=== PATIENT | male | born 1955 | race Caucasian/White ===

== ENCOUNTER 2019-04-03 15:31 | Inpatient (IN) | payer OTHER ==
[~2019-04-03] VITALS: Ht 175.3 cm; Wt 103.2 kg
[2019-04-03] MEDS ORDERED: VANCOMYCIN 1 GM (PMX) 250 ML IVPB STA (16:12)
[2019-04-03] MEDS ORDERED: PIPER-TAZO 3.375 GM IV (PMX) 100 ML IVPB STA (16:12)
[2019-04-03] MEDS ORDERED: morphine 4 MG/ML VIAL IV STA (16:12)
[2019-04-03] MEDS ORDERED: ERGO500013 PO (16:59)
[2019-04-03] MEDS ORDERED: TRAM50TA PO (16:59)
[2019-04-03] MEDS ORDERED: LYR75 PO (17:00)
[2019-04-03] MEDS ORDERED: ASPI-817 PO (17:00)
[2019-04-03] MEDS ORDERED: LEVO25TA6 PO (17:00)
[2019-04-03] MEDS ORDERED: GLIP5TAB13 PO (17:01)
[2019-04-03] MEDS ORDERED: PRAV20TA63 PO (17:01)
[2019-04-03] MEDS ORDERED: METF100010 PO (17:01)
[2019-04-03] MEDS ORDERED: MAGNESIUM HYDROXIDE 30ML CUP PO PRN (18:30)
[2019-04-03] MEDS ORDERED: NACL 0.9% 3 ML SYG IV SCH (18:30)
[2019-04-03] MEDS ORDERED: ALBUTEROL/IPRATROPIUM (NEB) 3 ML AMP HHN PRN (18:30)
[2019-04-03] MEDS ORDERED: hydrALAzine 20 MG INJ IV PRN (18:30)
[2019-04-03] MEDS ORDERED: ONDANSETRON 4 MG INJ IV PRN ×2 (18:30→19:00)
[2019-04-03] MEDS ORDERED: NITROGLYCERIN (SL) 0.4 MG TAB SL PRN (18:30)
[2019-04-03] MEDS ORDERED: HYDROCODONE/APAP (5/325) TAB PO PRN (18:30)
[2019-04-03] MEDS ORDERED: LORAZEPAM 2 MG INJ IV PRN (18:30)
[2019-04-03] MEDS ORDERED: ACETAMINOPHEN 325 MG TAB PO PRN ×2 (18:30→19:00)
[2019-04-03] MEDS ORDERED: VANCOMYCIN IV PER PHARMACY XX SCH (18:30)
[2019-04-03] MEDS ORDERED: DOCUSATE SODIUM 100 MG CAP PO PRN (18:30)
--- NOTE | 2019-04-03 18:47 | ERD ---
ER Documentation Chief Complaint Chief Complaint LEFT TOE PAIN, HX OF DM, SENT BY OSMANI HPI 63-year-old male sent by his bulldozer operator for left foot wound that is worsening. He is having worsening severe pain that he describes as throbbing, 9 out of 10, worse with ambulation. The pain is mostly in the lateral aspect of the left foot but radiates across the foot. No associated fevers or chills. No other associated symptoms. He has had wounds for quite a long time that has been cared for by his bulldozer operator, however now he is having some discoloration that is new. ROS All systems reviewed and are negative except as per history of present illness. Medications Home Meds Reported Medications Metformin Hcl* (Metformin Hcl*) 1,000 Mg Tablet, 1000 MG PO WITH BREAKFAST DINNE, #60 TAB 04/03/19 Glipizide* (Glipizide*) 5 Mg Tablet, 5 MG PO AC BREAKFAST DINNER, TAB 04/03/19 Pravastatin Sodium* (Pravastatin Sodium*) 20 Mg Tablet, 20 MG PO HS, TAB 04/03/19 Aspirin* (Aspirin* EC) 81 Mg Tablet.dr, 81 MG PO DAILY, TAB 04/03/19 Levothyroxine Sodium* (Levothyroxine Sodium*) 25 Mcg Tablet, 25 MCG PO BEFORE BREAKFAST, #30 TAB 04/03/19 Pregabalin* (Lyrica*) 75 Mg Capsule, 75 MG PO TID, CAP 04/03/19 Ergocalciferol (Vitamin D2) (VITAMIN D2) 50,000 Unit Capsule, 67220 UNIT PO Q MON, CAP 04/03/19 Tramadol Hcl* (Ultram*) 50 Mg Tablet, 50 MG PO BID PRN for PAIN, TAB 04/03/19 Allergies Allergies: Coded Allergies: No Known Allergy (Unverified , 04/03/19) PMhx/Soc History of Surgery: No Anesthesia Reaction: No Hx Neurological Disorder: No Hx Respiratory Disorders: No Hx Cardiac Disorders: No Hx Psychiatric Problems: No Hx Miscellaneous Medical Probl: Yes (Diabetes, chronic ulcers of the left foot) Hx Alcohol Use: No Hx Substance Use: No Hx Tobacco Use: No Smoking Status: Never smoker FmHx Family History: diabetes Physical Exam Vitals Vital Signs Date Temp Pulse Resp B/P (MAP) Pulse Ox O2 O2 Flow FiO2 Time Delivery Rate 04/03/19 75 18 156/84 99 Room Air 18:27 (108) 04/03/19 97.8 87 23 158/80 98 Room Air 16:11 (106) 04/03/19 97.5 82 18 160/73 98 15:48 (102) Physical Exam Const: No acute distress, nontoxic Head: Atraumatic Eyes: Normal Conjunctiva ENT: Normal External Ears, Nose and Mouth. Neck: Full range of motion. No meningismus. Resp: Clear to auscultation bilaterally Cardio: Regular rate and rhythm, no murmurs Abd: Soft, non tender, non distended. Normal bowel sounds Skin: No petechiae or rashes Back: No midline or flank tenderness Ext: Ulcer of the distal big left toe as well as lateral fifth toe. Around the latter wound, there is some darkening and surrounding erythema. Nails are intact. Difficult to palpate DP and PT pulses bilaterally. Neur: Awake and alert, normal range of motion of bilateral lower extremities at all joints. No joint swelling. Normal dorsi and plantar flexion. Psych: Normal Mood and Affect Result Diagram: 04/03/19 1641 04/03/19 1638 Results 24 hrs Laboratory Tests Test 04/03/19 16:38 04/03/19 16:41 Erythrocyte Sedimentation Rate 15 mm/Hr Prothrombin Time 11.6 Sec Prothrombin Time Ratio 0.9 INR International Normalized Ratio 0.84 Activated Partial Thromboplast Time 33.1 Sec Sodium Level 139 mmol/L Potassium Level 4.3 mmol/L Chloride Level 103 mmol/L Carbon Dioxide Level 26 mmol/L Anion Gap 10 Blood Urea Nitrogen 27 mg/dl Creatinine 0.92 mg/dl Est Glomerular Filtrat Rate mL/min > 60 mL/min Glucose Level 235 mg/dl Calcium Level 9.0 mg/dl Total Bilirubin 0.3 mg/dl Direct Bilirubin 0.00 mg/dl Indirect Bilirubin 0.3 mg/dl Aspartate Amino Transf (AST/SGOT) 22 IU/L Alanine Aminotransferase (ALT/SGPT) 25 IU/L Alkaline Phosphatase 71 IU/L C-Reactive Protein 1.1 mg/dl Total Protein 7.6 g/dl Albumin 4.2 g/dl Globulin 3.40 g/dl Albumin/Globulin Ratio 1.23 White Blood Count 7.6 10^3/ul Red Blood Count 4.83 10^6/ul Hemoglobin 14.0 g/dl Hematocrit 43.2 % Mean Corpuscular Volume 89.4 fl Mean Corpuscular Hemoglobin 29.0 pg Mean Corpuscular Hemoglobin Concent 32.4 g/dl Red Cell Distribution Width 12.6 % Platelet Count 259 10^3/UL Mean Platelet Volume 11.6 fl Immature Granulocytes % 0.300 % Neutrophils % 73.4 % Lymphocytes % 17.0 % Monocytes % 7.6 % Eosinophils % 1.2 % Basophils % 0.5 % Nucleated Red Blood Cells % 0.0 /100WBC Immature Granulocytes # 0.020 10^3/ul Neutrophils # 5.6 10^3/ul Lymphocytes # 1.3 10^3/ul Monocytes # 0.6 10^3/ul Eosinophils # 0.1 10^3/ul Basophils # 0.0 10^3/ul Nucleated Red Blood Cells # 0.0 10^3/ul Current Medications Medications Dose Sig/Latoya Start Time Status Last (Trade) Ordered Route PRN Stop Time Admin Dose Reason Admin Morphine 4 mg ONCE STAT 04/03/19 DC 04/03/19 Sulfate IV 16:12 16:41 (morphine) 04/03/19 16:15 Vancomycin 250 ml @ ONCE STAT 04/03/19 DC 04/03/19 HCl 125 mls/hr IVPB 16:12 17:08 04/03/19 18:11 Piperacillin 100 ml @ ONCE STAT 04/03/19 DC 04/03/19 Sod/ 200 mls/hr IVPB 16:12 16:41 Tazobactam 04/03/19 16:41 Sod IV Flush 3 ml PER 04/03/19 UNV (NS 3 ml) PROTOCOL IV 18:30 Ondansetron 4 mg Q6H PRN 04/03/19 UNV HCl (Zofran IV 18:30 Inj) NAUSEA/VOMITI NG 650 mg Q6H PRN 04/03/19 UNV Acetaminophen PO .PAIN 1-3 18:30 (Tylenol OR TEMP Tab) 1 tab Q6H PRN 04/03/19 UNV Acetaminophen PO .MOD PAIN 18:30 / 4-6 Hydrocodone Bitart ([place] (5/325)) Morphine 2 mg Q4H PRN 04/03/19 UNV Sulfate IV .SEVERE 18:30 (morphine) PAIN 7-10 Docusate 100 mg Q12H PRN 04/03/19 UNV Sodium PO 18:30 (Colace) .CONSTIPATION Magnesium 30 ml DAILY PRN 04/03/19 UNV Hydroxide PO 18:30 (Milk Of Mag) .CONSTIPATION 40 mg DAILY@06 04/04/19 UNV Pantoprazole PO 06:00 (Protonix Tab) Heparin 5,000 unit Q12 SC 04/03/19 UNV Sodium 21:00 (Porcine) (Heparin (5000 Units/1ml)) Sodium 1,000 ml @ [id number] IV 04/03/19 UNV Chloride 75 mls/hr 18:27 Lorazepam 0.5 mg Q6H PRN 04/03/19 UNV (Ativan) IV ANXIETY 18:30 Albuterol/ 3 ml Q4H RESP 04/03/19 UNV Ipratropium THERAPY PRN 18:30 (Duoneb) HHN SHORTNESS OF BREATH Piperacillin 100 ml @ Q6 IVPB 04/04/19 UNV Sod/ 200 mls/hr 00:00 Tazobactam Sod Vancomycin VANCOMYCIN NOTE XX 04/03/19 UNV HCl (Vanco PER PHARMACY 18:30 Iv Per Pharmacy) Hydralazine 10 mg Q6H PRN 04/03/19 UNV HCl IV ELEVATED 18:30 (Apresoline) BLOOD PRESSURE 1 tab Q5M PRN 04/03/19 UNV Nitroglycerin SL ANGINA 18:30 (Nitroglyceri n (Sl Tab) 0.4 Mg) Discontinue ONCE ONCE 04/03/19 UNV Miscellaneous current oral XX 18:30 sulfonylur... 04/03/19 18:31 Information (* Miscellaneous Pharmacy Order) Diagnostic 1 ea 02 XX 04/04/19 UNV Test (Pha) 02:00 (Accu-Chek) ONCE ONCE 04/03/19 UNV Miscellaneous HYPOGLYCEMIA XX 18:30 PROTOCOL 04/03/19 18:31 Information w... (* Miscellaneous Pharmacy Order) Insulin NOVOLOG Q4 SC 04/03/19 UNV Aspart *MILD* 21:00 (Novolog ALGORI... Insulin Pen) Discontinue ONCE ONCE 04/03/19 UNV Miscellaneous all previ... XX 18:30 04/03/19 18:31 Information (* Miscellaneous Pharmacy Order) 25 mcg BEFORE 04/04/19 UNV Levothyroxine BREAKFAST 07:00 Sodium PO (Synthroid) Pregabalin 75 mg TID PO 04/03/19 UNV (Lyrica) 21:00 20 mg HS PO 04/03/19 UNV Miscellaneous 21:00 Information Ondansetron 4 mg BRIDGE ORDER 04/03/19 HCl (Zofran PRN IV 19:00 Inj) NAUSEA/VOMITI 04/04/19 18:59 NG 650 mg ER BRIDGE 04/03/19 Acetaminophen PRN PO 19:00 (Tylenol .MILD PAIN 04/04/19 18:59 Tab) 1-3 OR TEMP Procedures/MDM EMERGENT LABS AND DIAGNOSTIC STUDIES: Lab Results above were reviewed and interpreted by me. CBC: no anemia or evidence of infection BMP: Hyperglycemic without evidence of acidosis. no e/o clinically significant electrolyte abnormality severe acidosis, alkalosis, renal failure, diabetic ketoacidosis Radiology Results as interpreted by Radiology below were reviewed by Armen Michael MD: X-ray left foot shows no acute abnormalities Arterial ultrasound left lower extremity shows disease in arteries Initial Nursing notes reviewed. Previous Medical Records requested via the Electronic Health Record. EMERGENCY DEPARTMENT COURSE / MEDICAL DECISION MAKING: Patient is presenting with worsening pain in the left foot associated with his ulcers. He has no signs or symptoms of sepsis. Labs are notable for hyperglycemia and poorly controlled diabetes. There is a concern of possible cellulitis and osteomyelitis. At this time, there is no evidence of ischemic limb. X-ray did not show any bony involvement. However the patient will likely need an MRI per his bulldozer operator. Patient has been started on IV antibiotics and will be admitted for further work-up for osteomyelitis. Accepting Care Team: Current data and ongoing care discussed. Time: Time of admission Primary Provider: Dr. Jimenez Consulting: Dr. OSMANI Noyola Outstanding Data: none Departure Diagnosis: Primary Impression: Infected ulcer of skin Non-pressure ulcer stage: limited to breakdown of skin Qualified Codes: L98.491 - Non-pressure chronic ulcer of skin of other sites limited to breakdown of skin; L08.9 - Local infection of the skin and subcutaneous tissue, unspecified Additional Impression: Foot pain, left Condition: Fair YAQUELIN MICHAEL MD April 03, 2019 18:47
--- NOTE | 2019-04-03 19:48 | HP ---
DATE OF ADMISSION: 04/03/2019 IDENTIFICATION: This is a 63-year-old male. CHIEF COMPLAINT: Left foot and toe pain, sent in by parks and recreation managerdesire. HISTORY OF PRESENT ILLNESS: A 63-year-old male with past medical history of prior right foot surgery and diabetes who has been complaining of left foot pain off and on for the last 3 months, getting sl ightly worse. He has also had radiculopathy in and around the left lower extremity. He has been not icing some drainage from the foot area and noticed ulcers on the 1st and 5th digits of the left foot that have not been healing over the last few weeks. No fevers or chills. No chest pain. No shortne ss of breath. No upper or lower GI bleeding. No diarrhea or constipation. No nausea or vomiting. Apparently his parks and recreation manager has been seeing him for quite some time caring for his wounds, but they hav e been getting worse, so he was told to come in to the ER today. When he arrived, he was found with normal white blood cell count and no fevers and an x-ray was performed that showed no radiographic ev idence of osteomyelitis, but MRI may be obtained if there is specific concern for osteomyelitis. The re are also degenerative changes as above and vascular calcifications. PAST MEDICAL HISTORY: As above. ALLERGIES: NO KNOWN DRUG ALLERGIES. HOME MEDICATIONS: 1. Pravastatin 20 mg at bedtime. 2. Aspirin 81 mg daily. 3. Lyrica 75 mg t.i.d. 4. Ultram 50 mg p.o. b.i.d. p.r.n. 5. Glipizide 5 mg b.i.d. 6. Levothyroxine 25 mcg every morning. 7. Metformin 1000 mg b.i.d. 8. Vitamin D2 50,000 units q. weekly. PAST SURGICAL HISTORY: He has had a right foot surgery in the past, some kind of stomach surgery in the past and a right arm surgery in the past. SOCIAL HISTORY: Negative for smoking or drinking, or IV drug abuse. FAMILY HISTORY: Positive for diabetes. PHYSICAL EXAMINATION: VITAL SIGNS: Today, T-max 97.8, pulse 75 to 87, respirations 18 to 23, blood pressure is 156 to 160 systolic over 84 to 73 diastolic, satting at 98% room air. GENERAL: The patient is lying in bed, family members at the bedside. No acute distress. HEENT: Pupils are equal, round, reactive to light. Extraocular muscles intact. NECK: Supple, no thyromegaly. LUNGS: Clear to auscultation bilaterally. CARDIOVASCULAR: S1, S2 heard. No rubs or gallops. ABDOMEN: Soft, nontender, nondistended. Normal bowel sounds. No rebound or guarding. MUSCULOSKELETAL: Left foot 1st digit, there is ulcer noted there as well as on the fifth digit. The re is some darkening and surrounding erythema around both ulcers. There is no significant discharge noted. No bleeding noted. There is some dorsalis pedis and posterior tibial pulses are slightly wea k. The rest of the musculoskeletal exam is normal. NEUROLOGIC: No focal deficits. LABORATORIES: CBC is completely normal. Basic metabolic panel is normal except the BUN is 27 and th e serum sugar is 235. Coags are normal. We mentioned the imaging studies. ASSESSMENT AND PLAN: A 63-year-old male coming in with worsening left foot pain and ulcers noted on the 1st and 5th digits of the left foot, sent in by parks and recreation manager. 1. Left foot diabetic ulcers. Again, we will admit the patient, put him on broad-spectrum antibioti cs. We will get an MRI of the foot to further evaluate and rule out any ulcer versus other potential lesions inside the foot as far as infections or other. We will consult podiatry team as well, Dr. Sai dwyer. Check TSH, A1c, lipid panel. Low dose IV fluids. Consider PT consult as well. 2. Diabetes. Follow up A1c. Put patient on sliding scale insulin. 3. Left foot pain, see above. Also, continue patient's Lyrica for what looks like possible diabetic radiculopathy and also be on Wayan and morphine p.r.n. 4. Gastrointestinal prophylaxis, PPI. 5. Deep venous thrombosis prophylaxis, heparin subcutaneously. Dictated By: RIP PORRAS Conf#: [id number] DID#: [id number]
[2019-04-03] MEDS ORDERED: GLUCAGON 1 MG INJ IM PRN (21:30)
[2019-04-03] MEDS ORDERED: GLUCOSE GEL 15 GRAM TUBE PO PRN ×2 (21:30)
[2019-04-03] MEDS ORDERED: GLUCOSE GEL 15 GRAM TUBE BUCCAL PRN (21:30)
[2019-04-03] MEDS ORDERED: DEXTROSE 50% 50 ML SYRINGE IV PRN ×2 (21:30)
[2019-04-03 22:53] VITALS: BP 175/89; PULSE 80; RESP 18
[2019-04-03 23:03] VITALS: Ht 175.3 cm; Wt 103.2 kg
[2019-04-04] MEDS: morphine 2 MG INJ IV PRN ×3 (00:45→20:51)
[2019-04-04] MEDS: PIPER-TAZO 3.375 GM IV (PMX) 100 ML IVPB SCH ×3 (00:48→13:22)
[2019-04-04] MEDS: PREGABALIN 75 MG CAP PO SCH ×4 (00:50→20:44)
[2019-04-04] MEDS: SOD CHLORIDE 0.45% 1,000 ML IV SCH ×3 (00:50→23:31)
[2019-04-04] MEDS: ATORVASTATIN 10 MG TAB PO SCH ×2 (00:50→20:44)
[2019-04-04] MEDS: HEPARIN 5,000 UNIT/1 ML VIAL SC SCH ×3 (00:50→20:46)
[2019-04-04] MEDS: INSULIN ASPART [NOVOLOG] 3 ML PEN SC SCH ×3 (01:00→08:44)
[2019-04-04] MEDS: ACCU-CHEK XX SCH (01:01)
[2019-04-04 01:30] VITALS: BP 139/78; PULSE 79; RESP 18
[2019-04-04] MEDS: VANCOMYCIN HCL 1.5 GM in SOD CHLORIDE 0.9% 250 ML IVPB SCH ×2 (01:58→15:50)
[2019-04-04] MEDS: LEVOTHYROXINE 25 MCG TAB PO SCH (06:28)
[2019-04-04] MEDS: PANTOPRAZOLE (EC) 40 MG TAB PO SCH (06:28)
[2019-04-04 07:42] VITALS: BP 149/82; PULSE 85; RESP 16
[2019-04-04] MEDS: COLLAGENASE 5 GM (UD JAR) TOP SCH (08:31)
--- NOTE | 2019-04-04 11:47 | PN ---
Date/Time of Note Date/Time of Note DATE: 04/04/19 TIME: 11:42 Assessment/Plan VTE Prophylaxis Risk score (from Ns)>0 risk: 3 SCD applied (from Ns): No SCD contraindicated: other Pharmacological prophylaxis: heparin Lines/Catheters IV C[facility]ter Type (from [facility] Peripheral IV Assessment/Plan Hospital Course S: O: VS- see below PE: GENERAL: lying in bed, no acute distress. HEENT: Pupils are equal, round, reactive to light. Extraocular muscles intact. NECK: Supple, no thyromegaly. LUNGS: Clear to auscultation bilaterally. CARDIOVASCULAR: S1, S2 heard. No rubs or gallops. ABDOMEN: Soft, nontender, nondistended. Normal bowel sounds. No rebound or guarding. MUSCULOSKELETAL: Left foot 1st digit, there is ulcer noted there as well as on the fifth digit. There is some darkening and surrounding erythema around both ulcers. There is no significant discharge noted. No bleeding noted. There is some dorsalis pedis and posterior tibial pulses are slightly weak. The rest of the musculoskeletal exam is normal. NEUROLOGIC: No focal deficits. MRI left foot: IMPRESSION: 1. Mild marrow edema and mild T1 marrow replacement of the first distal phalanx and fifth toe may be reactive or reflect early/mild osteomyelitis. Left lower extremity arterial Doppler study: IMPRESSION: Mildly elevated peak systolic velocities in the distal superficial femoral and popliteal arteries, suggestive of 25-50% stenoses. Monophasic waveforms in the posterior tibial and dorsalis pedis arteries, indicative of inflow disease due to upstream stenosis. ASSESSMENT AND PLAN: 63-year-old male coming in with worsening left foot pain and ulcers noted on the 1st and 5th digits of the left foot, sent in by dialysis chief equipment technician. 1. Left foot diabetic ulcers-MRI and arterial Doppler study results reviewed. -Continue broad-spectrum antibiotics -patient will likely need 6 to 8 weeks of IV antibiotics given MRI results -We will order for PICC placement and obtain ID consult -Follow further recommendations from consult podiatry team as well, Dr. Orozco. -Continue low dose IV fluids. Consider PT consult as well. 2. Diabetes. A1c-6.9. -Monitor, continue sliding scale insulin. 3. Left foot pain- see above. - continue patient's Lyrica for what looks like possible diabetic ra diculopathy and also [place] and morphine p.r.n. 4. Gastrointestinal prophylaxis, PPI. 5. Deep venous thrombosis prophylaxis, heparin subcutaneously. Result Diagram: 04/04/19 0459 04/04/19 0459 Results 24hrs Laboratory Tests Test 04/03/19 16:38 04/03/19 16:41 04/03/19 20:18 04/03/19 22:16 Erythrocyte 15 Sedimentation Rate Prothrombin Time 11.6 L 11.7 L Prothrombin Time 0.9 0.9 Ratio INR International 0.84 0.85 Normalized Ratio Activated 33.1 31.0 Partial Thromboplast Time Sodium Level 139 Potassium Level 4.3 Chloride Level 103 Carbon Dioxide Level 26 Anion Gap 10 Blood Urea Nitrogen 27 H Creatinine 0.92 Est Glomerular > 60 Filtrat Rate mL/min Glucose Level 235 H Calcium Level 9.0 Total Bilirubin 0.3 Direct Bilirubin 0.00 Indirect Bilirubin 0.3 Aspartate Amino 22 Transf (AST/SGOT) Alanine 25 Aminotransferase (AL T/SGPT) Alkaline Phosphatase 71 C-Reactive Protein 1.1 H Total Protein 7.6 Albumin 4.2 Globulin 3.40 H Albumin/Globulin 1.23 Ratio Free Thyroxine 1.16 White Blood Count 7.6 Red Blood Count 4.83 Hemoglobin 14.0 Hematocrit 43.2 Mean Corpuscular 89.4 Volume Mean Corpuscular 29.0 Hemoglobin Mean Corpuscular 32.4 Hemoglobin Concent Red Cell 12.6 Distribution Width Platelet Count 259 Mean Platelet Volume 11.6 H Immature 0.300 Granulocytes % Neutrophils % 73.4 Lymphocytes % 17.0 Monocytes % 7.6 Eosinophils % 1.2 Basophils % 0.5 Nucleated Red Blood 0.0 Cells % Immature 0.020 Granulocytes # Neutrophils # 5.6 Lymphocytes # 1.3 Monocytes # 0.6 Eosinophils # 0.1 Basophils # 0.0 Nucleated Red Blood 0.0 Cells # Bedside Glucose 190 Test 04/04/19 01:00 04/04/19 04:54 04/04/19 04:59 04/04/19 08:44 Bedside Glucose 102 77 90 White Blood Count 7.2 Red Blood Count 4.47 L Hemoglobin 13.1 L Hematocrit 39.6 L Mean Corpuscular 88.6 Volume Mean Corpuscular 29.3 Hemoglobin Mean Corpuscular 33.1 Hemoglobin Concent Red Cell 12.4 Distribution Width Platelet Count 253 Mean Platelet Volume 11.5 H Immature 0.300 Granulocytes % Neutrophils % 64.3 Lymphocytes % 23.2 Monocytes % 10.0 Eosinophils % 1.5 Basophils % 0.7 Nucleated Red Blood 0.0 Cells % Immature 0.020 Granulocytes # Neutrophils # 4.6 Lymphocytes # 1.7 Monocytes # 0.7 Eosinophils # 0.1 Basophils # 0.1 Nucleated Red Blood 0.0 Cells # Sodium Level 139 Potassium Level 3.9 Chloride Level 107 Carbon Dioxide Level 26 Anion Gap 6 Blood Urea Nitrogen 22 H Creatinine 0.81 Est Glomerular > 60 Filtrat Rate mL/min Glucose Level 83 # Hemoglobin A1c 6.9 H Calcium Level 9.1 Phosphorus Level 2.8 Magnesium Level 1.9 Triglycerides Level 53 Cholesterol Level 115 LDL Cholesterol, 63 Calculated HDL Cholesterol 41 Cholesterol/HDL 2.8 Ratio Thyroid Stimulating 4.290 Hormone (TSH) Exam/Review of Systems Exam Vitals Vital Signs Date Temp Pulse Resp B/P (MAP) Pulse Ox O2 O2 Flow FiO2 Time Delivery Rate 04/04/19 98.5 85 16 149/82 97 07:42 (104) 04/03/19 Room Air 21:05 Intake and Output 04/03/19 04/03/19 04/04/19 1515:00 23:00 07:00 IntakeIntake Total 550 ml BalanceBalance 550 ml Results Results 24hrs Laboratory Tests Test 04/03/19 16:38 04/03/19 16:41 04/03/19 20:18 04/03/19 22:16 Erythrocyte 15 Sedimentation Rate Prothrombin Time 11.6 L 11.7 L Prothrombin Time 0.9 0.9 Ratio INR International 0.84 0.85 Normalized Ratio Activated 33.1 31.0 Partial Thromboplast Time Sodium Level 139 Potassium Level 4.3 Chloride Level 103 Carbon Dioxide Level 26 Anion Gap 10 Blood Urea Nitrogen 27 H Creatinine 0.92 Est Glomerular > 60 Filtrat Rate mL/min Glucose Level 235 H Calcium Level 9.0 Total Bilirubin 0.3 Direct Bilirubin 0.00 Indirect Bilirubin 0.3 Aspartate Amino 22 Transf (AST/SGOT) Alanine 25 Aminotransferase (AL T/SGPT) Alkaline Phosphatase 71 C-Reactive Protein 1.1 H Total Protein 7.6 Albumin 4.2 Globulin 3.40 H Albumin/Globulin 1.23 Ratio Free Thyroxine 1.16 White Blood Count 7.6 Red Blood Count 4.83 Hemoglobin 14.0 Hematocrit 43.2 Mean Corpuscular 89.4 Volume Mean Corpuscular 29.0 Hemoglobin Mean Corpuscular 32.4 Hemoglobin Concent Red Cell 12.6 Distribution Width Platelet Count 259 Mean Platelet Volume 11.6 H Immature 0.300 Granulocytes % Neutrophils % 73.4 Lymphocytes % 17.0 Monocytes % 7.6 Eosinophils % 1.2 Basophils % 0.5 Nucleated Red Blood 0.0 Cells % Immature 0.020 Granulocytes # Neutrophils # 5.6 Lymphocytes # 1.3 Monocytes # 0.6 Eosinophils # 0.1 Basophils # 0.0 Nucleated Red Blood 0.0 Cells # Bedside Glucose 190 Test 04/04/19 01:00 04/04/19 04:54 04/04/19 04:59 04/04/19 08:44 Bedside Glucose 102 77 90 White Blood Count 7.2 Red Blood Count 4.47 L Hemoglobin 13.1 L Hematocrit 39.6 L Mean Corpuscular 88.6 Volume Mean Corpuscular 29.3 Hemoglobin Mean Corpuscular 33.1 Hemoglobin Concent Red Cell 12.4 Distribution Width Platelet Count 253 Mean Platelet Volume 11.5 H Immature 0.300 Granulocytes % Neutrophils % 64.3 Lymphocytes % 23.2 Monocytes % 10.0 Eosinophils % 1.5 Basophils % 0.7 Nucleated Red Blood 0.0 Cells % Immature 0.020 Granulocytes # Neutrophils # 4.6 Lymphocytes # 1.7 Monocytes # 0.7 Eosinophils # 0.1 Basophils # 0.1 Nucleated Red Blood 0.0 Cells # Sodium Level 139 Potassium Level 3.9 Chloride Level 107 Carbon Dioxide Level 26 Anion Gap 6 Blood Urea Nitrogen 22 H Creatinine 0.81 Est Glomerular > 60 Filtrat Rate mL/min Glucose Level 83 # Hemoglobin A1c 6.9 H Calcium Level 9.1 Phosphorus Level 2.8 Magnesium Level 1.9 Triglycerides Level 53 Cholesterol Level 115 LDL Cholesterol, 63 Calculated HDL Cholesterol 41 Cholesterol/HDL 2.8 Ratio Thyroid Stimulating 4.290 Hormone (TSH) Medications Medication Current Medications IV Flush (NS 3 ml) 3 ml PER PROTOCOL IV ; Start 04/03/19 at 18:30 Ondansetron HCl (Zofran Inj) 4 mg Q6H PRN IV NAUSEA/VOMITING; Start 04/03/19 at 18:30 Acetaminophen (Tylenol Tab) 650 mg Q6H PRN PO .PAIN 1-3 OR TEMP; Start 04/03/19 at 18:30 Acetaminophen/ Hydrocodone Bitart ([place] (5/325)) 1 tab Q6H PRN PO .MOD PAIN 4- 6; Start 04/03/19 at 18:30 Morphine Sulfate (morphine) 2 mg Q4H PRN IV .SEVERE PAIN 7-10 Last administered on 04/04/19at 08:39; Admin Dose 2 MG; Start 04/03/19 at 18:30 Docusate Sodium (Colace) 100 mg Q12H PRN PO .CONSTIPATION; Start 04/03/19 at 18:30 Magnesium Hydroxide (Milk Of Mag) 30 ml DAILY PRN PO .CONSTIPATION; Start 04/03/19 at 18:30 Pantoprazole (Protonix Tab) 40 mg DAILY@06 PO Last administered on 04/04/19at 06:28; Admin Dose 40 MG; Start 04/04/19 at 06:00 Heparin Sodium (Porcine) (Heparin (5000 Units/1ml)) 5,000 unit Q12 SC Last administered on 04/04/19at 08:32; Admin Dose 5,000 UNIT; Start 04/03/19 at 21:00 Sodium Chloride 1,000 ml @ 75 mls/hr [id number] IV Last administered on 04/04/19at 00:50; Admin Dose 75 MLS/HR; Start 04/03/19 at 23:00 Lorazepam (Ativan) 0.5 mg Q6H PRN IV ANXIETY; Start 04/03/19 at 18:30 Albuterol/ Ipratropium (Duoneb) 3 ml Q4H RESP THERAPY PRN HHN SHORTNESS OF BREATH; Start 04/03/19 at 18:30 Piperacillin Sod/ Tazobactam Sod 100 ml @ 200 mls/hr Q6 IVPB Last administered on 04/04/19at 06:29; Admin Dose 200 MLS/HR; Start 04/04/19 at 00:00 Vancomycin HCl (Vanco Iv Per Pharmacy) VANCOMYCIN PER PHARMACY NOTE XX ; Start 04/03/19 at 18:30 Hydralazine HCl (Apresoline) 10 mg Q6H PRN IV ELEVATED BLOOD PRESSURE; Start 04/03/19 at 18:30 Nitroglycerin (Nitroglycerin (Sl Tab) 0.4 Mg) 1 tab Q5M PRN SL ANGINA; Start 04/03/19 at 18:30 Diagnostic Test (Pha) (Accu-Chek) 1 ea 02 XX ; Start 04/04/19 at 02:00 Insulin Aspart (Novolog Insulin Pen) NOVOLOG *MILD* ALGORI... Q4 SC ; Start 04/04/19 at 01:00 Levothyroxine Sodium (Synthroid) 25 mcg BEFORE BREAKFAST PO Last administered on 04/04/19at 06:28; Admin Dose 25 MCG; Start 04/04/19 at 07:00 Pregabalin (Lyrica) 75 mg TID PO Last administered on 04/04/19at 08:31; Admin Dose 75 MG; Start 04/03/19 at 21:00 Atorvastatin Calcium (Lipitor) 10 mg DAILY@21 PO ; Start 04/03/19 at 23:00 Miscellaneous Information 1 ea NOTE XX ; Start 04/03/19 at 21:30 Glucose (Glutose) 15 gm Q15M PRN PO DECREASED GLUCOSE; Start 04/03/19 at 21:30 Glucose (Glutose) 22.5 gm Q15M PRN PO DECREASED GLUCOSE; Start 04/03/19 at 21:30 Dextrose (D50w Syringe) 25 ml Q15M PRN IV DECREASED GLUCOSE; Start 04/03/19 at 21:30 Dextrose (D50w Syringe) 50 ml Q15M PRN IV DECREASED GLUCOSE; Start 04/03/19 at 21:30 Glucagon (Glucagen) 1 mg Q15M PRN IM DECREASED GLUCOSE; Start 04/03/19 at 21:30 Glucose (Glutose) 15 gm Q15M PRN BUCCAL DECREASED GLUCOSE; Start 04/03/19 at 21:30 Vancomycin HCl 1.5 gm/Sodium Chloride 250 ml @ 83.333 mls/ hr Q12H IVPB Last administered on 04/04/19at 01:58; Admin Dose 83.333 MLS/HR; Start 04/04/19 at 01:00 Collagenase (Santyl) 1 applic DAILY TOP Last administered on 04/04/19at 08:31; Admin Dose 1 APPLIC; Start 04/04/19 at 09:00 RIP ISRAEL April 04, 2019 11:47
[2019-04-04] MEDS ORDERED: LIDOCAINE 1% (MPF) 5 ML VIAL SC ONE (12:00)
[2019-04-04] MEDS ORDERED: INSULIN ASPART [NOVOLOG] 3 ML PEN SC SCH ×2 (13:00)
[2019-04-04] MEDS: Insulin NOVOLOG SS MILD Algorithm (SS with meals and bedtime) SC SCH ×3 (13:00→20:46)
[2019-04-04 13:50] VITALS: BP 161/84; PULSE 80; RESP 16
[2019-04-04] MEDS: CEFTRIAXONE 1 GM/50 ML (PMX) 50 ML IVPB SCH (16:22)
--- NOTE | 2019-04-04 19:45 | CONS ---
DATE OF ADMISSION: 04/04/2019 DATE OF CONSULTATION: 04/04/2019 REQUESTING PHYSICIAN: Dr. Rip Israel HISTORY OF PRESENT ILLNESS: This is a well-nourished, well-developed, elderly man with a history of diabetes, who was admitted with ongoing left foot pain for the last 3 months with a concern for osteomyelitis. The patient came with a temperature of 97.5, pulse 82, respirations 18, blood pressure 160/73, saturation 98% on room air; WBC 7.6, platelets 259, no shift, no bands; BUN 27, creatinine 0.92, glucose 235; C-reactive protein was 1.1, hemoglobin A1c 6.9. MRI of the foot revealed mild marrow edema and mild T1 marrow replacement over the 1st distal phalanx and 5th toe, maybe reactive or reflect only slight mild osteomyelitis. Extremity arterial study revealed 25% to 50% stenosis. Please see full report in the chart. THE PATIENT HAS NO ALLERGIES. He was started on vancomycin and Zosyn. PAST MEDICAL HISTORY: Significant for diabetes, hypothyroidism. SOCIAL HISTORY: The patient denies smoking, alcohol or illicits. REVIEW OF SYSTEMS: As per History of Present Illness. No fevers, chills, nausea, vomiting or diarrhea at home. PHYSICAL EXAMINATION: GENERAL: This is a well-nourished, well-developed, elderly man who is awake, in no distress. HEENT: Head atraumatic, normocephalic. Sclerae anicteric. NECK: Supple. CHEST: Rise symmetrical. Breath sounds clear. HEART: S1, S2. ABDOMEN: Soft. Bowel sounds present. EXTREMITIES: Left foot has dry wounds on the sole. No drainage and no erythema. DIAGNOSTIC IMPRESSION: A 63-year-old man with a history of diabetes, admitted with ongoing left foot pain with concern for early osteomyelitis. PLAN: The patient is being seen by Podiatry and we will await for his review of actual film of MRI. Meanwhile, we will keep him on vancomycin, change Zosyn to Rocephin. If patient does have a osteomyelitis, he will need to complete 4 to 6 weeks of IV antibiotics, depends on the extent of osteomyelitis and podiatry recommendations. Discussed with Dr. Valencia who is covering Dr. Merlos. Dictated By: OUMAR YATES [employer]ARN[employer]/NTS Conf#: [id number] DID#: [id number] CC: RIP ISRAEL;*FranCC* MTDD
[2019-04-04 19:54] VITALS: BP 151/79; PULSE 71; RESP 18
[2019-04-05] MEDS: SOD CHLORIDE 0.45% 1,000 ML IV SCH ×2 (01:08→15:00)
[2019-04-05] MEDS: VANCOMYCIN HCL 1.5 GM in SOD CHLORIDE 0.9% 250 ML IVPB SCH ×2 (01:20→13:49)
[2019-04-05] MEDS: ACCU-CHEK XX SCH (01:20)
[2019-04-05 02:00] VITALS: BP 141/67; PULSE 76; RESP 17
[2019-04-05] MEDS: LEVOTHYROXINE 25 MCG TAB PO SCH (06:13)
[2019-04-05] MEDS: PANTOPRAZOLE (EC) 40 MG TAB PO SCH (06:13)
[2019-04-05] MEDS ORDERED: COLLAGENASE 5 GM (UD JAR) TOP ONE (07:00)
[2019-04-05] MEDS: PREGABALIN 75 MG CAP PO SCH ×2 (08:00→13:49)
[2019-04-05] MEDS: HEPARIN 5,000 UNIT/1 ML VIAL SC SCH (08:05)
[2019-04-05] MEDS: Insulin NOVOLOG SS MILD Algorithm (SS with meals and bedtime) SC SCH ×3 (08:05→17:28)
[2019-04-05] MEDS: COLLAGENASE 5 GM (UD JAR) TOP SCH (08:06)
[2019-04-05 08:07] VITALS: BP 144/76; PULSE 69; RESP 18
--- NOTE | 2019-04-05 12:05 | PDOCDIS ---
Discharge Instructions CONDITION [id number] Patient Condition: [id number] Stable HOME CARE INSTRUCTIONS: [id number] Diet Instructions: [id number] Low Fat /Cholesterol ACTIVITY: [id number] Activity Restrictions: [id number] Slowly Increase Activity Rest between Activity Avoid heavy lifting FOLLOW UP/APPOINTMENTS Follow-up Plan Please take your medications as prescribed, see your doctor in the clinic in the next 1 to 2 weeks. RIP ISRAEL April 05, 2019 12:05
--- NOTE | 2019-04-05 12:12 | DS ---
Date/Time of Note Date/Time of Note DATE: 04/05/19 TIME: 12:07 Discharge Summary Admission/Discharge Info Admit Date/Time April 04, 2019 at 01:22 Discharge Date/Time Discharge Diagnosis 1. Left foot diabetic ulcers-MRI and arterial Doppler study results reviewed-on broad-spectrum antibiotics for 6 weeks now per podiatry recommendations 2. Diabetes. A1c-6.9. 3. Left foot pain- see above. Patient Condition: Stable Procedures MRI left foot: IMPRESSION: 1. Mild marrow edema and mild T1 marrow replacement of the first distal phalanx and fifth toe may be reactive or reflect early/mild osteomyelitis. Left lower extremity arterial Doppler study: IMPRESSION: Mildly elevated peak systolic velocities in the distal superficial femoral and popliteal arteries, suggestive of 25-50% stenoses. Monophasic waveforms in the posterior tibial and dorsalis pedis arteries, indicative of inflow disease due to upstream stenosis. Hx of Present Illness 63-year-old male with past medical history of prior right foot surgery and diabetes who has been complaining of left foot pain off and on for the last 3 months, getting slightly worse. He has also had radiculopathy in and around the left lower extremity. He has been noticing some drainage from the foot area and noticed ulcers on the 1st and 5th digits of the left foot that have not been healing over the last few weeks. No fevers or chills. No chest pain. No shortness of breath. No upper or lower GI bleeding. No diarrhea or constipation. No nausea or vomiting. 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 When he arrived, he was found with normal white blood cell count and no fevers and an x-ray was performed that showed no radiographic evidence of osteomyelitis, but MRI may be obtained if there is specific concern for osteomyelitis. There are also degenerative changes as above and vascular calcifications. Hospital Course Patient was admitted and had the imaging studies performed on the foot mentioned above, MRI and arterial Doppler study. Patient was placed on broad-spectrum antibiotics. Wound culture results were taken as well and those results are still pending. Patient's labs remained stable. He will get P ICC placement today and given the findings of early osteomyelitis, per recognitions from podiatry team patient will need 6 weeks of IV antibiotics. Once we set this up for home use along with home health nursing, after clearance is given by the beauty consultant teams patient will be discharged home today with those appropriate antibiotics and home nursing needs in improved condition. See below for full list of discharge medications. This will include Rocephin antibiotic and vancomycin antibiotic IV for 6 weeks both ending on May 16, 2019. Home Meds Reported Medications Metformin Hcl* (Metformin Hcl*) 1,000 Mg Tablet, 1000 MG PO WITH BREAKFAST DINNE, #60 TAB 04/03/19 Glipizide* (Glipizide*) 5 Mg Tablet, 5 MG PO AC BREAKFAST DINNER, TAB 04/03/19 Pravastatin Sodium* (Pravastatin Sodium*) 20 Mg Tablet, 20 MG PO HS, TAB 04/03/19 Aspirin* (Aspirin* EC) 81 Mg Tablet.dr, 81 MG PO DAILY, TAB 04/03/19 Levothyroxine Sodium* (Levothyroxine Sodium*) 25 Mcg Tablet, 25 MCG PO BEFORE BREAKFAST, #30 TAB 04/03/19 Pregabalin* (Lyrica*) 75 Mg Capsule, 75 MG PO TID, CAP 04/03/19 Ergocalciferol (Vitamin D2) (VITAMIN D2) 50,000 Unit Capsule, 84641 UNIT PO Q MON, CAP 04/03/19 Tramadol Hcl* (Ultram*) 50 Mg Tablet, 50 MG PO BID PRN for PAIN, TAB 04/03/19 Follow-up Plan Please take your medications as prescribed, see your doctor in the clinic in the next 1 to 2 weeks. Primary Care Provider Not On Staff Doctor Time spent on discharge: > 30 minutes Pending Labs Laboratory Tests Test 04/04/19 12:42 04/04/19 17:52 04/04/19 20:43 04/05/19 01:19 Bedside 129 187 200 136 Glucose mg/dL (70-220) mg/dL (70-220) mg/dL (70-220) mg/dL (70-220) Test 04/05/19 04:34 04/05/19 07:59 White Blood 6.6 Count 10^3/ul (4.8-10 .8) Red Blood 4.36 Count 10^6/ul (4.70-6 .10) Hemoglobin 12.9 g/dl (14.0-18.0 ) Hematocrit 38.8 % (42.0-52.0) Mean 89.0 Corpuscular fl (82.0-101.0) Volume Mean 29.6 Corpuscular pg (29.0-33.0) Hemoglobin Mean 33.2 Corpuscular g/dl (32.0-37.0 Hemoglobin Conc ) ent Red Cell 12.7 Distribution % (11.5-14.5) Width Platelet Count 253 10^3/UL (140-41 5) Mean Platelet 11.5 Volume fl (7.4-10.4) Immature 0.300 Granulocytes % % (0.001-0.429) Neutrophils % 61.3 % (39.0-77.0) Lymphocytes % 25.9 % (15.0-51.0) Monocytes % 9.3 % (0.0-11.0) Eosinophils % 2.3 % (0.0-7.0) Basophils % 0.9 % (0.0-2.0) Nucleated Red 0.0 Blood Cells % /100WBC (0.0-0. 0) Immature 0.020 Granulocytes # 10^3/ul (0.0-0. 031) Neutrophils # 4.0 10^3/ul (1.6-7. 5) Lymphocytes # 1.7 10^3/ul (0.8-2. 9) Monocytes # 0.6 10^3/ul (0.3-0. 9) Eosinophils # 0.2 10^3/ul (0.0-0. 5) Basophils # 0.1 10^3/ul (0.0-0. 1) Nucleated Red 0.0 Blood Cells # 10^3/ul (0.0-0. 0) Erythrocyte 20 mm/Hr (0-20) Sedimentation Rate Sodium Level 139 mmol/L (135-144 ) Potassium 4.0 Level mmol/L (3.5-5.1 ) Chloride Level 107 mmol/L (97-110) Carbon Dioxide 26 Level mmol/L (21-31) Anion Gap 6 (5-13) Blood Urea 16 mg/dl (7-20) Nitrogen Creatinine 0.73 mg/dl (0.61-1.2 4) Est Glomerular > 60 Filtrat mL/min (>60) Rate mL/min Glucose Level 192 mg/dl (70-220) Calcium Level 8.7 mg/dl (8.4-10.2 ) Bedside 156 Glucose mg/dL (70-220) Microbiology Date/Time Source Procedure Growth Status 04/04/19 18:45 Nares MRSA Screen - Preliminary Screening in process Resulted RIP ISRAEL April 05, 2019 12:12
--- NOTE | 2019-04-05 14:53 | CONS ---
Assessment/Plan Assessment/Plan Hospital Course (Demo Recall) No acute events overnight no fevers patient is sleeping looks comfortable WBC 6.6 no shift no bands ESR 20 BUN 16 creatinine 0.73 Antimicrobials vancomycin Rocephin PHYSICAL EXAMINATION: GENERAL: This is a well-nourished, well-developed, elderly man who is in no distress. HEENT: Head atraumatic, normocephalic. Sclerae anicteric. NECK: Supple. CHEST: Rise symmetrical. Breath sounds clear. HEART: S1, S2. ABDOMEN: Soft. Bowel sounds present. EXTREMITIES: Left foot has dry wounds on the sole. No drainage and no erythema. Assessment: 1. Left foot pain, early osteomyelitis 2. Diabetes with diabetic neuropathy Plan: Patient remains stable anticipate discharge on IV antibiotics for 4 to 6 weeks, patient to follow with podiatry as an outpatient for further recommendations Consultation Date/Type/Reason Admit Date/Time April 04, 2019 at 01:22 Initial Consult Date Type of Consult id Date/Time of Note DATE: 04/05/19 TIME: 14:52 Exam/Review of Systems Exam Vitals Vital Signs Date Temp Pulse Resp B/P (MAP) Pulse Ox O2 O2 Flow FiO2 Time Delivery Rate 04/05/19 97.8 69 18 144/76 95 Room Air 08:07 (98) Intake and Output 04/04/19 04/04/19 04/05/19 1515:00 23:00 07:00 IntakeIntake Total 580 ml 900 ml 1550 ml BalanceBalance 580 ml 900 ml 1550 ml Results Result Diagram: 04/05/19 0434 04/05/19 0434 Results 24hrs Laboratory Tests Test 04/04/19 17:52 04/04/19 20:43 04/05/19 01:19 04/05/19 04:34 Bedside Glucose 187 200 136 White Blood Count 6.6 Red Blood Count 4.36 L Hemoglobin 12.9 L Hematocrit 38.8 L Mean Corpuscular 89.0 Volume Mean Corpuscular 29.6 Hemoglobin Mean Corpuscular 33.2 Hemoglobin Concent Red Cell 12.7 Distribution Width Platelet Count 253 Mean Platelet Volume 11.5 H Immature 0.300 Granulocytes % Neutrophils % 61.3 Lymphocytes % 25.9 Monocytes % 9.3 Eosinophils % 2.3 Basophils % 0.9 Nucleated Red Blood 0.0 Cells % Immature 0.020 Granulocytes # Neutrophils # 4.0 Lymphocytes # 1.7 Monocytes # 0.6 Eosinophils # 0.2 Basophils # 0.1 Nucleated Red Blood 0.0 Cells # Erythrocyte 20 Sedimentation Rate Sodium Level 139 Potassium Level 4.0 Chloride Level 107 Carbon Dioxide Level 26 Anion Gap 6 Blood Urea Nitrogen 16 Creatinine 0.73 Est Glomerular > 60 Filtrat Rate mL/min Glucose Level 192 # Calcium Level 8.7 Test 04/05/19 07:59 04/05/19 12:23 04/05/19 12:39 Bedside Glucose 156 228 H Vancomycin Level 13.3 Trough Medications Medication Current Medications IV Flush (NS 3 ml) 3 ml PER PROTOCOL IV ; Start 04/03/19 at 18:30 Ondansetron HCl (Zofran Inj) 4 mg Q6H PRN IV NAUSEA/VOMITING; Start 04/03/19 at 18:30 Acetaminophen (Tylenol Tab) 650 mg Q6H PRN PO .PAIN 1-3 OR TEMP; Start 04/03/19 at 18:30 Acetaminophen/ Hydrocodone Bitart ([place] (5/325)) 1 tab Q6H PRN PO .MOD PAIN 4- 6 Last administered on 04/05/19at 00:43; Admin Dose 1 TAB; Start 04/03/19 at 18:30 Morphine Sulfate (morphine) 2 mg Q4H PRN IV .SEVERE PAIN 7-10 Last administered on 04/04/19at 20:51; Admin Dose 2 MG; Start 04/03/19 at 18:30 Docusate Sodium (Colace) 100 mg Q12H PRN PO .CONSTIPATION; Start 04/03/19 at 18:30 Magnesium Hydroxide (Milk Of Mag) 30 ml DAILY PRN PO .CONSTIPATION; Start 04/03/19 at 18:30 Pantoprazole (Protonix Tab) 40 mg DAILY@06 PO Last administered on 04/05/19at 06:13; Admin Dose 40 MG; Start 04/04/19 at 06:00 Heparin Sodium (Porcine) (Heparin (5000 Units/1ml)) 5,000 unit Q12 SC Last administered on 04/05/19at 08:05; Admin Dose 5,000 UNIT; Start 04/03/19 at 21:00 Sodium Chloride 1,000 ml @ 75 mls/hr [id number] IV Last administered on 04/04/19at 23:31; Admin Dose 75 MLS/HR; Start 04/03/19 at 23:00 Lorazepam (Ativan) 0.5 mg Q6H PRN IV ANXIETY; Start 04/03/19 at 18:30 Albuterol/ Ipratropium (Duoneb) 3 ml Q4H RESP THERAPY PRN HHN SHORTNESS OF BREATH; Start 04/03/19 at 18:30 Vancomycin HCl (Vanco Iv Per Pharmacy) VANCOMYCIN PER PHARMACY NOTE XX ; Start 04/03/19 at 18:30 Hydralazine HCl (Apresoline) 10 mg Q6H PRN IV ELEVATED BLOOD PRESSURE; Start 04/03/19 at 18:30 Nitroglycerin (Nitroglycerin (Sl Tab) 0.4 Mg) 1 tab Q5M PRN SL ANGINA; Start 04/03/19 at 18:30 Diagnostic Test (Pha) (Accu-Chek) 1 ea 02 XX ; Start 04/04/19 at 02:00 Levothyroxine Sodium (Synthroid) 25 mcg BEFORE BREAKFAST PO Last administered on 04/05/19at 06:13; Admin Dose 25 MCG; Start 04/04/19 at 07:00 Pregabalin (Lyrica) 75 mg TID PO Last administered on 04/05/19at 13:49; Admin Dose 75 MG; Start 04/03/19 at 21:00 Atorvastatin Calcium (Lipitor) 10 mg DAILY@21 PO Last administered on 04/04/19at 20:44; Admin Dose 10 MG; Start 04/03/19 at 23:00 Miscellaneous Information 1 ea NOTE XX ; Start 04/03/19 at 21:30 Glucose (Glutose) 15 gm Q15M PRN PO DECREASED GLUCOSE; Start 04/03/19 at 21:30 Glucose (Glutose) 22.5 gm Q15M PRN PO DECREASED GLUCOSE; Start 04/03/19 at 21:30 Dextrose (D50w Syringe) 25 ml Q15M PRN IV DECREASED GLUCOSE; Start 04/03/19 at 21:30 Dextrose (D50w Syringe) 50 ml Q15M PRN IV DECREASED GLUCOSE; Start 04/03/19 at 21:30 Glucagon (Glucagen) 1 mg Q15M PRN IM DECREASED GLUCOSE; Start 04/03/19 at 21:30 Glucose (Glutose) 15 gm Q15M PRN BUCCAL DECREASED GLUCOSE; Start 04/03/19 at 21:30 Vancomycin HCl 1.5 gm/Sodium Chloride 250 ml @ 83.333 mls/ hr Q12H IVPB Last administered on 04/05/19at 13:49; Admin Dose 83.333 MLS/HR; Start 04/04/19 at 01:00 Collagenase (Santyl) 1 applic DAILY TOP Last administered on 04/04/19 08:31; Admin Dose 1 APPLIC; Start 04/04/19 at 09:00 Insulin Aspart (Novolog Insulin Pen) (Adult SC Insulin - Mild Algorithm)... AC MEALS AND BEDTIME SC Last administered on 04/05/19at 12:50; Admin Dose 3 UNIT; Start 04/04/19 at 13:00 Ceftriaxone Sodium 50 ml @ 100 mls/hr Q24H IVPB Last administered on 04/04/19at 16:22; Admin Dose 100 MLS/HR; Start 04/04/19 at 16:00 IV Flush (NS 10 ml) 10 ml PRN PRN IV IV PROTOCOL; Start 04/05/19 at 12:30 OUMAR YATES NP April 05, 2019 14:53
[2019-04-05 15:01] VITALS: BP 159/79; PULSE 75; RESP 18
[2019-04-05] MEDS: CEFTRIAXONE 1 GM/50 ML (PMX) 50 ML IVPB SCH (17:15)
== END 2019-04-05 18:30 | disposition home health service (06) | DRG 638 ==
LOC: E/R 15:31 → 2NE 22:40 → OBSVTOIN 04-04 01:22
PROVIDERS: ADMIT Hospitalist; ATTEND Hospitalist
DX: E11.621 Type 2 diabetes mellitus with foot ulcer (principal); M86.8X6 Other osteomyelitis, lower leg; R60.9 Edema, unspecified; Z79.82 Long term (current) use of aspirin; E03.9 Hypothyroidism, unspecified; E11.40 Type 2 diabetes mellitus with diabetic neuropathy, unspecified
CPT/HCPCS: 36415; 36569; 71045; 73620; 73718; 76937; 80048; 80053; 80061; 80202; 82962; 83036; 83735; 84100; 84439; 84443; 85025; 85610; 85651; 85730; 86140; 87070; 87081; 93926; 96365; 96366; 96375; 97162; G0378; J0696; J1644; J1815; J2270; J2543; J3370; J7050

== ENCOUNTER 2019-06-13 08:33 | Inpatient (IN) | payer OTHER ==
[~2019-06-13] VITALS: Ht 180.3 cm; Wt 100.0 kg
[~2019-06-13 08:33] MED LIST: ASPI-817 PO; ATOR40TA68 PO; ERGO500013 PO; GLIP5TAB13 PO; LEVO25TA6 PO; LOSA50TA2 PO; LYR75 PO; METF100010 PO; PRAV20TA63 PO; TRAM50TA PO
[2019-06-13] MEDS ORDERED: morphine 4 MG/ML VIAL IV STA (10:41)
[2019-06-13] MEDS ORDERED: SOD CHLORIDE 0.9% 1,000 ML IV STA (10:41)
[2019-06-13] MEDS ORDERED: ONDANSETRON 4 MG INJ IV STA (10:41)
[2019-06-13] MEDS ORDERED: CEFTRIAXONE 1 GM/50 ML (PMX) 50 ML IVPB ONE (11:00)
--- NOTE | 2019-06-13 11:16 | ERD ---
ER Documentation Chief Complaint Chief Complaint diabetic foot ( right foot) HPI 63-year-old diabetic with osteomyelitis of his left fifth digit foot. Presenting with worsening pain since there is pus draining from it. Was recently admitted for IV antibiotics but finished antibiotics 2 weeks ago. States that the pain is getting worse and now the pus draining is worse than prior. No fevers no chills. No systemic symptoms. Compliant with all his other medications. ROS All systems reviewed and are negative except as per history of present illness. Medications Home Meds Reported Medications Metformin Hcl* (Metformin Hcl*) 1,000 Mg Tablet, 1000 MG PO WITH BREAKFAST DIN NE, #60 TAB 04/03/19 Glipizide* (Glipizide*) 5 Mg Tablet, 5 MG PO AC BREAKFAST DINNER, TAB 04/03/19 Pravastatin Sodium* (Pravastatin Sodium*) 20 Mg Tablet, 20 MG PO HS, TAB 04/03/19 Aspirin* (Aspirin* EC) 81 Mg Tablet.dr, 81 MG PO DAILY, TAB 04/03/19 Levothyroxine Sodium* (Levothyroxine Sodium*) 25 Mcg Tablet, 25 MCG PO BEFORE BREAKFAST, #30 TAB 04/03/19 Pregabalin* (Lyrica*) 75 Mg Capsule, 75 MG PO TID, CAP 04/03/19 Ergocalciferol (Vitamin D2) (VITAMIN D2) 50,000 Unit Capsule, 77933 UNIT PO Q MON, CAP 04/03/19 Tramadol Hcl* (Ultram*) 50 Mg Tablet, 50 MG PO BID PRN for PAIN, TAB 04/03/19 Allergies Allergies: Coded Allergies: No Known Allergy (Unverified , 04/03/19) PMhx/Soc History of Surgery: Yes (RIGHT LEG SX AND HAND SX) Anesthesia Reaction: No Hx Neurological Disorder: No Hx Respiratory Disorders: No Hx Cardiac Disorders: No Hx Psychiatric Problems: No Hx Miscellaneous Medical Probl: Yes (DM, chronic ulcers L foot) Hx Alcohol Use: No Hx Substance Use: No Hx Tobacco Use: No Physical Exam Vitals Vital Signs Date Temp Pulse Resp B/P (MAP) Pulse Ox O2 O2 Flow FiO2 Time Delivery Rate 06/13/19 99.8 99 22 178/88 98 08:35 (118) Physical Exam Const: No acute distress Head: Atraumatic Eyes: Normal Conjunctiva ENT: Normal External Ears, Nose and Mouth. Neck: Full range of motion. No meningismus. Resp: Clear to auscultation bilaterally Cardio: Regular rate and rhythm, no murmurs Abd: Soft, non tender, non distended. Normal bowel sounds Skin: No petechiae or rashes Back: No midline or flank tenderness Ext: No cyanosis, or edema left lower extremity fifth digit erythematous with ulcer on plantar surface no active drainage at this time. Neur: Awake and alert Psych: Normal Mood and Affect Result Diagram: 06/13/19 1105 06/13/19 1105 Results 24 hrs Laboratory Tests Test 06/13/19 11:05 White Blood Count 9.1 10^3/ul Red Blood Count 4.68 10^6/ul Hemoglobin 13.5 g/dl Hematocrit 41.2 % Mean Corpuscular Volume 88.0 fl Mean Corpuscular Hemoglobin 28.8 pg Mean Corpuscular Hemoglobin Concent 32.8 g/dl Red Cell Distribution Width 12.7 % Platelet Count 226 10^3/UL Mean Platelet Volume 10.9 fl Immature Granulocytes % 0.200 % Neutrophils % 79.2 % Lymphocytes % 11.9 % Monocytes % 7.5 % Eosinophils % 0.9 % Basophils % 0.3 % Nucleated Red Blood Cells % 0.0 /100WBC Immature Granulocytes # 0.020 10^3/ul Neutrophils # 7.2 10^3/ul Lymphocytes # 1.1 10^3/ul Monocytes # 0.7 10^3/ul Eosinophils # 0.1 10^3/ul Basophils # 0.0 10^3/ul Nucleated Red Blood Cells # 0.0 10^3/ul Erythrocyte Sedimentation Rate 33 mm/Hr Sodium Level 139 mmol/L Potassium Level 4.7 mmol/L Chloride Level 100 mmol/L Carbon Dioxide Level 29 mmol/L Anion Gap 10 Blood Urea Nitrogen 23 mg/dl Creatinine 1.08 mg/dl Est Glomerular Filtrat Rate mL/min > 60 mL/min Glucose Level 109 mg/dl Calcium Level 9.8 mg/dl Total Bilirubin 0.4 mg/dl Direct Bilirubin 0.00 mg/dl Indirect Bilirubin 0.4 mg/dl Aspartate Amino Transf (AST/SGOT) 19 IU/L Alanine Aminotransferase (ALT/SGPT) 21 IU/L Alkaline Phosphatase 66 IU/L C-Reactive Protein 2.6 mg/dl Total Protein 7.6 g/dl Albumin 4.6 g/dl Globulin 3.00 g/dl Albumin/Globulin Ratio 1.53 Current Medications Medications Dose Sig/Latoya Start Time Status Last (Trade) Ordered Route PRN Stop Time Admin Dose Reason Admin Sodium 1,000 ml @ Q1H STAT 06/13/19 DC 06/13/19 Chloride 1,000 mls/hr IV 10:41 11:19 06/13/19 11:40 Morphine 4 mg ONCE STAT 06/13/19 DC 06/13/19 Sulfate IV 10:41 11:19 (morphine) 06/13/19 10:46 Ondansetron 4 mg ONCE STAT 06/13/19 DC 06/13/19 HCl (Zofran IV 10:41 11:19 Inj) 06/13/19 10:46 Ceftriaxone 50 ml @ ONCE ONCE 06/13/19 DC 06/13/19 Sodium 100 mls/hr IVPB 11:00 11:19 06/13/19 11:29 Procedures/MDM Patient presenting with worsening infection of the fifth digit of his left foot concerning for possible progression to osteo-. Patient's ESR and CRP are elevated the wound has enlarged per patient and drainage is increasing. Patient's vitals are stable. X-ray does not show any large bony involvement. Will admit patient for further IV antibiotics. Departure Condition: Stable AARON BILLY MD Jun 13, 2019 11:16
[2019-06-13] MEDS ORDERED: DOCUSATE SODIUM 100 MG CAP PO PRN (13:30)
[2019-06-13] MEDS ORDERED: NACL 0.9% 3 ML SYG IV SCH (13:30)
[2019-06-13] MEDS: AMLODIPINE 5 MG TAB PO SCH (13:30)
[2019-06-13] MEDS ORDERED: ONDANSETRON 4 MG INJ IV PRN ×2 (13:30)
[2019-06-13] MEDS ORDERED: ACETAMINOPHEN 325 MG TAB PO PRN (13:30)
--- NOTE | 2019-06-13 13:45 | HP ---
Date/Time of Note Date/Time of Note DATE: 06/13/19 TIME: 13:39 Assessment/Plan VTE Prophylaxis Pharmacological prophylaxis: heparin Assessment/Plan Hospital Course Assessment and plan # Left foot diabetic foot ulcer. Will place on antibiotics We will get ID consult to follow We will get podiatry consultation Follow-up on MRI of the left foot #Diabetes Follow-up on A1c Placed on insulin #History of neuropathy Continue Lyrica #Hypertension Start antihypertensives. Will adjust as needed. Discussed POC with Dr. Jimenez Result Diagram: 06/13/19 1105 06/13/19 1105 Results 24hrs Laboratory Tests Test 06/13/19 11:05 White Blood Count 9.1 # Red Blood Count 4.68 L Hemoglobin 13.5 L Hematocrit 41.2 L Mean Corpuscular Volume 88.0 Mean Corpuscular Hemoglobin 28.8 L Mean Corpuscular Hemoglobin Concent 32.8 Red Cell Distribution Width 12.7 Platelet Count 226 Mean Platelet Volume 10.9 H Immature Granulocytes % 0.200 Neutrophils % 79.2 H Lymphocytes % 11.9 L Monocytes % 7.5 Eosinophils % 0.9 Basophils % 0.3 Nucleated Red Blood Cells % 0.0 Immature Granulocytes # 0.020 Neutrophils # 7.2 Lymphocytes # 1.1 Monocytes # 0.7 Eosinophils # 0.1 Basophils # 0.0 Nucleated Red Blood Cells # 0.0 Erythrocyte Sedimentation Rate 33 H Sodium Level 139 Potassium Level 4.7 Chloride Level 100 Carbon Dioxide Level 29 Anion Gap 10 Blood Urea Nitrogen 23 H Creatinine 1.08 Est Glomerular Filtrat Rate mL/min > 60 Glucose Level 109 Calcium Level 9.8 Total Bilirubin 0.4 Direct Bilirubin 0.00 Indirect Bilirubin 0.4 Aspartate Amino Transf (AST/SGOT) 19 Alanine Aminotransferase (ALT/SGPT) 21 Alkaline Phosphatase 66 C-Reactive Protein 2.6 H Total Protein 7.6 Albumin 4.6 Globulin 3.00 Albumin/Globulin Ratio 1.53 HPI/ROS Admit Date/Time Admit Date/Time Hx of Present Illness This is a 63-year-old male with history of diabetes, previous right foot surgery from diabetes who came into the hospital again for left foot diabetic ulcer. Patient was recently admitted to [facility] in March 2019 and discharged with left foot diabetic ulcer and placed on 6 weeks of antibiotics reportedly finished his course of antibiotics. He also says that he followed up with his senior it specialist Dr. Nichols and had an MRI of his left foot and was told he had no more bone infection on the left toe fifth digit. He said that 2 weeks prior to this admission he started to have increased swelling and redness on the left foot fifth toe. Yesterday he stated that he started to get a lot of pus and drainage out of the left foot fifth toe. He denies any fevers at home. Due to worsening pain and swelling and drainage from his left foot fifth toe he came to the hospital for further evaluation. Initial left foot x-ray showed increased osteopenia within the fifth distal and middle phalanges. No definite osteomyelitis seen. No leukocytosis noted. Denies any other associated symptoms. Denies any chest pain or shortness of breath or dysuria. Only reports having left foot pain and chronic neuropathy on bilateral lower extremity's. We will evaluate him for the aformentiond issues. ROS 12 point review of systems obtained entirely negative except that mentioned in the history of present illness PMH/Family/Social Past Medical History Medical/surgical history 1.Diabetes 2. Reported right foot surgery from diabetes 3. Diabetic foot ulcers 4. Neuropathy 5. Hypothyroidism 6. Suspect hypertension Medications Current Medications Ondansetron HCl (Zofran Inj) 4 mg BRIDGE ORDER PRN IV NAUSEA/VOMITING; Start 06/13/19 at 13:30; Stop 06/14/19 at 13:29 Acetaminophen (Tylenol Tab) 650 mg ER BRIDGE PRN PO .MILD PAIN 1-3 OR TEMP; Start 06/13/19 at 13:30; Stop 06/14/19 at 13:29 Aspirin (Halfprin) 81 mg DAILY PO ; Start 06/14/19 at 09:00; Status UNV Levothyroxine Sodium (Synthroid) 25 mcg BEFORE BREAKFAST PO ; Start 06/14/19 at 07:00; Status UNV Pregabalin (Lyrica) 75 mg TID PO ; Start 06/13/19 at 21:00; Status UNV Miscellaneous Information 20 mg HS PO ; Start 06/13/19 at 21:00; Status UNV Miscellaneous Information (* Miscellaneous Pharmacy Order) Discontinue current oral sulfonylur... ONCE ONCE XX ; Start 06/13/19 at 13:30; Stop 06/13/19 at 13:31; Status UNV Diagnostic Test (Pha) (Accu-Chek) 1 XX ; Start 06/14/19 at 02:00; Status UNV Insulin Glargine (Lantus) 15 units DAILY@2000 SC ; Start 06/13/19 at 20:00; Status UNV Insulin Aspart (Novolog Insulin Pen) 5 unit WITH MEALS SC ; Start 06/13/19 at 18:00; Status UNV Miscellaneous Information (* Miscellaneous Pharmacy Order) HYPOGLYCEMIA PROTOCOL w... ONCE ONCE XX ; Start 06/13/19 at 13:30; Stop 06/13/19 at 13:31; Status UNV Insulin Aspart (Novolog Insulin Pen) NOVOLOG *MILD* ALGORITHM WITH MEALS BEDTIME SC ; Start 06/13/19 at 18:00; Status UNV Miscellaneous Information (* Miscellaneous Pharmacy Order) Discontinue all previ... ONCE ONCE XX ; Start 06/13/19 at 13:30; Stop 06/13/19 at 13:31; Status UNV IV Flush (NS 3 ml) 3 ml PER PROTOCOL IV ; Start 06/13/19 at 13:30; Status UNV Ondansetron HCl (Zofran Inj) 4 mg Q6H PRN IV NAUSEA/VOMITING; Start 06/13/19 at 13:30; Status UNV Acetaminophen (Tylenol Tab) 650 mg Q6H PRN PO .PAIN 1-3 OR TEMP; Start 06/13/19 at 13:30; Status UNV Acetaminophen/ Hydrocodone Bitart ([place] (5/325)) 1 tab Q6H PRN PO .MOD PAIN 4- 6; Start 06/13/19 at 13:30; Status UNV Morphine Sulfate (morphine) 2 mg Q4H PRN IV .SEVERE PAIN 7-10; Start 06/13/19 at 13:30; Status UNV Docusate Sodium (Colace) 100 mg Q12H PRN PO .CONSTIPATION; Start 06/13/19 at 13:30; Status UNV Famotidine (Pepcid Iv) 20 mg Q12 IV ; Start 06/13/19 at 21:00; Status UNV Heparin Sodium (Porcine) (Heparin (5000 Units/1ml)) 5,000 unit Q12 SC ; Start 06/13/19 at 21:00; Status UNV Coded Allergies: No Known Allergy (Unverified , 06/13/19) Social History Smoking Status: Never smoker Exam/Review of Systems Vital Signs Vitals Vital Signs Date Temp Pulse Resp B/P (MAP) Pulse Ox O2 O2 Flow FiO2 Time Delivery Rate 06/13/19 99.8 99 22 178/88 98 08:35 (118) Exam Constitutional: alert, oriented Psych: nl mood/affect Head: normocephalic Respiratory: clear to auscultation Cardiovascular: regular rate and rhythm Gastrointestinal: soft, non-tender Musculoskeletal: other (left foot fifth digit ulcer with erythema/swelling ) Neurological: [employer] II-XII intact, nl mental status, nl speech REGIDORBRENDA NP Jun 13, 2019 13:45
--- NOTE | 2019-06-13 14:23 | CONS ---
Assessment/Plan Assessment/Plan Assessment/Plan (Daily) L foot diabetic ulcer L foot cellulitis L foot osteomyelitis DM2 with peripheral neuropathy Plan Patient seen and evaluated, discussed findings with patient. Reviewed MRI CD provided by patient and correlated to the X-ray there is concern for possible osteomyelitis to the digit. Discussed with patient we will attempt to salvage the digit but there is possibility of an amputation. Patient and family member voiced their understanding. Recommend ID consult and awaiting MRI studies. Wound cultures to be obtained and vascular studies ordered. Will coordinate with OR to plan for surgical debridement. Consultation Date/Type/Reason Admit Date/Time Date/Time of Note DATE: 06/13/19 TIME: 14:05 Hx of Present Illness 63 y/o diabetic M patient presents to the ER with left 5th digit ulceration with cellulitis. Patient was being followed by an outside provider and reported that he had completed a course of 6 weeks IV antibiotics. Patient had an MRI done back in 05/22/19. Patient states the wound began several days ago and then noticed the increased redness, and drainage. Patient reports pain to the area and is worsened with direct pressure. Patient states he does not diabetic shoes and mainly worse open toe sandals. Patient denies f/c/n/v no chest pain or shortness of breath. ROS negative except for HPI Past Medical History Diabetes type II non-insulin dependent, Diabetic foot ulcers, peripheral Neuropathy, Hypothyroidism, Suspect hypertension Home Meds Reported Medications Metformin Hcl* (Metformin Hcl*) 1,000 Mg Tablet, 1000 MG PO WITH BREAKFAST DINNE, #60 TAB 04/03/19 Glipizide* (Glipizide*) 5 Mg Tablet, 5 MG PO AC BREAKFAST DINNER, TAB 04/03/19 Pravastatin Sodium* (Pravastatin Sodium*) 20 Mg Tablet, 20 MG PO HS, TAB 04/03/19 Aspirin* (Aspirin* EC) 81 Mg Tablet.dr, 81 MG PO DAILY, TAB 04/03/19 Levothyroxine Sodium* (Levothyroxine Sodium*) 25 Mcg Tablet, 25 MCG PO BEFORE BREAKFAST, #30 TAB 04/03/19 Pregabalin* (Lyrica*) 75 Mg Capsule, 75 MG PO TID, CAP 04/03/19 Discontinued Reported Medications Ergocalciferol (Vitamin D2) (VITAMIN D2) 50,000 Unit Capsule, 14927 UNIT PO Q MON, CAP 04/03/19 Tramadol Hcl* (Ultram*) 50 Mg Tablet, 50 MG PO BID PRN for PAIN, TAB 04/03/19 Medications Current Medications Ondansetron HCl (Zofran Inj) 4 mg BRIDGE ORDER PRN IV NAUSEA/VOMITING; Start 06/13/19 at 13:30; Stop 06/14/19 at 13:29 Acetaminophen (Tylenol Tab) 650 mg ER BRIDGE PRN PO .MILD PAIN 1-3 OR TEMP; Sta rt 06/13/19 at 13:30; Stop 06/14/19 at 13:29 Aspirin (Halfprin) 81 mg DAILY PO ; Start 06/14/19 at 09:00; Status UNV Levothyroxine Sodium (Synthroid) 25 mcg BEFORE BREAKFAST PO ; Start 06/14/19 at 07:00; Status UNV Pregabalin (Lyrica) 75 mg TID PO ; Start 06/13/19 at 21:00; Status UNV Miscellaneous Information 20 mg HS PO ; Start 06/13/19 at 21:00; Status UNV Miscellaneous Information (* Miscellaneous Pharmacy Order) Discontinue current oral sulfonylur... ONCE ONCE XX ; Start 06/13/19 at 13:30; Stop 06/13/19 at 13:31; Status UNV Diagnostic Test (Pha) (Accu-Chek) 1 XX ; Start 06/14/19 at 02:00; Status UNV Insulin Glargine (Lantus) 15 units DAILY@2000 SC ; Start 06/13/19 at 20:00; St atus UNV Insulin Aspart (Novolog Insulin Pen) 5 unit WITH MEALS SC ; Start 06/13/19 at 18:00; Status UNV Miscellaneous Information (* Miscellaneous Pharmacy Order) HYPOGLYCEMIA PROTOCOL w... ONCE ONCE XX ; Start 06/13/19 at 13:30; Stop 06/13/19 at 13:31; Status UNV Insulin Aspart (Novolog Insulin Pen) NOVOLOG *MILD* ALGORITHM WITH MEALS BEDTIME SC ; Start 06/13/19 at 18:00; Status UNV Miscellaneous Information (* Miscellaneous Pharmacy Order) Discontinue all previ... ONCE ONCE XX ; Start 06/13/19 at 13:30; Stop 06/13/19 at 13:31; Status UNV IV Flush (NS 3 ml) 3 ml PER PROTOCOL IV ; Start 06/13/19 at 13:30; Status UNV Ondansetron HCl (Zofran Inj) 4 mg Q6H PRN IV NAUSEA/VOMITING; Start 06/13/19 at 13:30; Status UNV Acetaminophen (Tylenol Tab) 650 mg Q6H PRN PO .PAIN 1-3 OR TEMP; Start 06/13/19 at 13:30; Status UNV Acetaminophen/ Hydrocodone Bitart ([place] (5/325)) 1 tab Q6H PRN PO .MOD PAIN 4- 6; Start 06/13/19 at 13:30; Status UNV Morphine Sulfate (morphine) 2 mg Q4H PRN IV .SEVERE PAIN 7-10; Start 06/13/19 at 13:30; Status UNV Docusate Sodium (Colace) 100 mg Q12H PRN PO .CONSTIPATION; Start 06/13/19 at 13:30; Status UNV Famotidine (Pepcid Iv) 20 mg Q12 IV ; Start 06/13/19 at 21:00; Status UNV Heparin Sodium (Porcine) (Heparin (5000 Units/1ml)) 5,000 unit Q12 SC ; Start 06/13/19 at 21:00; Status UNV Amlodipine Besylate (Norvasc) 5 mg DAILY PO ; Start 06/13/19 at 13:30; Status UNV Allergies: Coded Allergies: No Known Allergy (Unverified , 06/13/19) Past Surgical History right ankle tendon repair, left forearm tendon repair Family History Significant Family History: diabetes Social History Smoking Status: Never smoker Exam/Review of Systems Exam Vitals Vital Signs Date Temp Pulse Resp B/P (MAP) Pulse Ox O2 O2 Flow FiO2 Time Delivery Rate 06/13/19 99.8 99 22 178/88 98 08:35 (118) Exam DP/PT pulses weakly palpable Popliteal pulses weakly palpable pedal hairs present CFT less than 3 seconds to the digits Skin temperature gradient warm to cool from proximal leg to distal feet Left 5th digit ulcer 0.6 x 0.5 x 0.3cm in depth there is surrounding erythema, serosanguinous drainage noted, probe to bone. Pain on palpation Left hallux tip dry fibrogranular ulcer with sanguinous crust formation 0.4 x 0.4 x 0.2cm, unable to probe to bone Left proximal knee abrasion with eschar formation Absent protective sensations Muscle strength 5/5 in all compartments of the foot. Foot X-ray IMPRESSION: Mild increased osteopenia within the fifth distal and middle phalanges. Mild relative osteopenia in the fifth metatarsal head . Slight increased osteopenia along the lateral aspect of the first distal phalanx. These changes are subtle and difficult to distinguish from other regions of relative osteopenia. No definite evidence of osseous destruction or erosive changes at this time. Repeat follow-up MRI may be warranted as clinically indicated. Results Result Diagram: 06/13/19 1105 06/13/19 1105 Results 24hrs Laboratory Tests Test 06/13/19 11:05 White Blood Count 9.1 # Red Blood Count 4.68 L Hemoglobin 13.5 L Hematocrit 41.2 L Mean Corpuscular Volume 88.0 Mean Corpuscular Hemoglobin 28.8 L Mean Corpuscular Hemoglobin Concent 32.8 Red Cell Distribution Width 12.7 Platelet Count 226 Mean Platelet Volume 10.9 H Immature Granulocytes % 0.200 Neutrophils % 79.2 H Lymphocytes % 11.9 L Monocytes % 7.5 Eosinophils % 0.9 Basophils % 0.3 Nucleated Red Blood Cells % 0.0 Immature Granulocytes # 0.020 Neutrophils # 7.2 Lymphocytes # 1.1 Monocytes # 0.7 Eosinophils # 0.1 Basophils # 0.0 Nucleated Red Blood Cells # 0.0 Erythrocyte Sedimentation Rate 33 H Sodium Level 139 Potassium Level 4.7 Chloride Level 100 Carbon Dioxide Level 29 Anion Gap 10 Blood Urea Nitrogen 23 H Creatinine 1.08 Est Glomerular Filtrat Rate mL/min > 60 Glucose Level 109 Calcium Level 9.8 Total Bilirubin 0.4 Direct Bilirubin 0.00 Indirect Bilirubin 0.4 Aspartate Amino Transf (AST/SGOT) 19 Alanine Aminotransferase (ALT/SGPT) 21 Alkaline Phosphatase 66 C-Reactive Protein 2.6 H Total Protein 7.6 Albumin 4.6 Globulin 3.00 Albumin/Globulin Ratio 1.53 Medications Medication Current Medications Ondansetron HCl (Zofran Inj) 4 mg BRIDGE ORDER PRN IV NAUSEA/VOMITING; Start 06/13/19 at 13:30; Stop 06/14/19 at 13:29 Acetaminophen (Tylenol Tab) 650 mg ER BRIDGE PRN PO .MILD PAIN 1-3 OR TEMP; Start 06/13/19 at 13:30; Stop 06/14/19 at 13:29 Aspirin (Halfprin) 81 mg DAILY PO ; Start 06/14/19 at 09:00; Status UNV Levothyroxine Sodium (Synthroid) 25 mcg BEFORE BREAKFAST PO ; Start 06/14/19 at 07:00; Status UNV Pregabalin (Lyrica) 75 mg TID PO ; Start 06/13/19 at 21:00; Status UNV Miscellaneous Information 20 mg HS PO ; Start 06/13/19 at 21:00; Status UNV Miscellaneous Information (* Miscellaneous Pharmacy Order) Discontinue current oral sulfonylur... ONCE ONCE XX ; Start 06/13/19 at 13:30; Stop 06/13/19 at 13:31; Status UNV Diagnostic Test (Pha) (Accu-Chek) 1 XX ; Start 06/14/19 at 02:00; Status UNV Insulin Glargine (Lantus) 15 units DAILY@2000 SC ; Start 06/13/19 at 20:00; Status UNV Insulin Aspart (Novolog Insulin Pen) 5 unit WITH MEALS SC ; Start 06/13/19 at 18:00; Status UNV Miscellaneous Information (* Miscellaneous Pharmacy Order) HYPOGLYCEMIA PROTOCOL w... ONCE ONCE XX ; Start 06/13/19 at 13:30; Stop 06/13/19 at 13:31; Status UNV Insulin Aspart (Novolog Insulin Pen) NOVOLOG *MILD* ALGORITHM WITH MEALS BEDTIM E SC ; Start 06/13/19 at 18:00; Status UNV Miscellaneous Information (* Miscellaneous Pharmacy Order) Discontinue all previ... ONCE ONCE XX ; Start 06/13/19 at 13:30; Stop 06/13/19 at 13:31; Status UNV IV Flush (NS 3 ml) 3 ml PER PROTOCOL IV ; Start 06/13/19 at 13:30; Status UNV Ondansetron HCl (Zofran Inj) 4 mg Q6H PRN IV NAUSEA/VOMITING; Start 06/13/19 at 13:30; Status UNV Acetaminophen (Tylenol Tab) 650 mg Q6H PRN PO .PAIN 1-3 OR TEMP; Start 06/13/19 at 13:30; Status UNV Acetaminophen/ Hydrocodone Bitart ([place] (5/325)) 1 tab Q6H PRN PO .MOD PAIN 4- 6; Start 06/13/19 at 13:30; Status UNV Morphine Sulfate (morphine) 2 mg Q4H PRN IV .SEVERE PAIN 7-10; Start 06/13/19 at 13:30; Status UNV Docusate Sodium (Colace) 100 mg Q12H PRN PO .CONSTIPATION; Start 06/13/19 at 13:30; Status UNV Famotidine (Pepcid Iv) 20 mg Q12 IV ; Start 06/13/19 at 21:00; Status UNV Heparin Sodium (Porcine) (Heparin (5000 Units/1ml)) 5,000 unit Q12 SC ; Start 06/13/19 at 21:00; Status UNV Amlodipine Besylate (Norvasc) 5 mg DAILY PO ; Start 06/13/19 at 13:30; Status UNV FORD BLUM DPM Jun 13, 2019 14:15
[2019-06-13] MEDS ORDERED: DEXTROSE 50% 50 ML SYRINGE IV PRN ×2 (14:30)
[2019-06-13] MEDS ORDERED: GLUCAGON 1 MG INJ IM PRN (14:30)
[2019-06-13] MEDS ORDERED: GLUCOSE GEL 15 GRAM TUBE PO PRN ×2 (14:30)
[2019-06-13] MEDS ORDERED: GLUCOSE GEL 15 GRAM TUBE BUCCAL PRN (14:30)
[2019-06-13] MEDS ORDERED: VANCOMYCIN IV PER PHARMACY XX SCH (15:30)
[2019-06-13] MEDS ORDERED: VANCOMYCIN HCL 2 GM in SOD CHLORIDE 0.9% 500 ML IVPB ONE (16:30)
[2019-06-13] MEDS: HYDROCODONE/APAP (5/325) TAB PO PRN (17:22)
[2019-06-13] MEDS: INSULIN ASPART [NOVOLOG] 3 ML PEN SC SCH ×3 (18:00→22:33)
[2019-06-13 19:56] VITALS: BP 176/93; PULSE 83; RESP 19
[2019-06-13 20:38] VITALS: Ht 180.3 cm; Wt 100.0 kg
[2019-06-13] MEDS ORDERED: NON-FORMULARY/PATIENT OWN MED (Pravastatin Sodium* 20 MG) PO SCH (21:00)
[2019-06-13] MEDS: ATORVASTATIN 10 MG TAB PO SCH (22:32)
[2019-06-13] MEDS: PREGABALIN 75 MG CAP PO SCH (22:32)
[2019-06-13] MEDS: FAMOTIDINE 20 MG INJ IV SCH (22:33)
[2019-06-13] MEDS: HEPARIN 5,000 UNIT/1 ML VIAL SC SCH (22:48)
[2019-06-13] MEDS: INSULIN GLARGINE [LANTus] (100 UNITS/ML) SYG SC SCH (22:49)
[2019-06-13 23:33] VITALS: BP 179/87
[2019-06-14] VITALS (13 sets, daily range): BP systolic 107–138; BP diastolic 52–78; PULSE 76–93; RESP 12–19
--- NOTE | 2019-06-14 00:54 | CONS ---
DATE OF ADMISSION: 06/13/2019 DATE OF CONSULTATION: 06/13/2019 TYPE OF CONSULTATION: Infectious disease REASON FOR CONSULTATION: Antibiotic management. HISTORY OF PRESENT ILLNESS: Tomas Martinez is a 63-year-old male, admitted today through the emergency room with diabetic foot. The patient has diabetic foot with osteomyelitis of the left 5th digit. He presents with worsening pain and there is pus draining from it. He was recently admitted for IV antibiotics, but finished antibiotics 2 weeks ago. He states the pain is getting worse, now t he pus is draining more frequently. There is no fever or chills. No systemic symptoms. The patient is on metformin and glipizide for his diabetes. He had a history of right leg surgery and hand surg carolyn in the past. He is diabetic, has chronic ulcers of the left foot. PAST MEDICAL HISTORY: Otherwise is noncontributory. FAMILY HISTORY: Noncontributory. SOCIAL HISTORY: He does not smoke, drink or abuse drugs. ALLERGIES: NONE TO PENICILLIN, SULFA OR FOODS. MEDICATIONS: Per chart. REVIEW OF SYSTEMS: As per HPI. PHYSICAL EXAMINATION: GENERAL: The patient is a well-developed, well-nourished male in no acute distress. VITAL SIGNS: Stable. He is afebrile. SKIN: Without generalized rash. HEENT: Within normal limits. NECK: Supple. LYMPH NODES: None palpable. CHEST: Decreased breath sounds at the bases. HEART: Without murmur or gallop. ABDOMEN: Soft, nontender, without organosplenomegaly or masses. EXTREMITIES: No cyanosis, clubbing, or edema. Left lower extremity 5th digit is erythematous with u lcer on the plantar surface without active drainage at this time. RECTAL AND GENITAL: Deferred. NEUROLOGIC: No focal neurological abnormality. The patient has decreased sensation in distal extrem ities. LABORATORY DATA: White count of 9.1 with 79% neutrophils, H and H of 13.5 and 41.2, platelet count 2 26,000. BUN and creatinine 23/1.08. Random glucose 109. The patient was placed on ceftriaxone. As noted, he has normal renal function, possibility of osteomyelitis was raised as sed rate and CRP are elevated. His sed rate is 33, which is slightly elevated. CRP is 2.6, normal, up to 0.9. the x-ra y of the foot: Mild increased osteopenia within the fifth distal and middle phalanges, mild relative osteopenia the fifth metatarsal head on the left, slight increased osteopenia along the lateral aspe ct of the first distal phalanx; these changes are subtle, difficult to distinguish from the other are as of relative osteopenia, with no definite evidence of osseous destruction or erosive changes at thi s time; an MRI may be warranted if clinically indicated. The patient was seen by Dr. Mayorga, who noted left foot diabetic ulcer, left foot cellulitis, left foot osteomyelitis. There is concern for possible osteomyelitis of the digit. We will attempt to s alvage the digit, though there is a possibility for amputation. Wound cultures to be obtained, vascu lar studies ordered. From what I can see, the patient is receiving vancomycin per pharmacy, which is appropriate, and received 1 dose of ceftriaxone. We will await the culture reports. Bilateral arianna rial study was ordered by Dr. Mayorga, glycohemoglobin ordered. I will dictate my findings to the hospitalist and to Dr. Mayorga. Dictated By: SABRINA FAUSTIN MD, JD/LUPILLO Conf#: [id number] DID#: [id number] CC: RIP [place];*EndCC*
[2019-06-14] MEDS: morphine 2 MG INJ IV PRN ×3 (01:19→11:58)
[2019-06-14] MEDS: ACCU-CHEK XX SCH (02:00)
[2019-06-14] MEDS: VANCOMYCIN 1.25 GM/NS 250 ML 250 ML IVPB SCH ×2 (05:28→17:00)
[2019-06-14] MEDS: LEVOTHYROXINE 25 MCG TAB PO SCH (06:57)
[2019-06-14] MEDS: INSULIN ASPART [NOVOLOG] 3 ML PEN SC SCH ×7 (08:00→21:00)
[2019-06-14] MEDS: AMLODIPINE 5 MG TAB PO SCH (08:29)
[2019-06-14] MEDS: ASPIRIN (EC) 81 MG TAB PO SCH (08:29)
[2019-06-14] MEDS: PREGABALIN 75 MG CAP PO SCH ×3 (08:29→21:24)
[2019-06-14] MEDS: FAMOTIDINE 20 MG INJ IV SCH ×2 (08:34→21:24)
[2019-06-14] MEDS: HEPARIN 5,000 UNIT/1 ML VIAL SC SCH ×2 (08:36→21:33)
--- NOTE | 2019-06-14 12:28 | PN ---
Date/Time of Note Date/Time of Note DATE: 06/14/19 TIME: 12:25 Assessment/Plan VTE Prophylaxis Risk score (from Ns)>0 risk: 4 SCD applied (from Ns): Yes Pharmacological prophylaxis: heparin Lines/Catheters IV Catheter Type (from [facility]): Peripheral IV Assessment/Plan Hospital Course Assessment and plan # Left foot diabetic foot ulcer. continue on antibiotics ID consult following MRI of the left foot did show findings suggestive of osteomyelitis of the fifth toe with adjacent soft tissue swelling and wound/ulcer Podiatry following #Diabetes Continue insulin #History of neuropathy Continue Lyrica #Hypertension Start antihypertensives. Will adjust as needed. Disposition and plan. Continue with antibiotics. Follow-up with podiatry. Further recommendations pending clinical course. Follow-up a.m. labs. Discussed POC with Dr. Jimenez Result Diagram: 06/14/1951706/14/1918 Results 24hrs Laboratory Tests Test 06/13/19 19:07 06/13/19 22:29 06/14/19 05:18 06/14/19 08:28 Bedside Glucose 162 98 119 White Blood Count 6.4 # Red Blood Count 4.12 L Hemoglobin 12.1 L Hematocrit 36.3 L Mean Corpuscular 88.1 Volume Mean Corpuscular 29.4 Hemoglobin Mean Corpuscular 33.3 Hemoglobin Concent Red Cell Distribution 12.7 Width Platelet Count 197 Mean Platelet Volume 11.1 H Immature Granulocytes 0.200 % Neutrophils % 70.5 Lymphocytes % 14.1 L Monocytes % 12.4 H Eosinophils % 1.9 Basophils % 0.9 Nucleated Red Blood 0.0 Cells % Immature Granulocytes 0.010 # Neutrophils # 4.5 Lymphocytes # 0.9 Monocytes # 0.8 Eosinophils # 0.1 Basophils # 0.1 Nucleated Red Blood 0.0 Cells # Prothrombin Time 12.8 Prothrombin Time Ratio 1.0 INR International 0.95 Normalized Ratio Activated 31.9 Partial Thromboplast Time Sodium Level 141 Potassium Level 4.4 Chloride Level 103 Carbon Dioxide Level 29 Anion Gap 9 Blood Urea Nitrogen 22 H Creatinine 1.00 Est Glomerular Filtrat > 60 Rate mL/min Glucose Level 126 Hemoglobin A1c 6.6 H Calcium Level 9.0 Phosphorus Level 3.8 Magnesium Level 1.7 Total Bilirubin 0.6 Direct Bilirubin 0.00 Indirect Bilirubin 0.6 Aspartate Amino 15 Transf (AST/SGOT) Alanine 26 Aminotransferase (ALT/ SGPT) Alkaline Phosphatase 58 Total Protein 6.3 # Albumin 3.7 Globulin 2.60 Albumin/Globulin Ratio 1.42 Triglycerides Level 68 Cholesterol Level 118 LDL Cholesterol, 68 Calculated HDL Cholesterol 36 Cholesterol/HDL Ratio 3.2 Thyroid Stimulating 3.800 Hormone (TSH) Free Thyroxine Index 2.40 Thyroxine (T4) 6.8 Triiodothyronine (T3) 35.3 Uptake Subjective 24 Hr Interval Summary Free Text/Dictation states he still feels throbbing on LLE Exam/Review of Systems Exam Vitals Vital Signs Date Temp Pulse Resp B/P (MAP) Pulse Ox O2 O2 Flow FiO2 Time Delivery Rate 06/14/19 97.8 93 18 131/78 97 08:00 (95) 06/13/19 Room Air 19:30 Intake and Output 06/13/19 06/13/19 06/14/19 1515:00 23:00 07:00 IntakeIntake Total 740 ml 480 ml OutputOutput Total 1200 ml BalanceBalance 740 ml -720 ml Exam Constitutional: alert, oriented Psych: nl mood/affect Head: normocephalic Respiratory: clear to auscultation Cardiovascular: regular rate and rhythm Gastrointestinal: soft, non-tender Musculoskeletal: other (left foot fifth digit ulcer with erythema/swelling ) Neurological: DRAFTING CLERK II-XII intact, nl mental status, nl speech Results Results 24hrs Laboratory Tests Test 06/13/19 19:07 06/13/19 22:29 06/14/19 05:18 06/14/19 08:28 Bedside Glucose 162 98 119 White Blood Count 6.4 # Red Blood Count 4.12 L Hemoglobin 12.1 L Hematocrit 36.3 L Mean Corpuscular 88.1 Volume Mean Corpuscular 29.4 Hemoglobin Mean Corpuscular 33.3 Hemoglobin Concent Red Cell Distribution 12.7 Width Platelet Count 197 Mean Platelet Volume 11.1 H Immature Granulocytes 0.200 % Neutrophils % 70.5 Lymphocytes % 14.1 L Monocytes % 12.4 H Eosinophils % 1.9 Basophils % 0.9 Nucleated Red Blood 0.0 Cells % Immature Granulocytes 0.010 # Neutrophils # 4.5 Lymphocytes # 0.9 Monocytes # 0.8 Eosinophils # 0.1 Basophils # 0.1 Nucleated Red Blood 0.0 Cells # Prothrombin Time 12.8 Prothrombin Time Ratio 1.0 INR International 0.95 Normalized Ratio Activated 31.9 Partial Thromboplast Time Sodium Level 141 Potassium Level 4.4 Chloride Level 103 Carbon Dioxide Level 29 Anion Gap 9 Blood Urea Nitrogen 22 H Creatinine 1.00 Est Glomerular Filtrat > 60 Rate mL/min Glucose Level 126 Hemoglobin A1c 6.6 H Calcium Level 9.0 Phosphorus Level 3.8 Magnesium Level 1.7 Total Bilirubin 0.6 Direct Bilirubin 0.00 Indirect Bilirubin 0.6 Aspartate Amino 15 Transf (AST/SGOT) Alanine 26 Aminotransferase (ALT/ SGPT) Alkaline Phosphatase 58 Total Protein 6.3 # Albumin 3.7 Globulin 2.60 Albumin/Globulin Ratio 1.42 Triglycerides Level 68 Cholesterol Level 118 LDL Cholesterol, 68 Calculated HDL Cholesterol 36 Cholesterol/HDL Ratio 3.2 Thyroid Stimulating 3.800 Hormone (TSH) Free Thyroxine Index 2.40 Thyroxine (T4) 6.8 Triiodothyronine (T3) 35.3 Uptake Medications Medication Current Medications Aspirin (Halfprin) 81 mg DAILY PO ; Start 06/14/19 at 09:00 Levothyroxine Sodium (Synthroid) 25 mcg BEFORE BREAKFAST PO ; Start 06/14/19 at 07:00 Pregabalin (Lyrica) 75 mg TID PO Last administered on 06/13/19at 22:32; Admin Dose 75 MG; Start 06/13/19 at 21:00 Diagnostic Test (Pha) (Accu-Chek) 1 ea 02 XX ; Start 06/14/19 at 02:00 Insulin Glargine (Lantus) 15 units DAILY@2000 SC Last administered on 06/13/19at 22:49; Admin Dose 15 UNITS; Start 06/13/19 at 20:00 Insulin Aspart (Novolog Insulin Pen) 5 unit WITH MEALS SC Last administered on 06/13/19at 19:11; Admin Dose 5 UNIT; Start 06/13/19 at 18:00 Insulin Aspart (Novolog Insulin Pen) NOVOLOG *MILD* ALGORITHM WITH MEALS BEDTIM E SC ; Start 06/13/19 at 18:00 IV Flush (NS 3 ml) 3 ml PER PROTOCOL IV ; Start 06/13/19 at 13:30 Ondansetron HCl (Zofran Inj) 4 mg Q6H PRN IV NAUSEA/VOMITING; Start 06/13/19 at 13:30 Acetaminophen (Tylenol Tab) 650 mg Q6H PRN PO .PAIN 1-3 OR TEMP; Start 06/13/19 at 13:30 Acetaminophen/ Hydrocodone Bitart ([place] (5/325)) 1 tab Q6H PRN PO .MOD PAIN 4- 6 Last administered on 06/13/19at 17:22; Admin Dose 1 TAB; Start 06/13/19 at 13:30 Morphine Sulfate (morphine) 2 mg Q4H PRN IV .SEVERE PAIN 7-10 Last administered on 06/14/19at 11:58; Admin Dose 2 MG; Start 06/13/19 at 13:30 Docusate Sodium (Colace) 100 mg Q12H PRN PO .CONSTIPATION; Start 06/13/19 at 13:30 Famotidine (Pepcid Iv) 20 mg Q12 IV Last administered on 06/14/19at 08:34; Admin Dose 20 MG; Start 06/13/19 at 21:00 Heparin Sodium (Porcine) (Heparin (5000 Units/1ml)) 5,000 unit Q12 SC Last administered on 06/13/19at 22:48; Admin Dose 5,000 UNIT; Start 06/13/19 at 21:00 Amlodipine Besylate (Norvasc) 5 mg DAILY PO ; Start 06/13/19 at 13:30 Atorvastatin Calcium (Lipitor) 10 mg DAILY@21 PO Last administered on 06/13/19at 22:32; Admin Dose 10 MG; Start 06/13/19 at 21:00 Miscellaneous Information 1 ea NOTE XX ; Start 06/13/19 at 14:30 Glucose (Glutose) 15 gm Q15M PRN PO DECREASED GLUCOSE; Start 06/13/19 at 14:30 Glucose (Glutose) 22.5 gm Q15M PRN PO DECREASED GLUCOSE; Start 06/13/19 at 14:30 Dextrose (D50w Syringe) 25 ml Q15M PRN IV DECREASED GLUCOSE; Start 06/13/19 at 14:30 Dextrose (D50w Syringe) 50 ml Q15M PRN IV DECREASED GLUCOSE; Start 06/13/19 at 14:30 Glucagon (Glucagen) 1 mg Q15M PRN IM DECREASED GLUCOSE; Start 06/13/19 at 14:30 Glucose (Glutose) 15 gm Q15M PRN BUCCAL DECREASED GLUCOSE; Start 06/13/19 at 14:30 Vancomycin HCl (Vanco Iv Per Pharmacy) VANCOMYCIN PER PHARMACY PER PROTOCOL XX ; Start 06/13/19 at 15:30 Vancomycin/Sodium Chloride 250 ml @ 83.333 mls/ hr Q12H IVPB Last administered on 06/14/19at 05:28; Admin Dose 83.333 MLS/HR; Start 06/14/19 at 05:00 Miscellaneous Information (*Rx Drug Level Order Reminder*) VANCO TR LEVEL ON @ 400 ONCE ONCE XX ; Start 06/15/19 at 04:00; Stop 06/15/19 at 04:01 BRENDA BEACH NP Jun 14, 2019 12:27
--- NOTE | 2019-06-14 14:50 | CONS ---
Assessment/Plan Assessment/Plan Hospital Course (Demo Recall) No events, looks comfortable, no fevers ALLERGIES: NONE Avbx: Vanco PHYSICAL EXAMINATION: GENERAL: The patient is a well-developed, well-nourished male in no acute distress. SKIN: Without generalized rash. HEENT: Within normal limits. NECK: Supple. LYMPH NODES: None palpable. CHEST: Decreased breath sounds at the bases. HEART: Without murmur or gallop. ABDOMEN: Soft, nontender EXTREMITIES: No cyanosis, clubbing, or edema. Left lower extremity 5th digit is erythematous with ulcer on the plantar surface NEUROLOGIC: No focal neurological abnormality. Assessment: 1. Left foot cellulitis with osteomyelitis of the toe 2. Diabetic neuropathy 3. Diabetes Plan: Continue vancomycin, add Rocephin, follow podiatry recommendations, plan for surgical debridement Consultation Date/Type/Reason Admit Date/Time Jun 13, 2019 at 13:15 Initial Consult Date Type of Consult id Date/Time of Note DATE: 06/14/19 TIME: 14:47 Exam/Review of Systems Exam Vitals Vital Signs Date Temp Pulse Resp B/P (MAP) Pulse Ox O2 O2 Flow FiO2 Time Delivery Rate 06/14/19 98.1 78 18 113/60 93 14:28 (77) 06/13/19 Room Air 19:30 Intake and Output 06/13/19 06/13/19 06/14/19 1515:00 23:00 07:00 IntakeIntake Total 740 ml 480 ml OutputOutput Total 1200 ml BalanceBalance 740 ml -720 ml Results Result Diagram: 06/14/19 0518 06/14/19 0518 Results 24hrs Laboratory Tests Test 06/13/19 19:07 06/13/19 22:29 06/14/19 05:18 06/14/19 08:28 Bedside Glucose 162 98 119 White Blood Count 6.4 # Red Blood Count 4.12 L Hemoglobin 12.1 L Hematocrit 36.3 L Mean Corpuscular 88.1 Volume Mean Corpuscular 29.4 Hemoglobin Mean Corpuscular 33.3 Hemoglobin Concent Red Cell Distribution 12.7 Width Platelet Count 197 Mean Platelet Volume 11.1 H Immature Granulocytes 0.200 % Neutrophils % 70.5 Lymphocytes % 14.1 L Monocytes % 12.4 H Eosinophils % 1.9 Basophils % 0.9 Nucleated Red Blood 0.0 Cells % Immature Granulocytes 0.010 # Neutrophils # 4.5 Lymphocytes # 0.9 Monocytes # 0.8 Eosinophils # 0.1 Basophils # 0.1 Nucleated Red Blood 0.0 Cells # Prothrombin Time 12.8 Prothrombin Time Ratio 1.0 INR International 0.95 Normalized Ratio Activated 31.9 Partial Thromboplast Time Sodium Level 141 Potassium Level 4.4 Chloride Level 103 Carbon Dioxide Level 29 Anion Gap 9 Blood Urea Nitrogen 22 H Creatinine 1.00 Est Glomerular Filtrat > 60 Rate mL/min Glucose Level 126 Hemoglobin A1c 6.6 H Calcium Level 9.0 Phosphorus Level 3.8 Magnesium Level 1.7 Total Bilirubin 0.6 Direct Bilirubin 0.00 Indirect Bilirubin 0.6 Aspartate Amino 15 Transf (AST/SGOT) Alanine 26 Aminotransferase (ALT/ SGPT) Alkaline Phosphatase 58 Total Protein 6.3 # Albumin 3.7 Globulin 2.60 Albumin/Globulin Ratio 1.42 Triglycerides Level 68 Cholesterol Level 118 LDL Cholesterol, 68 Calculated HDL Cholesterol 36 Cholesterol/HDL Ratio 3.2 Thyroid Stimulating 3.800 Hormone (TSH) Free Thyroxine Index 2.40 Thyroxine (T4) 6.8 Triiodothyronine (T3) 35.3 Uptake Test 06/14/19 12:46 Bedside Glucose 99 Medications Medication Current Medications Aspirin (Halfprin) 81 mg DAILY PO ; Start 06/14/19 at 09:00 Levothyroxine Sodium (Synthroid) 25 mcg BEFORE BREAKFAST PO ; Start 06/14/19 at 07:00 Pregabalin (Lyrica) 75 mg TID PO Last administered on 06/13/19at 22:32; Admin Dose 75 MG; Start 06/13/19 at 21:00 Diagnostic Test (Pha) (Accu-Chek) 1 ea 02 XX ; Start 06/14/19 at 02:00 Insulin Glargine (Lantus) 15 units DAILY@2000 SC Last administered on 06/13/19at 22:49; Admin Dose 15 UNITS; Start 06/13/19 at 20:00 Insulin Aspart (Novolog Insulin Pen) 5 unit WITH MEALS SC Last administered on 06/13/19at 19:11; Admin Dose 5 UNIT; Start 06/13/19 at 18:00 Insulin Aspart (Novolog Insulin Pen) NOVOLOG *MILD* ALGORITHM WITH MEALS BEDTIME SC ; Start 06/13/19 at 18:00 IV Flush (NS 3 ml) 3 ml PER PROTOCOL IV ; Start 06/13/19 at 13:30 Ondansetron HCl (Zofran Inj) 4 mg Q6H PRN IV NAUSEA/VOMITING; Start 06/13/19 at 13:30 Acetaminophen (Tylenol Tab) 650 mg Q6H PRN PO .PAIN 1-3 OR TEMP; Start 06/13/19 at 13:30 Acetaminophen/ Hydrocodone Bitart ([place] (5/325)) 1 tab Q6H PRN PO .MOD PAIN 4- 6 Last administered on 06/13/19at 17:22; Admin Dose 1 TAB; Start 06/13/19 at 13:30 Morphine Sulfate (morphine) 2 mg Q4H PRN IV .SEVERE PAIN 7-10 Last administered on 06/14/19at 11:58; Admin Dose 2 MG; Start 06/13/19 at 13:30 Docusate Sodium (Colace) 100 mg Q12H PRN PO .CONSTIPATION; Start 06/13/19 at 13:30 Famotidine (Pepcid Iv) 20 mg Q12 IV Last administered on 06/14/19at 08:34; Admin Dose 20 MG; Start 06/13/19 at 21:00 Heparin Sodium (Porcine) (Heparin (5000 Units/1ml)) 5,000 unit Q12 SC Last administered on 06/13/19at 22:48; Admin Dose 5,000 UNIT; Start 06/13/19 at 21:00 Amlodipine Besylate (Norvasc) 5 mg DAILY PO ; Start 06/13/19 at 13:30 Atorvastatin Calcium (Lipitor) 10 mg DAILY@21 PO Last administered on 06/13/19at 22:32; Admin Dose 10 MG; Start 06/13/19 at 21:00 Miscellaneous Information 1 ea NOTE XX ; Start 06/13/19 at 14:30 Glucose (Glutose) 15 gm Q15M PRN PO DECREASED GLUCOSE; Start 06/13/19 at 14:30 Glucose (Glutose) 22.5 gm Q15M PRN PO DECREASED GLUCOSE; Start 06/13/19 at 14:30 Dextrose (D50w Syringe) 25 ml Q15M PRN IV DECREASED GLUCOSE; Start 06/13/19 at 14:30 Dextrose (D50w Syringe) 50 ml Q15M PRN IV DECREASED GLUCOSE; Start 06/13/19 at 14:30 Glucagon (Glucagen) 1 mg Q15M PRN IM DECREASED GLUCOSE; Start 06/13/19 at 14:30 Glucose (Glutose) 15 gm Q15M PRN BUCCAL DECREASED GLUCOSE; Start 06/13/19 at 14:30 Vancomycin HCl (Vanco Iv Per Pharmacy) VANCOMYCIN PER PHARMACY PER PROTOCOL XX ; Start 06/13/19 at 15:30 Vancomycin/Sodium Chloride 250 ml @ 83.333 mls/ hr Q12H IVPB Last administered on 06/14/19at 05:28; Admin Dose 83.333 MLS/HR; Start 06/14/19 at 05:00 Miscellaneous Information (*Rx Drug Level Order Reminder*) VANCO TR LEVEL ON @ 400 ONCE ONCE XX ; Start 06/15/19 at 04:00; Stop 06/15/19 at 04:01 OUMAR YATES NP Jun 14, 2019 14:49
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
[2019-06-14] MEDS: CEFTRIAXONE 1 GM/50 ML (PMX) 50 ML IVPB SCH (16:25)
--- NOTE | 2019-06-14 17:55 | HPN ---
Date/Time of Note Date/Time of Note DATE: 06/14/19 TIME: 17:54 Interval H&P Admission Note Pt. seen H&P reviewed: No system changes FORD BLUM DPM Jun 14, 2019 17:55
--- NOTE | 2019-06-14 18:10 | PREAC ---
Date/Time of Note Date/Time of Note DATE: 06/14/19 TIME: 18:05 Anesthesia Eval and Record Evaluation Time Pre-Procedure Interview DATE: 06/14/19 TIME: 18:05 Age 63 Sex male NPO: 8 hrs Preoperative diagnosis osteomyelitis of his left fifth digit foot Planned procedure left foot excisional debridement possible allograft possible wound closure Past Medical History Past Medical History: Includes Cardio: HTN Endo: Diabetes Surgery & Anesthesia Issues No known issue Meds Anticoagulation: No Beta Marcello within 24 hr: No Reason Beta Marcello not given: Pt. not on B-Marcello Reported Medications Metformin Hcl* (Metformin Hcl*) 1,000 Mg Tablet, 1000 MG PO WITH BREAKFAST DINNE, #60 TAB 04/03/19 Glipizide* (Glipizide*) 5 Mg Tablet, 5 MG PO AC BREAKFAST DINNER, TAB 04/03/19 Pravastatin Sodium* (Pravastatin Sodium*) 20 Mg Tablet, 20 MG PO HS, TAB 04/03/19 Aspirin* (Aspirin* EC) 81 Mg Tablet.dr, 81 MG PO DAILY, TAB 04/03/19 Levothyroxine Sodium* (Levothyroxine Sodium*) 25 Mcg Tablet, 25 MCG PO BEFORE BREAKFAST, #30 TAB 04/03/19 Pregabalin* (Lyrica*) 75 Mg Capsule, 75 MG PO TID, CAP 04/03/19 Discontinued Reported Medications Ergocalciferol (Vitamin D2) (VITAMIN D2) 50,000 Unit Capsule, 65650 UNIT PO Q MON, CAP 04/03/19 Tramadol Hcl* (Ultram*) 50 Mg Tablet, 50 MG PO BID PRN for PAIN, TAB 04/03/19 Current Medications Aspirin (Halfprin) 81 mg DAILY PO ; Start 06/14/19 at 09:00 Levothyroxine Sodium (Synthroid) 25 mcg BEFORE BREAKFAST PO ; Start 06/14/19 at 07:00 Pregabalin (Lyrica) 75 mg TID PO Last administered on 06/13/19at 22:32; Admin Do se 75 MG; Start 06/13/19 at 21:00 Diagnostic Test (Pha) (Accu-Chek) 1 ea 02 XX ; Start 06/14/19 at 02:00 Insulin Glargine (Lantus) 15 units DAILY@2000 SC Last administered on 06/13/19at 22:49; Admin Dose 15 UNITS; Start 06/13/19 at 20:00 Insulin Aspart (Novolog Insulin Pen) 5 unit WITH MEALS SC Last administered on 06/13/19at 19:11; Admin Dose 5 UNIT; Start 06/13/19 at 18:00 Insulin Aspart (Novolog Insulin Pen) NOVOLOG *MILD* ALGORITHM WITH MEALS BEDTIME SC ; Start 06/13/19 at 18:00 IV Flush (NS 3 ml) 3 ml PER PROTOCOL IV ; Start 06/13/19 at 13:30 Ondansetron HCl (Zofran Inj) 4 mg Q6H PRN IV NAUSEA/VOMITING; Start 06/13/19 at 13:30 Acetaminophen (Tylenol Tab) 650 mg Q6H PRN PO .PAIN 1-3 OR TEMP; Start 06/13/19 at 13:30 Acetaminophen/ Hydrocodone Bitart ([place] (5/325)) 1 tab Q6H PRN PO .MOD PAIN 4- 6 Last administered on 06/13/19at 17:22; Admin Dose 1 TAB; Start 06/13/19 at 13:30 Morphine Sulfate (morphine) 2 mg Q4H PRN IV .SEVERE PAIN 7-10 Last administered on 06/14/19at 11:58; Admin Dose 2 MG; Start 06/13/19 at 13:30 Docusate Sodium (Colace) 100 mg Q12H PRN PO .CONSTIPATION; Start 06/13/19 at 13:30 Famotidine (Pepcid Iv) 20 mg Q12 IV Last administered on 06/14/19at 08:34; Admin Dose 20 MG; Start 06/13/19 at 21:00 Heparin Sodium (Porcine) (Heparin (5000 Units/1ml)) 5,000 unit Q12 SC Last administered on 06/13/19at 22:48; Admin Dose 5,000 UNIT; Start 06/13/19 at 21:00 Amlodipine Besylate (Norvasc) 5 mg DAILY PO ; Start 06/13/19 at 13:30 Atorvastatin Calcium (Lipitor) 10 mg DAILY@21 PO Last administered on 06/13/19at 22:32; Admin Dose 10 MG; Start 06/13/19 at 21:00 Miscellaneous Information 1 ea NOTE XX ; Start 06/13/19 at 14:30 Glucose (Glutose) 15 gm Q15M PRN PO DECREASED GLUCOSE; Start 06/13/19 at 14:30 Glucose (Glutose) 22.5 gm Q15M PRN PO DECREASED GLUCOSE; Start 06/13/19 at 14:30 Dextrose (D50w Syringe) 25 ml Q15M PRN IV DECREASED GLUCOSE; Start 06/13/19 at 14:30 Dextrose (D50w Syringe) 50 ml Q15M PRN IV DECREASED GLUCOSE; Start 06/13/19 at 14:30 Glucagon (Glucagen) 1 mg Q15M PRN IM DECREASED GLUCOSE; Start 06/13/19 at 14:30 Glucose (Glutose) 15 gm Q15M PRN BUCCAL DECREASED GLUCOSE; Start 06/13/19 at 14:30 Vancomycin HCl (Vanco Iv Per Pharmacy) VANCOMYCIN PER PHARMACY PER PROTOCOL XX ; Start 06/13/19 at 15:30 Vancomycin/Sodium Chloride 250 ml @ 83.333 mls/ hr Q12H IVPB Last administered on 06/14/19at 05:28; Admin Dose 83.333 MLS/HR; Start 06/14/19 at 05:00 Miscellaneous Information (*Rx Drug Level Order Reminder*) VANCO TR LEVEL ON @ 400 ONCE ONCE XX ; Start 06/15/19 at 04:00; Stop 06/15/19 at 04:01 Ceftriaxone Sodium 50 ml @ 100 mls/hr Q24H IVPB Last administered on 06/14/19at 16:25; Admin Dose 100 MLS/HR; Start 06/14/19 at 15:00 Meds reviewed: Yes Allergies Coded Allergies: No Known Allergy (Unverified , 06/13/19) Allergies Reviewed: Yes Labs/Studies Labs Reviewed: Reviewed by anesthesiologist Result Diagram: 06/14/1918 06/14/1918 Laboratory Tests 06/14/19 05:18 test: N/A Studies: CXR Pre-procedure Exam Last vitals Vital Signs Date Temp Pulse Resp B/P (MAP) Pulse Ox O2 O2 Flow FiO2 Time Delivery Rate 06/14/19 98.1 78 18 113/60 93 14:28 (77) 06/13/19 Room Air 19:30 Airway: Adequate mouth opening Mallampati: Mallampati II Teeth: Normal Lung: Normal Heart: Normal ASA Physical Status ASA physical status: 2 Emergency: None Planned Anesthetic General/MAC: MAC Pre-operative Attestations Prior to commencing anesthesia and surgery, the patient was re-evaluated, there was verification of: *The patient's identity *The results of appropriate recent lab work and preoperative vital signs *The above evaluation not changing prior to induction *Anesthetic plan, risk benefits, alternative and complications discussed with patient/family; questions answered; patient/family understands, accepts and wishes to proceed. LARY HUDSON Jun 14, 2019 18:09
[2019-06-14] MEDS ORDERED: POLYMYXIN/BACITRACIN 1L IRRIG IRR ONE ×2 (18:11→18:48)
[2019-06-14] MEDS ORDERED: VANCOMYCIN 1 GM INJ ONE (18:17)
[2019-06-14] MEDS ORDERED: BUPIVACAINE 0.5% (SDV) 30 ML INJ ONE (18:19)
[2019-06-14] MEDS ORDERED: FENTAnyl 50 MCG/ML VIAL ONE (18:30)
[2019-06-14] MEDS ORDERED: MIDAZOLAM 1 MG/ML 2 ML INJ ONE (18:30)
[2019-06-14] MEDS ORDERED: PROPOFOL 20 ML ONE (18:43)
[2019-06-14] MEDS ORDERED: ONDANSETRON 4 MG INJ ONE (18:55)
[2019-06-14] MEDS ORDERED: METOCLOPRAMIDE 10 MG INJ ONE (18:55)
--- NOTE | 2019-06-14 19:25 | SIPON ---
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
--- NOTE | 2019-06-14 19:25 | PAC ---
Date/Time of Note Date/Time of Note DATE: 06/14/19 TIME: 19:25 Post-Anesthesia Notes Post-Anesthesia Note Last documented vital signs Vital Signs Date Temp Pulse Resp B/P (MAP) Pulse Ox O2 O2 Flow FiO2 Time Delivery Rate 06/14/19 98.1 78 18 113/60 93 14:28 (77) 06/13/19 98.0 Room Air 19:30 Activity: WNL Respiratory function: WNL Cardiovascular function: WNL Mental status: Baseline Pain reasonably controlled: Yes Hydration appropriate: Yes Nausea/Vomiting absent: Yes NETO ZUNIGA MD Jun 14, 2019 19:25
[2019-06-14] MEDS ORDERED: LABETALOL HCL 20MG INJ IV PRN (19:30)
[2019-06-14] MEDS ORDERED: OXYCODONE/ACETAMINOPHEN (5/325) TAB PO PRN (19:30)
[2019-06-14] MEDS ORDERED: FENTAnyl 50 MCG/ML VIAL IV PRN ×2 (19:30)
[2019-06-14] MEDS ORDERED: ONDANSETRON 4 MG INJ IV PRN (19:30)
[2019-06-14] MEDS ORDERED: EPHEDrine 25 MG/5 ML SYG IV PRN (19:30)
[2019-06-14] MEDS ORDERED: HYDROmorphONE 1 MG/5 ML IV SYRINGE IV PRN ×2 (19:30)
--- NOTE | 2019-06-14 19:40 | OPR ---
Date/Time of Note Date/Time of Note DATE: 06/14/19 TIME: 19:39 Operative Report Preoperative Diagnosis L foot diabetic ulcer L foot cellulitis L foot osteomyelitis DM2 with peripheral neuropathy L foot 5th digit hammertoe Postoperative Diagnosis L foot diabetic ulcer L foot cellulitis L foot osteomyelitis DM2 with peripheral neuropathy L foot 5th digit hammertoe Operation/Procedure Performed Left 5th digit derotational arthroplasty Left foot excisional debridement Application of allograft Surgeon see signature line Systems Checkout Mechanic none Anesthesia Type: MAC Estimated Blood Loss: 0 - 10 ml's Transfusion none Specimen Left foot wound culture Left foot bone pathology Grafts/Implants integra bilayer Complications none Indications 63 y/o diabetic M patient with a left foot diabetic ulceration and osteomyelitis. He was treated with 6 weeks IV abx and had improvement to his wound site. Unfortunately the wound reoccurred and with infection to the left 5th digit. There is concern for osteomyelitis to the left 5th digit. Patient also has a left hallux tip diabetic ulceration which is stable without acute signs of infection. Patient wanted to purse salvage of the toe and is amenable to surgical intervention. Addressed all of the patient's questions and concerns. No promises or guarantees were given. Procedure Description Patient was brought into the OR and placed in the supine position. The left lower extremity was scrubbed, prepped, and draped in the usual aseptic manner. A formal time out was conducted. Local anesthesia was administered to the surgical site. Attention was directed to the left 5th digit with simulated weight bearing had an adductovarus contracture deformity. There was an ulceration to the dorsal lateral aspect measuring 0.7 x 0.6 x 0.4cm which probed to bone and wound base was fibro granular with some necrotic tissue. There was surrounding erythema, but no proximal streaking. Scant purulence was appreciated. An oblique ellipitical incision was made overlying the ulceration site and the ulcer was excised. Excisional debridement of skin/subQ/tendon/fascia was performed of the left 5th digit ulceration site with curette and pickup/scissors. There was necrotic and fibrotic tissue removed. An area of 0.42cm2 was debrided. Next, using a sagittal the base of the middle phalanx and head of the proximal phalanx of the 5th digit was resected out to perform the arthroplasty to correct the deformity and remove osteomyelitic bone. Copious antibiotic infused saline was used for irrigation to the surgical site. Wound cultures were obtained and bone was sent for pathology studies. Vancomycin powder was applied to the surgical site. No further purulence or infectious bone was appreciated at this time. Using 4-0 prolene the oblique elliptical incision skin edges were reapproximated which assisted with the derotation of the adductovarus contracture deformity of the 5th digit. The 5th digit appeared more rectus. CFT was less than 3 seconds to digit. Subsequently, attention was directed to the left hallux distal tip where there was a fibrogranular ulceration measuring 0.7 x 0.6 x 0.2cm which did no probe to bone, no erythema, and no purulence was appreciated. Excisional debridement was performed of skin/subQ using a curette of the left hallux. Fibrotic and biofilm tissue was removed from the ulceration site. Copious antibiotic infused saline irrigation was used. An integra bilayer allograft was secured with 4-0 prolene and applied to the hallux ulceration site. Xeroform and dry sterile dressings were applied to the left foot. Patient was transferred to the PACU with vital signs stable and neurovascular status intact. FORD BLUM DPM Jun 14, 2019 19:39
--- NOTE | 2019-06-14 20:55 | RADRPT ---
Vent Rate: 83 bpm RR Interval: 720 msec NE Interval: 188 msec QRS Duration: 77 msec QT Interval: 353 msec QTC Interval: 416 msec P-R-T [place]: 50 - 60 - 58 degrees Sinus rhythm...normal P axis, V-rate 50- 99 Electronically Signed By: Luis Staley
[2019-06-14] MEDS: ATORVASTATIN 10 MG TAB PO SCH (21:24)
[2019-06-14] MEDS: INSULIN GLARGINE [LANTus] (100 UNITS/ML) SYG SC SCH (21:33)
[2019-06-15] MEDS: ACCU-CHEK XX SCH (02:00)
[2019-06-15 03:04] VITALS: BP 130/69; PULSE 88; RESP 18
[2019-06-15] MEDS: VANCOMYCIN 1.25 GM/NS 250 ML 250 ML IVPB SCH ×3 (05:37→20:22)
[2019-06-15] MEDS: LEVOTHYROXINE 25 MCG TAB PO SCH (06:01)
[2019-06-15] MEDS: INSULIN ASPART [NOVOLOG] 3 ML PEN SC SCH ×8 (08:00→20:28)
[2019-06-15] MEDS: PREGABALIN 75 MG CAP PO SCH ×3 (08:24→20:23)
[2019-06-15] MEDS: ASPIRIN (EC) 81 MG TAB PO SCH (08:24)
[2019-06-15] MEDS: AMLODIPINE 5 MG TAB PO SCH (08:24)
[2019-06-15] MEDS: FAMOTIDINE 20 MG INJ IV SCH ×2 (08:24→20:23)
[2019-06-15] MEDS: HEPARIN 5,000 UNIT/1 ML VIAL SC SCH ×2 (08:28→20:28)
[2019-06-15 08:29] VITALS: BP 134/70; PULSE 78; RESP 20
[2019-06-15] MEDS: HYDROCODONE/APAP (5/325) TAB PO PRN ×2 (08:33→18:15)
--- NOTE | 2019-06-15 13:03 | PN ---
Date/Time of Note Date/Time of Note DATE: 06/15/19 TIME: 13:01 Assessment/Plan VTE Prophylaxis Risk score (from Nsg)>0 risk: 5 SCD applied (from Nsg): Yes Pharmacological prophylaxis: heparin Lines/Catheters IV Catheter Type (from Nrsg): Peripheral IV Assessment/Plan Hospital Course Assessment and plan # Left foot diabetic foot ulcer. continue on antibiotics ID consult following MRI of the left foot did show findings suggestive of osteomyelitis of the fifth toe with adjacent soft tissue swelling and wound/ulcer Podiatry following Patient s/p: Left 5th digit derotational arthroplasty/Left foot excisional debridement/Application of allograft 06.14.19 #Diabetes Continue insulin #History of neuropathy Continue Lyrica #Hypertension Start antihypertensives. Will adjust as needed. Disposition and plan. Continue with antibiotics. continue wound care. f/u consult recommendations. f/u cultures. Discussed POC with Dr. Jimenez Result Diagram: 06/14/1951706/14/1918 Results 24hrs Laboratory Tests Test 06/14/19 17:44 06/14/19 19:27 06/14/19 21:16 06/15/19 03:51 Bedside Glucose 102 100 101 Vancomycin Level Trough 6.4 L Test 06/15/19 08:23 06/15/19 12:43 Bedside Glucose 104 120 Subjective 24 Hr Interval Summary Free Text/Dictation patient reports good pain control at present. Exam/Review of Systems Exam Vitals Vital Signs Date Temp Pulse Resp B/P (MAP) Pulse Ox O2 O2 Flow FiO2 Time Delivery Rate 06/15/19 99.0 78 20 134/70 93 08:29 (91) 06/14/19 Room Air 20:06 Intake and Output 06/14/19 06/14/19 06/15/19 1515:00 23:00 07:00 IntakeIntake Total 250 ml 350 ml BalanceBalance 250 ml 350 ml Exam Constitutional: alert, oriented Psych: nl mood/affect Head: normocephalic Respiratory: clear to auscultation Cardiovascular: regular rate and rhythm Gastrointestinal: soft, non-tender Musculoskeletal: other (left foot fifth digit ulcer with dressing Neurological: WOODWORKING MACHINE SETTER II-XII intact, nl mental status, nl speech Results Results 24hrs Laboratory Tests Test 06/14/19 17:44 06/14/19 19:27 06/14/19 21:16 06/15/19 03:51 Bedside Glucose 102 100 101 Vancomycin Level Trough 6.4 L Test 06/15/19 08:23 06/15/19 12:43 Bedside Glucose 104 120 Medications Medication Current Medications Aspirin (Halfprin) 81 mg DAILY PO Last administered on 06/15/19 08:24; Admin Dose 81 MG; Start 06/14/19 at 09:00 Levothyroxine Sodium (Synthroid) 25 mcg BEFORE BREAKFAST PO Last administered on 06/15/19 06:01; Admin Dose 25 MCG; Start 06/14/19 at 07:00 Pregabalin (Lyrica) 75 mg TID PO Last administered on 06/15/19 08:24; Admin Dose 75 MG; Start 06/13/19 at 21:00 Diagnostic Test (Pha) (Accu-Chek) 1 ea 02 XX ; Start 06/14/19 at 02:00 Insulin Glargine (Lantus) 15 units DAILY@2000 SC Last administered on 06/14/19 21:33; Admin Dose 15 UNITS; Start 06/13/19 at 20:00 Insulin Aspart (Novolog Insulin Pen) 5 unit WITH MEALS SC Last administered on 06/15/19 08:47; Admin Dose 5 UNIT; Start 06/13/19 at 18:00 Insulin Aspart (Novolog Insulin Pen) NOVOLOG *MILD* ALGORITHM WITH MEALS BEDTIME SC ; Start 06/13/19 at 18:00 IV Flush (NS 3 ml) 3 ml PER PROTOCOL IV ; Start 06/13/19 at 13:30 Ondansetron HCl (Zofran Inj) 4 mg Q6H PRN IV NAUSEA/VOMITING; Start 06/13/19 at 13:30 Acetaminophen (Tylenol Tab) 650 mg Q6H PRN PO .PAIN 1-3 OR TEMP; Start 06/13/19 at 13:30 Acetaminophen/ Hydrocodone Bitart ([place] (5/325)) 1 tab Q6H PRN PO .MOD PAIN 4- 6 Last administered on 06/15/19 08:33; Admin Dose 1 TAB; Start 06/13/19 at 13:30 Morphine Sulfate (morphine) 2 mg Q4H PRN IV .SEVERE PAIN 7-10 Last administered on 06/14/19at 11:58; Admin Dose 2 MG; Start 06/13/19 at 13:30 Docusate Sodium (Colace) 100 mg Q12H PRN PO .CONSTIPATION; Start 06/13/19 at 13:30 Famotidine (Pepcid Iv) 20 mg Q12 IV Last administered on 06/15/19at 08:24; Admin Dose 20 MG; Start 06/13/19 at 21:00 Heparin Sodium (Porcine) (Heparin (5000 Units/1ml)) 5,000 unit Q12 SC Last administered on 06/15/19at 08:28; Admin Dose 5,000 UNIT; Start 06/13/19 at 21:00 Amlodipine Besylate (Norvasc) 5 mg DAILY PO Last administered on 06/15/19at 08:24; Admin Dose 5 MG; Start 06/13/19 at 13:30 Atorvastatin Calcium (Lipitor) 10 mg DAILY@21 PO Last administered on 06/14/19at 21:24; Admin Dose 10 MG; Start 06/13/19 at 21:00 Miscellaneous Information 1 ea NOTE XX ; Start 06/13/19 at 14:30 Glucose (Glutose) 15 gm Q15M PRN PO DECREASED GLUCOSE; Start 06/13/19 at 14:30 Glucose (Glutose) 22.5 gm Q15M PRN PO DECREASED GLUCOSE; Start 06/13/19 at 14:30 Dextrose (D50w Syringe) 25 ml Q15M PRN IV DECREASED GLUCOSE; Start 06/13/19 at 14:30 Dextrose (D50w Syringe) 50 ml Q15M PRN IV DECREASED GLUCOSE; Start 06/13/19 at 14:30 Glucagon (Glucagen) 1 mg Q15M PRN IM DECREASED GLUCOSE; Start 06/13/19 at 14:30 Glucose (Glutose) 15 gm Q15M PRN BUCCAL DECREASED GLUCOSE; Start 06/13/19 at 14:30 Vancomycin HCl (Vanco Iv Per Pharmacy) VANCOMYCIN PER PHARMACY PER PROTOCOL XX ; Start 06/13/19 at 15:30 Ceftriaxone Sodium 50 ml @ 100 mls/hr Q24H IVPB Last administered on 06/14/19at 16:25; Admin Dose 100 MLS/HR; Start 06/14/19 at 15:00 Vancomycin/Sodium Chloride 250 ml @ 83.33 mls/ hr Q8H IVPB Last administered on 06/15/19at 12:58; Admin Dose 83.33 MLS/HR; Start 06/15/19 at 13:00 Miscellaneous Information (*Rx Drug Level Order Reminder*) VANCOMYCIN TROUGH LEVEL 0400 ONCE XX ; Start 06/16/19 at 04:00; Stop 06/16/19 at 04:01 BRENDA BEACH NP Jun 15, 2019 13:03
[2019-06-15 14:21] VITALS: BP 129/69; PULSE 78; RESP 18
[2019-06-15] MEDS: CEFTRIAXONE 1 GM/50 ML (PMX) 50 ML IVPB SCH (15:34)
--- NOTE | 2019-06-15 15:36 | CONS ---
Assessment/Plan Assessment/Plan Hospital Course (Demo Recall) No events, looks comfortable, no fevers ALLERGIES: NONE Abx: Vanco Rocephin PHYSICAL EXAMINATION: GENERAL: The patient is a well-developed, well-nourished male in no acute distress. SKIN: Without generalized rash. HEENT: Within normal limits. NECK: Supple. LYMPH NODES: None palpable. CHEST: Decreased breath sounds at the bases. HEART: Without murmur or gallop. ABDOMEN: Soft, nontender EXTREMITIES: No cyanosis, clubbing, or edema. Left lower extremity dsg intact NEUROLOGIC: No focal neurological abnormality. Assessment: 1. Left foot cellulitis with osteomyelitis of the toe, s/p i/d==> cx + St aureus prelim 2. Diabetic neuropathy 3. Diabetes Plan: Stable, continue abx, f/u final cx, podiatry rec-s Consultation Date/Type/Reason Admit Date/Time Jun 13, 2019 at 13:15 Initial Consult Date Type of Consult id Date/Time of Note DATE: 06/15/19 TIME: 15:34 Exam/Review of Systems Exam Vitals Vital Signs Date Temp Pulse Resp B/P (MAP) Pulse Ox O2 O2 Flow FiO2 Time Delivery Rate 06/15/19 98.2 78 18 129/69 96 14:21 (89) 06/14/19 Room Air 20:06 Intake and Output 06/14/19 06/14/19 06/15/19 1515:00 23:00 07:00 IntakeIntake Total 250 ml 350 ml BalanceBalance 250 ml 350 ml Results Result Diagram: 06/14/19 0518 06/14/19 0518 Results 24hrs Laboratory Tests Test 06/14/19 17:44 06/14/19 19:27 06/14/19 21:16 06/15/19 03:51 Bedside Glucose 102 100 101 Vancomycin Level Trough 6.4 L Test 06/15/19 08:23 06/15/19 12:43 Bedside Glucose 104 120 Medications Medication Current Medications Aspirin (Halfprin) 81 mg DAILY PO Last administered on 06/15/19at 08:24; Admin Dose 81 MG; Start 06/14/19 at 09:00 Levothyroxine Sodium (Synthroid) 25 mcg BEFORE BREAKFAST PO Last administered on 06/15/19at 06:01; Admin Dose 25 MCG; Start 06/14/19 at 07:00 Pregabalin (Lyrica) 75 mg TID PO Last administered on 06/15/19 13:46; Admin Dose 75 MG; Start 06/13/19 at 21:00 Diagnostic Test (Pha) (Accu-Chek) 1 ea 02 XX ; Start 06/14/19 at 02:00 Insulin Glargine (Lantus) 15 units DAILY@2000 SC Last administered on 06/14/19 21:33; Admin Dose 15 UNITS; Start 06/13/19 at 20:00 Insulin Aspart (Novolog Insulin Pen) 5 unit WITH MEALS SC Last administered on 06/15/19 13:43; Admin Dose 5 UNIT; Start 06/13/19 at 18:00 Insulin Aspart (Novolog Insulin Pen) NOVOLOG *MILD* ALGORITHM WITH MEALS BEDTIME SC ; Start 06/13/19 at 18:00 IV Flush (NS 3 ml) 3 ml PER PROTOCOL IV ; Start 06/13/19 at 13:30 Ondansetron HCl (Zofran Inj) 4 mg Q6H PRN IV NAUSEA/VOMITING; Start 06/13/19 at 13:30 Acetaminophen (Tylenol Tab) 650 mg Q6H PRN PO .PAIN 1-3 OR TEMP; Start 06/13/19 at 13:30 Acetaminophen/ Hydrocodone Bitart ([place] (5/325)) 1 tab Q6H PRN PO .MOD PAIN 4- 6 Last administered on 06/15/19 08:33; Admin Dose 1 TAB; Start 06/13/19 at 13:30 Morphine Sulfate (morphine) 2 mg Q4H PRN IV .SEVERE PAIN 7-10 Last administered on 06/14/19 11:58; Admin Dose 2 MG; Start 06/13/19 at 13:30 Docusate Sodium (Colace) 100 mg Q12H PRN PO .CONSTIPATION; Start 06/13/19 at 13 :30 Famotidine (Pepcid Iv) 20 mg Q12 IV Last administered on 06/15/19 08:24; Admin Dose 20 MG; Start 06/13/19 at 21:00 Heparin Sodium (Porcine) (Heparin (5000 Units/1ml)) 5,000 unit Q12 SC Last adm inistered on 06/15/19 08:28; Admin Dose 5,000 UNIT; Start 06/13/19 at 21:00 Amlodipine Besylate (Norvasc) 5 mg DAILY PO Last administered on 06/15/19at 08:24; Admin Dose 5 MG; Start 06/13/19 at 13:30 Atorvastatin Calcium (Lipitor) 10 mg DAILY@21 PO Last administered on 06/14/19at 21:24; Admin Dose 10 MG; Start 06/13/19 at 21:00 Miscellaneous Information 1 ea NOTE XX ; Start 06/13/19 at 14:30 Glucose (Glutose) 15 gm Q15M PRN PO DECREASED GLUCOSE; Start 06/13/19 at 14:30 Glucose (Glutose) 22.5 gm Q15M PRN PO DECREASED GLUCOSE; Start 06/13/19 at 14:30 Dextrose (D50w Syringe) 25 ml Q15M PRN IV DECREASED GLUCOSE; Start 06/13/19 at 14:30 Dextrose (D50w Syringe) 50 ml Q15M PRN IV DECREASED GLUCOSE; Start 06/13/19 at 14:30 Glucagon (Glucagen) 1 mg Q15M PRN IM DECREASED GLUCOSE; Start 06/13/19 at 14:30 Glucose (Glutose) 15 gm Q15M PRN BUCCAL DECREASED GLUCOSE; Start 06/13/19 at 14:30 Vancomycin HCl (Vanco Iv Per Pharmacy) VANCOMYCIN PER PHARMACY PER PROTOCOL XX ; Start 06/13/19 at 15:30 Ceftriaxone Sodium 50 ml @ 100 mls/hr Q24H IVPB Last administered on 06/14/19at 16:25; Admin Dose 100 MLS/HR; Start 06/14/19 at 15:00 Vancomycin/Sodium Chloride 250 ml @ 83.33 mls/ hr Q8H IVPB Last administered on 06/15/19at 12:58; Admin Dose 83.33 MLS/HR; Start 06/15/19 at 13:00 Miscellaneous Information (*Rx Drug Level Order Reminder*) VANCOMYCIN TROUGH LEVEL 0400 ONCE XX ; Start 06/16/19 at 04:00; Stop 06/16/19 at 04:01 OUMAR EARL NP Jun 15, 2019 15:36
[2019-06-15] MEDS: ATORVASTATIN 10 MG TAB PO SCH (20:23)
[2019-06-15] MEDS: INSULIN GLARGINE [LANTus] (100 UNITS/ML) SYG SC SCH (20:26)
[2019-06-15 20:36] VITALS: BP 145/77; PULSE 80; RESP 18
[2019-06-16] MEDS: ACCU-CHEK XX SCH (01:46)
[2019-06-16 02:45] VITALS: BP 119/68; PULSE 76; RESP 16
[2019-06-16] MEDS: LEVOTHYROXINE 25 MCG TAB PO SCH (07:01)
[2019-06-16] MEDS: INSULIN ASPART [NOVOLOG] 3 ML PEN SC SCH ×6 (07:57→21:00)
[2019-06-16] MEDS: PREGABALIN 75 MG CAP PO SCH ×3 (08:01→20:56)
[2019-06-16] MEDS: ASPIRIN (EC) 81 MG TAB PO SCH (08:01)
[2019-06-16] MEDS: FAMOTIDINE 20 MG INJ IV SCH ×2 (08:01→20:56)
[2019-06-16 08:05] VITALS: BP 126/72; PULSE 77; RESP 20
[2019-06-16] MEDS: HEPARIN 5,000 UNIT/1 ML VIAL SC SCH ×2 (08:05→21:04)
[2019-06-16] MEDS: AMLODIPINE 5 MG TAB PO SCH (08:10)
[2019-06-16] MEDS: HYDROCODONE/APAP (5/325) TAB PO PRN (08:10)
[2019-06-16] MEDS: VANCOMYCIN 1.25 GM/NS 250 ML 250 ML IVPB SCH ×3 (08:11→20:58)
[2019-06-16] MEDS ORDERED: NITROGLYCERIN 0.4 MG/HR PATCH TRANSDERM SCH (09:00)
[2019-06-16] MEDS: NITROGLYCERIN 0.2 MG/HR PATCH TRANSDERM SCH (09:00)
--- NOTE | 2019-06-16 09:10 | PN ---
Date/Time of Note Date/Time of Note DATE: 06/16/19 TIME: 09:07 Assessment/Plan VTE Prophylaxis Risk score (from Nsg)>0 risk: 5 SCD applied (from Nsg): Yes Pharmacological prophylaxis: heparin Lines/Catheters IV Catheter Type (from Nrsg): Peripheral IV Urinary Cath still in place: No Assessment/Plan Hospital Course Assessment and plan # Left foot diabetic foot ulcer. continue on antibiotics ID consult following MRI of the left foot did show findings suggestive of osteomyelitis of the fifth toe with adjacent soft tissue swelling and wound/ulcer Podiatry following Patient s/p: Left 5th digit derotational arthroplasty/Left foot excisional debridement/Application of allograft 06.14.19 #Diabetes Continue insulin #History of neuropathy Continue Lyrica #Hypertension Start antihypertensives. Will adjust as needed. Disposition and plan. Continue with antibiotics. continue wound care. final culture showing staph. f/u ID for abx regimen for transition to outpatient. d/c planning Discussed POC with Dr. Jimenez Result Diagram: 06/16/19 0424 06/16/19 0424 Results 24hrs Laboratory Tests Test 06/15/19 12:43 06/15/19 17:32 06/15/19 20:21 06/16/19 04:24 Bedside Glucose 120 94 154 White Blood Count 6.2 Red Blood Count 4.19 L Hemoglobin 11.8 L Hematocrit 36.7 L Mean Corpuscular Volume 87.6 Mean Corpuscular 28.2 L Hemoglobin Mean Corpuscular 32.2 Hemoglobin Concent Red Cell Distribution 12.6 Width Platelet Count 218 Mean Platelet Volume 11.1 H Immature Granulocytes % 0.300 Neutrophils % 62.4 Lymphocytes % 17.4 Monocytes % 15.7 H Eosinophils % 3.4 Basophils % 0.8 Nucleated Red Blood 0.0 Cells % Immature Granulocytes # 0.020 Neutrophils # 3.8 Lymphocytes # 1.1 Monocytes # 1.0 H Eosinophils # 0.2 Basophils # 0.1 Nucleated Red Blood 0.0 Cells # Sodium Level 138 Potassium Level 3.9 Chloride Level 103 Carbon Dioxide Level 27 Anion Gap 8 Blood Urea Nitrogen 18 Creatinine 1.00 Est Glomerular Filtrat > 60 Rate mL/min Glucose Level 131 Calcium Level 8.8 Vancomycin Level Trough 16.7 Test 06/16/19 07:57 Bedside Glucose 123 Subjective 24 Hr Interval Summary Free Text/Dictation Patient resting at this time. Denies any pain. Comfortable present. Exam/Review of Systems Exam Vitals Vital Signs Date Temp Pulse Resp B/P (MAP) Pulse Ox O2 O2 Flow FiO2 Time Delivery Rate 06/16/19 98.4 77 20 126/72 98 08:05 (90) 06/14/19 Room Air 20:06 Intake and Output 06/15/19 06/15/19 06/16/19 1515:00 23:00 07:00 IntakeIntake Total 1020 ml 800 ml 490 ml OutputOutput Total 1700 ml 2075 ml 1400 ml BalanceBalance -680 ml -1275 ml -910 ml Exam Constitutional: alert, oriented Psych: nl mood/affect Head: normocephalic Respiratory: clear to auscultation Cardiovascular: regular rate and rhythm Gastrointestinal: soft, non-tender Musculoskeletal: other (left foot dressing in place Neurological: FINGERNAIL SCULPTOR II-XII intact, nl mental status, nl speech Results Results 24hrs Laboratory Tests Test 06/15/19 12:43 06/15/19 17:32 06/15/19 20:21 06/16/19 04:24 Bedside Glucose 120 94 154 White Blood Count 6.2 Red Blood Count 4.19 L Hemoglobin 11.8 L Hematocrit 36.7 L Mean Corpuscular Volume 87.6 Mean Corpuscular 28.2 L Hemoglobin Mean Corpuscular 32.2 Hemoglobin Concent Red Cell Distribution 12.6 Width Platelet Count 218 Mean Platelet Volume 11.1 H Immature Granulocytes % 0.300 Neutrophils % 62.4 Lymphocytes % 17.4 Monocytes % 15.7 H Eosinophils % 3.4 Basophils % 0.8 Nucleated Red Blood 0.0 Cells % Immature Granulocytes # 0.020 Neutrophils # 3.8 Lymphocytes # 1.1 Monocytes # 1.0 H Eosinophils # 0.2 Basophils # 0.1 Nucleated Red Blood 0.0 Cells # Sodium Level 138 Potassium Level 3.9 Chloride Level 103 Carbon Dioxide Level 27 Anion Gap 8 Blood Urea Nitrogen 18 Creatinine 1.00 Est Glomerular Filtrat > 60 Rate mL/min Glucose Level 131 Calcium Level 8.8 Vancomycin Level Trough 16.7 Test 06/16/19 07:57 Bedside Glucose 123 Medications Medication Current Medications Aspirin (Halfprin) 81 mg DAILY PO Last administered on 06/16/19at 08:01; Admin Dose 81 MG; Start 06/14/19 at 09:00 Levothyroxine Sodium (Synthroid) 25 mcg BEFORE BREAKFAST PO Last administered on 06/16/19 07:01; Admin Dose 25 MCG; Start 06/14/19 at 07:00 Pregabalin (Lyrica) 75 mg TID PO Last administered on 06/16/19 08:01; Admin Dose 75 MG; Start 06/13/19 at 21:00 Diagnostic Test (Pha) (Accu-Chek) 1 ea 02 XX ; Start 06/14/19 at 02:00 Insulin Glargine (Lantus) 15 units DAILY@2000 SC Last administered on 06/15/19 20:26; Admin Dose 15 UNITS; Start 06/13/19 at 20:00 Insulin Aspart (Novolog Insulin Pen) 5 unit WITH MEALS SC Last administered on 06/15/19 17:48; Admin Dose 5 UNIT; Start 06/13/19 at 18:00 Insulin Aspart (Novolog Insulin Pen) NOVOLOG *MILD* ALGORITHM WITH MEALS BEDTIME SC ; Start 06/13/19 at 18:00 IV Flush (NS 3 ml) 3 ml PER PROTOCOL IV ; Start 06/13/19 at 13:30 Ondansetron HCl (Zofran Inj) 4 mg Q6H PRN IV NAUSEA/VOMITING; Start 06/13/19 at 13:30 Acetaminophen (Tylenol Tab) 650 mg Q6H PRN PO .PAIN 1-3 OR TEMP; Start 06/13/19 at 13:30 Acetaminophen/ Hydrocodone Bitart ([place] (5/325)) 1 tab Q6H PRN PO .MOD PAIN 4- 6 Last administered on 06/16/19 08:10; Admin Dose 1 TAB; Start 06/13/19 at 13:30 Morphine Sulfate (morphine) 2 mg Q4H PRN IV .SEVERE PAIN 7-10 Last administered on 06/14/19 11:58; Admin Dose 2 MG; Start 06/13/19 at 13:30 Docusate Sodium (Colace) 100 mg Q12H PRN PO .CONSTIPATION; Start 06/13/19 at 13:30 Famotidine (Pepcid Iv) 20 mg Q12 IV Last administered on 06/16/19 08:01; Admin Dose 20 MG; Start 06/13/19 at 21:00 Heparin Sodium (Porcine) (Heparin (5000 Units/1ml)) 5,000 unit Q12 SC Last administered on 06/16/19at 08:05; Admin Dose 5,000 UNIT; Start 06/13/19 at 21:00 Amlodipine Besylate (Norvasc) 5 mg DAILY PO Last administered on 06/16/19at 08: 10; Admin Dose 5 MG; Start 06/13/19 at 13:30 Atorvastatin Calcium (Lipitor) 10 mg DAILY@21 PO Last administered on 06/15/19at 20:23; Admin Dose 10 MG; Start 06/13/19 at 21:00 Miscellaneous Information 1 ea NOTE XX ; Start 06/13/19 at 14:30 Glucose (Glutose) 15 gm Q15M PRN PO DECREASED GLUCOSE; Start 06/13/19 at 14:30 Glucose (Glutose) 22.5 gm Q15M PRN PO DECREASED GLUCOSE; Start 06/13/19 at 14:30 Dextrose (D50w Syringe) 25 ml Q15M PRN IV DECREASED GLUCOSE; Start 06/13/19 at 14:30 Dextrose (D50w Syringe) 50 ml Q15M PRN IV DECREASED GLUCOSE; Start 06/13/19 at 14:30 Glucagon (Glucagen) 1 mg Q15M PRN IM DECREASED GLUCOSE; Start 06/13/19 at 14:30 Glucose (Glutose) 15 gm Q15M PRN BUCCAL DECREASED GLUCOSE; Start 06/13/19 at 14:30 Vancomycin HCl (Vanco Iv Per Pharmacy) VANCOMYCIN PER PHARMACY PER PROTOCOL XX ; Start 06/13/19 at 15:30 Ceftriaxone Sodium 50 ml @ 100 mls/hr Q24H IVPB Last administered on 06/15/19at 15:34; Admin Dose 100 MLS/HR; Start 06/14/19 at 15:00 Vancomycin/Sodium Chloride 250 ml @ 83.33 mls/ hr Q8H IVPB Last administered on 06/16/19at 08:11; Admin Dose 83.33 MLS/HR; Start 06/15/19 at 13:00 Miscellaneous Information (*Rx Drug Level Order Reminder*) VANCO TR 1200 XX ; Start 06/17/19 at 12:00 Nitroglycerin (Nitroglycerin 0.2 Mg/Hr) 2 patch DAILY TRANSDERM ; Start 06/16/19 at 09:00 BRENDA BEACH NP Jun 16, 2019 09:10
--- NOTE | 2019-06-16 11:14 | CONS ---
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 Patient planned for angio with Dr. Gonzalez. Applied nitropatch to proximal to the left 5th digit area to improve perfusion. Dressings were changed. Offload heels with pillows. Intra-op cultures showing staph aureus. Appreciate ID recommendations. Consultation Date/Type/Reason Admit Date/Time Jun 13, 2019 at 13:15 Initial Consult Date Date/Time of Note DATE: 06/16/19 TIME: 11:09 24 HR Interval Summary Free Text/Dictation No acute events overnight. Exam/Review of Systems Exam Vitals Vital Signs Date Temp Pulse Resp B/P (MAP) Pulse Ox O2 O2 Flow FiO2 Time Delivery Rate 06/16/19 98.4 77 20 126/72 98 08:05 (90) 06/14/19 Room Air 20:06 Intake and Output 06/15/19 06/15/19 06/16/19 1515:00 23:00 07:00 IntakeIntake Total 1020 ml 800 ml 490 ml OutputOutput Total 1700 ml 2075 ml 1400 ml BalanceBalance -680 ml -1275 ml -910 ml Exam Left hallux with allograft placement secured with skin keith Left 5th digit with CFT less than 3 seconds There is eschar formation to the left 5th digit incision site with some epidermalysis to the medial aspect of the digit and ecchymosis appreciated. Absent protective sensations Results Result Diagram: 06/16/19 0424 06/16/19 0424 Results 24hrs Laboratory Tests Test 06/15/19 12:43 06/15/19 17:32 06/15/19 20:21 06/16/19 04:24 Bedside Glucose 120 94 154 White Blood Count 6.2 Red Blood Count 4.19 L Hemoglobin 11.8 L Hematocrit 36.7 L Mean Corpuscular Volume 87.6 Mean Corpuscular 28.2 L Hemoglobin Mean Corpuscular 32.2 Hemoglobin Concent Red Cell Distribution 12.6 Width Platelet Count 218 Mean Platelet Volume 11.1 H Immature Granulocytes % 0.300 Neutrophils % 62.4 Lymphocytes % 17.4 Monocytes % 15.7 H Eosinophils % 3.4 Basophils % 0.8 Nucleated Red Blood 0.0 Cells % Immature Granulocytes # 0.020 Neutrophils # 3.8 Lymphocytes # 1.1 Monocytes # 1.0 H Eosinophils # 0.2 Basophils # 0.1 Nucleated Red Blood 0.0 Cells # Sodium Level 138 Potassium Level 3.9 Chloride Level 103 Carbon Dioxide Level 27 Anion Gap 8 Blood Urea Nitrogen 18 Creatinine 1.00 Est Glomerular Filtrat > 60 Rate mL/min Glucose Level 131 Calcium Level 8.8 Vancomycin Level Trough 16.7 Test 06/16/19 07:57 Bedside Glucose 123 Medications Medication Current Medications Aspirin (Halfprin) 81 mg DAILY PO Last administered on 06/16/19 08:01; Admin Dose 81 MG; Start 06/14/19 at 09:00 Levothyroxine Sodium (Synthroid) 25 mcg BEFORE BREAKFAST PO Last administered on 06/16/19 07:01; Admin Dose 25 MCG; Start 06/14/19 at 07:00 Pregabalin (Lyrica) 75 mg TID PO Last administered on 06/16/19 08:01; Admin Dose 75 MG; Start 06/13/19 at 21:00 Diagnostic Test (Pha) (Accu-Chek) 1 ea 02 XX ; Start 06/14/19 at 02:00 Insulin Glargine (Lantus) 15 units DAILY@2000 SC Last administered on 06/15/19 20:26; Admin Dose 15 UNITS; Start 06/13/19 at 20:00 Insulin Aspart (Novolog Insulin Pen) 5 unit WITH MEALS SC Last administered on 06/15/19 17:48; Admin Dose 5 UNIT; Start 06/13/19 at 18:00 Insulin Aspart (Novolog Insulin Pen) NOVOLOG *MILD* ALGORITHM WITH MEALS BEDTIME SC ; Start 06/13/19 at 18:00 IV Flush (NS 3 ml) 3 ml PER PROTOCOL IV ; Start 06/13/19 at 13:30 Ondansetron HCl (Zofran Inj) 4 mg Q6H PRN IV NAUSEA/VOMITING; Start 06/13/19 at 13:30 Acetaminophen (Tylenol Tab) 650 mg Q6H PRN PO .PAIN 1-3 OR TEMP; Start 06/13/19 at 13:30 Acetaminophen/ Hydrocodone Bitart ([place] (5/325)) 1 tab Q6H PRN PO .MOD PAIN 4- 6 Last administered on 8/3/19at 08:10; Admin Dose 1 TAB; Start 06/13/19 at 13:30 Morphine Sulfate (morphine) 2 mg Q4H PRN IV .SEVERE PAIN 7-10 Last administered on 06/14/19at 11:58; Admin Dose 2 MG; Start 06/13/19 at 13:30 Docusate Sodium (Colace) 100 mg Q12H PRN PO .CONSTIPATION; Start 06/13/19 at 13:30 Famotidine (Pepcid Iv) 20 mg Q12 IV Last administered on 06/16/19at 08:01; Admin Dose 20 MG; Start 06/13/19 at 21:00 Heparin Sodium (Porcine) (Heparin (5000 Units/1ml)) 5,000 unit Q12 SC Last administered on 06/16/19at 08:05; Admin Dose 5,000 UNIT; Start 06/13/19 at 21:00 Amlodipine Besylate (Norvasc) 5 mg DAILY PO Last administered on 06/16/19at 08:10; Admin Dose 5 MG; Start 06/13/19 at 13:30 Atorvastatin Calcium (Lipitor) 10 mg DAILY@21 PO Last administered on 06/15/19at 20:23; Admin Dose 10 MG; Start 06/13/19 at 21:00 Miscellaneous Information 1 ea NOTE XX ; Start 06/13/19 at 14:30 Glucose (Glutose) 15 gm Q15M PRN PO DECREASED GLUCOSE; Start 06/13/19 at 14:30 Glucose (Glutose) 22.5 gm Q15M PRN PO DECREASED GLUCOSE; Start 06/13/19 at 14:30 Dextrose (D50w Syringe) 25 ml Q15M PRN IV DECREASED GLUCOSE; Start 06/13/19 at 14:30 Dextrose (D50w Syringe) 50 ml Q15M PRN IV DECREASED GLUCOSE; Start 06/13/19 at 14:30 Glucagon (Glucagen) 1 mg Q15M PRN IM DECREASED GLUCOSE; Start 06/13/19 at 14:30 Glucose (Glutose) 15 gm Q15M PRN BUCCAL DECREASED GLUCOSE; Start 06/13/19 at 14:30 Vancomycin HCl (Vanco Iv Per Pharmacy) VANCOMYCIN PER PHARMACY PER PROTOCOL XX ; Start 06/13/19 at 15:30 Ceftriaxone Sodium 50 ml @ 100 mls/hr Q24H IVPB Last administered on 06/15/19at 15:34; Admin Dose 100 MLS/HR; Start 06/14/19 at 15:00 Vancomycin/Sodium Chloride 250 ml @ 83.33 mls/ hr Q8H IVPB Last administered o n 06/16/19at 08:11; Admin Dose 83.33 MLS/HR; Start 06/15/19 at 13:00 Miscellaneous Information (*Rx Drug Level Order Reminder*) ROSALINDA TR 1200 XX ; Start 06/17/19 at 12:00 Nitroglycerin (Nitroglycerin 0.2 Mg/Hr) 2 patch DAILY TRANSDERM Last administered on 06/16/19at 09:00; Admin Dose 2 PATCH; Start 06/16/19 at 09:00 FORD BLUM DPM Jun 16, 2019 11:14
[2019-06-16 14:01] VITALS: BP 136/68; PULSE 105; RESP 20
[2019-06-16] MEDS: ACETAMINOPHEN 325 MG TAB PO PRN (14:29)
[2019-06-16] MEDS: CEFTRIAXONE 1 GM/50 ML (PMX) 50 ML IVPB SCH (16:00)
--- NOTE | 2019-06-16 19:08 | CONS ---
Assessment/Plan Assessment/Plan Hospital Course (Demo Recall) ID PROGRESS NOTE CURRENT ABX: DAY # => Vanco IV + Ceftriaxone 06/16/194 06/16/19 0424 24H INTERVAL SUMMARY * Patient is resting, VSS, NAD, no complaints DIAGNOSTIC IMAGING * 06/13/19 LEFT FOOT MRI: Findings suggesting osteomyelitis of the fifth toe with adjacent soft tissue swelling and wound/ulcer, as above. Findings are similar compared to prior exam and may represent [id number] osteomyelitis. MICRO * 06/14/19 LEFT FOOT CX: WOUND CULTURE Final Organism 1 STAPHYLOCOCCUS AUREUS QUANTITY SCANT GROWTH S AUREUS M.I.C. RX --------- --- CEFAZOLIN S CIPROFLOXACIN <=0.5 S CLINDAMYCIN <=0.25 S DOXYCYCLINE S ERYTHROMYCIN <=0.25 S LEVOFLOXACIN 0.25 S OXACILLIN <=0.25 S PENICILLIN-G 0.06 R RIFAMPIN <=0.5 S VANCOMYCIN 1 S TRIMETHOPRIM/SULFAMETHOXAZOLE <=10 S * 06/13/19 BCX (-) PHYSICAL EXAMINATION: GENERAL: VSS, NAD HEENT: AT, NC, NECK: Supple, CHEST: Rise symmetrical HEART: Pulse RRR ABDOMEN: Soft EXTREMITIES: Warm, dry - Left lower extremity dsg intact SKIN: No rash, no diaphoresis ID ASSESSMENT 63 yo M admit with: SIRS w/ESR 33; CRP 2.6 due to complex left diabetic foot infection L foot diabetic ulcer L foot cellulitis L foot osteomyelitis 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 ) MRSA Nares ABX ALLERGIES: None to ABX INVASIVES: CURRENT ABX: DAY # => Vanco IV + Ceftriaxone ID RECOMMENDATIONS/PLAN: 1. Appreciate Podiatry plan per notes: " Expressed concern to patient regarding the perfusion to his left 5th digit. Patient planned for angio with Dr. Gonzalez." 2. Continue current ABX - ID team will follow. . . Consultation Date/Type/Reason Admit Date/Time Jun 13, 2019 at 13:15 Initial Consult Date Date/Time of Note DATE: 06/16/19 TIME: 19:07 Exam/Review of Systems Exam Vitals Vital Signs Date Temp Pulse Resp B/P (MAP) Pulse Ox O2 O2 Flow FiO2 Time Delivery Rate 06/16/19 98.3 105 20 136/68 95 14:01 (90) 06/14/19 Room Air 20:06 Intake and Output 06/15/19 06/15/19 06/16/19 1515:00 23:00 07:00 IntakeIntake Total 1020 ml 800 ml 490 ml OutputOutput Total 1700 ml 2075 ml 1400 ml BalanceBalance -680 ml -1275 ml -910 ml Results Result Diagram: 06/16/19 0424 06/16/19 0424 Results 24hrs Laboratory Tests Test 06/15/19 20:21 06/16/19 04:24 06/16/19 07:57 06/16/19 12:43 Bedside Glucose 154 123 157 White Blood Count 6.2 Red Blood Count 4.19 L Hemoglobin 11.8 L Hematocrit 36.7 L Mean Corpuscular Volume 87.6 Mean Corpuscular 28.2 L Hemoglobin Mean Corpuscular 32.2 Hemoglobin Concent Red Cell Distribution 12.6 Width Platelet Count 218 Mean Platelet Volume 11.1 H Immature Granulocytes % 0.300 Neutrophils % 62.4 Lymphocytes % 17.4 Monocytes % 15.7 H Eosinophils % 3.4 Basophils % 0.8 Nucleated Red Blood 0.0 Cells % Immature Granulocytes # 0.020 Neutrophils # 3.8 Lymphocytes # 1.1 Monocytes # 1.0 H Eosinophils # 0.2 Basophils # 0.1 Nucleated Red Blood 0.0 Cells # Sodium Level 138 Potassium Level 3.9 Chloride Level 103 Carbon Dioxide Level 27 Anion Gap 8 Blood Urea Nitrogen 18 Creatinine 1.00 Est Glomerular Filtrat > 60 Rate mL/min Glucose Level 131 Calcium Level 8.8 Vancomycin Level Trough 16.7 Test 06/16/19 17:35 Bedside Glucose 171 Medications Medication Current Medications Aspirin (Halfprin) 81 mg DAILY PO Last administered on 06/16/19at 08:01; Admin Dose 81 MG; Start 06/14/19 at 09:00 Levothyroxine Sodium (Synthroid) 25 mcg BEFORE BREAKFAST PO Last administered on 06/16/19at 07:01; Admin Dose 25 MCG; Start 06/14/19 at 07:00 Pregabalin (Lyrica) 75 mg TID PO Last administered on 06/16/19at 12:44; Admin Dose 75 MG; Start 06/13/19 at 21:00 Diagnostic Test (Pha) (Accu-Chek) 1 ea 02 XX ; Start 06/14/19 at 02:00 Insulin Glargine (Lantus) 15 units DAILY@2000 SC Last administered on 06/15/19 20:26; Admin Dose 15 UNITS; Start 06/13/19 at 20:00 Insulin Aspart (Novolog Insulin Pen) 5 unit WITH MEALS SC Last administered on 06/16/19 17:37; Admin Dose 5 UNIT; Start 06/13/19 at 18:00 Insulin Aspart (Novolog Insulin Pen) NOVOLOG *MILD* ALGORITHM WITH MEALS BEDTIME SC Last administered on 06/16/19 17:38; Admin Dose 1 UNIT; Start 06/13/19 at 18:00 IV Flush (NS 3 ml) 3 ml PER PROTOCOL IV ; Start 06/13/19 at 13:30 Ondansetron HCl (Zofran Inj) 4 mg Q6H PRN IV NAUSEA/VOMITING; Start 06/13/19 at 13:30 Acetaminophen (Tylenol Tab) 650 mg Q6H PRN PO .PAIN 1-3 OR TEMP Last administered on 06/16/19 14:29; Admin Dose 650 MG; Start 06/13/19 at 13:30 Acetaminophen/ Hydrocodone Bitart ([place] (5/325)) 1 tab Q6H PRN PO .MOD PAIN 4- 6 Last administered on 06/16/19 08:10; Admin Dose 1 TAB; Start 06/13/19 at 13:30 Morphine Sulfate (morphine) 2 mg Q4H PRN IV .SEVERE PAIN 7-10 Last administered on 06/14/19 11:58; Admin Dose 2 MG; Start 06/13/19 at 13:30 Docusate Sodium (Colace) 100 mg Q12H PRN PO .CONSTIPATION; Start 06/13/19 at 13:30 Famotidine (Pepcid Iv) 20 mg Q12 IV Last administered on 06/16/19 08:01; Admin Dose 20 MG; Start 06/13/19 at 21:00 Heparin Sodium (Porcine) (Heparin (5000 Units/1ml)) 5,000 unit Q12 SC Last administered on 06/16/19 08:05; Admin Dose 5,000 UNIT; Start 06/13/19 at 21:00 Amlodipine Besylate (Norvasc) 5 mg DAILY PO Last administered on 8/3/19at 08:10; Admin Dose 5 MG; Start 06/13/19 at 13:30 Atorvastatin Calcium (Lipitor) 10 mg DAILY@21 PO Last administered on 06/15/19at 20:23; Admin Dose 10 MG; Start 06/13/19 at 21:00 Miscellaneous Information 1 ea NOTE XX ; Start 06/13/19 at 14:30 Glucose (Glutose) 15 gm Q15M PRN PO DECREASED GLUCOSE; Start 06/13/19 at 14:30 Glucose (Glutose) 22.5 gm Q15M PRN PO DECREASED GLUCOSE; Start 06/13/19 at 14:30 Dextrose (D50w Syringe) 25 ml Q15M PRN IV DECREASED GLUCOSE; Start 06/13/19 at 14:30 Dextrose (D50w Syringe) 50 ml Q15M PRN IV DECREASED GLUCOSE; Start 06/13/19 at 14:30 Glucagon (Glucagen) 1 mg Q15M PRN IM DECREASED GLUCOSE; Start 06/13/19 at 14:30 Glucose (Glutose) 15 gm Q15M PRN BUCCAL DECREASED GLUCOSE; Start 06/13/19 at 14:30 Vancomycin HCl (Vanco Iv Per Pharmacy) VANCOMYCIN PER PHARMACY PER PROTOCOL XX ; Start 06/13/19 at 15:30 Ceftriaxone Sodium 50 ml @ 100 mls/hr Q24H IVPB Last administered on 06/16/19at 16:00; Admin Dose 100 MLS/HR; Start 06/14/19 at 15:00 Vancomycin/Sodium Chloride 250 ml @ 83.33 mls/ hr Q8H IVPB Last administered on 06/16/19at 12:44; Admin Dose 83.33 MLS/HR; Start 06/15/19 at 13:00 Miscellaneous Information (*Rx Drug Level Order Reminder*) VANCO TR 1200 XX ; Start 06/17/19 at 12:00 Nitroglycerin (Nitroglycerin 0.2 Mg/Hr) 2 patch DAILY TRANSDERM Last administered on 06/16/19at 09:00; Admin Dose 2 PATCH; Start 06/16/19 at 09:00 ALEXANDR LINCOLN NP Jun 16, 2019 19:07
[2019-06-16 20:12] VITALS: BP 102/59; PULSE 83; RESP 18
[2019-06-16] MEDS: ATORVASTATIN 10 MG TAB PO SCH (20:56)
[2019-06-16] MEDS: INSULIN GLARGINE [LANTus] (100 UNITS/ML) SYG SC SCH (22:28)
[2019-06-17 01:40] VITALS: BP 87/55; PULSE 95; RESP 17
[2019-06-17] MEDS: ACCU-CHEK XX SCH (02:00)
[2019-06-17] MEDS: VANCOMYCIN 1.25 GM/NS 250 ML 250 ML IVPB SCH ×2 (05:20→13:44)
[2019-06-17] MEDS: LEVOTHYROXINE 25 MCG TAB PO SCH (06:39)
[2019-06-17 07:53] VITALS: BP 108/65; PULSE 95; RESP 20
[2019-06-17] MEDS: PREGABALIN 75 MG CAP PO SCH ×3 (08:18→20:20)
[2019-06-17] MEDS: ASPIRIN (EC) 81 MG TAB PO SCH (08:18)
[2019-06-17] MEDS: AMLODIPINE 5 MG TAB PO SCH (08:18)
[2019-06-17] MEDS: FAMOTIDINE 20 MG INJ IV SCH ×2 (08:18→20:20)
[2019-06-17] MEDS: INSULIN ASPART [NOVOLOG] 3 ML PEN SC SCH ×7 (08:22→20:56)
[2019-06-17] MEDS: HEPARIN 5,000 UNIT/1 ML VIAL SC SCH ×2 (08:23→20:58)
--- NOTE | 2019-06-17 08:52 | PN ---
Date/Time of Note Date/Time of Note DATE: 06/17/19 TIME: 08:46 Assessment/Plan VTE Prophylaxis Risk score (from Nsg)>0 risk: 4 SCD applied (from Nsg): Yes Pharmacological prophylaxis: heparin Lines/Catheters IV Catheter Type (from Nrsg): Peripheral IV Urinary Cath still in place: No Assessment/Plan Hospital Course Assessment and plan # Left foot diabetic foot ulcer. continue on antibiotics ID consult following MRI of the left foot did show findings suggestive of osteomyelitis of the fifth toe with adjacent soft tissue swelling and wound/ulcer Podiatry following Patient s/p: Left 5th digit derotational arthroplasty/Left foot excisional debridement/Application of allograft 06.14.19 Tentative plan for angios for evaluation of LLE #Diabetes Continue insulin #History of neuropathy Continue Lyrica #Hypertension Start antihypertensives. Will adjust as needed. Disposition and plan. Continue with antibiotics. continue wound care. Tentative plan for angiogram for evaluation of LLE. Follow podiatry/vascular/ID recommendations Discussed POC with Dr. Jimenez Result Diagram: 06/17/19 0520 06/17/19 0520 Results 24hrs Laboratory Tests Test 06/16/19 12:43 06/16/19 17:35 06/16/19 21:44 06/16/19 22:26 Bedside Glucose 157 171 156 148 Test 06/17/19 05:20 06/17/19 08:17 White Blood Count 6.8 Red Blood Count 4.46 L Hemoglobin 12.9 L Hematocrit 39.6 L Mean Corpuscular Volume 88.8 Mean Corpuscular 28.9 L Hemoglobin Mean Corpuscular 32.6 Hemoglobin Concent Red Cell Distribution 12.5 Width Platelet Count 260 Mean Platelet Volume 11.1 H Immature Granulocytes % 0.100 Neutrophils % 66.9 Lymphocytes % 17.4 Monocytes % 12.5 H Eosinophils % 2.4 Basophils % 0.7 Nucleated Red Blood 0.0 Cells % Immature Granulocytes # 0.010 Neutrophils # 4.5 Lymphocytes # 1.2 Monocytes # 0.9 Eosinophils # 0.2 Basophils # 0.1 Nucleated Red Blood 0.0 Cells # Sodium Level 138 Potassium Level 4.0 Chloride Level 101 Carbon Dioxide Level 26 Anion Gap 11 Blood Urea Nitrogen 18 Creatinine 1.12 Est Glomerular Filtrat > 60 Rate mL/min Glucose Level 191 Calcium Level 9.0 Bedside Glucose 177 Subjective 24 Hr Interval Summary Free Text/Dictation good pain control at this time. comfortable at present Exam/Review of Systems Exam Vitals Vital Signs Date Temp Pulse Resp B/P (MAP) Pulse Ox O2 O2 Flow FiO2 Time Delivery Rate 06/17/19 98.6 95 20 108/65 97 07:53 (79) 06/14/19 Room Air 20:06 Intake and Output 06/16/19 06/16/19 06/17/19 1515:00 23:00 07:00 IntakeIntake Total 1730 ml 1010 ml 250 ml OutputOutput Total 1900 ml 600 ml BalanceBalance -170 ml 410 ml 250 ml Exam Constitutional: alert, oriented Psych: nl mood/affect Head: normocephalic Respiratory: clear to auscultation Cardiovascular: regular rate and rhythm Gastrointestinal: soft, non-tender Musculoskeletal: other (left foot dressing in place Neurological: HALAL BUTCHER II-XII intact, nl mental status, nl speech Results Results 24hrs Laboratory Tests Test 06/16/19 12:43 06/16/19 17:35 06/16/19 21:44 06/16/19 22:26 Bedside Glucose 157 171 156 148 Test 06/17/19 05:20 06/17/19 08:17 White Blood Count 6.8 Red Blood Count 4.46 L Hemoglobin 12.9 L Hematocrit 39.6 L Mean Corpuscular Volume 88.8 Mean Corpuscular 28.9 L Hemoglobin Mean Corpuscular 32.6 Hemoglobin Concent Red Cell Distribution 12.5 Width Platelet Count 260 Mean Platelet Volume 11.1 H Immature Granulocytes % 0.100 Neutrophils % 66.9 Lymphocytes % 17.4 Monocytes % 12.5 H Eosinophils % 2.4 Basophils % 0.7 Nucleated Red Blood 0.0 Cells % Immature Granulocytes # 0.010 Neutrophils # 4.5 Lymphocytes # 1.2 Monocytes # 0.9 Eosinophils # 0.2 Basophils # 0.1 Nucleated Red Blood 0.0 Cells # Sodium Level 138 Potassium Level 4.0 Chloride Level 101 Carbon Dioxide Level 26 Anion Gap 11 Blood Urea Nitrogen 18 Creatinine 1.12 Est Glomerular Filtrat > 60 Rate mL/min Glucose Level 191 Calcium Level 9.0 Bedside Glucose 177 Medications Medication Current Medications Aspirin (Halfprin) 81 mg DAILY PO Last administered on 06/17/19at 08:18; Admin Dose 81 MG; Start 06/14/19 at 09:00 Levothyroxine Sodium (Synthroid) 25 mcg BEFORE BREAKFAST PO Last administered on 06/17/19 06:39; Admin Dose 25 MCG; Start 06/14/19 at 07:00 Pregabalin (Lyrica) 75 mg TID PO Last administered on 06/17/19 08:18; Admin Dose 75 MG; Start 06/13/19 at 21:00 Diagnostic Test (Pha) (Accu-Chek) 1 ea 02 XX ; Start 06/14/19 at 02:00 Insulin Glargine (Lantus) 15 units DAILY@2000 SC Last administered on 06/16/19 22:28; Admin Dose 15 UNITS; Start 06/13/19 at 20:00 Insulin Aspart (Novolog Insulin Pen) 5 unit WITH MEALS SC Last administered on 06/17/19 08:23; Admin Dose 5 UNIT; Start 06/13/19 at 18:00 Insulin Aspart (Novolog Insulin Pen) NOVOLOG *MILD* ALGORITHM WITH MEALS BEDTIME SC Last administered on 06/17/19 08:22; Admin Dose 1 UNIT; Start 06/13/19 at 18:00 IV Flush (NS 3 ml) 3 ml PER PROTOCOL IV ; Start 06/13/19 at 13:30 Ondansetron HCl (Zofran Inj) 4 mg Q6H PRN IV NAUSEA/VOMITING; Start 06/13/19 at 13:30 Acetaminophen (Tylenol Tab) 650 mg Q6H PRN PO .PAIN 1-3 OR TEMP Last administered on 06/16/19 14:29; Admin Dose 650 MG; Start 06/13/19 at 13:30 Acetaminophen/ Hydrocodone Bitart ([place] (5/325)) 1 tab Q6H PRN PO .MOD PAIN 4- 6 Last administered on 06/16/19 08:10; Admin Dose 1 TAB; Start 06/13/19 at 13:30 Morphine Sulfate (morphine) 2 mg Q4H PRN IV .SEVERE PAIN 7-10 Last administered on 06/14/19 11:58; Admin Dose 2 MG; Start 06/13/19 at 13:30 Docusate Sodium (Colace) 100 mg Q12H PRN PO .CONSTIPATION; Start 06/13/19 at 13:30 Famotidine (Pepcid Iv) 20 mg Q12 IV Last administered on 8/4/19at 08:18; Admin Dose 20 MG; Start 06/13/19 at 21:00 Heparin Sodium (Porcine) (Heparin (5000 Units/1ml)) 5,000 unit Q12 SC Last administered on 06/17/19at 08:23; Admin Dose 5,000 UNIT; Start 06/13/19 at 21:00 Amlodipine Besylate (Norvasc) 5 mg DAILY PO Last administered on 06/17/19at 08:18; Admin Dose 5 MG; Start 06/13/19 at 13:30 Atorvastatin Calcium (Lipitor) 10 mg DAILY@21 PO Last administered on 06/16/19at 20:56; Admin Dose 10 MG; Start 06/13/19 at 21:00 Miscellaneous Information 1 ea NOTE XX ; Start 06/13/19 at 14:30 Glucose (Glutose) 15 gm Q15M PRN PO DECREASED GLUCOSE; Start 06/13/19 at 14:30 Glucose (Glutose) 22.5 gm Q15M PRN PO DECREASED GLUCOSE; Start 06/13/19 at 14:30 Dextrose (D50w Syringe) 25 ml Q15M PRN IV DECREASED GLUCOSE; Start 06/13/19 at 14:30 Dextrose (D50w Syringe) 50 ml Q15M PRN IV DECREASED GLUCOSE; Start 06/13/19 at 14:30 Glucagon (Glucagen) 1 mg Q15M PRN IM DECREASED GLUCOSE; Start 06/13/19 at 14:30 Glucose (Glutose) 15 gm Q15M PRN BUCCAL DECREASED GLUCOSE; Start 06/13/19 at 14:30 Vancomycin HCl (Vanco Iv Per Pharmacy) VANCOMYCIN PER PHARMACY PER PROTOCOL XX ; Start 06/13/19 at 15:30 Ceftriaxone Sodium 50 ml @ 100 mls/hr Q24H IVPB Last administered on 06/16/19at 16:00; Admin Dose 100 MLS/HR; Start 06/14/19 at 15:00 Vancomycin/Sodium Chloride 250 ml @ 83.33 mls/ hr Q8H IVPB Last administered on 06/17/19at 05:20; Admin Dose 83.33 MLS/HR; Start 06/15/19 at 13:00 Miscellaneous Information (*Rx Drug Level Order Reminder*) VANCO TR 1200 XX ; Start 06/17/19 at 12:00 Nitroglycerin (Nitroglycerin 0.2 Mg/Hr) 2 patch DAILY TRANSDERM Last administered on 06/16/19at 09:00; Admin Dose 2 PATCH; Start 06/16/19 at 09:00 BRENDA BEACH NP Jun 17, 2019 08:52
[2019-06-17] MEDS: NITROGLYCERIN 0.2 MG/HR PATCH TRANSDERM SCH (10:26)
--- NOTE | 2019-06-17 13:21 | CONS ---
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 Nitropatch removed and will reapply at a later date. Expressed concern to patient regarding the perfusion to his left 5th digit. Patient planned for angio with Dr. Gonzalez. Dressings were changed. Offload heels with pillows. Intra-op cultures showing staph aureus. Appreciate ID recommendations. Patient will need staged procedures in order to salvage the digit. Consultation Date/Type/Reason Admit Date/Time Jun 13, 2019 at 13:15 Initial Consult Date Date/Time of Note DATE: 06/17/19 TIME: 13:20 24 HR Interval Summary Free Text/Dictation No acute events overnight. Exam/Review of Systems Exam Vitals Vital Signs Date Temp Pulse Resp B/P (MAP) Pulse Ox O2 O2 Flow FiO2 Time Delivery Rate 06/17/19 98.6 95 20 108/65 97 07:53 (79) 06/14/19 Room Air 20:06 Intake and Output 06/16/19 06/16/19 06/17/19 1515:00 23:00 07:00 IntakeIntake Total 1730 ml 1010 ml 250 ml OutputOutput Total 1900 ml 600 ml BalanceBalance -170 ml 410 ml 250 ml Exam Left hallux with allograft placement secured with skin keith Left 5th digit with CFT less than 3 seconds There is eschar formation to the left 5th digit incision site with some epidermalysis to the medial aspect of the digit and ecchymosis appreciated. Upon removal of sutures there was residual purulent drainage. Wound probes to bone. Ulcer dimensions 1.2 x 0.4 x 0.8cm Absent protective sensations Results Result Diagram: 06/17/19 0520 06/17/19 1159 Results 24hrs Laboratory Tests Test 06/16/19 17:35 06/16/19 21:44 06/16/19 22:26 06/17/19 05:20 Bedside Glucose 171 156 148 White Blood Count 6.8 Red Blood Count 4.46 L Hemoglobin 12.9 L Hematocrit 39.6 L Mean Corpuscular Volume 88.8 Mean Corpuscular 28.9 L Hemoglobin Mean Corpuscular 32.6 Hemoglobin Concent Red Cell Distribution 12.5 Width Platelet Count 260 Mean Platelet Volume 11.1 H Immature Granulocytes % 0.100 Neutrophils % 66.9 Lymphocytes % 17.4 Monocytes % 12.5 H Eosinophils % 2.4 Basophils % 0.7 Nucleated Red Blood 0.0 Cells % Immature Granulocytes # 0.010 Neutrophils # 4.5 Lymphocytes # 1.2 Monocytes # 0.9 Eosinophils # 0.2 Basophils # 0.1 Nucleated Red Blood 0.0 Cells # Sodium Level 138 Potassium Level 4.0 Chloride Level 101 Carbon Dioxide Level 26 Anion Gap 11 Blood Urea Nitrogen 18 Creatinine 1.12 Est Glomerular Filtrat > 60 Rate mL/min Glucose Level 191 Calcium Level 9.0 Test 06/17/19 08:17 06/17/19 11:59 06/17/19 12:26 Bedside Glucose 177 209 Blood Urea Nitrogen 16 Creatinine 1.01 Vancomycin Level Trough 17.3 Medications Medication Current Medications Aspirin (Halfprin) 81 mg DAILY PO Last administered on 06/17/19 08:18; Admin Dose 81 MG; Start 06/14/19 at 09:00 Levothyroxine Sodium (Synthroid) 25 mcg BEFORE BREAKFAST PO Last administered on 06/17/19 06:39; Admin Dose 25 MCG; Start 06/14/19 at 07:00 Pregabalin (Lyrica) 75 mg TID PO Last administered on 06/17/19 12:28; Admin Dose 75 MG; Start 06/13/19 at 21:00 Diagnostic Test (Pha) (Accu-Chek) 1 ea 02 XX ; Start 06/14/19 at 02:00 Insulin Glargine (Lantus) 15 units DAILY@2000 SC Last administered on 06/16/19 22:28; Admin Dose 15 UNITS; Start 06/13/19 at 20:00 Insulin Aspart (Novolog Insulin Pen) 5 unit WITH MEALS SC Last administered on 06/17/19 12:33; Admin Dose 5 UNIT; Start 06/13/19 at 18:00 Insulin Aspart (Novolog Insulin Pen) NOVOLOG *MILD* ALGORITHM WITH MEALS BEDTIME SC Last administered on 06/17/19 12:32; Admin Dose 2 UNIT; Start 06/13/19 at 18:00 IV Flush (NS 3 ml) 3 ml PER PROTOCOL IV ; Start 06/13/19 at 13:30 Ondansetron HCl (Zofran Inj) 4 mg Q6H PRN IV NAUSEA/VOMITING; Start 06/13/19 at 13:30 Acetaminophen (Tylenol Tab) 650 mg Q6H PRN PO .PAIN 1-3 OR TEMP Last administered on 06/16/19 14:29; Admin Dose 650 MG; Start 06/13/19 at 13:30 Acetaminophen/ Hydrocodone Bitart ([place] (5/325)) 1 tab Q6H PRN PO .MOD PAIN 4- 6 Last administered on 06/16/19 08:10; Admin Dose 1 TAB; Start 06/13/19 at 13:30 Morphine Sulfate (morphine) 2 mg Q4H PRN IV .SEVERE PAIN 7-10 Last administered on 06/14/19 11:58; Admin Dose 2 MG; Start 06/13/19 at 13:30 Docusate Sodium (Colace) 100 mg Q12H PRN PO .CONSTIPATION; Start 06/13/19 at 13:30 Famotidine (Pepcid Iv) 20 mg Q12 IV Last administered on 06/17/19 08:18; Admin Dose 20 MG; Start 06/13/19 at 21:00 Heparin Sodium (Porcine) (Heparin (5000 Units/1ml)) 5,000 unit Q12 SC Last administered on 06/17/19 08:23; Admin Dose 5,000 UNIT; Start 06/13/19 at 21:00 Amlodipine Besylate (Norvasc) 5 mg DAILY PO Last administered on 06/17/19 08:18; Admin Dose 5 MG; Start 06/13/19 at 13:30 Atorvastatin Calcium (Lipitor) 10 mg DAILY@21 PO Last administered on 06/16/19 20:56; Admin Dose 10 MG; Start 06/13/19 at 21:00 Miscellaneous Information 1 ea NOTE XX ; Start 06/13/19 at 14:30 Glucose (Glutose) 15 gm Q15M PRN PO DECREASED GLUCOSE; Start 06/13/19 at 14:30 Glucose (Glutose) 22.5 gm Q15M PRN PO DECREASED GLUCOSE; Start 06/13/19 at 14:30 Dextrose (D50w Syringe) 25 ml Q15M PRN IV DECREASED GLUCOSE; Start 06/13/19 at 14:30 Dextrose (D50w Syringe) 50 ml Q15M PRN IV DECREASED GLUCOSE; Start 06/13/19 at 14:30 Glucagon (Glucagen) 1 mg Q15M PRN IM DECREASED GLUCOSE; Start 06/13/19 at 14:30 Glucose (Glutose) 15 gm Q15M PRN BUCCAL DECREASED GLUCOSE; Start 06/13/19 at 14:30 Vancomycin HCl (Vanco Iv Per Pharmacy) VANCOMYCIN PER PHARMACY PER PROTOCOL XX ; Start 06/13/19 at 15:30 Ceftriaxone Sodium 50 ml @ 100 mls/hr Q24H IVPB Last administered on 06/16/19at 16:00; Admin Dose 100 MLS/HR; Start 06/14/19 at 15:00 Vancomycin/Sodium Chloride 250 ml @ 83.33 mls/ hr Q8H IVPB Last administered on 06/17/19at 05:20; Admin Dose 83.33 MLS/HR; Start 06/15/19 at 13:00 Miscellaneous Information (*Rx Drug Level Order Reminder*) VANCO TR 1200 XX ; Start 06/17/19 at 12:00 Nitroglycerin (Nitroglycerin 0.2 Mg/Hr) 2 patch DAILY TRANSDERM Last administered on 06/17/19at 10:26; Admin Dose 2 PATCH; Start 06/16/19 at 09:00 FORD BLUM DPM Jun 17, 2019 13:21
[2019-06-17 13:48] VITALS: BP 119/68; PULSE 99; RESP 20
--- NOTE | 2019-06-17 16:20 | CONS ---
Assessment/Plan Assessment/Plan Hospital Course (Demo Recall) ID PROGRESS NOTE CURRENT ABX: DAY # => Vanco IV + Ceftriaxone 24H INTERVAL SUMMARY * CLINICALLY STATUS QUO == Patient is resting, VSS, NAD, no complaints * APPRECIATE DPM NOTES quoting today: "Sutures were removed, 1-2mL of purulent drainage was expressed, irrigated left 5th digit with betadine. " == NEEDS STAGED PROCEDURE DIAGNOSTIC IMAGING * 06/13/19 LEFT FOOT MRI: Findings suggesting osteomyelitis of the fifth toe with adjacent soft tissue swelling and wound/ulcer, as above. Findings are similar compared to prior exam and may represent [id number] osteomyelitis. MICRO * 06/14/19 LEFT FOOT CX: WOUND CULTURE Final Organism 1 STAPHYLOCOCCUS AUREUS QUANTITY SCANT GROWTH S AUREUS M.I.C. RX --------- --- CEFAZOLIN S CIPROFLOXACIN <=0.5 S CLINDAMYCIN <=0.25 S DOXYCYCLINE S ERYTHROMYCIN <=0.25 S LEVOFLOXACIN 0.25 S OXACILLIN <=0.25 S PENICILLIN-G 0.06 R RIFAMPIN <=0.5 S VANCOMYCIN 1 S TRIMETHOPRIM/SULFAMETHOXAZOLE <=10 S * 06/13/19 BCX (-) PHYSICAL EXAMINATION: GENERAL: VSS, NAD HEENT: AT, NC, NECK: Supple, CHEST: Rise symmetrical HEART: Pulse RRR ABDOMEN: Soft EXTREMITIES: Warm, dry - Left lower extremity dsg intact SKIN: No rash, no diaphoresis ID ASSESSMENT 63 yo M admit with: SIRS w/ESR 33; CRP 2.6 due to complex left diabetic foot infection L foot diabetic ulcer L foot cellulitis L foot osteomyelitis 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 ) MRSA Nares ABX ALLERGIES: None to ABX INVASIVES: CURRENT ABX: DAY # => Vanco IV + Ceftriaxone ID RECOMMENDATIONS/PLAN: 1. Appreciate Podiatry plan per notes: " Expressed concern to patient regarding the perfusion to his left 5th digit. Patient planned for angio with Dr. Gonzalez." * == NEEDS STAGED PROCEDURE 2. NARROW ABX SPECTRUM TO ANCEF == ABX of choice . . Consultation Date/Type/Reason Admit Date/Time Jun 13, 2019 at 13:15 Initial Consult Date Date/Time of Note DATE: 06/17/19 TIME: 16:11 Exam/Review of Systems Exam Vitals Vital Signs Date Temp Pulse Resp B/P (MAP) Pulse Ox O2 O2 Flow FiO2 Time Delivery Rate 06/17/19 98.9 99 20 119/68 97 13:48 (85) 06/14/19 Room Air 20:06 Intake and Output 06/16/19 06/16/19 06/17/19 1515:00 23:00 07:00 IntakeIntake Total 1730 ml 1010 ml 250 ml OutputOutput Total 1900 ml 600 ml BalanceBalance -170 ml 410 ml 250 ml Results Result Diagram: 06/17/19 0520 06/17/19 1159 Results 24hrs Laboratory Tests Test 06/16/19 17:35 06/16/19 21:44 06/16/19 22:26 06/17/19 05:20 Bedside Glucose 171 156 148 White Blood Count 6.8 Red Blood Count 4.46 L Hemoglobin 12.9 L Hematocrit 39.6 L Mean Corpuscular Volume 88.8 Mean Corpuscular 28.9 L Hemoglobin Mean Corpuscular 32.6 Hemoglobin Concent Red Cell Distribution 12.5 Width Platelet Count 260 Mean Platelet Volume 11.1 H Immature Granulocytes % 0.100 Neutrophils % 66.9 Lymphocytes % 17.4 Monocytes % 12.5 H Eosinophils % 2.4 Basophils % 0.7 Nucleated Red Blood 0.0 Cells % Immature Granulocytes # 0.010 Neutrophils # 4.5 Lymphocytes # 1.2 Monocytes # 0.9 Eosinophils # 0.2 Basophils # 0.1 Nucleated Red Blood 0.0 Cells # Sodium Level 138 Potassium Level 4.0 Chloride Level 101 Carbon Dioxide Level 26 Anion Gap 11 Blood Urea Nitrogen 18 Creatinine 1.12 Est Glomerular Filtrat > 60 Rate mL/min Glucose Level 191 Calcium Level 9.0 Test 06/17/19 08:17 06/17/19 11:59 06/17/19 12:26 Bedside Glucose 177 209 Blood Urea Nitrogen 16 Creatinine 1.01 Vancomycin Level Trough 17.3 Medications Medication Current Medications Aspirin (Halfprin) 81 mg DAILY PO Last administered on 06/17/19at 08:18; Admin Dose 81 MG; Start 06/14/19 at 09:00 Levothyroxine Sodium (Synthroid) 25 mcg BEFORE BREAKFAST PO Last administered on 06/17/19at 06:39; Admin Dose 25 MCG; Start 06/14/19 at 07:00 Pregabalin (Lyrica) 75 mg TID PO Last administered on 06/17/19 12:28; Admin Dose 75 MG; Start 06/13/19 at 21:00 Diagnostic Test (Pha) (Accu-Chek) 1 ea 02 XX ; Start 06/14/19 at 02:00 Insulin Glargine (Lantus) 15 units DAILY@2000 SC Last administered on 06/16/19 22:28; Admin Dose 15 UNITS; Start 06/13/19 at 20:00 Insulin Aspart (Novolog Insulin Pen) 5 unit WITH MEALS SC Last administered on 06/17/19 12:33; Admin Dose 5 UNIT; Start 06/13/19 at 18:00 Insulin Aspart (Novolog Insulin Pen) NOVOLOG *MILD* ALGORITHM WITH MEALS BEDTIM E SC Last administered on 06/17/19 12:32; Admin Dose 2 UNIT; Start 06/13/19 at 18:00 IV Flush (NS 3 ml) 3 ml PER PROTOCOL IV ; Start 06/13/19 at 13:30 Ondansetron HCl (Zofran Inj) 4 mg Q6H PRN IV NAUSEA/VOMITING; Start 06/13/19 at 13:30 Acetaminophen (Tylenol Tab) 650 mg Q6H PRN PO .PAIN 1-3 OR TEMP Last administered on 06/16/19 14:29; Admin Dose 650 MG; Start 06/13/19 at 13:30 Acetaminophen/ Hydrocodone Bitart ([place] (5/325)) 1 tab Q6H PRN PO .MOD PAIN 4- 6 Last administered on 06/16/19 08:10; Admin Dose 1 TAB; Start 06/13/19 at 13:30 Morphine Sulfate (morphine) 2 mg Q4H PRN IV .SEVERE PAIN 7-10 Last administered on 06/14/19 11:58; Admin Dose 2 MG; Start 06/13/19 at 13:30 Docusate Sodium (Colace) 100 mg Q12H PRN PO .CONSTIPATION; Start 06/13/19 at 13:30 Famotidine (Pepcid Iv) 20 mg Q12 IV Last administered on 06/17/19 08:18; Admin Dose 20 MG; Start 06/13/19 at 21:00 Heparin Sodium (Porcine) (Heparin (5000 Units/1ml)) 5,000 unit Q12 SC Last administered on 06/17/19at 08:23; Admin Dose 5,000 UNIT; Start 06/13/19 at 21:00 Amlodipine Besylate (Norvasc) 5 mg DAILY PO Last administered on 06/17/19at 08:18; Admin Dose 5 MG; Start 06/13/19 at 13:30 Atorvastatin Calcium (Lipitor) 10 mg DAILY@21 PO Last administered on 06/16/19at 20:56; Admin Dose 10 MG; Start 06/13/19 at 21:00 Miscellaneous Information 1 ea NOTE XX ; Start 06/13/19 at 14:30 Glucose (Glutose) 15 gm Q15M PRN PO DECREASED GLUCOSE; Start 06/13/19 at 14:30 Glucose (Glutose) 22.5 gm Q15M PRN PO DECREASED GLUCOSE; Start 06/13/19 at 14:30 Dextrose (D50w Syringe) 25 ml Q15M PRN IV DECREASED GLUCOSE; Start 06/13/19 at 14:30 Dextrose (D50w Syringe) 50 ml Q15M PRN IV DECREASED GLUCOSE; Start 06/13/19 at 14:30 Glucagon (Glucagen) 1 mg Q15M PRN IM DECREASED GLUCOSE; Start 06/13/19 at 14:30 Glucose (Glutose) 15 gm Q15M PRN BUCCAL DECREASED GLUCOSE; Start 06/13/19 at 14:30 Vancomycin HCl (Vanco Iv Per Pharmacy) VANCOMYCIN PER PHARMACY PER PROTOCOL XX ; Start 06/13/19 at 15:30 Ceftriaxone Sodium 50 ml @ 100 mls/hr Q24H IVPB Last administered on 06/16/19at 16:00; Admin Dose 100 MLS/HR; Start 06/14/19 at 15:00 Vancomycin/Sodium Chloride 250 ml @ 83.33 mls/ hr Q8H IVPB Last administered on 06/17/19at 13:44; Admin Dose 83.33 MLS/HR; Start 06/15/19 at 13:00 Miscellaneous Information (*Rx Drug Level Order Reminder*) VANCO TR 1200 XX ; Start 06/17/19 at 12:00 Nitroglycerin (Nitroglycerin 0.2 Mg/Hr) 2 patch DAILY TRANSDERM Last administered on 06/17/19at 10:26; Admin Dose 2 PATCH; Start 8/3/19 at 09:00 ALEXANDR LINCOLN NP Jun 17, 2019 16:19
[2019-06-17 19:32] VITALS: BP 122/75; PULSE 98; RESP 19
[2019-06-17] MEDS: ATORVASTATIN 10 MG TAB PO SCH (20:20)
[2019-06-17] MEDS: INSULIN GLARGINE [LANTus] (100 UNITS/ML) SYG SC SCH (20:22)
[2019-06-17] MEDS: CEFAZOLIN 2 GM/50 ML (PMX) 50 ML IVPB SCH (22:13)
[2019-06-18] VITALS (12 sets, daily range): BP systolic 115–148; BP diastolic 64–87; PULSE 82–104; RESP 10–20
[2019-06-18] MEDS: ACCU-CHEK XX SCH (01:25)
[2019-06-18] MEDS: LEVOTHYROXINE 25 MCG TAB PO SCH (06:03)
[2019-06-18] MEDS: CEFAZOLIN 2 GM/50 ML (PMX) 50 ML IVPB SCH ×3 (06:03→21:32)
[2019-06-18] MEDS: INSULIN ASPART [NOVOLOG] 3 ML PEN SC SCH ×7 (08:00→20:31)
[2019-06-18] MEDS: AMLODIPINE 5 MG TAB PO SCH (08:16)
[2019-06-18] MEDS: ASPIRIN (EC) 81 MG TAB PO SCH (08:16)
[2019-06-18] MEDS: PREGABALIN 75 MG CAP PO SCH ×3 (08:16→20:28)
[2019-06-18] MEDS: HEPARIN 5,000 UNIT/1 ML VIAL SC SCH ×2 (08:17→20:32)
[2019-06-18] MEDS: FAMOTIDINE 20 MG INJ IV SCH (08:23)
[2019-06-18] MEDS ORDERED: LIDOCAINE 1% (MDV) 20 ML INJ ONE (08:36)
[2019-06-18] MEDS ORDERED: HEPARIN 1000 UNITS/NS (A-LINE) 1,000 ML ONE (08:36)
[2019-06-18] MEDS ORDERED: MIDAZOLAM 1 MG/ML 2 ML INJ ONE (08:36)
[2019-06-18] MEDS ORDERED: FENTAnyl 50 MCG/ML VIAL ONE (08:36)
--- NOTE | 2019-06-18 09:38 | SIPON ---
Date/Time of Note Date/Time of Note DATE: 06/18/19 TIME: 09:37 Operative Report Preoperative Diagnosis L 5th toe gangrene Postoperative Diagnosis same Operation/Procedure Performed aortogram, LLE angiogram - moderate to severe pop stenosis, PT occlusion, peroneal patent, ROBERTA subtotal occlusion distally with patent DP Surgeon see signature line cardiovascular physician assistant none Anesthesia: moderate sedation Estimated blood loss: minimal Transfusion Required none Specimen none Grafts/Implants none Complications none NORA CRUZ MD Jun 18, 2019 09:38
[2019-06-18] MEDS ORDERED: IODIXANOL LOCM 100 ML BTL ONE (09:41)
[2019-06-18] MEDS ORDERED: SOD CHLORIDE 0.9% 500 ML ONE (09:41)
--- NOTE | 2019-06-18 10:00 | OPR ---
DATE OF OPERATION: 06/18/2019 PREOPERATIVE DIAGNOSIS: Left foot gangrene. POSTOPERATIVE DIAGNOSIS: Left foot gangrene. PROCEDURE PERFORMED: Aortogram with left lower extremity runoff. SURGEON: Nora Gonzalez MD ANESTHESIA: Local with sedation. ESTIMATED BLOOD LOSS: Minimal. COMPLICATIONS: No intraprocedural complications. INDICATIONS: This is a 63-year-old diabetic hypertensive gentleman who was admitted with some osteom yelitis in the left fifth toe. On my note, I think I dictated right, but it actually is the left fif th toe. It was debrided and he has some gangrene of the left fifth toe. He had a preop arterial dup evita that showed popliteal stenosis and tibial disease, brought him in today for angiogram and possibl e intervention. DESCRIPTION OF PROCEDURE: The patient was brought to the sleep lab technician, placed on the table in the supine position. The groins were prepped and draped in the usual sterile fashion. Using ultrasound to adia ntify the right common femoral artery, infiltrated over the artery using about 10 mL of 1% Xylocaine. I used a micropuncture needle to enter the artery under ultrasound guidance. An 0.018 wire was ins erted through the needle into the artery and the micropuncture sheath was advanced over the wire into the artery. I then advanced an 0.035 Bentson wire up into the abdominal aorta, exchanged the microp uncture sheath for a 5-[place]izen [place] sheath over the wire and then advanced a rim catheter into the infraren al aorta. I did an aortogram. I used the rim catheter and a 0.035 Advantage wire to advance the cat heter up and over the bifurcation and into the left SFA. FINDINGS OF ANGIOGRAPHY: The infrarenal aorta is widely patent. Both common external and internal i liac arteries are widely patent. Both common femoral arteries are patent. The left profunda and sup erficial femoral artery is widely patent. The left popliteal is patent above and below the knee, and right at the knee, there is a significant stenosis. It is probably in the 60 to 70% range, and belo w knee the TP trunk is patent. The posterior tibial was completely occluded. Peroneal was patent do wn to the ankle. There really does not collateralize much into the foot. Anterior tibial was patent proximally and then has a severe stenosis distally. There is probably a subtotal occlusion a few ce ntimeters above the ankle and then there is a good dorsalis pedis in the foot. I looked at the foot. There is fairly extensive necrosis in the fifth toe. He has an excellent target vessel and dorsali s pedis and would be better off to the bypass to the dorsalis pedis. if he has good veins. I did not proceed with any intervention. We removed all the catheter sheaths and wires. We held pressure on the right groin until there was good hemostasis. Sterile dressing was applied is going to be vein ma pped. He has a good vein, I will proceed with SFA to DP bypass. If he does not, then we will bring him back in and do a percutaneous intervention although it would be suboptimal. Dictated By: NORA SANTAMARIA/LUPILLO Conf#: [id number] DID#: [id number] CC: RIP ISRAEL; SABRINA FAUSTIN MD; BRENDA BEACH NP; FORD BLUM DPM;*EndCC*
[2019-06-18] MEDS ORDERED: SOD CHLORIDE 0.9% 1,000 ML IV SCH (10:30)
[2019-06-18] MEDS: NITROGLYCERIN 0.2 MG/HR PATCH TRANSDERM SCH (10:50)
--- NOTE | 2019-06-18 11:48 | CONS ---
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 No surgical plan at this time until vascular supply is optimized. Continue with irrigation of left 5th digit with dressing changes. Expressed concern to patient regarding the perfusion to his left 5th digit. As discussed before with patient that due to poor vascularity and infection he is at risk for amputation of the 5th digit. Patient and family want to purse salvage at this time. Offload heels with pillows. Intra-op cultures showing staph aureus. Intra op pathology pending. Appreciate ID recommendations. Patient will need staged procedures in order to salvage the digit. Consultation Date/Type/Reason Admit Date/Time Jun 13, 2019 at 13:15 Initial Consult Date Date/Time of Note DATE: 06/18/19 TIME: 11:48 24 HR Interval Summary Free Text/Dictation No acute events overnight Exam/Review of Systems Exam Vitals Vital Signs Date Temp Pulse Resp B/P (MAP) Pulse Ox O2 O2 Flow FiO2 Time Delivery Rate 06/18/19 98.6 85 20 133/83 95 Room Air 10:44 (100) Intake and Output 06/17/19 06/17/19 06/18/19 1515:00 23:00 07:00 IntakeIntake Total 1040 ml 820 ml 530 ml OutputOutput Total 1650 ml 2250 ml 700 ml BalanceBalance -610 ml -1430 ml -170 ml Exam Left hallux with allograft placement secured with skin keith Left 5th digit with CFT less than 3 seconds There is dry gangrene to the left 5th digit incision site. Wound probes to bone. Ulcer dimensions 1.2 x 0.4 x 0.8cm. No proximal streaking, no foul odor, no purulence noted at this time. Absent protective sensations DP pulse palpable Results Result Diagram: 06/18/19 0530 06/18/19 0530 Results 24hrs Laboratory Tests Test 06/17/19 11:59 06/17/19 12:26 06/17/19 17:25 06/17/19 20:19 Blood Urea Nitrogen 16 Creatinine 1.01 Vancomycin Level Trough 17.3 Bedside Glucose 209 209 117 Test 8/5/19 05:30 06/18/19 08:06 White Blood Count 7.1 Red Blood Count 4.46 L Hemoglobin 12.9 L Hematocrit 38.8 L Mean Corpuscular Volume 87.0 Mean Corpuscular 28.9 L Hemoglobin Mean Corpuscular 33.2 Hemoglobin Concent Red Cell Distribution 12.4 Width Platelet Count 263 Mean Platelet Volume 11.0 H Immature Granulocytes % 0.300 Neutrophils % 64.4 Lymphocytes % 18.6 Monocytes % 12.2 H Eosinophils % 3.5 Basophils % 1.0 Nucleated Red Blood 0.0 Cells % Immature Granulocytes # 0.020 Neutrophils # 4.6 Lymphocytes # 1.3 Monocytes # 0.9 Eosinophils # 0.3 Basophils # 0.1 Nucleated Red Blood 0.0 Cells # Sodium Level 140 Potassium Level 4.4 Chloride Level 105 Carbon Dioxide Level 28 Anion Gap 7 Blood Urea Nitrogen 20 Creatinine 1.06 Est Glomerular Filtrat > 60 Rate mL/min Glucose Level 163 Calcium Level 9.1 Bedside Glucose 132 Medications Medication Current Medications Aspirin (Halfprin) 81 mg DAILY PO Last administered on 06/17/19 08:18; Admin Dose 81 MG; Start 06/14/19 at 09:00 Levothyroxine Sodium (Synthroid) 25 mcg BEFORE BREAKFAST PO Last administered on 06/18/19 06:03; Admin Dose 25 MCG; Start 06/14/19 at 07:00 Pregabalin (Lyrica) 75 mg TID PO Last administered on 06/17/19 20:20; Admin Dose 75 MG; Start 06/13/19 at 21:00 Diagnostic Test (Pha) (Accu-Chek) 1 ea 02 XX ; Start 06/14/19 at 02:00 Insulin Glargine (Lantus) 15 units DAILY@2000 SC Last administered on 06/17/19 20:22; Admin Dose 15 UNITS; Start 06/13/19 at 20:00 Insulin Aspart (Novolog Insulin Pen) 5 unit WITH MEALS SC Last administered on 06/17/19 17:30; Admin Dose 5 UNIT; Start 06/13/19 at 18:00 Insulin Aspart (Novolog Insulin Pen) NOVOLOG *MILD* ALGORITHM WITH MEALS BEDTIME SC Last administered on 06/17/19 17:29; Admin Dose 2 UNIT; Start 06/13/19 at 18:00 IV Flush (NS 3 ml) 3 ml PER PROTOCOL IV ; Start 06/13/19 at 13:30 Ondansetron HCl (Zofran Inj) 4 mg Q6H PRN IV NAUSEA/VOMITING; Start 06/13/19 at 13:30 Acetaminophen (Tylenol Tab) 650 mg Q6H PRN PO .PAIN 1-3 OR TEMP Last administered on 06/16/19 14:29; Admin Dose 650 MG; Start 06/13/19 at 13:30 Acetaminophen/ Hydrocodone Bitart ([place] (5/325)) 1 tab Q6H PRN PO .MOD PAIN 4- 6 Last administered on 06/16/19 08:10; Admin Dose 1 TAB; Start 06/13/19 at 13:30 Morphine Sulfate (morphine) 2 mg Q4H PRN IV .SEVERE PAIN 7-10 Last administered on 06/14/19 11:58; Admin Dose 2 MG; Start 06/13/19 at 13:30 Docusate Sodium (Colace) 100 mg Q12H PRN PO .CONSTIPATION; Start 06/13/19 at 13:30 Famotidine (Pepcid Iv) 20 mg Q12 IV Last administered on 06/18/19 08:23; Admin Dose 20 MG; Start 06/13/19 at 21:00 Heparin Sodium (Porcine) (Heparin (5000 Units/1ml)) 5,000 unit Q12 SC Last administered on 06/17/19 08:23; Admin Dose 5,000 UNIT; Start 06/13/19 at 21:00 Amlodipine Besylate (Norvasc) 5 mg DAILY PO Last administered on 06/17/19 08:18; Admin Dose 5 MG; Start 06/13/19 at 13:30 Atorvastatin Calcium (Lipitor) 10 mg DAILY@21 PO Last administered on 06/17/19 20:20; Admin Dose 10 MG; Start 06/13/19 at 21:00 Miscellaneous Information 1 ea NOTE XX ; Start 06/13/19 at 14:30 Glucose (Glutose) 15 gm Q15M PRN PO DECREASED GLUCOSE; Start 06/13/19 at 14:30 Glucose (Glutose) 22.5 gm Q15M PRN PO DECREASED GLUCOSE; Start 06/13/19 at 14:30 Dextrose (D50w Syringe) 25 ml Q15M PRN IV DECREASED GLUCOSE; Start 06/13/19 at 14:30 Dextrose (D50w Syringe) 50 ml Q15M PRN IV DECREASED GLUCOSE; Start 06/13/19 at 14:30 Glucagon (Glucagen) 1 mg Q15M PRN IM DECREASED GLUCOSE; Start 06/13/19 at 14:30 Glucose (Glutose) 15 gm Q15M PRN BUCCAL DECREASED GLUCOSE; Start 06/13/19 at 14:30 Nitroglycerin (Nitroglycerin 0.2 Mg/Hr) 2 patch DAILY TRANSDERM Last administered on 06/17/19at 10:26; Admin Dose 2 PATCH; Start 06/16/19 at 09:00 Cefazolin Sodium/ Dextrose 50 ml @ 100 mls/hr Q8 IVPB Last administered on 06/18/19at 06:03; Admin Dose 100 MLS/HR; Start 06/17/19 at 22:00 Sodium Chloride 1,000 ml @ 125 mls/hr Q8H IV Last administered on 06/18/19at 10:22; Admin Dose 125 MLS/HR; Start 06/18/19 at 10:30 FORD BLUM DPM Jun 18, 2019 11:48
--- NOTE | 2019-06-18 15:09 | CONS ---
Assessment/Plan Assessment/Plan Hospital Course (Demo Recall) No events, looks comfortable, no fevers ALLERGIES: NONE Microbiology: Wound culture growing MSSA Antibiotics: Ancef PHYSICAL EXAMINATION: GENERAL: The patient is a well-developed, well-nourished male in no acute distress. SKIN: Without generalized rash. HEENT: Within normal limits. NECK: Supple. LYMPH NODES: None palpable. CHEST: Decreased breath sounds at the bases. HEART: Without murmur or gallop. ABDOMEN: Soft, nontender EXTREMITIES: No cyanosis, clubbing, or edema. Left lower extremity 5th digit is erythematous with ulcer on the plantar surface NEUROLOGIC: No focal neurological abnormality. Assessment: 1. Left foot cellulitis with osteomyelitis of the toe 2. Diabetic neuropathy 3. Diabetes Plan: Remains stable, vascular surgery recommendations noted, anticipate discharge on current antibiotics for 6 more weeks alternative treatment is IV Rocephin Consultation Date/Type/Reason Admit Date/Time Jun 13, 2019 at 13:15 Initial Consult Date Type of Consult id Date/Time of Note DATE: 06/18/19 TIME: 15:08 Exam/Review of Systems Exam Vitals Vital Signs Date Temp Pulse Resp B/P (MAP) Pulse Ox O2 O2 Flow FiO2 Time Delivery Rate 06/18/19 98.8 101 20 139/80 98 13:19 (99) 06/18/19 Room Air 10:44 Intake and Output 06/17/19 06/17/19 06/18/19 1515:00 23:00 07:00 IntakeIntake Total 1040 ml 820 ml 530 ml OutputOutput Total 1650 ml 2250 ml 700 ml BalanceBalance -610 ml -1430 ml -170 ml Results Result Diagram: 06/18/19 0530 06/18/19 0530 Results 24hrs Laboratory Tests Test 06/17/19 17:25 06/17/19 20:19 06/18/19 05:30 06/18/19 08:06 Bedside Glucose 209 117 132 White Blood Count 7.1 Red Blood Count 4.46 L Hemoglobin 12.9 L Hematocrit 38.8 L Mean Corpuscular Volume 87.0 Mean Corpuscular 28.9 L Hemoglobin Mean Corpuscular 33.2 Hemoglobin Concent Red Cell Distribution 12.4 Width Platelet Count 263 Mean Platelet Volume 11.0 H Immature Granulocytes % 0.300 Neutrophils % 64.4 Lymphocytes % 18.6 Monocytes % 12.2 H Eosinophils % 3.5 Basophils % 1.0 Nucleated Red Blood 0.0 Cells % Immature Granulocytes # 0.020 Neutrophils # 4.6 Lymphocytes # 1.3 Monocytes # 0.9 Eosinophils # 0.3 Basophils # 0.1 Nucleated Red Blood 0.0 Cells # Sodium Level 140 Potassium Level 4.4 Chloride Level 105 Carbon Dioxide Level 28 Anion Gap 7 Blood Urea Nitrogen 20 Creatinine 1.06 Est Glomerular Filtrat > 60 Rate mL/min Glucose Level 163 Calcium Level 9.1 Test 06/18/19 13:48 Bedside Glucose 176 Medications Medication Current Medications Aspirin (Halfprin) 81 mg DAILY PO Last administered on 06/17/19 08:18; Admin Dose 81 MG; Start 06/14/19 at 09:00 Levothyroxine Sodium (Synthroid) 25 mcg BEFORE BREAKFAST PO Last administered on 06/18/19 06:03; Admin Dose 25 MCG; Start 06/14/19 at 07:00 Pregabalin (Lyrica) 75 mg TID PO Last administered on 06/18/19 13:49; Admin Dose 75 MG; Start 06/13/19 at 21:00 Diagnostic Test (Pha) (Accu-Chek) 1 ea 02 XX ; Start 06/14/19 at 02:00 Insulin Glargine (Lantus) 15 units DAILY@2000 SC Last administered on 06/17/19 20:22; Admin Dose 15 UNITS; Start 06/13/19 at 20:00 Insulin Aspart (Novolog Insulin Pen) 5 unit WITH MEALS SC Last administered on 06/18/19 13:59; Admin Dose 5 UNIT; Start 06/13/19 at 18:00 Insulin Aspart (Novolog Insulin Pen) NOVOLOG *MILD* ALGORITHM WITH MEALS BEDTIME SC Last administered on 06/18/19 13:58; Admin Dose 1 UNIT; Start 06/13/19 at 18:00 IV Flush (NS 3 ml) 3 ml PER PROTOCOL IV ; Start 06/13/19 at 13:30 Ondansetron HCl (Zofran Inj) 4 mg Q6H PRN IV NAUSEA/VOMITING; Start 06/13/19 at 13:30 Acetaminophen (Tylenol Tab) 650 mg Q6H PRN PO .PAIN 1-3 OR TEMP Last administered on 06/16/19 14:29; Admin Dose 650 MG; Start 06/13/19 at 13:30 Acetaminophen/ Hydrocodone Bitart ([place] (5/325)) 1 tab Q6H PRN PO .MOD PAIN 4- 6 Last administered on 06/16/19 08:10; Admin Dose 1 TAB; Start 06/13/19 at 13:30 Morphine Sulfate (morphine) 2 mg Q4H PRN IV .SEVERE PAIN 7-10 Last administered on 06/14/19 11:58; Admin Dose 2 MG; Start 06/13/19 at 13:30 Docusate Sodium (Colace) 100 mg Q12H PRN PO .CONSTIPATION; Start 06/13/19 at 13:30 Famotidine (Pepcid Iv) 20 mg Q12 IV Last administered on 06/18/19 08:23; Admin Dose 20 MG; Start 06/13/19 at 21:00 Heparin Sodium (Porcine) (Heparin (5000 Units/1ml)) 5,000 unit Q12 SC Last administered on 06/17/19 08:23; Admin Dose 5,000 UNIT; Start 06/13/19 at 21:00 Amlodipine Besylate (Norvasc) 5 mg DAILY PO Last administered on 06/17/19 08:18; Admin Dose 5 MG; Start 06/13/19 at 13:30 Atorvastatin Calcium (Lipitor) 10 mg DAILY@21 PO Last administered on 06/17/19at 20:20; Admin Dose 10 MG; Start 06/13/19 at 21:00 Miscellaneous Information 1 ea NOTE XX ; Start 06/13/19 at 14:30 Glucose (Glutose) 15 gm Q15M PRN PO DECREASED GLUCOSE; Start 06/13/19 at 14:30 Glucose (Glutose) 22.5 gm Q15M PRN PO DECREASED GLUCOSE; Start 06/13/19 at 14:30 Dextrose (D50w Syringe) 25 ml Q15M PRN IV DECREASED GLUCOSE; Start 06/13/19 at 14:30 Dextrose (D50w Syringe) 50 ml Q15M PRN IV DECREASED GLUCOSE; Start 06/13/19 at 14:30 Glucagon (Glucagen) 1 mg Q15M PRN IM DECREASED GLUCOSE; Start 06/13/19 at 14:30 Glucose (Glutose) 15 gm Q15M PRN BUCCAL DECREASED GLUCOSE; Start 06/13/19 at 14:30 Nitroglycerin (Nitroglycerin 0.2 Mg/Hr) 2 patch DAILY TRANSDERM Last administered on 06/17/19at 10:26; Admin Dose 2 PATCH; Start 06/16/19 at 09:00 Cefazolin Sodium/ Dextrose 50 ml @ 100 mls/hr Q8 IVPB Last administered on 06/18/19at 13:59; Admin Dose 100 MLS/HR; Start 06/17/19 at 22:00 Sodium Chloride 1,000 ml @ 125 mls/hr Q8H IV Last administered on 06/18/19at 10:22; Admin Dose 125 MLS/HR; Start 06/18/19 at 10:30 OUMAR EARL NP Jun 18, 2019 15:09
--- NOTE | 2019-06-18 16:59 | PN ---
Date/Time of Note Date/Time of Note DATE: 06/18/19 TIME: 16:58 Assessment/Plan VTE Prophylaxis Risk score (from Nsg)>0 risk: 5 SCD applied (from Ns): No SCD contraindicated: other Pharmacological prophylaxis: heparin Lines/Catheters IV Catheter Type (from [facility]): Peripheral IV Urinary Cath still in place: No Assessment/Plan Hospital Course SUBJECTIVE: Denies any pain in the left lower extremity. OBJECTIVE: Physical Exam General: Adequately build 63 year-old male lying in bed in no apparent distress. HEENT: Normocephalic, atraumatic. Eyes: Anicteric sclerae, conjunctivae clear. ENT: Nasal septum midline, oral mucosa moist. Neck supple, no JVD noticed. Respiratory: Bilaterally clear breath sounds. No use of accessory muscles of respiration. No adventitious breath sounds. Cardiovascular: S1, S2 heard. Regular rate and rhythm. Abdomen: Soft, nontender, and nondistended. Bowel sounds positive in all 4 quadrants. Genitourinary: Deferred. Extremities: No cyanosis, no clubbing, no edema. Left foot dressing. Neurologic: Cranial nerves II through XII grossly intact. The patient is awake, alert, and oriented. Labs & Vitals per chart ASSESSMENT & PLAN 63-year-old male with comorbidities including diabetes mellitus, diabetic foot ulcers, hypothyroidism, and hypertension who presented to the emergency room com plaining of left foot fifth digit wound with pain, who was admitted to inpatient setting for further treatment and evaluation. 1. Left fifth toe osteomyelitis. Status post left fifth digit derotational arthroplasty, excisional debridement, and application of allograft on 06/14/2019. Culture positive for Staph aureus. Continue antimicrobials as per ID. 2. Peripheral vascular disease. Status post aortogram with left lower extremity runoff on 06/18/2019 showing significant stenosis of anterior tibial artery. Vascular surgery recommending SFA to DP bypass. Continue medical optimization. 3. Diabetes mellitus. Hemoglobin A1c 6.6. Continue sliding scale insulin along with basal insulin. 4. Hypothyroidism. Continue Synthroid. 5. Hypertension. Continue antihypertensives. 6. Dyslipidemia. Continue statins. 7. Normocytic anemia. Most probably anemia of chronic disease. Monitor H&H closely. 8. Fluids, electrolytes, and nutrition. Carbohydrate controlled diet. 9. DVT prophylaxis. Subcutaneous heparin. 10. Plan. Continue antimicrobials as per ID. Await vascular surgery intervention/recommendations. The patient was seen in collaboration with Dr. Morgan. Result Diagram: 06/18/19 0530 06/18/19 0530 Results 24hrs Laboratory Tests Test 06/17/19 17:25 06/17/19 20:19 06/18/19 05:30 06/18/19 08:06 Bedside Glucose 209 117 132 White Blood Count 7.1 Red Blood Count 4.46 L Hemoglobin 12.9 L Hematocrit 38.8 L Mean Corpuscular Volume 87.0 Mean Corpuscular 28.9 L Hemoglobin Mean Corpuscular 33.2 Hemoglobin Concent Red Cell Distribution 12.4 Width Platelet Count 263 Mean Platelet Volume 11.0 H Immature Granulocytes % 0.300 Neutrophils % 64.4 Lymphocytes % 18.6 Monocytes % 12.2 H Eosinophils % 3.5 Basophils % 1.0 Nucleated Red Blood 0.0 Cells % Immature Granulocytes # 0.020 Neutrophils # 4.6 Lymphocytes # 1.3 Monocytes # 0.9 Eosinophils # 0.3 Basophils # 0.1 Nucleated Red Blood 0.0 Cells # Sodium Level 140 Potassium Level 4.4 Chloride Level 105 Carbon Dioxide Level 28 Anion Gap 7 Blood Urea Nitrogen 20 Creatinine 1.06 Est Glomerular Filtrat > 60 Rate mL/min Glucose Level 163 Calcium Level 9.1 Test 06/18/19 13:48 Bedside Glucose 176 Exam/Review of Systems Exam Vitals Vital Signs Date Temp Pulse Resp B/P (MAP) Pulse Ox O2 O2 Flow FiO2 Time Delivery Rate 06/18/19 98.8 101 20 139/80 98 13:19 (99) 06/18/19 Room Air 10:44 Intake and Output 06/17/19 06/17/19 06/18/19 1515:00 23:00 07:00 IntakeIntake Total 1040 ml 820 ml 530 ml OutputOutput Total 1650 ml 2250 ml 700 ml BalanceBalance -610 ml -1430 ml -170 ml Results Results 24hrs Laboratory Tests Test 06/17/19 17:25 06/17/19 20:19 06/18/19 05:30 06/18/19 08:06 Bedside Glucose 209 117 132 White Blood Count 7.1 Red Blood Count 4.46 L Hemoglobin 12.9 L Hematocrit 38.8 L Mean Corpuscular Volume 87.0 Mean Corpuscular 28.9 L Hemoglobin Mean Corpuscular 33.2 Hemoglobin Concent Red Cell Distribution 12.4 Width Platelet Count 263 Mean Platelet Volume 11.0 H Immature Granulocytes % 0.300 Neutrophils % 64.4 Lymphocytes % 18.6 Monocytes % 12.2 H Eosinophils % 3.5 Basophils % 1.0 Nucleated Red Blood 0.0 Cells % Immature Granulocytes # 0.020 Neutrophils # 4.6 Lymphocytes # 1.3 Monocytes # 0.9 Eosinophils # 0.3 Basophils # 0.1 Nucleated Red Blood 0.0 Cells # Sodium Level 140 Potassium Level 4.4 Chloride Level 105 Carbon Dioxide Level 28 Anion Gap 7 Blood Urea Nitrogen 20 Creatinine 1.06 Est Glomerular Filtrat > 60 Rate mL/min Glucose Level 163 Calcium Level 9.1 Test 06/18/19 13:48 Bedside Glucose 176 Medications Medication Current Medications Aspirin (Halfprin) 81 mg DAILY PO Last administered on 06/17/19 08:18; Admin Dose 81 MG; Start 06/14/19 at 09:00 Levothyroxine Sodium (Synthroid) 25 mcg BEFORE BREAKFAST PO Last administered on 06/18/19 06:03; Admin Dose 25 MCG; Start 06/14/19 at 07:00 Pregabalin (Lyrica) 75 mg TID PO Last administered on 06/18/19 13:49; Admin Dose 75 MG; Start 06/13/19 at 21:00 Diagnostic Test (Pha) (Accu-Chek) 1 ea 02 XX ; Start 06/14/19 at 02:00 Insulin Glargine (Lantus) 15 units DAILY@2000 SC Last administered on 06/17/19 20:22; Admin Dose 15 UNITS; Start 06/13/19 at 20:00 Insulin Aspart (Novolog Insulin Pen) 5 unit WITH MEALS SC Last administered on 06/18/19 13:59; Admin Dose 5 UNIT; Start 06/13/19 at 18:00 Insulin Aspart (Novolog Insulin Pen) NOVOLOG *MILD* ALGORITHM WITH MEALS BEDTIME SC Last administered on 06/18/19 13:58; Admin Dose 1 UNIT; Start 06/13/19 at 18:00 IV Flush (NS 3 ml) 3 ml PER PROTOCOL IV ; Start 06/13/19 at 13:30 Ondansetron HCl (Zofran Inj) 4 mg Q6H PRN IV NAUSEA/VOMITING; Start 06/13/19 at 13:30 Acetaminophen (Tylenol Tab) 650 mg Q6H PRN PO .PAIN 1-3 OR TEMP Last administ ered on 06/16/19 14:29; Admin Dose 650 MG; Start 06/13/19 at 13:30 Acetaminophen/ Hydrocodone Bitart ([place] (5/325)) 1 tab Q6H PRN PO .MOD PAIN 4- 6 Last administered on 06/16/19 08:10; Admin Dose 1 TAB; Start 06/13/19 at 13:30 Morphine Sulfate (morphine) 2 mg Q4H PRN IV .SEVERE PAIN 7-10 Last administered on 06/14/19 11:58; Admin Dose 2 MG; Start 06/13/19 at 13:30 Docusate Sodium (Colace) 100 mg Q12H PRN PO .CONSTIPATION; Start 06/13/19 at 13:30 Famotidine (Pepcid Iv) 20 mg Q12 IV Last administered on 06/18/19 08:23; Admin Dose 20 MG; Start 06/13/19 at 21:00 Heparin Sodium (Porcine) (Heparin (5000 Units/1ml)) 5,000 unit Q12 SC Last administered on 06/17/19 08:23; Admin Dose 5,000 UNIT; Start 06/13/19 at 21:00 Amlodipine Besylate (Norvasc) 5 mg DAILY PO Last administered on 06/17/19 08:18; Admin Dose 5 MG; Start 06/13/19 at 13:30 Atorvastatin Calcium (Lipitor) 10 mg DAILY@21 PO Last administered on 06/17/19 20:20; Admin Dose 10 MG; Start 06/13/19 at 21:00 Miscellaneous Information 1 ea NOTE XX ; Start 06/13/19 at 14:30 Glucose (Glutose) 15 gm Q15M PRN PO DECREASED GLUCOSE; Start 06/13/19 at 14:30 Glucose (Glutose) 22.5 gm Q15M PRN PO DECREASED GLUCOSE; Start 06/13/19 at 14 :30 Dextrose (D50w Syringe) 25 ml Q15M PRN IV DECREASED GLUCOSE; Start 06/13/19 at 14:30 Dextrose (D50w Syringe) 50 ml Q15M PRN IV DECREASED GLUCOSE; Start 06/13/19 at 14:30 Glucagon (Glucagen) 1 mg Q15M PRN IM DECREASED GLUCOSE; Start 06/13/19 at 14:30 Glucose (Glutose) 15 gm Q15M PRN BUCCAL DECREASED GLUCOSE; Start 06/13/19 at 14:30 Nitroglycerin (Nitroglycerin 0.2 Mg/Hr) 2 patch DAILY TRANSDERM Last administered on 06/17/19at 10:26; Admin Dose 2 PATCH; Start 06/16/19 at 09:00 Cefazolin Sodium/ Dextrose 50 ml @ 100 mls/hr Q8 IVPB Last administered on 06/18/19at 13:59; Admin Dose 100 MLS/HR; Start 06/17/19 at 22:00 Sodium Chloride 1,000 ml @ 125 mls/hr Q8H IV Last administered on 06/18/19at 10:22; Admin Dose 125 MLS/HR; Start 06/18/19 at 10:30 QIAN MOTT NP Jun 18, 2019 16:59
[2019-06-18] MEDS: FAMOTIDINE 20 MG TAB PO SCH (20:28)
[2019-06-18] MEDS: ATORVASTATIN 10 MG TAB PO SCH (20:28)
[2019-06-18] MEDS: INSULIN GLARGINE [LANTus] (100 UNITS/ML) SYG SC SCH (20:32)
[2019-06-19] MEDS: ACETAMINOPHEN 325 MG TAB PO PRN (01:12)
[2019-06-19 01:30] VITALS: BP 129/73; PULSE 78; RESP 18
[2019-06-19] MEDS: ACCU-CHEK XX SCH (02:00)
[2019-06-19] MEDS: CEFAZOLIN 2 GM/50 ML (PMX) 50 ML IVPB SCH ×3 (06:07→22:19)
[2019-06-19] MEDS: LEVOTHYROXINE 25 MCG TAB PO SCH (06:07)
[2019-06-19] MEDS: INSULIN ASPART [NOVOLOG] 3 ML PEN SC SCH ×7 (08:00→21:00)
[2019-06-19 08:15] VITALS: BP 137/78; PULSE 74; RESP 20
[2019-06-19] MEDS: FAMOTIDINE 20 MG TAB PO SCH ×2 (08:31→20:20)
[2019-06-19] MEDS: PREGABALIN 75 MG CAP PO SCH ×3 (08:31→20:19)
[2019-06-19] MEDS: AMLODIPINE 5 MG TAB PO SCH (08:31)
[2019-06-19] MEDS: ASPIRIN (EC) 81 MG TAB PO SCH (08:31)
[2019-06-19] MEDS: HEPARIN 5,000 UNIT/1 ML VIAL SC SCH ×2 (08:37→20:22)
[2019-06-19] MEDS: NITROGLYCERIN 0.2 MG/HR PATCH TRANSDERM SCH (09:00)
[2019-06-19] MEDS: HYDROCODONE/APAP (5/325) TAB PO PRN (10:00)
--- NOTE | 2019-06-19 12:26 | CONS ---
Assessment/Plan Assessment/Plan Hospital Course (Demo Recall) No events, looks comfortable, no fevers ALLERGIES: NONE Microbiology: Wound culture growing MSSA Antibiotics: Ancef PHYSICAL EXAMINATION: GENERAL: The patient is a well-developed, well-nourished male in no acute distress. SKIN: Without generalized rash. HEENT: Within normal limits. NECK: Supple. LYMPH NODES: None palpable. CHEST: Decreased breath sounds at the bases. HEART: Without murmur or gallop. ABDOMEN: Soft, nontender EXTREMITIES: No cyanosis, clubbing, or edema. Left lower extremity 5th digit is erythematous with ulcer on the plantar surface NEUROLOGIC: No focal neurological abnormality. Assessment: 1. Left foot cellulitis with osteomyelitis of the toe===> cx + MSSA 2. Diabetic neuropathy 3. Diabetes Plan: Remains stable, continue IV abx for 6 weeks, podiatry rec-s noted, will need staged procedures in order to salvage the digit Consultation Date/Type/Reason Admit Date/Time Jun 13, 2019 at 13:15 Initial Consult Date Type of Consult id Date/Time of Note DATE: 06/19/19 TIME: 12:24 Exam/Review of Systems Exam Vitals Vital Signs Date Temp Pulse Resp B/P (MAP) Pulse Ox O2 O2 Flow FiO2 Time Delivery Rate 06/19/19 98.0 74 20 137/78 97 08:15 (97) 06/18/19 Room Air 10:44 Intake and Output 06/18/19 06/18/19 06/19/19 1515:00 23:00 07:00 IntakeIntake Total 530 ml 1230 ml 750 ml OutputOutput Total 1800 ml 700 ml 600 ml BalanceBalance -1270 ml 530 ml 150 ml Results Result Diagram: 06/19/19 0508 06/19/19 0508 Results 24hrs Laboratory Tests Test 06/18/19 13:48 06/18/19 17:30 06/18/19 20:27 06/19/19 01:19 Bedside Glucose 176 220 239 H 148 Test 06/19/19 05:08 06/19/19 08:27 White Blood Count 6.6 Red Blood Count 4.02 L Hemoglobin 11.7 L Hematocrit 35.3 L Mean Corpuscular Volume 87.8 Mean Corpuscular 29.1 Hemoglobin Mean Corpuscular 33.1 Hemoglobin Concent Red Cell Distribution 12.5 Width Platelet Count 247 Mean Platelet Volume 10.7 H Immature Granulocytes % 0.300 Neutrophils % 61.0 Lymphocytes % 22.7 Monocytes % 11.0 Eosinophils % 4.1 Basophils % 0.9 Nucleated Red Blood 0.0 Cells % Immature Granulocytes # 0.020 Neutrophils # 4.0 Lymphocytes # 1.5 Monocytes # 0.7 Eosinophils # 0.3 Basophils # 0.1 Nucleated Red Blood 0.0 Cells # Sodium Level 139 Potassium Level 3.9 Chloride Level 105 Carbon Dioxide Level 28 Anion Gap 6 Blood Urea Nitrogen 23 H Creatinine 1.10 Est Glomerular Filtrat > 60 Rate mL/min Glucose Level 151 Calcium Level 8.7 Phosphorus Level 4.1 Magnesium Level 1.9 Vitamin D 1,25-Dihydroxy 53.3 Bedside Glucose 134 Medications Medication Current Medications Aspirin (Halfprin) 81 mg DAILY PO Last administered on 06/19/19 08:31; Admin Dose 81 MG; Start 06/14/19 at 09:00 Levothyroxine Sodium (Synthroid) 25 mcg BEFORE BREAKFAST PO Last administered on 06/19/19 06:07; Admin Dose 25 MCG; Start 06/14/19 at 07:00 Pregabalin (Lyrica) 75 mg TID PO Last administered on 06/19/19 08:31; Admin Dose 75 MG; Start 06/13/19 at 21:00 Diagnostic Test (Pha) (Accu-Chek) 1 ea 02 XX ; Start 06/14/19 at 02:00 Insulin Glargine (Lantus) 15 units DAILY@2000 SC Last administered on 06/18/19 20:32; Admin Dose 15 UNITS; Start 06/13/19 at 20:00 Insulin Aspart (Novolog Insulin Pen) 5 unit WITH MEALS SC Last administered on 06/19/19 08:35; Admin Dose 5 UNIT; Start 06/13/19 at 18:00 Insulin Aspart (Novolog Insulin Pen) NOVOLOG *MILD* ALGORITHM WITH MEALS BEDTIME SC Last administered on 06/18/19 20:31; Admin Dose 2 UNIT; Start 06/13/19 at 18:00 IV Flush (NS 3 ml) 3 ml PER PROTOCOL IV ; Start 06/13/19 at 13:30 Ondansetron HCl (Zofran Inj) 4 mg Q6H PRN IV NAUSEA/VOMITING; Start 06/13/19 at 13:30 Acetaminophen (Tylenol Tab) 650 mg Q6H PRN PO .PAIN 1-3 OR TEMP Last administered on 06/19/19at 01:12; Admin Dose 650 MG; Start 06/13/19 at 13:30 Acetaminophen/ Hydrocodone Bitart ([place] (5/325)) 1 tab Q6H PRN PO .MOD PAIN 4- 6 Last administered on 06/19/19at 10:00; Admin Dose 1 TAB; Start 06/13/19 at 13:30 Morphine Sulfate (morphine) 2 mg Q4H PRN IV .SEVERE PAIN 7-10 Last administered on 06/14/19at 11:58; Admin Dose 2 MG; Start 06/13/19 at 13:30 Docusate Sodium (Colace) 100 mg Q12H PRN PO .CONSTIPATION; Start 06/13/19 at 13:30 Heparin Sodium (Porcine) (Heparin (5000 Units/1ml)) 5,000 unit Q12 SC Last administered on 06/19/19at 08:37; Admin Dose 5,000 UNIT; Start 06/13/19 at 21:00 Amlodipine Besylate (Norvasc) 5 mg DAILY PO Last administered on 06/19/19at 08:31; Admin Dose 5 MG; Start 06/13/19 at 13:30 Atorvastatin Calcium (Lipitor) 10 mg DAILY@21 PO Last administered on 06/18/19at 20:28; Admin Dose 10 MG; Start 06/13/19 at 21:00 Miscellaneous Information 1 ea NOTE XX ; Start 06/13/19 at 14:30 Glucose (Glutose) 15 gm Q15M PRN PO DECREASED GLUCOSE; Start 06/13/19 at 14:30 Glucose (Glutose) 22.5 gm Q15M PRN PO DECREASED GLUCOSE; Start 06/13/19 at 14:30 Dextrose (D50w Syringe) 25 ml Q15M PRN IV DECREASED GLUCOSE; Start 06/13/19 at 14:30 Dextrose (D50w Syringe) 50 ml Q15M PRN IV DECREASED GLUCOSE; Start 06/13/19 at 14:30 Glucagon (Glucagen) 1 mg Q15M PRN IM DECREASED GLUCOSE; Start 06/13/19 at 14:30 Glucose (Glutose) 15 gm Q15M PRN BUCCAL DECREASED GLUCOSE; Start 06/13/19 at 14:30 Cefazolin Sodium/ Dextrose 50 ml @ 100 mls/hr Q8 IVPB Last administered on 06/19/19at 06:07; Admin Dose 100 MLS/HR; Start 06/17/19 at 22:00 Famotidine (Pepcid) 20 mg Q12 PO Last administered on 06/19/19at 08:31; Admin Dose 20 MG; Start 06/18/19 at 21:00 OUMAR EARL NP Jun 19, 2019 12:26
--- NOTE | 2019-06-19 13:44 | PN ---
Date/Time of Note Date/Time of Note DATE: 06/19/19 TIME: 13:43 Assessment/Plan VTE Prophylaxis Risk score (from Nsg)>0 risk: 5 SCD applied (from Nsg): Yes Pharmacological prophylaxis: heparin Lines/Catheters IV Catheter Type (from Nrsg): Peripheral IV Urinary Cath still in place: No Assessment/Plan Hospital Course SUBJECTIVE: Denies any pain in the left lower extremity. OBJECTIVE: Physical Exam General: Adequately build 63 year-old male lying in bed in no apparent distress. HEENT: Normocephalic, atraumatic. Eyes: Anicteric sclerae, conjunctivae clear. ENT: Nasal septum midline, oral mucosa moist. Neck supple, no JVD noticed. Respiratory: Bilaterally clear breath sounds. No use of accessory muscles of respiration. No adventitious breath sounds. Cardiovascular: S1, S2 heard. Regular rate and rhythm. Abdomen: Soft, nontender, and nondistended. Bowel sounds positive in all 4 quadrants. Genitourinary: Deferred. Extremities: No cyanosis, no clubbing, no edema. Left foot dressing. Neurologic: Cranial nerves II through XII grossly intact. The patient is awake, alert, and oriented. Labs & Vitals per chart ASSESSMENT & PLAN 63-year-old male with comorbidities including diabetes mellitus, diabetic foot ulcers, hypothyroidism, and hypertension who presented to the emergency room complaining of left foot fifth digit wound with pain, who was admitted to inpatient setting for further treatment and evaluation. 1. Left fifth toe osteomyelitis. Status post left fifth digit derotational arthroplasty, excisional debridement, and application of allograft on 06/14/2019. Culture positive for Staph aureus. Continue antimicrobials as per ID. 2. Peripheral vascular disease. Status post aortogram with left lower extremity runoff on 06/18/2019 showing significant stenosis of anterior tibial artery. Vascular surgery recommending SFA to DP bypass. Continue medical optimization. 3. Diabetes mellitus. Hemoglobin A1c 6.6. Continue sliding scale insulin along with basal insulin. 4. Hypothyroidism. Continue Synthroid. 5. Hypertension. Continue antihypertensives. 6. Dyslipidemia. Continue statins. 7. Normocytic anemia. Most probably anemia of chronic disease. Monitor H&H closely. 8. Fluids, electrolytes, and nutrition. Carbohydrate controlled diet. 9. DVT prophylaxis. Subcutaneous heparin. 10. Plan. Continue antimicrobials as per ID. Await vascular surgery intervention/recommendations. The patient was seen in collaboration with Dr. Morgan. Result Diagram: 06/19/19 0508 06/19/19 0508 Results 24hrs Laboratory Tests Test 06/18/19 13:48 06/18/19 17:30 06/18/19 20:27 06/19/19 01:19 Bedside Glucose 176 220 239 H 148 Test 06/19/19 05:08 06/19/19 08:27 06/19/19 12:44 White Blood Count 6.6 Red Blood Count 4.02 L Hemoglobin 11.7 L Hematocrit 35.3 L Mean Corpuscular Volume 87.8 Mean Corpuscular 29.1 Hemoglobin Mean Corpuscular 33.1 Hemoglobin Concent Red Cell Distribution 12.5 Width Platelet Count 247 Mean Platelet Volume 10.7 H Immature Granulocytes % 0.300 Neutrophils % 61.0 Lymphocytes % 22.7 Monocytes % 11.0 Eosinophils % 4.1 Basophils % 0.9 Nucleated Red Blood 0.0 Cells % Immature Granulocytes # 0.020 Neutrophils # 4.0 Lymphocytes # 1.5 Monocytes # 0.7 Eosinophils # 0.3 Basophils # 0.1 Nucleated Red Blood 0.0 Cells # Sodium Level 139 Potassium Level 3.9 Chloride Level 105 Carbon Dioxide Level 28 Anion Gap 6 Blood Urea Nitrogen 23 H Creatinine 1.10 Est Glomerular Filtrat > 60 Rate mL/min Glucose Level 151 Calcium Level 8.7 Phosphorus Level 4.1 Magnesium Level 1.9 Vitamin D 1,25-Dihydroxy 53.3 Bedside Glucose 134 135 Exam/Review of Systems Exam Vitals Vital Signs Date Temp Pulse Resp B/P (MAP) Pulse Ox O2 O2 Flow FiO2 Time Delivery Rate 06/19/19 98.0 74 20 137/78 97 08:15 (97) 06/18/19 Room Air 10:44 Intake and Output 06/18/19 06/18/19 06/19/19 1515:00 23:00 07:00 IntakeIntake Total 530 ml 1230 ml 750 ml OutputOutput Total 1800 ml 700 ml 600 ml BalanceBalance -1270 ml 530 ml 150 ml Results Results 24hrs Laboratory Tests Test 06/18/19 13:48 06/18/19 17:30 06/18/19 20:27 06/19/19 01:19 Bedside Glucose 176 220 239 H 148 Test 06/19/19 05:08 06/19/19 08:27 06/19/19 12:44 White Blood Count 6.6 Red Blood Count 4.02 L Hemoglobin 11.7 L Hematocrit 35.3 L Mean Corpuscular Volume 87.8 Mean Corpuscular 29.1 Hemoglobin Mean Corpuscular 33.1 Hemoglobin Concent Red Cell Distribution 12.5 Width Platelet Count 247 Mean Platelet Volume 10.7 H Immature Granulocytes % 0.300 Neutrophils % 61.0 Lymphocytes % 22.7 Monocytes % 11.0 Eosinophils % 4.1 Basophils % 0.9 Nucleated Red Blood 0.0 Cells % Immature Granulocytes # 0.020 Neutrophils # 4.0 Lymphocytes # 1.5 Monocytes # 0.7 Eosinophils # 0.3 Basophils # 0.1 Nucleated Red Blood 0.0 Cells # Sodium Level 139 Potassium Level 3.9 Chloride Level 105 Carbon Dioxide Level 28 Anion Gap 6 Blood Urea Nitrogen 23 H Creatinine 1.10 Est Glomerular Filtrat > 60 Rate mL/min Glucose Level 151 Calcium Level 8.7 Phosphorus Level 4.1 Magnesium Level 1.9 Vitamin D 1,25-Dihydroxy 53.3 Bedside Glucose 134 135 Medications Medication Current Medications Aspirin (Halfprin) 81 mg DAILY PO Last administered on 06/19/19 08:31; Admin Dose 81 MG; Start 06/14/19 at 09:00 Levothyroxine Sodium (Synthroid) 25 mcg BEFORE BREAKFAST PO Last administered on 06/19/19 06:07; Admin Dose 25 MCG; Start 06/14/19 at 07:00 Pregabalin (Lyrica) 75 mg TID PO Last administered on 06/19/19 12:47; Admin Dose 75 MG; Start 06/13/19 at 21:00 Diagnostic Test (Pha) (Accu-Chek) 1 ea 02 XX ; Start 06/14/19 at 02:00 Insulin Glargine (Lantus) 15 units DAILY@2000 SC Last administered on 06/18/19 20:32; Admin Dose 15 UNITS; Start 06/13/19 at 20:00 Insulin Aspart (Novolog Insulin Pen) 5 unit WITH MEALS SC Last administered on 06/19/19 12:49; Admin Dose 5 UNIT; Start 06/13/19 at 18:00 Insulin Aspart (Novolog Insulin Pen) NOVOLOG *MILD* ALGORITHM WITH MEALS BEDTIME SC Last administered on 06/18/19 20:31; Admin Dose 2 UNIT; Start 06/13/19 at 18:00 IV Flush (NS 3 ml) 3 ml PER PROTOCOL IV ; Start 06/13/19 at 13:30 Ondansetron HCl (Zofran Inj) 4 mg Q6H PRN IV NAUSEA/VOMITING; Start 06/13/19 at 13:30 Acetaminophen (Tylenol Tab) 650 mg Q6H PRN PO .PAIN 1-3 OR TEMP Last administered on 06/19/19 01:12; Admin Dose 650 MG; Start 06/13/19 at 13:30 Acetaminophen/ Hydrocodone Bitart ([place] (5/325)) 1 tab Q6H PRN PO .MOD PAIN 4- 6 Last administered on 06/19/19at 10:00; Admin Dose 1 TAB; Start 06/13/19 at 13:30 Morphine Sulfate (morphine) 2 mg Q4H PRN IV .SEVERE PAIN 7-10 Last administered on 06/14/19at 11:58; Admin Dose 2 MG; Start 06/13/19 at 13:30 Docusate Sodium (Colace) 100 mg Q12H PRN PO .CONSTIPATION; Start 06/13/19 at 13:30 Heparin Sodium (Porcine) (Heparin (5000 Units/1ml)) 5,000 unit Q12 SC Last administered on 06/19/19 08:37; Admin Dose 5,000 UNIT; Start 06/13/19 at 21:00 Amlodipine Besylate (Norvasc) 5 mg DAILY PO Last administered on 06/19/19 08:31; Admin Dose 5 MG; Start 06/13/19 at 13:30 Atorvastatin Calcium (Lipitor) 10 mg DAILY@21 PO Last administered on 06/18/19at 20:28; Admin Dose 10 MG; Start 06/13/19 at 21:00 Miscellaneous Information 1 ea NOTE XX ; Start 06/13/19 at 14:30 Glucose (Glutose) 15 gm Q15M PRN PO DECREASED GLUCOSE; Start 06/13/19 at 14:30 Glucose (Glutose) 22.5 gm Q15M PRN PO DECREASED GLUCOSE; Start 06/13/19 at 14:30 Dextrose (D50w Syringe) 25 ml Q15M PRN IV DECREASED GLUCOSE; Start 06/13/19 at 14:30 Dextrose (D50w Syringe) 50 ml Q15M PRN IV DECREASED GLUCOSE; Start 06/13/19 at 14:30 Glucagon (Glucagen) 1 mg Q15M PRN IM DECREASED GLUCOSE; Start 06/13/19 at 14:30 Glucose (Glutose) 15 gm Q15M PRN BUCCAL DECREASED GLUCOSE; Start 06/13/19 at 14:30 Cefazolin Sodium/ Dextrose 50 ml @ 100 mls/hr Q8 IVPB Last administered on 06/19/19at 06:07; Admin Dose 100 MLS/HR; Start 06/17/19 at 22:00 Famotidine (Pepcid) 20 mg Q12 PO Last administered on 06/19/19at 08:31; Admin Dose 20 MG; Start 06/18/19 at 21:00 QIAN MOTT NP Jun 19, 2019 13:44
[2019-06-19 14:25] VITALS: BP 133/78; PULSE 78; RESP 20
--- NOTE | 2019-06-19 17:01 | CONS ---
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 Once patient is optimized from vascular stand point will plan for further OR procedure. Continue with irrigation of left 5th digit with dressing changes. Expressed concern to patient regarding the perfusion to his left 5th digit. As discussed before with patient that due to poor vascularity and infection he is at risk for amputation of the 5th digit. Patient and family want to purse salvage at this time. Offload heels with pillows. Intra-op cultures showing staph aureus. Intra op pathology showing acute osteomyelitis. Appreciate ID recommendations. Patient will need staged procedures in order to salvage the digit. Consultation Date/Type/Reason Admit Date/Time Jun 13, 2019 at 13:15 Initial Consult Date Date/Time of Note DATE: 06/19/19 TIME: 17:01 24 HR Interval Summary Free Text/Dictation No acute events overnight Exam/Review of Systems Exam Vitals Vital Signs Date Temp Pulse Resp B/P (MAP) Pulse Ox O2 O2 Flow FiO2 Time Delivery Rate 06/19/19 98.3 78 20 133/78 95 14:25 (96) 06/18/19 Room Air 10:44 Intake and Output 06/18/19 06/18/19 06/19/19 1515:00 23:00 07:00 IntakeIntake Total 530 ml 1230 ml 750 ml OutputOutput Total 1800 ml 700 ml 600 ml BalanceBalance -1270 ml 530 ml 150 ml Exam Left hallux with allograft placement secured with skin keith Left 5th digit with CFT less than 3 seconds There is dry gangrene to the left 5th digit incision site. Wound probes to bone. Ulcer dimensions 1.2 x 0.4 x 0.8cm. No proximal streaking, no foul odor, no purulence noted at this time. Absent protective sensations DP pulse palpable Results Result Diagram: 06/19/19 0508 06/19/19 0508 Results 24hrs Laboratory Tests Test 06/18/19 17:30 06/18/19 20:27 06/19/19 01:19 06/19/19 05:08 Bedside Glucose 220 239 H 148 White Blood Count 6.6 Red Blood Count 4.02 L Hemoglobin 11.7 L Hematocrit 35.3 L Mean Corpuscular Volume 87.8 Mean Corpuscular 29.1 Hemoglobin Mean Corpuscular 33.1 Hemoglobin Concent Red Cell Distribution 12.5 Width Platelet Count 247 Mean Platelet Volume 10.7 H Immature Granulocytes % 0.300 Neutrophils % 61.0 Lymphocytes % 22.7 Monocytes % 11.0 Eosinophils % 4.1 Basophils % 0.9 Nucleated Red Blood 0.0 Cells % Immature Granulocytes # 0.020 Neutrophils # 4.0 Lymphocytes # 1.5 Monocytes # 0.7 Eosinophils # 0.3 Basophils # 0.1 Nucleated Red Blood 0.0 Cells # Sodium Level 139 Potassium Level 3.9 Chloride Level 105 Carbon Dioxide Level 28 Anion Gap 6 Blood Urea Nitrogen 23 H Creatinine 1.10 Est Glomerular Filtrat > 60 Rate mL/min Glucose Level 151 Calcium Level 8.7 Phosphorus Level 4.1 Magnesium Level 1.9 Vitamin D 1,25-Dihydroxy 53.3 Test 06/19/19 08:27 06/19/19 12:44 Bedside Glucose 134 135 Medications Medication Current Medications Aspirin (Halfprin) 81 mg DAILY PO Last administered on 06/19/19 08:31; Admin Dose 81 MG; Start 06/14/19 at 09:00 Levothyroxine Sodium (Synthroid) 25 mcg BEFORE BREAKFAST PO Last administered on 06/19/19 06:07; Admin Dose 25 MCG; Start 06/14/19 at 07:00 Pregabalin (Lyrica) 75 mg TID PO Last administered on 06/19/19 12:47; Admin Dose 75 MG; Start 06/13/19 at 21:00 Diagnostic Test (Pha) (Accu-Chek) 1 ea 02 XX ; Start 06/14/19 at 02:00 Insulin Glargine (Lantus) 15 units DAILY@2000 SC Last administered on 06/18/19 20:32; Admin Dose 15 UNITS; Start 06/13/19 at 20:00 Insulin Aspart (Novolog Insulin Pen) 5 unit WITH MEALS SC Last administered on 06/19/19 12:49; Admin Dose 5 UNIT; Start 06/13/19 at 18:00 Insulin Aspart (Novolog Insulin Pen) NOVOLOG *MILD* ALGORITHM WITH MEALS BEDTIME SC Last administered on 06/18/19 20:31; Admin Dose 2 UNIT; Start 06/13/19 at 18:00 IV Flush (NS 3 ml) 3 ml PER PROTOCOL IV ; Start 06/13/19 at 13:30 Ondansetron HCl (Zofran Inj) 4 mg Q6H PRN IV NAUSEA/VOMITING; Start 06/13/19 at 13:30 Acetaminophen (Tylenol Tab) 650 mg Q6H PRN PO .PAIN 1-3 OR TEMP Last administered on 06/19/19 01:12; Admin Dose 650 MG; Start 06/13/19 at 13:30 Acetaminophen/ Hydrocodone Bitart ([place] (5/325)) 1 tab Q6H PRN PO .MOD PAIN 4- 6 Last administered on 06/19/19 10:00; Admin Dose 1 TAB; Start 06/13/19 at 13:30 Morphine Sulfate (morphine) 2 mg Q4H PRN IV .SEVERE PAIN 7-10 Last administered on 06/14/19 11:58; Admin Dose 2 MG; Start 06/13/19 at 13:30 Docusate Sodium (Colace) 100 mg Q12H PRN PO .CONSTIPATION; Start 06/13/19 at 13:30 Heparin Sodium (Porcine) (Heparin (5000 Units/1ml)) 5,000 unit Q12 SC Last administered on 06/19/19 08:37; Admin Dose 5,000 UNIT; Start 06/13/19 at 21:00 Amlodipine Besylate (Norvasc) 5 mg DAILY PO Last administered on 06/19/19 08:31; Admin Dose 5 MG; Start 06/13/19 at 13:30 Atorvastatin Calcium (Lipitor) 10 mg DAILY@21 PO Last administered on 06/18/19at 20:28; Admin Dose 10 MG; Start 06/13/19 at 21:00 Miscellaneous Information 1 ea NOTE XX ; Start 06/13/19 at 14:30 Glucose (Glutose) 15 gm Q15M PRN PO DECREASED GLUCOSE; Start 06/13/19 at 14:30 Glucose (Glutose) 22.5 gm Q15M PRN PO DECREASED GLUCOSE; Start 06/13/19 at 14:30 Dextrose (D50w Syringe) 25 ml Q15M PRN IV DECREASED GLUCOSE; Start 06/13/19 at 14:30 Dextrose (D50w Syringe) 50 ml Q15M PRN IV DECREASED GLUCOSE; Start 06/13/19 at 14:30 Glucagon (Glucagen) 1 mg Q15M PRN IM DECREASED GLUCOSE; Start 06/13/19 at 14:30 Glucose (Glutose) 15 gm Q15M PRN BUCCAL DECREASED GLUCOSE; Start 06/13/19 at 14:30 Cefazolin Sodium/ Dextrose 50 ml @ 100 mls/hr Q8 IVPB Last administered on 06/19/19at 15:51; Admin Dose 100 MLS/HR; Start 06/17/19 at 22:00 Famotidine (Pepcid) 20 mg Q12 PO Last administered on 06/19/19at 08:31; Admin Dose 20 MG; Start 06/18/19 at 21:00 FORD BLUM DPM Jun 19, 2019 17:01
[2019-06-19 20:04] VITALS: BP 124/71; PULSE 79; RESP 20
[2019-06-19] MEDS: ATORVASTATIN 10 MG TAB PO SCH (20:19)
[2019-06-19] MEDS: INSULIN GLARGINE [LANTus] (100 UNITS/ML) SYG SC SCH (20:22)
[2019-06-20] MEDS: ACCU-CHEK XX SCH (01:48)
[2019-06-20 01:59] VITALS: BP 125/75; PULSE 82; RESP 20
--- NOTE | 2019-06-20 05:49 | PN ---
Assessment/Plan VTE Prophylaxis Risk score (from Nsg)>0 risk: 5 Lines/Catheters Urinary Cath still in place: No Assessment/Plan Result Diagram: 06/19/19 0508 06/19/19 0508 Results 24hrs Laboratory Tests Test 06/19/19 08:27 06/19/19 12:44 06/19/19 17:40 06/19/19 20:16 Bedside Glucose 134 135 110 147 Exam/Review of Systems Exam Vitals Results Results 24hrs Medications Medication QIAN MOTT NP Jun 20, 2019 05:49
[2019-06-20] MEDS: CEFAZOLIN 2 GM/50 ML (PMX) 50 ML IVPB SCH ×3 (06:17→22:13)
[2019-06-20] MEDS: LEVOTHYROXINE 25 MCG TAB PO SCH (06:17)
[2019-06-20] MEDS: INSULIN ASPART [NOVOLOG] 3 ML PEN SC SCH ×7 (08:00→21:00)
[2019-06-20 08:41] VITALS: BP 156/77; PULSE 74; RESP 17
[2019-06-20] MEDS: ASPIRIN (EC) 81 MG TAB PO SCH (08:55)
[2019-06-20] MEDS: PREGABALIN 75 MG CAP PO SCH ×3 (08:55→21:31)
[2019-06-20] MEDS: FAMOTIDINE 20 MG TAB PO SCH ×2 (08:55→21:31)
[2019-06-20] MEDS: AMLODIPINE 5 MG TAB PO SCH (08:56)
[2019-06-20] MEDS: HEPARIN 5,000 UNIT/1 ML VIAL SC SCH ×2 (09:09→21:36)
--- NOTE | 2019-06-20 10:24 | CONS ---
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 Thao. All findings, assessment and plan discussed in detail amongst providers and patient. Intra-op cultures showing staph aureus. Intra op pathology showing acute osteomyelitis. Plan for 6 week course IV Ancef at this time per ID recommend ations. Patient being planned for further vascular surgical bypass. Once patient is optimized from vascular stand point will plan for further OR procedure. Continue with irrigation of left 5th digit with dressing changes. Again discussed with patient the perfusion risk to his left 5th digit. As discussed before with patient that due to poor vascularity and infection he is at risk for amputation of the 5th digit. Patient and family want to purse salvage at this time. Offload heels with pillows. All questions and concerns were addressed and answered patient satisfaction. Consultation Date/Type/Reason Admit Date/Time Jun 13, 2019 at 13:15 Initial Consult Date Date/Time of Note DATE: 06/20/19 TIME: 10:19 24 HR Interval Summary Free Text/Dictation 6 days s/p fifth digit derotational arthroplasty, I&D hallux with skin graft application. (Date of surgery 06/14/2019) Patient seen at bedside resting comfortably. Denies any pain to his left lower extremity. Is questioning if he is to be proceeding with vascular surgery today. No other pedal complaints at this time. Exam/Review of Systems Exam Vitals Vital Signs Date Temp Pulse Resp B/P (MAP) Pulse Ox O2 O2 Flow FiO2 Time Delivery Rate 06/20/19 98.0 74 17 156/77 95 Room Air 08:41 (103) Intake and Output 06/19/19 06/19/19 06/20/19 1515:00 23:00 07:00 IntakeIntake Total 50 ml 1000 ml 50 ml OutputOutput Total 800 ml BalanceBalance 50 ml 200 ml 50 ml Exam Left hallux with allograft placement secured with skin keith Left 5th digit with CFT less than 3 seconds There is dry gangrene to the left 5th digit incision site. Wound probes to bone. Ulcer dimensions 1.2 x 0.4 x 0.8cm. No proximal streaking, no foul odor, no purulence noted at this time. Absent protective sensations DP pulse palpable Results Result Diagram: 06/20/19 0640 06/20/19 0640 Results 24hrs Laboratory Tests Test 06/19/19 12:44 06/19/19 17:40 06/19/19 20:16 06/20/19 06:40 Bedside Glucose 135 110 147 White Blood Count 5.9 Red Blood Count 4.26 L Hemoglobin 12.3 L Hematocrit 37.7 L Mean Corpuscular Volume 88.5 Mean Corpuscular 28.9 L Hemoglobin Mean Corpuscular 32.6 Hemoglobin Concent Red Cell Distribution 12.7 Width Platelet Count 270 Mean Platelet Volume 10.8 H Immature Granulocytes % 0.200 Neutrophils % 63.8 Lymphocytes % 21.9 Monocytes % 8.5 Eosinophils % 4.6 Basophils % 1.0 Nucleated Red Blood 0.0 Cells % Immature Granulocytes # 0.010 Neutrophils # 3.8 Lymphocytes # 1.3 Monocytes # 0.5 Eosinophils # 0.3 Basophils # 0.1 Nucleated Red Blood 0.0 Cells # Sodium Level 139 Potassium Level 4.2 Chloride Level 104 Carbon Dioxide Level 30 Anion Gap 5 Blood Urea Nitrogen 22 H Creatinine 1.00 Est Glomerular Filtrat > 60 Rate mL/min Glucose Level 141 Calcium Level 9.2 Phosphorus Level 3.6 Magnesium Level 1.9 Test 06/20/19 08:50 Bedside Glucose 125 Medications Medication Current Medications Aspirin (Halfprin) 81 mg DAILY PO Last administered on 06/20/19at 08:55; Admin Dose 81 MG; Start 06/14/19 at 09:00 Levothyroxine Sodium (Synthroid) 25 mcg BEFORE BREAKFAST PO Last administered on 06/20/19at 06:17; Admin Dose 25 MCG; Start 06/14/19 at 07:00 Pregabalin (Lyrica) 75 mg TID PO Last administered on 06/20/19at 08:55; Admin Dose 75 MG; Start 06/13/19 at 21:00 Diagnostic Test (Pha) (Accu-Chek) 1 ea 02 XX ; Start 06/14/19 at 02:00 Insulin Glargine (Lantus) 15 units DAILY@2000 SC Last administered on 06/19/19 20:22; Admin Dose 15 UNITS; Start 06/13/19 at 20:00 Insulin Aspart (Novolog Insulin Pen) 5 unit WITH MEALS SC Last administered on 06/20/19 09:10; Admin Dose 5 UNIT; Start 06/13/19 at 18:00 Insulin Aspart (Novolog Insulin Pen) NOVOLOG *MILD* ALGORITHM WITH MEALS BEDTIME SC Last administered on 06/18/19 20:31; Admin Dose 2 UNIT; Start 06/13/19 at 18:00 IV Flush (NS 3 ml) 3 ml PER PROTOCOL IV Last administered on 06/19/19 17:39; Admin Dose 3 ML; Start 06/13/19 at 13:30 Ondansetron HCl (Zofran Inj) 4 mg Q6H PRN IV NAUSEA/VOMITING; Start 06/13/19 at 13:30 Acetaminophen (Tylenol Tab) 650 mg Q6H PRN PO .PAIN 1-3 OR TEMP Last administered on 06/19/19 01:12; Admin Dose 650 MG; Start 06/13/19 at 13:30 Acetaminophen/ Hydrocodone Bitart ([place] (5/325)) 1 tab Q6H PRN PO .MOD PAIN 4- 6 Last administered on 06/19/19 10:00; Admin Dose 1 TAB; Start 06/13/19 at 13:30 Morphine Sulfate (morphine) 2 mg Q4H PRN IV .SEVERE PAIN 7-10 Last administered on 06/14/19 11:58; Admin Dose 2 MG; Start 06/13/19 at 13:30 Docusate Sodium (Colace) 100 mg Q12H PRN PO .CONSTIPATION; Start 06/13/19 at 13:30 Heparin Sodium (Porcine) (Heparin (5000 Units/1ml)) 5,000 unit Q12 SC Last administered on 06/20/19 09:09; Admin Dose 5,000 UNIT; Start 06/13/19 at 21:00 Amlodipine Besylate (Norvasc) 5 mg DAILY PO Last administered on 06/20/19 08 :56; Admin Dose 5 MG; Start 06/13/19 at 13:30 Atorvastatin Calcium (Lipitor) 10 mg DAILY@21 PO Last administered on 06/19/19 20:19; Admin Dose 10 MG; Start 06/13/19 at 21:00 Miscellaneous Information 1 ea NOTE XX ; Start 06/13/19 at 14:30 Glucose (Glutose) 15 gm Q15M PRN PO DECREASED GLUCOSE; Start 06/13/19 at 14:30 Glucose (Glutose) 22.5 gm Q15M PRN PO DECREASED GLUCOSE; Start 06/13/19 at 14:3 0 Dextrose (D50w Syringe) 25 ml Q15M PRN IV DECREASED GLUCOSE; Start 06/13/19 at 14:30 Dextrose (D50w Syringe) 50 ml Q15M PRN IV DECREASED GLUCOSE; Start 06/13/19 at 14:30 Glucagon (Glucagen) 1 mg Q15M PRN IM DECREASED GLUCOSE; Start 06/13/19 at 14:30 Glucose (Glutose) 15 gm Q15M PRN BUCCAL DECREASED GLUCOSE; Start 06/13/19 at 14:30 Cefazolin Sodium/ Dextrose 50 ml @ 100 mls/hr Q8 IVPB Last administered on 06/20/19at 06:17; Admin Dose 100 MLS/HR; Start 06/17/19 at 22:00 Famotidine (Pepcid) 20 mg Q12 PO Last administered on 06/20/19at 08:55; Admin Dose 20 MG; Start 06/18/19 at 21:00 TERRI QUARLES DPM Jun 20, 2019 10:24
--- NOTE | 2019-06-20 11:45 | CONS ---
Assessment/Plan Assessment/Plan Hospital Course (Demo Recall) Acute osteo per patho ALLERGIES: NONE Microbiology: Wound culture growing MSSA Antibiotics: Ancef PHYSICAL EXAMINATION: GENERAL: The patient is a well-developed, well-nourished male in no acute distress. SKIN: Without generalized rash. HEENT: Within normal limits. NECK: Supple. LYMPH NODES: None palpable. CHEST: Decreased breath sounds at the bases. HEART: Without murmur or gallop. ABDOMEN: Soft, nontender EXTREMITIES: No cyanosis, clubbing, or edema. Left lower extremity 5th digit is erythematous with ulcer on the plantar surface NEUROLOGIC: No focal neurological abnormality. Assessment: 1. Left foot cellulitis with osteomyelitis of the toe===> cx + MSSA 2. Diabetic neuropathy 3. Diabetes Plan: Remains stable, continue IV abx for 6 weeks, per podiatry pt will require staged procedures in order to salvage the digit Consultation Date/Type/Reason Admit Date/Time Jun 13, 2019 at 13:15 Initial Consult Date Type of Consult id Date/Time of Note DATE: 06/20/19 TIME: 11:44 Exam/Review of Systems Exam Vitals Vital Signs Date Temp Pulse Resp B/P (MAP) Pulse Ox O2 O2 Flow FiO2 Time Delivery Rate 06/20/19 98.0 74 17 156/77 95 Room Air 08:41 (103) Intake and Output 06/19/19 06/19/19 06/20/19 1515:00 23:00 07:00 IntakeIntake Total 50 ml 1000 ml 50 ml OutputOutput Total 800 ml BalanceBalance 50 ml 200 ml 50 ml Results Result Diagram: 06/20/19 0640 06/20/19 0640 Results 24hrs Laboratory Tests Test 06/19/19 12:44 06/19/19 17:40 06/19/19 20:16 06/20/19 06:40 Bedside Glucose 135 110 147 White Blood Count 5.9 Red Blood Count 4.26 L Hemoglobin 12.3 L Hematocrit 37.7 L Mean Corpuscular Volume 88.5 Mean Corpuscular 28.9 L Hemoglobin Mean Corpuscular 32.6 Hemoglobin Concent Red Cell Distribution 12.7 Width Platelet Count 270 Mean Platelet Volume 10.8 H Immature Granulocytes % 0.200 Neutrophils % 63.8 Lymphocytes % 21.9 Monocytes % 8.5 Eosinophils % 4.6 Basophils % 1.0 Nucleated Red Blood 0.0 Cells % Immature Granulocytes # 0.010 Neutrophils # 3.8 Lymphocytes # 1.3 Monocytes # 0.5 Eosinophils # 0.3 Basophils # 0.1 Nucleated Red Blood 0.0 Cells # Sodium Level 139 Potassium Level 4.2 Chloride Level 104 Carbon Dioxide Level 30 Anion Gap 5 Blood Urea Nitrogen 22 H Creatinine 1.00 Est Glomerular Filtrat > 60 Rate mL/min Glucose Level 141 Calcium Level 9.2 Phosphorus Level 3.6 Magnesium Level 1.9 Test 06/20/19 08:50 Bedside Glucose 125 Medications Medication Current Medications Aspirin (Halfprin) 81 mg DAILY PO Last administered on 06/20/19 08:55; Admin Dose 81 MG; Start 06/14/19 at 09:00 Levothyroxine Sodium (Synthroid) 25 mcg BEFORE BREAKFAST PO Last administered on 06/20/19 06:17; Admin Dose 25 MCG; Start 06/14/19 at 07:00 Pregabalin (Lyrica) 75 mg TID PO Last administered on 06/20/19 08:55; Admin Dose 75 MG; Start 06/13/19 at 21:00 Diagnostic Test (Pha) (Accu-Chek) 1 ea 02 XX ; Start 06/14/19 at 02:00 Insulin Glargine (Lantus) 15 units DAILY@2000 SC Last administered on 06/19/19 20:22; Admin Dose 15 UNITS; Start 06/13/19 at 20:00 Insulin Aspart (Novolog Insulin Pen) 5 unit WITH MEALS SC Last administered on 06/20/19 09:10; Admin Dose 5 UNIT; Start 06/13/19 at 18:00 Insulin Aspart (Novolog Insulin Pen) NOVOLOG *MILD* ALGORITHM WITH MEALS BEDTIME SC Last administered on 06/18/19 20:31; Admin Dose 2 UNIT; Start 06/13/19 at 18:00 IV Flush (NS 3 ml) 3 ml PER PROTOCOL IV Last administered on 06/19/19 17:39; Admin Dose 3 ML; Start 06/13/19 at 13:30 Ondansetron HCl (Zofran Inj) 4 mg Q6H PRN IV NAUSEA/VOMITING; Start 06/13/19 at 13:30 Acetaminophen (Tylenol Tab) 650 mg Q6H PRN PO .PAIN 1-3 OR TEMP Last administered on 06/19/19 01:12; Admin Dose 650 MG; Start 06/13/19 at 13:30 Acetaminophen/ Hydrocodone Bitart ([place] (5/325)) 1 tab Q6H PRN PO .MOD PAIN 4- 6 Last administered on 06/19/19at 10:00; Admin Dose 1 TAB; Start 06/13/19 at 13:30 Morphine Sulfate (morphine) 2 mg Q4H PRN IV .SEVERE PAIN 7-10 Last administered on 06/14/19at 11:58; Admin Dose 2 MG; Start 06/13/19 at 13:30 Docusate Sodium (Colace) 100 mg Q12H PRN PO .CONSTIPATION; Start 06/13/19 at 13:30 Heparin Sodium (Porcine) (Heparin (5000 Units/1ml)) 5,000 unit Q12 SC Last administered on 06/20/19 09:09; Admin Dose 5,000 UNIT; Start 06/13/19 at 21:00 Amlodipine Besylate (Norvasc) 5 mg DAILY PO Last administered on 06/20/19at 08:56; Admin Dose 5 MG; Start 06/13/19 at 13:30 Atorvastatin Calcium (Lipitor) 10 mg DAILY@21 PO Last administered on 06/19/19at 20:19; Admin Dose 10 MG; Start 06/13/19 at 21:00 Miscellaneous Information 1 ea NOTE XX ; Start 06/13/19 at 14:30 Glucose (Glutose) 15 gm Q15M PRN PO DECREASED GLUCOSE; Start 06/13/19 at 14:30 Glucose (Glutose) 22.5 gm Q15M PRN PO DECREASED GLUCOSE; Start 06/13/19 at 14:30 Dextrose (D50w Syringe) 25 ml Q15M PRN IV DECREASED GLUCOSE; Start 06/13/19 at 14:30 Dextrose (D50w Syringe) 50 ml Q15M PRN IV DECREASED GLUCOSE; Start 06/13/19 at 14:30 Glucagon (Glucagen) 1 mg Q15M PRN IM DECREASED GLUCOSE; Start 06/13/19 at 14:30 Glucose (Glutose) 15 gm Q15M PRN BUCCAL DECREASED GLUCOSE; Start 06/13/19 at 14:30 Cefazolin Sodium/ Dextrose 50 ml @ 100 mls/hr Q8 IVPB Last administered on 8/7/19at 06:17; Admin Dose 100 MLS/HR; Start 06/17/19 at 22:00 Famotidine (Pepcid) 20 mg Q12 PO Last administered on 06/20/19at 08:55; Admin Dose 20 MG; Start 06/18/19 at 21:00 OUMAR EARL NP Jun 20, 2019 11:45
[2019-06-20 14:20] VITALS: BP 147/76; PULSE 74; RESP 16
[2019-06-20] MEDS: HYDROCODONE/APAP (5/325) TAB PO PRN (14:57)
--- NOTE | 2019-06-20 16:20 | CONS ---
Assessment/Plan Assessment/Plan Hospital Course (Demo Recall) Pre-operative evaluation: To have an intermediate-high risk procedure. He is functional at baseline and without symptoms. He has no known cardiac disease. Exam is benign. He is at intermediate risk. An echo will be checked but if it is normal, no further testing indicated. PAD: to have left SFA-DP bypass Left toe osteomyelitis DM HTN -echo -ASA -increase to lipitor 40mg -switch amlodipine to losartan 25mg Consultation Date/Type/Reason Admit Date/Time Jun 13, 2019 at 13:15 Date of Consultation: Jun 20, 2019 Type of Consult Cardiology Reason for Consultation Pre-op evaluation Requesting Provider: QIAN MOTT NP Date/Time of Note DATE: 06/20/19 TIME: 16:09 Hx of Present Illness 63 yo M with a h/o DM, HTN, HL, nonhealing left toe ulcer/osteomyelitis, PAD, who needs left SFA to DP bypass. Cardiology is asked to evaluate prior to surgery. Pt has been here for several days. He had wound debridement 06/14 and peripheral angio 06/18 showing occlusion of his left PT and AT with good DP target with plans for bypass. Pt denies prior cardiac history. He is able to walk 1 mile and is limited due to pain in his foot. No chest pain or dyspnea. No orthopnea, PND, edema. per hPI Past Medical History per hPI Home Meds Reported Medications Metformin Hcl* (Metformin Hcl*) 1,000 Mg Tablet, 1000 MG PO WITH BREAKFAST DINNE, #60 TAB 04/03/19 Glipizide* (Glipizide*) 5 Mg Tablet, 5 MG PO AC BREAKFAST DINNER, TAB 04/03/19 Pravastatin Sodium* (Pravastatin Sodium*) 20 Mg Tablet, 20 MG PO HS, TAB 04/03/19 Aspirin* (Aspirin* EC) 81 Mg Tablet.dr, 81 MG PO DAILY, TAB 04/03/19 Levothyroxine Sodium* (Levothyroxine Sodium*) 25 Mcg Tablet, 25 MCG PO BEFORE BREAKFAST, #30 TAB 04/03/19 Pregabalin* (Lyrica*) 75 Mg Capsule, 75 MG PO TID, CAP 04/03/19 Discontinued Reported Medications Ergocalciferol (Vitamin D2) (VITAMIN D2) 50,000 Unit Capsule, 93741 UNIT PO Q MON, CAP 04/03/19 Tramadol Hcl* (Ultram*) 50 Mg Tablet, 50 MG PO BID PRN for PAIN, TAB 04/03/19 Medications Current Medications Aspirin (Halfprin) 81 mg DAILY PO Last administered on 06/20/19 08:55; Admin Dose 81 MG; Start 06/14/19 at 09:00 Levothyroxine Sodium (Synthroid) 25 mcg BEFORE BREAKFAST PO Last administered on 06/20/19 06:17; Admin Dose 25 MCG; Start 06/14/19 at 07:00 Pregabalin (Lyrica) 75 mg TID PO Last administered on 06/20/19 14:57; Admin Dose 75 MG; Start 06/13/19 at 21:00 Diagnostic Test (Pha) (Accu-Chek) 1 ea 02 XX ; Start 06/14/19 at 02:00 Insulin Glargine (Lantus) 15 units DAILY@2000 SC Last administered on 06/19/19 20:22; Admin Dose 15 UNITS; Start 06/13/19 at 20:00 Insulin Aspart (Novolog Insulin Pen) 5 unit WITH MEALS SC Last administered on 06/20/19 12:35; Admin Dose 5 UNIT; Start 06/13/19 at 18:00 Insulin Aspart (Novolog Insulin Pen) NOVOLOG *MILD* ALGORITHM WITH MEALS BEDTIME SC Last administered on 06/20/19 12:36; Admin Dose 1 UNIT; Start 06/13/19 at 18:00 IV Flush (NS 3 ml) 3 ml PER PROTOCOL IV Last administered on 06/19/19 17:39; Admin Dose 3 ML; Start 06/13/19 at 13:30 Ondansetron HCl (Zofran Inj) 4 mg Q6H PRN IV NAUSEA/VOMITING; Start 06/13/19 at 13:30 Acetaminophen (Tylenol Tab) 650 mg Q6H PRN PO .PAIN 1-3 OR TEMP Last administered on 06/19/19 01:12; Admin Dose 650 MG; Start 06/13/19 at 13:30 Acetaminophen/ Hydrocodone Bitart ([place] (5/325)) 1 tab Q6H PRN PO .MOD PAIN 4- 6 Last administered on 06/20/19 14:57; Admin Dose 1 TAB; Start 06/13/19 at 13:30 Morphine Sulfate (morphine) 2 mg Q4H PRN IV .SEVERE PAIN 7-10 Last administered on 06/14/19at 11:58; Admin Dose 2 MG; Start 06/13/19 at 13:30 Docusate Sodium (Colace) 100 mg Q12H PRN PO .CONSTIPATION; Start 06/13/19 at 13:30 Heparin Sodium (Porcine) (Heparin (5000 Units/1ml)) 5,000 unit Q12 SC Last administered on 06/20/19at 09:09; Admin Dose 5,000 UNIT; Start 06/13/19 at 21:00 Amlodipine Besylate (Norvasc) 5 mg DAILY PO Last administered on 06/20/19at 08:56; Admin Dose 5 MG; Start 06/13/19 at 13:30 Atorvastatin Calcium (Lipitor) 10 mg DAILY@21 PO Last administered on 06/19/19at 20:19; Admin Dose 10 MG; Start 06/13/19 at 21:00 Miscellaneous Information 1 ea NOTE XX ; Start 06/13/19 at 14:30 Glucose (Glutose) 15 gm Q15M PRN PO DECREASED GLUCOSE; Start 06/13/19 at 14:30 Glucose (Glutose) 22.5 gm Q15M PRN PO DECREASED GLUCOSE; Start 06/13/19 at 14:30 Dextrose (D50w Syringe) 25 ml Q15M PRN IV DECREASED GLUCOSE; Start 06/13/19 at 14:30 Dextrose (D50w Syringe) 50 ml Q15M PRN IV DECREASED GLUCOSE; Start 06/13/19 at 14:30 Glucagon (Glucagen) 1 mg Q15M PRN IM DECREASED GLUCOSE; Start 06/13/19 at 14:30 Glucose (Glutose) 15 gm Q15M PRN BUCCAL DECREASED GLUCOSE; Start 06/13/19 at 14:30 Cefazolin Sodium/ Dextrose 50 ml @ 100 mls/hr Q8 IVPB Last administered on 06/20/19at 14:57; Admin Dose 100 MLS/HR; Start 06/17/19 at 22:00 Famotidine (Pepcid) 20 mg Q12 PO Last administered on 06/20/19at 08:55; Admin Dose 20 MG; Start 06/18/19 at 21:00 Allergies: Coded Allergies: No Known Allergy (Unverified , 06/13/19) Social History Smoking Status: Never smoker Exam/Review of Systems Vital Signs Vitals Vital Signs Date Temp Pulse Resp B/P (MAP) Pulse Ox O2 O2 Flow FiO2 Time Delivery Rate 06/20/19 98.1 74 16 147/76 95 Room Air 14:20 (99) Intake and Output 06/19/19 06/19/19 06/20/19 1515:00 23:00 07:00 IntakeIntake Total 50 ml 1000 ml 50 ml OutputOutput Total 800 ml BalanceBalance 50 ml 200 ml 50 ml Exam Constitutional: alert, oriented Psych: no complaints, nl mood/affect Head: normocephalic, atraumatic Neck: supple; No jvd Respiratory: clear to auscultation; No crackles/rales Cardiovascular: regular rate and rhythm; No edema, No systolic murmur Gastrointestinal: soft, non-tender; No distended Musculoskeletal: No nl extremities to inspection Neurological: nl mental status, nl speech Labs Result Diagram: 06/20/19 0640 06/20/19 0640 Results 24hrs Laboratory Tests Test 06/19/19 17:40 06/19/19 20:16 06/20/19 06:40 06/20/19 08:50 Bedside Glucose 110 147 125 White Blood Count 5.9 Red Blood Count 4.26 L Hemoglobin 12.3 L Hematocrit 37.7 L Mean Corpuscular Volume 88.5 Mean Corpuscular 28.9 L Hemoglobin Mean Corpuscular 32.6 Hemoglobin Concent Red Cell Distribution 12.7 Width Platelet Count 270 Mean Platelet Volume 10.8 H Immature Granulocytes % 0.200 Neutrophils % 63.8 Lymphocytes % 21.9 Monocytes % 8.5 Eosinophils % 4.6 Basophils % 1.0 Nucleated Red Blood 0.0 Cells % Immature Granulocytes # 0.010 Neutrophils # 3.8 Lymphocytes # 1.3 Monocytes # 0.5 Eosinophils # 0.3 Basophils # 0.1 Nucleated Red Blood 0.0 Cells # Sodium Level 139 Potassium Level 4.2 Chloride Level 104 Carbon Dioxide Level 30 Anion Gap 5 Blood Urea Nitrogen 22 H Creatinine 1.00 Est Glomerular Filtrat > 60 Rate mL/min Glucose Level 141 Calcium Level 9.2 Phosphorus Level 3.6 Magnesium Level 1.9 Test 06/20/19 12:19 Bedside Glucose 170 Medications Medications Current Medications Aspirin (Halfprin) 81 mg DAILY PO Last administered on 06/20/19at 08:55; Admin Dose 81 MG; Start 06/14/19 at 09:00 Levothyroxine Sodium (Synthroid) 25 mcg BEFORE BREAKFAST PO Last administered on 06/20/19 06:17; Admin Dose 25 MCG; Start 06/14/19 at 07:00 Pregabalin (Lyrica) 75 mg TID PO Last administered on 06/20/19 14:57; Admin Dose 75 MG; Start 06/13/19 at 21:00 Diagnostic Test (Pha) (Accu-Chek) 1 ea 02 XX ; Start 06/14/19 at 02:00 Insulin Glargine (Lantus) 15 units DAILY@2000 SC Last administered on 06/19/19 20:22; Admin Dose 15 UNITS; Start 06/13/19 at 20:00 Insulin Aspart (Novolog Insulin Pen) 5 unit WITH MEALS SC Last administered on 06/20/19 12:35; Admin Dose 5 UNIT; Start 06/13/19 at 18:00 Insulin Aspart (Novolog Insulin Pen) NOVOLOG *MILD* ALGORITHM WITH MEALS BEDTIME SC Last administered on 06/20/19 12:36; Admin Dose 1 UNIT; Start 05/16 12/02 at 18:00 IV Flush (NS 3 ml) 3 ml PER PROTOCOL IV Last administered on 06/19/19 17:39; Admin Dose 3 ML; Start 06/13/19 at 13:30 Ondansetron HCl (Zofran Inj) 4 mg Q6H PRN IV NAUSEA/VOMITING; Start 06/13/19 at 13:30 Acetaminophen (Tylenol Tab) 650 mg Q6H PRN PO .PAIN 1-3 OR TEMP Last administer ed on 06/19/19 01:12; Admin Dose 650 MG; Start 06/13/19 at 13:30 Acetaminophen/ Hydrocodone Bitart ([place] (5/325)) 1 tab Q6H PRN PO .MOD PAIN 4- 6 Last administered on 06/20/19 14:57; Admin Dose 1 TAB; Start 06/13/19 at 13:30 Morphine Sulfate (morphine) 2 mg Q4H PRN IV .SEVERE PAIN 7-10 Last administered on 06/14/19 11:58; Admin Dose 2 MG; Start 06/13/19 at 13:30 Docusate Sodium (Colace) 100 mg Q12H PRN PO .CONSTIPATION; Start 06/13/19 at 13:30 Heparin Sodium (Porcine) (Heparin (5000 Units/1ml)) 5,000 unit Q12 SC Last administered on 06/20/19at 09:09; Admin Dose 5,000 UNIT; Start 06/13/19 at 21:00 Amlodipine Besylate (Norvasc) 5 mg DAILY PO Last administered on 06/20/19at 08:56; Admin Dose 5 MG; Start 06/13/19 at 13:30 Atorvastatin Calcium (Lipitor) 10 mg DAILY@21 PO Last administered on 06/19/19at 20:19; Admin Dose 10 MG; Start 06/13/19 at 21:00 Miscellaneous Information 1 ea NOTE XX ; Start 06/13/19 at 14:30 Glucose (Glutose) 15 gm Q15M PRN PO DECREASED GLUCOSE; Start 06/13/19 at 14:30 Glucose (Glutose) 22.5 gm Q15M PRN PO DECREASED GLUCOSE; Start 06/13/19 at 14:30 Dextrose (D50w Syringe) 25 ml Q15M PRN IV DECREASED GLUCOSE; Start 06/13/19 at 14:30 Dextrose (D50w Syringe) 50 ml Q15M PRN IV DECREASED GLUCOSE; Start 06/13/19 at 14:30 Glucagon (Glucagen) 1 mg Q15M PRN IM DECREASED GLUCOSE; Start 06/13/19 at 14:30 Glucose (Glutose) 15 gm Q15M PRN BUCCAL DECREASED GLUCOSE; Start 06/13/19 at 14:30 Cefazolin Sodium/ Dextrose 50 ml @ 100 mls/hr Q8 IVPB Last administered on 06/20/19at 14:57; Admin Dose 100 MLS/HR; Start 06/17/19 at 22:00 Famotidine (Pepcid) 20 mg Q12 PO Last administered on 06/20/19at 08:55; Admin Dose 20 MG; Start 06/18/19 at 21:00 PEPITO YAÑEZ Jun 20, 2019 16:20
--- NOTE | 2019-06-20 16:25 | PN ---
Date/Time of Note Date/Time of Note DATE: 06/20/19 TIME: 16:11 Assessment/Plan VTE Prophylaxis Risk score (from Ns)>0 risk: 5 SCD applied (from Ns): Yes Pharmacological prophylaxis: heparin Lines/Catheters IV Catheter Type (from Nrs): [place] Lock Urinary Cath still in place: No Assessment/Plan Assessment/Plan 1. 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 Peripheral vascular disease, s/p aortogram with left lower extremity runoff on 06/18/2019 showing significant stenosis of anterior tibial artery, planning for SFA to DP bypass, getting cardiac clearance 3. Diabetes mellitus, hemoglobin A1c 6.6, Continue sliding scale insulin along with basal insulin. 4. Hypothyroidism, Continue Synthroid. 5. Hypertension, controlled 6. Dyslipidemia, on lipitor 7. Normocytic anemia, most probably anemia of chronic disease, follow up with H/H 8. DVT prophylaxis, Subcutaneous heparin. Result Diagram: 06/20/19 0640 06/20/19 0640 Results 24hrs Laboratory Tests Test 06/19/19 17:40 06/19/19 20:16 06/20/19 06:40 06/20/19 08:50 Bedside Glucose 110 147 125 White Blood Count 5.9 Red Blood Count 4.26 L Hemoglobin 12.3 L Hematocrit 37.7 L Mean Corpuscular Volume 88.5 Mean Corpuscular 28.9 L Hemoglobin Mean Corpuscular 32.6 Hemoglobin Concent Red Cell Distribution 12.7 Width Platelet Count 270 Mean Platelet Volume 10.8 H Immature Granulocytes % 0.200 Neutrophils % 63.8 Lymphocytes % 21.9 Monocytes % 8.5 Eosinophils % 4.6 Basophils % 1.0 Nucleated Red Blood 0.0 Cells % Immature Granulocytes # 0.010 Neutrophils # 3.8 Lymphocytes # 1.3 Monocytes # 0.5 Eosinophils # 0.3 Basophils # 0.1 Nucleated Red Blood 0.0 Cells # Sodium Level 139 Potassium Level 4.2 Chloride Level 104 Carbon Dioxide Level 30 Anion Gap 5 Blood Urea Nitrogen 22 H Creatinine 1.00 Est Glomerular Filtrat > 60 Rate mL/min Glucose Level 141 Calcium Level 9.2 Phosphorus Level 3.6 Magnesium Level 1.9 Test 06/20/19 12:19 Bedside Glucose 170 Subjective 24 Hr Interval Summary Free Text/Dictation minimal pain on left foot Exam/Review of Systems Exam Vitals Vital Signs Date Temp Pulse Resp B/P (MAP) Pulse Ox O2 O2 Flow FiO2 Time Delivery Rate 06/20/19 98.1 74 16 147/76 95 Room Air 14:20 (99) Intake and Output 06/19/19 06/19/19 06/20/19 1515:00 23:00 07:00 IntakeIntake Total 50 ml 1000 ml 50 ml OutputOutput Total 800 ml BalanceBalance 50 ml 200 ml 50 ml Constitutional: alert, oriented, well developed Psych: no complaints, nl mood/affect Head: normocephalic, atraumatic Eyes: nl conjunctiva, EOMI, nl lids, PERRL ENMT: nl external ears & nose, nl lips & teeth, nl nasal mucosa & septum Neck: supple, non-tender Respiratory: clear to auscultation, normal air movement; No congested cough, No crackles/rales, No diminished breath sounds, No intercostal retraction, No labored breathing, No respirations, No tactile fremitus, No wheezing, No other Cardiovascular: regular rate and rhythm, nl pulses; No bruits, No diastolic murmur, No edema, No gallop, No irregular rhythm, No jugular venous distention (JVD), No murmurs/extra sounds, No rub, No systolic murmur, No S3, No S4, No other Gastrointestinal: soft, nl liver, spleen, non-tender Extremities: other (left first toe lesion) Neurological: [employer] II-XII intact, nl mental status, nl speech, nl strength Results Results 24hrs Laboratory Tests Test 06/19/19 17:40 06/19/19 20:16 06/20/19 06:40 06/20/19 08:50 Bedside Glucose 110 147 125 White Blood Count 5.9 Red Blood Count 4.26 L Hemoglobin 12.3 L Hematocrit 37.7 L Mean Corpuscular Volume 88.5 Mean Corpuscular 28.9 L Hemoglobin Mean Corpuscular 32.6 Hemoglobin Concent Red Cell Distribution 12.7 Width Platelet Count 270 Mean Platelet Volume 10.8 H Immature Granulocytes % 0.200 Neutrophils % 63.8 Lymphocytes % 21.9 Monocytes % 8.5 Eosinophils % 4.6 Basophils % 1.0 Nucleated Red Blood 0.0 Cells % Immature Granulocytes # 0.010 Neutrophils # 3.8 Lymphocytes # 1.3 Monocytes # 0.5 Eosinophils # 0.3 Basophils # 0.1 Nucleated Red Blood 0.0 Cells # Sodium Level 139 Potassium Level 4.2 Chloride Level 104 Carbon Dioxide Level 30 Anion Gap 5 Blood Urea Nitrogen 22 H Creatinine 1.00 Est Glomerular Filtrat > 60 Rate mL/min Glucose Level 141 Calcium Level 9.2 Phosphorus Level 3.6 Magnesium Level 1.9 Test 06/20/19 12:19 Bedside Glucose 170 Medications Medication Current Medications Aspirin (Halfprin) 81 mg DAILY PO Last administered on 06/20/19 08:55; Admin Dose 81 MG; Start 06/14/19 at 09:00 Levothyroxine Sodium (Synthroid) 25 mcg BEFORE BREAKFAST PO Last administered on 06/20/19 06:17; Admin Dose 25 MCG; Start 06/14/19 at 07:00 Pregabalin (Lyrica) 75 mg TID PO Last administered on 06/20/19 14:57; Admin Dose 75 MG; Start 06/13/19 at 21:00 Diagnostic Test (Pha) (Accu-Chek) 1 ea 02 XX ; Start 06/14/19 at 02:00 Insulin Glargine (Lantus) 15 units DAILY@2000 SC Last administered on 06/19/19 20:22; Admin Dose 15 UNITS; Start 06/13/19 at 20:00 Insulin Aspart (Novolog Insulin Pen) 5 unit WITH MEALS SC Last administered on 06/20/19 12:35; Admin Dose 5 UNIT; Start 06/13/19 at 18:00 Insulin Aspart (Novolog Insulin Pen) NOVOLOG *MILD* ALGORITHM WITH MEALS BEDTIME SC Last administered on 06/20/19 12:36; Admin Dose 1 UNIT; Start 06/13/19 at 18:00 IV Flush (NS 3 ml) 3 ml PER PROTOCOL IV Last administered on 06/19/19 17:39; Admin Dose 3 ML; Start 06/13/19 at 13:30 Ondansetron HCl (Zofran Inj) 4 mg Q6H PRN IV NAUSEA/VOMITING; Start 06/13/19 at 13:30 Acetaminophen (Tylenol Tab) 650 mg Q6H PRN PO .PAIN 1-3 OR TEMP Last administered on 06/19/19 01:12; Admin Dose 650 MG; Start 06/13/19 at 13:30 Acetaminophen/ Hydrocodone Bitart ([place] (5/325)) 1 tab Q6H PRN PO .MOD PAIN 4-6 Last administered on 06/20/19at 14:57; Admin Dose 1 TAB; Start 06/13/19 at 13:30 Morphine Sulfate (morphine) 2 mg Q4H PRN IV .SEVERE PAIN 7-10 Last administered on 06/14/19at 11:58; Admin Dose 2 MG; Start 06/13/19 at 13:30 Docusate Sodium (Colace) 100 mg Q12H PRN PO .CONSTIPATION; Start 06/13/19 at 1 3:30 Heparin Sodium (Porcine) (Heparin (5000 Units/1ml)) 5,000 unit Q12 SC Last administered on 06/20/19at 09:09; Admin Dose 5,000 UNIT; Start 06/13/19 at 21:00 Miscellaneous Information 1 ea NOTE XX ; Start 06/13/19 at 14:30 Glucose (Glutose) 15 gm Q15M PRN PO DECREASED GLUCOSE; Start 06/13/19 at 14:30 Glucose (Glutose) 22.5 gm Q15M PRN PO DECREASED GLUCOSE; Start 06/13/19 at 14:30 Dextrose (D50w Syringe) 25 ml Q15M PRN IV DECREASED GLUCOSE; Start 06/13/19 at 14:30 Dextrose (D50w Syringe) 50 ml Q15M PRN IV DECREASED GLUCOSE; Start 06/13/19 at 14:30 Glucagon (Glucagen) 1 mg Q15M PRN IM DECREASED GLUCOSE; Start 06/13/19 at 14:30 Glucose (Glutose) 15 gm Q15M PRN BUCCAL DECREASED GLUCOSE; Start 06/13/19 at 14:30 Cefazolin Sodium/ Dextrose 50 ml @ 100 mls/hr Q8 IVPB Last administered on 06/20/19at 14:57; Admin Dose 100 MLS/HR; Start 06/17/19 at 22:00 Famotidine (Pepcid) 20 mg Q12 PO Last administered on 06/20/19at 08:55; Admin Dose 20 MG; Start 06/18/19 at 21:00 Atorvastatin Calcium (Lipitor) 40 mg DAILY@21 PO ; Start 06/20/19 at 21:00; Status UNV Losartan Potassium (Cozaar) 25 mg DAILY PO ; Start 06/21/19 at 09:00; Status UNV STEPHANIE ALFORD MD Jun 20, 2019 16:21
[2019-06-20] MEDS ORDERED: LOSARTAN 25 MG TAB PO SCH (17:00)
[2019-06-20] MEDS: LOSARTAN 50 MG TAB PO SCH (17:59)
[2019-06-20 20:09] VITALS: BP 139/69; PULSE 71; RESP 17
[2019-06-20] MEDS: ATORVASTATIN 40 MG TAB PO SCH (21:31)
[2019-06-20] MEDS: INSULIN GLARGINE [LANTus] (100 UNITS/ML) SYG SC SCH (21:36)
[2019-06-21 01:42] VITALS: BP 131/75; PULSE 72; RESP 18
[2019-06-21] MEDS: ACCU-CHEK XX SCH (01:57)
[2019-06-21] MEDS: LEVOTHYROXINE 25 MCG TAB PO SCH (06:16)
[2019-06-21] MEDS: CEFAZOLIN 2 GM/50 ML (PMX) 50 ML IVPB SCH ×3 (06:17→21:34)
[2019-06-21 07:18] VITALS: BP 125/71; PULSE 67; RESP 16
[2019-06-21] MEDS: INSULIN ASPART [NOVOLOG] 3 ML PEN SC SCH ×7 (08:00→20:41)
[2019-06-21] MEDS: LOSARTAN 50 MG TAB PO SCH (08:44)
[2019-06-21] MEDS: PREGABALIN 75 MG CAP PO SCH ×3 (08:44→20:38)
[2019-06-21] MEDS: FAMOTIDINE 20 MG TAB PO SCH ×2 (08:44→20:39)
[2019-06-21] MEDS: ASPIRIN (EC) 81 MG TAB PO SCH (08:44)
[2019-06-21] MEDS: HEPARIN 5,000 UNIT/1 ML VIAL SC SCH ×2 (08:46→20:42)
--- NOTE | 2019-06-21 08:48 | RADRPT ---
Echocardiogram Report Patient Name: Crystal SIERRA ID: [id number] : [id number] (63y 9m)Study Date: 06/21/2019 7:31:54 AM Gender: MAccession #: [id number] Tech: Byron Baires [facility] Location: [id number] Ref.Physician: PEPITO COBOS Height(Cm): BSA: Weight(Kg): Quality: AdequateOrder Physician: PEPITO COBOS Account #: Procedures: Echocardiographic Report: Transthoracic echocardiogram with complete 2D, M-Mode, and doppler examination. Indications: Pre-op. Measurements: 2D/M Mode Doppler Measurement Value Normal Range Measurement Value Normal Range LVIDd 2D 4.2 [ 4.2 - 5.8 ] cm AV Peak Ba 1.1 [ 100.0 - 170.0 ] cm/sec LVIDs 2D 2.5 [ 2.5 - 4.0 ] cm AV Peak PG 5.0 [ 2.0 - 9.0 ] mmHg IVSd 2D 1.2 [ 0.6 - 1.0 ] cm LVOT Peak Ba 0.8 [ 70.0 - 110.0 ] cm/sec IVS/LVPW 2D 1.0 ratio LVOT Peak PG 3.0 [ 2.0 - 6.0 ] mmHg AoR Diam 2D 3.2 [ 2.6 - 3.4 ] cm MV E Peak Ba 0.6 [ 60.0 - 130.0 ] cm/sec LA/Ao 2D 1 ratio MV A Peak Ba 0.7 [ 100.0 - 120.0 ] cm/sec LA Dimen 2D 3.3 [ 3.0 - 4.0 ] cm MV E/A 0.9 [ 0.8 - 1.5 ] ratio MV Decel Time 236 [ 104 - 258 ] msec MV E/A 0.9 [ 0.8 - 1.5 ] ratio Findings: Left Ventricle: Normal left ventricular systolic function. Normal left ventricular cavity size. Mild concentric left ventricular hypertrophy. Ejection fraction is visually estimated at 60 %. Tissue Doppler/Mitral Doppler indices are consistent with impaired relaxation (Stage I diastolic dysfunction). Right Ventricle: Normal right ventricular size. Normal right ventricular systolic function. Left Atrium: There is mild enlargement of left atrium. Right Atrium: The right atrium is normal in size. Mitral Valve: Normal appearance and function of the mitral valve with trace physiologic regurgitation. Aortic Valve: Normal appearance of the aortic valve. No significant aortic stenosis or insufficiency. Tricuspid Valve: Normal appearance and function of the tricuspid valve with trace physiologic regurgitation. Unable to obtain RVSP due to minimal presence of tricuspid regurgitation. Pulmonic Valve: Normal pulmonic valve appearance. Pericardium: Normal pericardium with no significant pericardial effusion. Aorta: Normal aortic root. IVC: Normal size and normal respiratory collapse consistent with normal right atrial pressure. Conclusions: Normal left ventricular systolic function. Normal left ventricular cavity size. Mild concentric left ventricular hypertrophy. Ejection fraction is visually estimated at 60 %. Tissue Doppler/Mitral Doppler indices are consistent with impaired relaxation (Stage I diastolic dysfunction). No significant valvular stenosis or regurgitation seen. Unable to obtain RVSP due to minimal presence of tricuspid regurgitation. Normal size and normal respiratory collapse consistent with normal right atrial pressure. Electronically Signed By: Pepito Cobos 2019-06-21 08:47:51 PDT
--- NOTE | 2019-06-21 13:17 | CONS ---
Assessment/Plan Assessment/Plan Hospital Course (Demo Recall) alert, feels good, no fevers ALLERGIES: NONE Microbiology: Wound culture growing MSSA Antibiotics: Ancef PHYSICAL EXAMINATION: GENERAL: The patient is a well-developed, well-nourished male in no acute distress. SKIN: Without generalized rash. HEENT: Within normal limits. NECK: Supple. LYMPH NODES: None palpable. CHEST: Decreased breath sounds at the bases. HEART: Without murmur or gallop. ABDOMEN: Soft, nontender EXTREMITIES: No cyanosis, clubbing, or edema. Left lower extremity 5th digit is erythematous with ulcer on the plantar surface NEUROLOGIC: No focal neurological abnormality. Assessment: 1. Left foot cellulitis with osteomyelitis of the toe===> cx + MSSA 2. Diabetic neuropathy 3. Diabetes Plan: Remains stable, continue IV abx for 6 weeks, per podiatry pt will require staged procedures in order to salvage the digit Consultation Date/Type/Reason Admit Date/Time Jun 13, 2019 at 13:15 Initial Consult Date Type of Consult id Requesting Provider: QIAN MOTT NP Date/Time of Note DATE: 06/21/19 TIME: 13:17 Exam/Review of Systems Exam Vitals Vital Signs Date Temp Pulse Resp B/P (MAP) Pulse Ox O2 O2 Flow FiO2 Time Delivery Rate 06/21/19 97.9 67 16 125/71 94 07:18 (89) 06/20/19 Room Air 14:20 Intake and Output 06/20/19 06/20/19 06/21/19 1515:00 23:00 07:00 IntakeIntake Total 360 ml 580 ml OutputOutput Total 1350 ml 1300 ml 400 ml BalanceBalance -990 ml -720 ml -400 ml Results Result Diagram: 06/21/19 0526 06/21/19 0526 Results 24hrs Laboratory Tests Test 06/20/19 18:01 06/20/19 21:33 06/21/19 05:26 06/21/19 08:35 Bedside Glucose 128 127 125 White Blood Count 5.7 Red Blood Count 4.07 L Hemoglobin 11.6 L Hematocrit 35.5 L Mean Corpuscular Volume 87.2 Mean Corpuscular 28.5 L Hemoglobin Mean Corpuscular 32.7 Hemoglobin Concent Red Cell Distribution 12.8 Width Platelet Count 276 Mean Platelet Volume 10.7 H Immature Granulocytes % 0.400 Neutrophils % 58.2 Lymphocytes % 25.6 Monocytes % 10.5 Eosinophils % 4.2 Basophils % 1.1 Nucleated Red Blood 0.0 Cells % Immature Granulocytes # 0.020 Neutrophils # 3.3 Lymphocytes # 1.5 Monocytes # 0.6 Eosinophils # 0.2 Basophils # 0.1 Nucleated Red Blood 0.0 Cells # Sodium Level 139 Potassium Level 4.2 Chloride Level 102 Carbon Dioxide Level 31 Anion Gap 6 Blood Urea Nitrogen 21 H Creatinine 0.99 Est Glomerular Filtrat > 60 Rate mL/min Glucose Level 135 Calcium Level 9.4 Phosphorus Level 4.1 Magnesium Level 1.9 Test 06/21/19 12:03 Bedside Glucose 167 Medications Medication Current Medications Aspirin (Halfprin) 81 mg DAILY PO Last administered on 06/21/19 08:44; Admin Dose 81 MG; Start 06/14/19 at 09:00 Levothyroxine Sodium (Synthroid) 25 mcg BEFORE BREAKFAST PO Last administered on 06/21/19 06:16; Admin Dose 25 MCG; Start 06/14/19 at 07:00 Pregabalin (Lyrica) 75 mg TID PO Last administered on 06/21/19 08:44; Admin Dose 75 MG; Start 06/13/19 at 21:00 Diagnostic Test (Pha) (Accu-Chek) 1 ea 02 XX ; Start 06/14/19 at 02:00 Insulin Glargine (Lantus) 15 units DAILY@2000 SC Last administered on 06/20/19 21:36; Admin Dose 15 UNITS; Start 06/13/19 at 20:00 Insulin Aspart (Novolog Insulin Pen) 5 unit WITH MEALS SC Last administered on 06/21/19 12:30; Admin Dose 5 UNIT; Start 06/13/19 at 18:00 Insulin Aspart (Novolog Insulin Pen) NOVOLOG *MILD* ALGORITHM WITH MEALS BEDTIME SC Last administered on 06/21/19 12:29; Admin Dose 1 UNIT; Start 06/13/19 at 18:00 IV Flush (NS 3 ml) 3 ml PER PROTOCOL IV Last administered on 06/19/19 17:39; Admin Dose 3 ML; Start 06/13/19 at 13:30 Ondansetron HCl (Zofran Inj) 4 mg Q6H PRN IV NAUSEA/VOMITING; Start 06/13/19 at 13:30 Acetaminophen (Tylenol Tab) 650 mg Q6H PRN PO .PAIN 1-3 OR TEMP Last administered on 06/19/19at 01:12; Admin Dose 650 MG; Start 06/13/19 at 13:30 Acetaminophen/ Hydrocodone Bitart ([place] (5/325)) 1 tab Q6H PRN PO .MOD PAIN 4- 6 Last administered on 06/20/19 14:57; Admin Dose 1 TAB; Start 06/13/19 at 13:30 Morphine Sulfate (morphine) 2 mg Q4H PRN IV .SEVERE PAIN 7-10 Last administered on 06/14/19 11:58; Admin Dose 2 MG; Start 06/13/19 at 13:30 Docusate Sodium (Colace) 100 mg Q12H PRN PO .CONSTIPATION; Start 06/13/19 at 13:30 Heparin Sodium (Porcine) (Heparin (5000 Units/1ml)) 5,000 unit Q12 SC Last ad ministered on 06/21/19at 08:46; Admin Dose 5,000 UNIT; Start 06/13/19 at 21:00 Miscellaneous Information 1 ea NOTE XX ; Start 06/13/19 at 14:30 Glucose (Glutose) 15 gm Q15M PRN PO DECREASED GLUCOSE; Start 06/13/19 at 14:30 Glucose (Glutose) 22.5 gm Q15M PRN PO DECREASED GLUCOSE; Start 06/13/19 at 14 :30 Dextrose (D50w Syringe) 25 ml Q15M PRN IV DECREASED GLUCOSE; Start 06/13/19 at 14:30 Dextrose (D50w Syringe) 50 ml Q15M PRN IV DECREASED GLUCOSE; Start 06/13/19 at 14:30 Glucagon (Glucagen) 1 mg Q15M PRN IM DECREASED GLUCOSE; Start 06/13/19 at 14:30 Glucose (Glutose) 15 gm Q15M PRN BUCCAL DECREASED GLUCOSE; Start 06/13/19 at 14:30 Cefazolin Sodium/ Dextrose 50 ml @ 100 mls/hr Q8 IVPB Last administered on 06/21/19at 06:17; Admin Dose 100 MLS/HR; Start 06/17/19 at 22:00 Famotidine (Pepcid) 20 mg Q12 PO Last administered on 06/21/19at 08:44; Admin Dose 20 MG; Start 06/18/19 at 21:00 Atorvastatin Calcium (Lipitor) 40 mg DAILY@21 PO Last administered on 06/20/19at 21:31; Admin Dose 40 MG; Start 06/20/19 at 21:00 Losartan Potassium (Cozaar) 50 mg DAILY PO Last administered on 06/21/19at 08:44; Admin Dose 50 MG; Start 06/20/19 at 17:00 OUMAR EARL NP Jun 21, 2019 13:17
--- NOTE | 2019-06-21 14:21 | PN ---
Date/Time of Note Date/Time of Note DATE: 06/21/19 TIME: 14:07 Assessment/Plan VTE Prophylaxis Risk score (from [facility])>0 risk: 2 SCD applied (from [facility]): Yes Pharmacological prophylaxis: other Pharm contraindication: other Lines/Catheters IV Catheter Type (from [facility]): [place] Urinary Cath still in place: No Assessment/Plan Assessment/Plan 1. 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 Peripheral vascular disease, s/p aortogram with left lower extremity runoff on 06/18/2019 showing significant stenosis of anterior tibial artery, planning for SFA to DP bypass, medically cleared for surgery 3. Diabetes mellitus, hemoglobin A1c 6.6, Continue sliding scale insulin along with basal insulin. 4. Hypothyroidism, Continue Synthroid. 5. Hypertension, controlled 6. Dyslipidemia, on lipitor 7. Normocytic anemia, most probably anemia of chronic disease, follow up with H/H 8. DVT prophylaxis, Subcutaneous heparin. Result Diagram: 06/21/1952506/21/19 0526 Results 24hrs Laboratory Tests Test 06/20/19 18:01 06/20/19 21:33 06/21/19 05:26 06/21/19 08:35 Bedside Glucose 128 127 125 White Blood Count 5.7 Red Blood Count 4.07 L Hemoglobin 11.6 L Hematocrit 35.5 L Mean Corpuscular Volume 87.2 Mean Corpuscular 28.5 L Hemoglobin Mean Corpuscular 32.7 Hemoglobin Concent Red Cell Distribution 12.8 Width Platelet Count 276 Mean Platelet Volume 10.7 H Immature Granulocytes % 0.400 Neutrophils % 58.2 Lymphocytes % 25.6 Monocytes % 10.5 Eosinophils % 4.2 Basophils % 1.1 Nucleated Red Blood 0.0 Cells % Immature Granulocytes # 0.020 Neutrophils # 3.3 Lymphocytes # 1.5 Monocytes # 0.6 Eosinophils # 0.2 Basophils # 0.1 Nucleated Red Blood 0.0 Cells # Sodium Level 139 Potassium Level 4.2 Chloride Level 102 Carbon Dioxide Level 31 Anion Gap 6 Blood Urea Nitrogen 21 H Creatinine 0.99 Est Glomerular Filtrat > 60 Rate mL/min Glucose Level 135 Calcium Level 9.4 Phosphorus Level 4.1 Magnesium Level 1.9 Test 06/21/19 12:03 Bedside Glucose 167 Subjective 24 Hr Interval Summary Free Text/Dictation pain is controlled, no fever Exam/Review of Systems Exam Vitals Vital Signs Date Temp Pulse Resp B/P (MAP) Pulse Ox O2 O2 Flow FiO2 Time Delivery Rate 06/21/19 97.9 67 16 125/71 94 07:18 (89) 06/20/19 Room Air 14:20 Intake and Output 06/20/19 06/20/19 06/21/19 1515:00 23:00 07:00 IntakeIntake Total 360 ml 580 ml OutputOutput Total 1350 ml 1300 ml 400 ml BalanceBalance -990 ml -720 ml -400 ml Constitutional: alert, oriented, well developed Psych: no complaints, nl mood/affect Head: normocephalic, atraumatic Eyes: nl conjunctiva, EOMI, nl lids, PERRL ENMT: nl external ears & nose, nl lips & teeth, nl nasal mucosa & septum Neck: supple, non-tender Respiratory: clear to auscultation, normal air movement; No congested cough, No crackles/rales, No diminished breath sounds, No intercostal retraction, No labored breathing, No respirations, No tactile fremitus, No wheezing, No other Cardiovascular: regular rate and rhythm, nl pulses; No bruits, No diastolic murmur, No edema, No gallop, No irregular rhythm, No jugular venous distention (JVD), No murmurs/extra sounds, No rub, No systolic murmur, No S3, No S4, No other Gastrointestinal: soft, nl liver, spleen, non-tender Extremities: other (left foot wound) Neurological: [employer] II-XII intact, nl mental status, nl speech, nl strength Results Results 24hrs Laboratory Tests Test 06/20/19 18:01 06/20/19 21:33 06/21/19 05:26 06/21/19 08:35 Bedside Glucose 128 127 125 White Blood Count 5.7 Red Blood Count 4.07 L Hemoglobin 11.6 L Hematocrit 35.5 L Mean Corpuscular Volume 87.2 Mean Corpuscular 28.5 L Hemoglobin Mean Corpuscular 32.7 Hemoglobin Concent Red Cell Distribution 12.8 Width Platelet Count 276 Mean Platelet Volume 10.7 H Immature Granulocytes % 0.400 Neutrophils % 58.2 Lymphocytes % 25.6 Monocytes % 10.5 Eosinophils % 4.2 Basophils % 1.1 Nucleated Red Blood 0.0 Cells % Immature Granulocytes # 0.020 Neutrophils # 3.3 Lymphocytes # 1.5 Monocytes # 0.6 Eosinophils # 0.2 Basophils # 0.1 Nucleated Red Blood 0.0 Cells # Sodium Level 139 Potassium Level 4.2 Chloride Level 102 Carbon Dioxide Level 31 Anion Gap 6 Blood Urea Nitrogen 21 H Creatinine 0.99 Est Glomerular Filtrat > 60 Rate mL/min Glucose Level 135 Calcium Level 9.4 Phosphorus Level 4.1 Magnesium Level 1.9 Test 06/21/19 12:03 Bedside Glucose 167 Medications Medication Current Medications Aspirin (Halfprin) 81 mg DAILY PO Last administered on 06/21/19 08:44; Admin Dose 81 MG; Start 06/14/19 at 09:00 Levothyroxine Sodium (Synthroid) 25 mcg BEFORE BREAKFAST PO Last administered on 06/21/19 06:16; Admin Dose 25 MCG; Start 06/14/19 at 07:00 Pregabalin (Lyrica) 75 mg TID PO Last administered on 06/21/19 13:20; Admin Dose 75 MG; Start 06/13/19 at 21:00 Diagnostic Test (Pha) (Accu-Chek) 1 ea 02 XX ; Start 06/14/19 at 02:00 Insulin Glargine (Lantus) 15 units DAILY@2000 SC Last administered on 06/20/19 21:36; Admin Dose 15 UNITS; Start 06/13/19 at 20:00 Insulin Aspart (Novolog Insulin Pen) 5 unit WITH MEALS SC Last administered on 06/21/19 12:30; Admin Dose 5 UNIT; Start 06/13/19 at 18:00 Insulin Aspart (Novolog Insulin Pen) NOVOLOG *MILD* ALGORITHM WITH MEALS BEDTIME SC Last administered on 06/21/19 12:29; Admin Dose 1 UNIT; Start 06/13/19 at 18:00 IV Flush (NS 3 ml) 3 ml PER PROTOCOL IV Last administered on 06/19/19 17:39; Admin Dose 3 ML; Start 06/13/19 at 13:30 Ondansetron HCl (Zofran Inj) 4 mg Q6H PRN IV NAUSEA/VOMITING; Start 06/13/19 at 13:30 Acetaminophen (Tylenol Tab) 650 mg Q6H PRN PO .PAIN 1-3 OR TEMP Last administered on 06/19/19 01:12; Admin Dose 650 MG; Start 06/13/19 at 13:30 Acetaminophen/ Hydrocodone Bitart ([place] (5/325)) 1 tab Q6H PRN PO .MOD PAIN 4- 6 Last administered on 06/20/19at 14:57; Admin Dose 1 TAB; Start 06/13/19 at 13:30 Morphine Sulfate (morphine) 2 mg Q4H PRN IV .SEVERE PAIN 7-10 Last administered on 06/14/19at 11:58; Admin Dose 2 MG; Start 06/13/19 at 13:30 Docusate Sodium (Colace) 100 mg Q12H PRN PO .CONSTIPATION; Start 06/13/19 at 13:30 Heparin Sodium (Porcine) (Heparin (5000 Units/1ml)) 5,000 unit Q12 SC Last administered on 06/21/19at 08:46; Admin Dose 5,000 UNIT; Start 06/13/19 at 21:00 Miscellaneous Information 1 ea NOTE XX ; Start 06/13/19 at 14:30 Glucose (Glutose) 15 gm Q15M PRN PO DECREASED GLUCOSE; Start 06/13/19 at 14:30 Glucose (Glutose) 22.5 gm Q15M PRN PO DECREASED GLUCOSE; Start 06/13/19 at 14:30 Dextrose (D50w Syringe) 25 ml Q15M PRN IV DECREASED GLUCOSE; Start 06/13/19 at 14:30 Dextrose (D50w Syringe) 50 ml Q15M PRN IV DECREASED GLUCOSE; Start 06/13/19 at 14:30 Glucagon (Glucagen) 1 mg Q15M PRN IM DECREASED GLUCOSE; Start 06/13/19 at 14:30 Glucose (Glutose) 15 gm Q15M PRN BUCCAL DECREASED GLUCOSE; Start 06/13/19 at 14:30 Cefazolin Sodium/ Dextrose 50 ml @ 100 mls/hr Q8 IVPB Last administered on 06/21/19at 06:17; Admin Dose 100 MLS/HR; Start 06/17/19 at 22:00 Famotidine (Pepcid) 20 mg Q12 PO Last administered on 06/21/19at 08:44; Admin Dose 20 MG; Start 06/18/19 at 21:00 Atorvastatin Calcium (Lipitor) 40 mg DAILY@21 PO Last administered on 06/20/19at 21:31; Admin Dose 40 MG; Start 06/20/19 at 21:00 Losartan Potassium (Cozaar) 50 mg DAILY PO Last administered on 06/21/19at 08:44; Admin Dose 50 MG; Start 06/20/19 at 17:00 STEPHANIE ALFORD MD Jun 21, 2019 14:17
[2019-06-21 19:31] VITALS: BP 135/76; PULSE 72; RESP 17
[2019-06-21] MEDS: ATORVASTATIN 40 MG TAB PO SCH (20:39)
[2019-06-21] MEDS: INSULIN GLARGINE [LANTus] (100 UNITS/ML) SYG SC SCH (20:42)
[2019-06-22] MEDS: ACCU-CHEK XX SCH (01:37)
[2019-06-22 01:45] VITALS: BP 106/59; PULSE 76; RESP 16
[2019-06-22] MEDS: morphine 2 MG INJ IV PRN (05:35)
[2019-06-22] MEDS: CEFAZOLIN 2 GM/50 ML (PMX) 50 ML IVPB SCH ×3 (05:35→21:14)
[2019-06-22] MEDS: LEVOTHYROXINE 25 MCG TAB PO SCH (06:10)
[2019-06-22 07:19] VITALS: BP 130/74; PULSE 69; RESP 18
[2019-06-22] MEDS: INSULIN ASPART [NOVOLOG] 3 ML PEN SC SCH ×7 (08:00→21:00)
[2019-06-22] MEDS: HEPARIN 5,000 UNIT/1 ML VIAL SC SCH ×2 (08:16→21:13)
[2019-06-22] MEDS: LOSARTAN 50 MG TAB PO SCH (08:16)
[2019-06-22] MEDS: PREGABALIN 75 MG CAP PO SCH ×3 (08:17→21:11)
[2019-06-22] MEDS: ASPIRIN (EC) 81 MG TAB PO SCH (08:17)
[2019-06-22] MEDS: FAMOTIDINE 20 MG TAB PO SCH ×2 (08:17→21:11)
--- NOTE | 2019-06-22 09:25 | CONS ---
Assessment/Plan Assessment/Plan Hospital Course (Demo Recall) Pre-operative evaluation: To have an intermediate-high risk surgery. He is functional at baseline and without symptoms. He has no known cardiac disease. Exam is benign. Echo is normal. He is at intermediate risk.. No further testing indicated. PAD: to have left SFA-DP bypass Left toe osteomyelitis DM HTN -ok to proceed with surgery as planned -ASA -lipitor 40mg -losartan 25mg Consultation Date/Type/Reason Admit Date/Time Jun 13, 2019 at 13:15 Initial Consult Date 06/20/19 Type of Consult Cardiology Requesting Provider: QIAN MOTT NP Date/Time of Note DATE: 06/22/19 TIME: 09:23 24 HR Interval Summary Free Text/Dictation No events. No complaints. No definitive date for surgery Exam/Review of Systems Vital Signs Vitals Vital Signs Date Temp Pulse Resp B/P (MAP) Pulse Ox O2 O2 Flow FiO2 Time Delivery Rate 06/22/19 97.9 69 18 130/74 96 Room Air 07:19 (92) Intake and Output 06/21/19 06/21/19 06/22/19 1515:00 23:00 07:00 IntakeIntake Total 890 ml 660 ml 50 ml OutputOutput Total 1150 ml 700 ml 780 ml BalanceBalance -260 ml -40 ml -730 ml Exam Constitutional: alert, oriented Psych: no complaints, nl mood/affect Head: normocephalic, atraumatic Neck: No jvd Respiratory: clear to auscultation; No crackles/rales Cardiovascular: regular rate and rhythm; No edema Gastrointestinal: soft, non-tender; No distended Musculoskeletal: No nl extremities to inspection Neurological: nl mental status, nl speech Labs Result Diagram: 06/21/1952506/21/19525 Results 24hrs Laboratory Tests Test 06/21/19 12:03 06/21/19 17:31 06/21/19 20:38 06/22/19 01:15 Bedside Glucose 167 166 196 150 Test 06/22/19 08:11 Bedside Glucose 131 Medications Medications Current Medications Aspirin (Halfprin) 81 mg DAILY PO Last administered on 06/22/19at 08:17; Admin Dose 81 MG; Start 06/14/19 at 09:00 Levothyroxine Sodium (Synthroid) 25 mcg BEFORE BREAKFAST PO Last administered on 06/22/19 06:10; Admin Dose 25 MCG; Start 06/14/19 at 07:00 Pregabalin (Lyrica) 75 mg TID PO Last administered on 06/22/19 08:17; Admin Dose 75 MG; Start 06/13/19 at 21:00 Diagnostic Test (Pha) (Accu-Chek) 1 ea 02 XX ; Start 06/14/19 at 02:00 Insulin Glargine (Lantus) 15 units DAILY@2000 SC Last administered on 06/21/19 20:42; Admin Dose 15 UNITS; Start 06/13/19 at 20:00 Insulin Aspart (Novolog Insulin Pen) 5 unit WITH MEALS SC Last administered on 06/22/19 08:15; Admin Dose 5 UNIT; Start 06/13/19 at 18:00 Insulin Aspart (Novolog Insulin Pen) NOVOLOG *MILD* ALGORITHM WITH MEALS BEDTIME SC Last administered on 06/21/19 20:41; Admin Dose 1 UNIT; Start 06/13/19 at 18:00 IV Flush (NS 3 ml) 3 ml PER PROTOCOL IV Last administered on 06/19/19 17:39; Admin Dose 3 ML; Start 06/13/19 at 13:30 Ondansetron HCl (Zofran Inj) 4 mg Q6H PRN IV NAUSEA/VOMITING; Start 06/13/19 at 13:30 Acetaminophen (Tylenol Tab) 650 mg Q6H PRN PO .PAIN 1-3 OR TEMP Last administered on 06/19/19 01:12; Admin Dose 650 MG; Start 06/13/19 at 13:30 Acetaminophen/ Hydrocodone Bitart ([place] (5/325)) 1 tab Q6H PRN PO .MOD PAIN 4- 6 Last administered on 06/20/19 14:57; Admin Dose 1 TAB; Start 06/13/19 at 13:30 Morphine Sulfate (morphine) 2 mg Q4H PRN IV .SEVERE PAIN 7-10 Last administered on 06/22/19 05:35; Admin Dose 2 MG; Start 06/13/19 at 13:30 Docusate Sodium (Colace) 100 mg Q12H PRN PO .CONSTIPATION; Start 06/13/19 at 13:30 Heparin Sodium (Porcine) (Heparin (5000 Units/1ml)) 5,000 unit Q12 SC Last administered on 06/22/19 08:16; Admin Dose 5,000 UNIT; Start 06/13/19 at 21:00 Miscellaneous Information 1 ea NOTE XX ; Start 06/13/19 at 14:30 Glucose (Glutose) 15 gm Q15M PRN PO DECREASED GLUCOSE; Start 06/13/19 at 14:30 Glucose (Glutose) 22.5 gm Q15M PRN PO DECREASED GLUCOSE; Start 06/13/19 at 14:30 Dextrose (D50w Syringe) 25 ml Q15M PRN IV DECREASED GLUCOSE; Start 06/13/19 at 14:30 Dextrose (D50w Syringe) 50 ml Q15M PRN IV DECREASED GLUCOSE; Start 06/13/19 at 14:30 Glucagon (Glucagen) 1 mg Q15M PRN IM DECREASED GLUCOSE; Start 06/13/19 at 14:30 Glucose (Glutose) 15 gm Q15M PRN BUCCAL DECREASED GLUCOSE; Start 06/13/19 at 14:30 Cefazolin Sodium/ Dextrose 50 ml @ 100 mls/hr Q8 IVPB Last administered on 06/22/19at 05:35; Admin Dose 100 MLS/HR; Start 06/17/19 at 22:00 Famotidine (Pepcid) 20 mg Q12 PO Last administered on 06/22/19at 08:17; Admin Dose 20 MG; Start 06/18/19 at 21:00 Atorvastatin Calcium (Lipitor) 40 mg DAILY@21 PO Last administered on 06/21/19at 20:39; Admin Dose 40 MG; Start 06/20/19 at 21:00 Losartan Potassium (Cozaar) 50 mg DAILY PO Last administered on 06/22/19at 08:16; Admin Dose 50 MG; Start 06/20/19 at 17:00 PEPITO YAÑEZ Jun 22, 2019 09:25
--- NOTE | 2019-06-22 11:43 | PN ---
Date/Time of Note Date/Time of Note DATE: 06/22/19 TIME: 11:42 Assessment/Plan Lines/Catheters IV Catheter Type (from [facility]): Peripheral IV [place] in Place (from [facility]): No Assessment/Plan Assessment/Plan L foot osteo / gangrene, pop and ROBERTA severe stenosis, good GSV on vein mapping Scheduled for L fem-DP bypass next Subjective 24 Hr Interval Summary No new c/o. Exam/Review of Systems Vital Signs Vitals Vital Signs Date Temp Pulse Resp B/P (MAP) Pulse Ox O2 O2 Flow FiO2 Time Delivery Rate 06/22/19 97.9 69 18 130/74 96 Room Air 07:19 (92) Intake and Output 06/21/19 06/21/19 06/22/19 1515:00 23:00 07:00 IntakeIntake Total 890 ml 660 ml 50 ml OutputOutput Total 1150 ml 700 ml 780 ml BalanceBalance -260 ml -40 ml -730 ml Exam Free Text/Dictation L 1st and 5th toes with areas of dry gangrene / necrosis - dry, no sign of infection Results Result Diagram: 06/21/19 0526 06/21/19 0526 NORA CRUZ MD Jun 22, 2019 11:43
[2019-06-22 13:49] VITALS: BP 118/67; PULSE 73; RESP 18
--- NOTE | 2019-06-22 14:01 | CONS ---
Assessment/Plan Assessment/Plan Hospital Course (Demo Recall) alert, feels good ALLERGIES: NONE Microbiology: Wound culture growing MSSA Antibiotics: Ancef PHYSICAL EXAMINATION: GENERAL: The patient is a well-developed, well-nourished male in no acute distress. SKIN: Without generalized rash. HEENT: Within normal limits. NECK: Supple. LYMPH NODES: None palpable. CHEST: Decreased breath sounds at the bases. HEART: Without murmur or gallop. ABDOMEN: Soft, nontender EXTREMITIES: No cyanosis, clubbing, or edema. Left lower extremity 5th digit is erythematous with ulcer on the plantar surface NEUROLOGIC: No focal neurological abnormality. Assessment: 1. Left foot cellulitis with osteomyelitis of the toe===> cx + MSSA 2. Diabetic neuropathy 3. Diabetes Plan: Remains stable, scheduled for L fem-DP bypass next , continue abx to complete 6 weeks Consultation Date/Type/Reason Admit Date/Time Jun 13, 2019 at 13:15 Initial Consult Date Type of Consult id Requesting Provider: QIAN MOTT NP Date/Time of Note DATE: 06/22/19 TIME: 14:00 Exam/Review of Systems Exam Vitals Vital Signs Date Temp Pulse Resp B/P (MAP) Pulse Ox O2 O2 Flow FiO2 Time Delivery Rate 06/22/19 98.1 73 18 118/67 97 Room Air 13:49 (84) Intake and Output 06/21/19 06/21/19 06/22/19 1515:00 23:00 07:00 IntakeIntake Total 890 ml 660 ml 50 ml OutputOutput Total 1150 ml 700 ml 780 ml BalanceBalance -260 ml -40 ml -730 ml Results Result Diagram: 06/21/19 0526 06/21/19 0526 Results 24hrs Laboratory Tests Test 06/21/19 17:31 06/21/19 20:38 06/22/19 01:15 06/22/19 08:11 Bedside Glucose 166 196 150 131 Test 06/22/19 12:39 Bedside Glucose 170 Medications Medication Current Medications Aspirin (Halfprin) 81 mg DAILY PO Last administered on 06/22/19at 08:17; Admin Dose 81 MG; Start 06/14/19 at 09:00 Levothyroxine Sodium (Synthroid) 25 mcg BEFORE BREAKFAST PO Last administered on 06/22/19at 06:10; Admin Dose 25 MCG; Start 06/14/19 at 07:00 Pregabalin (Lyrica) 75 mg TID PO Last administered on 06/22/19 13:39; Admin Dose 75 MG; Start 06/13/19 at 21:00 Diagnostic Test (Pha) (Accu-Chek) 1 ea 02 XX ; Start 06/14/19 at 02:00 Insulin Glargine (Lantus) 15 units DAILY@2000 SC Last administered on 06/21/19 20:42; Admin Dose 15 UNITS; Start 06/13/19 at 20:00 Insulin Aspart (Novolog Insulin Pen) 5 unit WITH MEALS SC Last administered on 06/22/19 12:42; Admin Dose 5 UNIT; Start 06/13/19 at 18:00 Insulin Aspart (Novolog Insulin Pen) NOVOLOG *MILD* ALGORITHM WITH MEALS BEDTIME SC Last administered on 06/22/19 12:42; Admin Dose 1 UNIT; Start 06/13/19 at 18:00 IV Flush (NS 3 ml) 3 ml PER PROTOCOL IV Last administered on 06/19/19 17:39; Admin Dose 3 ML; Start 06/13/19 at 13:30 Ondansetron HCl (Zofran Inj) 4 mg Q6H PRN IV NAUSEA/VOMITING; Start 06/13/19 at 13:30 Acetaminophen (Tylenol Tab) 650 mg Q6H PRN PO .PAIN 1-3 OR TEMP Last administered on 06/19/19 01:12; Admin Dose 650 MG; Start 06/13/19 at 13:30 Acetaminophen/ Hydrocodone Bitart ([place] (5/325)) 1 tab Q6H PRN PO .MOD PAIN 4- 6 Last administered on 06/20/19 14:57; Admin Dose 1 TAB; Start 06/13/19 at 13:30 Morphine Sulfate (morphine) 2 mg Q4H PRN IV .SEVERE PAIN 7-10 Last administered on 06/22/19 05:35; Admin Dose 2 MG; Start 06/13/19 at 13:30 Docusate Sodium (Colace) 100 mg Q12H PRN PO .CONSTIPATION; Start 06/13/19 at 13:30 Heparin Sodium (Porcine) (Heparin (5000 Units/1ml)) 5,000 unit Q12 SC Last administered on 8/9/19at 08:16; Admin Dose 5,000 UNIT; Start 06/13/19 at 21:00 Miscellaneous Information 1 ea NOTE XX ; Start 06/13/19 at 14:30 Glucose (Glutose) 15 gm Q15M PRN PO DECREASED GLUCOSE; Start 06/13/19 at 14:30 Glucose (Glutose) 22.5 gm Q15M PRN PO DECREASED GLUCOSE; Start 06/13/19 at 14:30 Dextrose (D50w Syringe) 25 ml Q15M PRN IV DECREASED GLUCOSE; Start 06/13/19 at 14:30 Dextrose (D50w Syringe) 50 ml Q15M PRN IV DECREASED GLUCOSE; Start 06/13/19 at 14:30 Glucagon (Glucagen) 1 mg Q15M PRN IM DECREASED GLUCOSE; Start 06/13/19 at 14:30 Glucose (Glutose) 15 gm Q15M PRN BUCCAL DECREASED GLUCOSE; Start 06/13/19 at 14:30 Cefazolin Sodium/ Dextrose 50 ml @ 100 mls/hr Q8 IVPB Last administered on 06/22/19at 05:35; Admin Dose 100 MLS/HR; Start 06/17/19 at 22:00 Famotidine (Pepcid) 20 mg Q12 PO Last administered on 06/22/19at 08:17; Admin Dose 20 MG; Start 06/18/19 at 21:00 Atorvastatin Calcium (Lipitor) 40 mg DAILY@21 PO Last administered on 06/21/19at 20:39; Admin Dose 40 MG; Start 06/20/19 at 21:00 Losartan Potassium (Cozaar) 50 mg DAILY PO Last administered on 06/22/19at 08:16; Admin Dose 50 MG; Start 06/20/19 at 17:00 OUMAR EARL NP Jun 22, 2019 14:01
--- NOTE | 2019-06-22 15:08 | PN ---
Date/Time of Note Date/Time of Note DATE: 06/22/19 TIME: 15:06 Assessment/Plan VTE Prophylaxis Risk score (from Ns)>0 risk: 5 SCD applied (from Ns): Yes Pharmacological prophylaxis: heparin Lines/Catheters IV Catheter Type (from Nrs): Peripheral IV Urinary Cath still in place: No Assessment/Plan Assessment/Plan 1. 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 Peripheral vascular disease, s/p aortogram with left lower extremity runoff on 06/18/2019 showing significant stenosis of anterior tibial artery, planning for SFA to DP bypass next 3. Diabetes mellitus, hemoglobin A1c 6.6, Continue sliding scale insulin along with basal insulin. 4. Hypothyroidism, Continue Synthroid. 5. Hypertension, controlled 6. Dyslipidemia, on lipitor 7. Normocytic anemia, most probably anemia of chronic disease, follow up with H/H 8. DVT prophylaxis, Subcutaneous heparin. Result Diagram: 06/21/1952506/21/19525 Results 24hrs Laboratory Tests Test 06/21/19 17:31 06/21/19 20:38 06/22/19 01:15 06/22/19 08:11 Bedside Glucose 166 196 150 131 Test 06/22/19 12:39 Bedside Glucose 170 Subjective 24 Hr Interval Summary Free Text/Dictation afebrile, no event Exam/Review of Systems Exam Vitals Vital Signs Date Temp Pulse Resp B/P (MAP) Pulse Ox O2 O2 Flow FiO2 Time Delivery Rate 06/22/19 98.1 73 18 118/67 97 Room Air 13:49 (84) Intake and Output 06/21/19 06/21/19 06/22/19 1515:00 23:00 07:00 IntakeIntake Total 890 ml 660 ml 50 ml OutputOutput Total 1150 ml 700 ml 780 ml BalanceBalance -260 ml -40 ml -730 ml Constitutional: alert, oriented, well developed Psych: no complaints, nl mood/affect Head: normocephalic, atraumatic Eyes: nl conjunctiva, EOMI, nl lids ENMT: nl external ears & nose, nl lips & teeth, nl nasal mucosa & septum Neck: supple, non-tender, jvd Respiratory: clear to auscultation, normal air movement; No congested cough, No crackles/rales, No diminished breath sounds, No intercostal retraction, No labored breathing, No respirations, No tactile fremitus, No wheezing, No other Cardiovascular: regular rate and rhythm, nl pulses; No bruits, No diastolic murmur, No edema, No gallop, No irregular rhythm, No jugular venous distention (JVD), No murmurs/extra sounds, No rub, No systolic murmur, No S3, No S4, No other Gastrointestinal: soft, nl liver, spleen, non-tender Musculoskeletal: nl extremities to inspection Neurological: NUTRITION TECHNICIAN II-XII intact, nl mental status, nl speech, nl strength Results Results 24hrs Laboratory Tests Test 06/21/19 17:31 06/21/19 20:38 06/22/19 01:15 06/22/19 08:11 Bedside Glucose 166 196 150 131 Test 06/22/19 12:39 Bedside Glucose 170 Medications Medication Current Medications Aspirin (Halfprin) 81 mg DAILY PO Last administered on 06/22/19 08:17; Admin Dose 81 MG; Start 06/14/19 at 09:00 Levothyroxine Sodium (Synthroid) 25 mcg BEFORE BREAKFAST PO Last administered on 06/22/19 06:10; Admin Dose 25 MCG; Start 06/14/19 at 07:00 Pregabalin (Lyrica) 75 mg TID PO Last administered on 06/22/19 13:39; Admin Do se 75 MG; Start 06/13/19 at 21:00 Diagnostic Test (Pha) (Accu-Chek) 1 ea 02 XX ; Start 06/14/19 at 02:00 Insulin Glargine (Lantus) 15 units DAILY@2000 SC Last administered on 06/21/19 20:42; Admin Dose 15 UNITS; Start 06/13/19 at 20:00 Insulin Aspart (Novolog Insulin Pen) 5 unit WITH MEALS SC Last administered on 06/22/19 12:42; Admin Dose 5 UNIT; Start 06/13/19 at 18:00 Insulin Aspart (Novolog Insulin Pen) NOVOLOG *MILD* ALGORITHM WITH MEALS BEDTIME SC Last administered on 06/22/19 12:42; Admin Dose 1 UNIT; Start 06/13/19 at 18:00 IV Flush (NS 3 ml) 3 ml PER PROTOCOL IV Last administered on 06/19/19at 17:39; Admin Dose 3 ML; Start 06/13/19 at 13:30 Ondansetron HCl (Zofran Inj) 4 mg Q6H PRN IV NAUSEA/VOMITING; Start 06/13/19 at 13:30 Acetaminophen (Tylenol Tab) 650 mg Q6H PRN PO .PAIN 1-3 OR TEMP Last administered on 06/19/19at 01:12; Admin Dose 650 MG; Start 06/13/19 at 13:30 Acetaminophen/ Hydrocodone Bitart ([place] (5/325)) 1 tab Q6H PRN PO .MOD PAIN 4- 6 Last administered on 06/20/19at 14:57; Admin Dose 1 TAB; Start 06/13/19 at 13:30 Morphine Sulfate (morphine) 2 mg Q4H PRN IV .SEVERE PAIN 7-10 Last administered on 06/22/19at 05:35; Admin Dose 2 MG; Start 06/13/19 at 13:30 Docusate Sodium (Colace) 100 mg Q12H PRN PO .CONSTIPATION; Start 06/13/19 at 13:30 Heparin Sodium (Porcine) (Heparin (5000 Units/1ml)) 5,000 unit Q12 SC Last administered on 06/22/19at 08:16; Admin Dose 5,000 UNIT; Start 06/13/19 at 21:00 Miscellaneous Information 1 ea NOTE XX ; Start 06/13/19 at 14:30 Glucose (Glutose) 15 gm Q15M PRN PO DECREASED GLUCOSE; Start 06/13/19 at 14:30 Glucose (Glutose) 22.5 gm Q15M PRN PO DECREASED GLUCOSE; Start 06/13/19 at 14:30 Dextrose (D50w Syringe) 25 ml Q15M PRN IV DECREASED GLUCOSE; Start 06/13/19 at 14:30 Dextrose (D50w Syringe) 50 ml Q15M PRN IV DECREASED GLUCOSE; Start 06/13/19 at 14:30 Glucagon (Glucagen) 1 mg Q15M PRN IM DECREASED GLUCOSE; Start 06/13/19 at 14:30 Glucose (Glutose) 15 gm Q15M PRN BUCCAL DECREASED GLUCOSE; Start 06/13/19 at 14:30 Cefazolin Sodium/ Dextrose 50 ml @ 100 mls/hr Q8 IVPB Last administered on 06/22/19 14:52; Admin Dose 100 MLS/HR; Start 06/17/19 at 22:00 Famotidine (Pepcid) 20 mg Q12 PO Last administered on 06/22/19 08:17; Admin Dose 20 MG; Start 06/18/19 at 21:00 Atorvastatin Calcium (Lipitor) 40 mg DAILY@21 PO Last administered on 06/21/19 20:39; Admin Dose 40 MG; Start 06/20/19 at 21:00 Losartan Potassium (Cozaar) 50 mg DAILY PO Last administered on 06/22/19 08:16; Admin Dose 50 MG; Start 06/20/19 at 17:00 STEPHANIE ALFORD MD Jun 22, 2019 15:08
--- NOTE | 2019-06-22 16:52 | CONS ---
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 Once optimized from vascular standpoint will plan for further OR procedure of the left foot. Continue abx per recommendations. Daily dressing changes and offloading. Consultation Date/Type/Reason Admit Date/Time Jun 13, 2019 at 13:15 Initial Consult Date Requesting Provider: QIAN MOTT NP Date/Time of Note DATE: 06/22/19 TIME: 16:52 24 HR Interval Summary Free Text/Dictation No acute events overnight. Exam/Review of Systems Exam Vitals Vital Signs Date Temp Pulse Resp B/P (MAP) Pulse Ox O2 O2 Flow FiO2 Time Delivery Rate 06/22/19 98.1 73 18 118/67 97 Room Air 13:49 (84) Intake and Output 06/21/19 06/21/19 06/22/19 1515:00 23:00 07:00 IntakeIntake Total 890 ml 660 ml 50 ml OutputOutput Total 1150 ml 700 ml 780 ml BalanceBalance -260 ml -40 ml -730 ml Exam Left hallux with allograft placement secured with skin keith Left 5th digit with CFT less than 3 seconds There is dry gangrene to the left 5th digit incision site. Wound probes to bone. Ulcer dimensions 1.2 x 0.4 x 0.8cm. No proximal streaking, no foul odor, no purulence noted at this time. Absent protective sensations DP pulse palpable Results Result Diagram: 06/21/19 0526 06/21/19 0526 Results 24hrs Laboratory Tests Test 06/21/19 17:31 06/21/19 20:38 06/22/19 01:15 06/22/19 08:11 Bedside Glucose 166 196 150 131 Test 06/22/19 12:39 Bedside Glucose 170 Medications Medication Current Medications Aspirin (Halfprin) 81 mg DAILY PO Last administered on 06/22/19at 08:17; Admin Dose 81 MG; Start 06/14/19 at 09:00 Levothyroxine Sodium (Synthroid) 25 mcg BEFORE BREAKFAST PO Last administered on 06/22/19 06:10; Admin Dose 25 MCG; Start 06/14/19 at 07:00 Pregabalin (Lyrica) 75 mg TID PO Last administered on 06/22/19 13:39; Admin Dose 75 MG; Start 06/13/19 at 21:00 Diagnostic Test (Pha) (Accu-Chek) 1 ea 02 XX ; Start 06/14/19 at 02:00 Insulin Glargine (Lantus) 15 units DAILY@2000 SC Last administered on 06/21/19 20:42; Admin Dose 15 UNITS; Start 06/13/19 at 20:00 Insulin Aspart (Novolog Insulin Pen) 5 unit WITH MEALS SC Last administered on 06/22/19 12:42; Admin Dose 5 UNIT; Start 06/13/19 at 18:00 Insulin Aspart (Novolog Insulin Pen) NOVOLOG *MILD* ALGORITHM WITH MEALS BEDTIME SC Last administered on 06/22/19 12:42; Admin Dose 1 UNIT; Start 06/13/19 at 18:00 IV Flush (NS 3 ml) 3 ml PER PROTOCOL IV Last administered on 06/19/19 17:39; Admin Dose 3 ML; Start 06/13/19 at 13:30 Ondansetron HCl (Zofran Inj) 4 mg Q6H PRN IV NAUSEA/VOMITING; Start 06/13/19 at 13:30 Acetaminophen (Tylenol Tab) 650 mg Q6H PRN PO .PAIN 1-3 OR TEMP Last administered on 06/19/19 01:12; Admin Dose 650 MG; Start 06/13/19 at 13:30 Acetaminophen/ Hydrocodone Bitart ([place] (5/325)) 1 tab Q6H PRN PO .MOD PAIN 4- 6 Last administered on 06/20/19 14:57; Admin Dose 1 TAB; Start 06/13/19 at 13:30 Morphine Sulfate (morphine) 2 mg Q4H PRN IV .SEVERE PAIN 7-10 Last administered on 06/22/19 05:35; Admin Dose 2 MG; Start 06/13/19 at 13:30 Docusate Sodium (Colace) 100 mg Q12H PRN PO .CONSTIPATION; Start 06/13/19 at 13:30 Heparin Sodium (Porcine) (Heparin (5000 Units/1ml)) 5,000 unit Q12 SC Last administered on 06/22/19 08:16; Admin Dose 5,000 UNIT; Start 06/13/19 at 21:00 Miscellaneous Information 1 ea NOTE XX ; Start 06/13/19 at 14:30 Glucose (Glutose) 15 gm Q15M PRN PO DECREASED GLUCOSE; Start 06/13/19 at 14:30 Glucose (Glutose) 22.5 gm Q15M PRN PO DECREASED GLUCOSE; Start 06/13/19 at 14:30 Dextrose (D50w Syringe) 25 ml Q15M PRN IV DECREASED GLUCOSE; Start 06/13/19 at 14:30 Dextrose (D50w Syringe) 50 ml Q15M PRN IV DECREASED GLUCOSE; Start 06/13/19 at 14:30 Glucagon (Glucagen) 1 mg Q15M PRN IM DECREASED GLUCOSE; Start 06/13/19 at 14:30 Glucose (Glutose) 15 gm Q15M PRN BUCCAL DECREASED GLUCOSE; Start 06/13/19 at 14:30 Cefazolin Sodium/ Dextrose 50 ml @ 100 mls/hr Q8 IVPB Last administered on 06/22/19at 14:52; Admin Dose 100 MLS/HR; Start 06/17/19 at 22:00 Famotidine (Pepcid) 20 mg Q12 PO Last administered on 06/22/19at 08:17; Admin Dose 20 MG; Start 06/18/19 at 21:00 Atorvastatin Calcium (Lipitor) 40 mg DAILY@21 PO Last administered on 06/21/19at 20:39; Admin Dose 40 MG; Start 06/20/19 at 21:00 Losartan Potassium (Cozaar) 50 mg DAILY PO Last administered on 06/22/19at 08:16; Admin Dose 50 MG; Start 06/20/19 at 17:00 FORD BLUM DPM Jun 22, 2019 16:52
[2019-06-22 20:07] VITALS: BP 134/74; PULSE 73; RESP 18
[2019-06-22] MEDS: ATORVASTATIN 40 MG TAB PO SCH (21:11)
[2019-06-22] MEDS: INSULIN GLARGINE [LANTus] (100 UNITS/ML) SYG SC SCH (21:14)
[2019-06-23] MEDS: ACCU-CHEK XX SCH (01:06)
[2019-06-23 02:24] VITALS: BP 128/69; PULSE 81; RESP 20
[2019-06-23] MEDS: LEVOTHYROXINE 25 MCG TAB PO SCH (06:05)
[2019-06-23] MEDS: CEFAZOLIN 2 GM/50 ML (PMX) 50 ML IVPB SCH ×3 (06:05→22:19)
[2019-06-23 07:17] VITALS: BP 136/74; PULSE 89; RESP 18
[2019-06-23] MEDS: ASPIRIN (EC) 81 MG TAB PO SCH (08:10)
[2019-06-23] MEDS: FAMOTIDINE 20 MG TAB PO SCH ×2 (08:10→20:53)
[2019-06-23] MEDS: PREGABALIN 75 MG CAP PO SCH ×3 (08:10→20:53)
[2019-06-23] MEDS: LOSARTAN 50 MG TAB PO SCH (08:11)
[2019-06-23] MEDS: INSULIN ASPART [NOVOLOG] 3 ML PEN SC SCH ×7 (08:15→20:57)
[2019-06-23] MEDS: HEPARIN 5,000 UNIT/1 ML VIAL SC SCH ×2 (08:16→20:56)
--- NOTE | 2019-06-23 10:16 | CONS ---
Assessment/Plan Assessment/Plan Hospital Course (Demo Recall) All noted, no acute changes over night, looks comfortable ALLERGIES: NONE Microbiology: Wound culture growing MSSA Antibiotics: Ancef PHYSICAL EXAMINATION: GENERAL: The patient is a well-developed, well-nourished male in no acute distress. SKIN: Without generalized rash. HEENT: Within normal limits. NECK: Supple. LYMPH NODES: None palpable. CHEST: Decreased breath sounds at the bases. HEART: Without murmur or gallop. ABDOMEN: Soft, nontender EXTREMITIES: No cyanosis, clubbing, or edema. Left lower extremity 5th digit is erythematous with ulcer on the plantar surface NEUROLOGIC: No focal neurological abnormality. Assessment: 1. Left foot cellulitis with osteomyelitis of the toe===> cx + MSSA 2. Diabetic neuropathy 3. Diabetes 4. PAD Plan: Remains stable, plan for L fem-DP bypass next weeks, IV abx for 6 weeks, podiatry rec-s Consultation Date/Type/Reason Admit Date/Time Jun 13, 2019 at 13:15 Initial Consult Date Type of Consult id Requesting Provider: QIAN MOTT NP Date/Time of Note DATE: 06/23/19 TIME: 10:14 Exam/Review of Systems Exam Vitals Vital Signs Date Temp Pulse Resp B/P (MAP) Pulse Ox O2 O2 Flow FiO2 Time Delivery Rate 06/23/19 98.1 89 18 136/74 96 Room Air 07:17 (94) Intake and Output 06/22/19 06/22/19 06/23/19 1515:00 23:00 07:00 IntakeIntake Total 800 ml 690 ml 470 ml OutputOutput Total 700 ml 2000 ml 901 ml BalanceBalance 100 ml -1310 ml -431 ml Results Result Diagram: 06/21/19 0526 06/21/19525 Results 24hrs Laboratory Tests Test 06/22/19 12:39 06/22/19 17:31 06/22/19 21:10 06/23/19 08:10 Bedside Glucose 170 131 138 172 Medications Medication Current Medications Aspirin (Halfprin) 81 mg DAILY PO Last administered on 06/23/19at 08:10; Admin Dose 81 MG; Start 06/14/19 at 09:00 Levothyroxine Sodium (Synthroid) 25 mcg BEFORE BREAKFAST PO Last administered on 06/23/19at 06:05; Admin Dose 25 MCG; Start 06/14/19 at 07:00 Pregabalin (Lyrica) 75 mg TID PO Last administered on 06/23/19 08:10; Admin Dose 75 MG; Start 06/13/19 at 21:00 Diagnostic Test (Pha) (Accu-Chek) 1 ea 02 XX ; Start 06/14/19 at 02:00 Insulin Glargine (Lantus) 15 units DAILY@2000 SC Last administered on 06/22/19 21:14; Admin Dose 15 UNITS; Start 06/13/19 at 20:00 Insulin Aspart (Novolog Insulin Pen) 5 unit WITH MEALS SC Last administered on 06/23/19 08:15; Admin Dose 5 UNIT; Start 06/13/19 at 18:00 Insulin Aspart (Novolog Insulin Pen) NOVOLOG *MILD* ALGORITHM WITH MEALS BEDTIME SC Last administered on 06/23/19 08:16; Admin Dose 1 UNIT; Start 06/13/19 at 18:00 IV Flush (NS 3 ml) 3 ml PER PROTOCOL IV Last administered on 06/19/19 17:39; Admin Dose 3 ML; Start 06/13/19 at 13:30 Ondansetron HCl (Zofran Inj) 4 mg Q6H PRN IV NAUSEA/VOMITING; Start 06/13/19 at 13:30 Acetaminophen (Tylenol Tab) 650 mg Q6H PRN PO .PAIN 1-3 OR TEMP Last administered on 06/19/19 01:12; Admin Dose 650 MG; Start 06/13/19 at 13:30 Acetaminophen/ Hydrocodone Bitart ([place] (5/325)) 1 tab Q6H PRN PO .MOD PAIN 4- 6 Last administered on 06/20/19 14:57; Admin Dose 1 TAB; Start 06/13/19 at 13:30 Morphine Sulfate (morphine) 2 mg Q4H PRN IV .SEVERE PAIN 7-10 Last administered on 06/22/19 05:35; Admin Dose 2 MG; Start 06/13/19 at 13:30 Docusate Sodium (Colace) 100 mg Q12H PRN PO .CONSTIPATION; Start 06/13/19 at 13:30 Heparin Sodium (Porcine) (Heparin (5000 Units/1ml)) 5,000 unit Q12 SC Last administered on 8/10/19at 08:16; Admin Dose 5,000 UNIT; Start 06/13/19 at 21:00 Miscellaneous Information 1 ea NOTE XX ; Start 06/13/19 at 14:30 Glucose (Glutose) 15 gm Q15M PRN PO DECREASED GLUCOSE; Start 06/13/19 at 14:30 Glucose (Glutose) 22.5 gm Q15M PRN PO DECREASED GLUCOSE; Start 06/13/19 at 14:30 Dextrose (D50w Syringe) 25 ml Q15M PRN IV DECREASED GLUCOSE; Start 06/13/19 at 14:30 Dextrose (D50w Syringe) 50 ml Q15M PRN IV DECREASED GLUCOSE; Start 06/13/19 at 14:30 Glucagon (Glucagen) 1 mg Q15M PRN IM DECREASED GLUCOSE; Start 06/13/19 at 14:30 Glucose (Glutose) 15 gm Q15M PRN BUCCAL DECREASED GLUCOSE; Start 06/13/19 at 14:30 Cefazolin Sodium/ Dextrose 50 ml @ 100 mls/hr Q8 IVPB Last administered on 06/23/19at 06:05; Admin Dose 100 MLS/HR; Start 06/17/19 at 22:00 Famotidine (Pepcid) 20 mg Q12 PO Last administered on 06/23/19at 08:10; Admin Dose 20 MG; Start 06/18/19 at 21:00 Atorvastatin Calcium (Lipitor) 40 mg DAILY@21 PO Last administered on 06/22/19at 21:11; Admin Dose 40 MG; Start 06/20/19 at 21:00 Losartan Potassium (Cozaar) 50 mg DAILY PO Last administered on 06/23/19at 08:11; Admin Dose 50 MG; Start 06/20/19 at 17:00 OUMAR EARL NP Jun 23, 2019 10:16
--- NOTE | 2019-06-23 11:37 | PN ---
Date/Time of Note Date/Time of Note DATE: 06/23/19 TIME: 11:33 Assessment/Plan VTE Prophylaxis Risk score (from Ns)>0 risk: 6 SCD applied (from Ns): Yes Pharmacological prophylaxis: heparin Lines/Catheters IV Catheter Type (from Nrs): Saline Lock Urinary Cath still in place: No Assessment/Plan Problems: (1) Osteomyelitis of fifth toe of left foot Status: Acute Comment: Patient is pending revascularization procedure this coming . Unclear about whether he supposed to go home and come back or not. The patient's knowledge of the situation does not this really match the window caser notes. I will attempt to get this worked out so he can continue his on his IV antibiotic therapy. (2) Peripheral arterial occlusive disease Status: Chronic Comment: For revascularization as per Dr. Cruz (3) Diabetes mellitus type 2 in obese Status: Chronic Comment: Adequate glycemic control (4) Diabetic peripheral neuropathy associated with type 2 diabetes mellitus Status: Chronic Comment: Noted and stable. (5) Hypothyroid Status: Chronic Comment: Stable on treatment Qualifiers: Hypothyroidism type: acquired Qualified Codes: E03.9 - Hypothyroidism, unspecified (6) Hypertension Status: Chronic Comment: Adequate blood pressure control using angiotensin to receptor misty therapy Qualifiers: Hypertension type: essential hypertension Qualified Codes: I10 - Essential (primary) hypertension (7) Hyperlipidemia Status: Chronic Comment: Continue aggressive statin treatment of this patient already has complications Qualifiers: Hyperlipidemia type: pure hypercholesterolemia Qualified Codes: E78.00 - Pure hypercholesterolemia, unspecified (8) Anemia Status: Chronic Comment: Check iron levels (9) Grade I diastolic dysfunction Status: Chronic Comment: Control blood pressure and pulse Result Diagram: 06/21/1952506/21/19525 Results 24hrs Laboratory Tests Test 06/22/19 12:39 06/22/19 17:31 06/22/19 21:10 06/23/19 08:10 Bedside Glucose 170 131 138 172 CC: NORA CRUZ MD; FORD BLUM DPM; PEPITO YAÑEZ ; Subjective 24 Hr Interval Summary Free Text/Dictation He reports that he does not have anybody at home to help [place] has no idea how get his IV antibiotic therapy and. He otherwise is without complaints Constitutional: no complaints (No fevers chills or sweats) Respiratory: no complaints Cardiovascular: no complaints Gastrointestinal: no complaints Exam/Review of Systems Exam Vitals Vital Signs Date Temp Pulse Resp B/P (MAP) Pulse Ox O2 O2 Flow FiO2 Time Delivery Rate 06/23/19 98.1 89 18 136/74 96 Room Air 07:17 (94) Intake and Output 06/22/19 06/22/19 06/23/19 1515:00 23:00 07:00 IntakeIntake Total 800 ml 690 ml 470 ml OutputOutput Total 700 ml 2000 ml 901 ml BalanceBalance 100 ml -1310 ml -431 ml Constitutional: alert, oriented Respiratory: clear to auscultation, normal air movement Cardiovascular: regular rate and rhythm, nl pulses Gastrointestinal: soft, nl liver, spleen, non-tender Extremities: other (On the left side it is entirely bandaged) Results Results 24hrs Laboratory Tests Test 06/22/19 12:39 06/22/19 17:31 06/22/19 21:10 06/23/19 08:10 Bedside Glucose 170 131 138 172 Medications Medication Current Medications Aspirin (Halfprin) 81 mg DAILY PO Last administered on 06/23/19at 08:10; Admin Dose 81 MG; Start 06/14/19 at 09:00 Levothyroxine Sodium (Synthroid) 25 mcg BEFORE BREAKFAST PO Last administered on 06/23/19at 06:05; Admin Dose 25 MCG; Start 06/14/19 at 07:00 Pregabalin (Lyrica) 75 mg TID PO Last administered on 06/23/19at 08:10; Admin Dose 75 MG; Start 06/13/19 at 21:00 Diagnostic Test (Pha) (Accu-Chek) 1 ea 02 XX ; Start 06/14/19 at 02:00 Insulin Glargine (Lantus) 15 units DAILY@2000 SC Last administered on 06/22/19at 21:14; Admin Dose 15 UNITS; Start 06/13/19 at 20:00 Insulin Aspart (Novolog Insulin Pen) 5 unit WITH MEALS SC Last administered on 06/23/19at 08:15; Admin Dose 5 UNIT; Start 06/13/19 at 18:00 Insulin Aspart (Novolog Insulin Pen) NOVOLOG *MILD* ALGORITHM WITH MEALS BEDT DAVID SC Last administered on 06/23/19at 08:16; Admin Dose 1 UNIT; Start 06/13/19 at 18:00 IV Flush (NS 3 ml) 3 ml PER PROTOCOL IV Last administered on 06/19/19at 17:39; Admin Dose 3 ML; Start 06/13/19 at 13:30 Ondansetron HCl (Zofran Inj) 4 mg Q6H PRN IV NAUSEA/VOMITING; Start 06/13/19 at 13:30 Acetaminophen (Tylenol Tab) 650 mg Q6H PRN PO .PAIN 1-3 OR TEMP Last administered on 06/19/19at 01:12; Admin Dose 650 MG; Start 06/13/19 at 13:30 Acetaminophen/ Hydrocodone Bitart ([place] (5/325)) 1 tab Q6H PRN PO .MOD PAIN 4- 6 Last administered on 06/20/19at 14:57; Admin Dose 1 TAB; Start 06/13/19 at 13:30 Morphine Sulfate (morphine) 2 mg Q4H PRN IV .SEVERE PAIN 7-10 Last administered on 06/22/19at 05:35; Admin Dose 2 MG; Start 06/13/19 at 13:30 Docusate Sodium (Colace) 100 mg Q12H PRN PO .CONSTIPATION; Start 06/13/19 at 13:30 Heparin Sodium (Porcine) (Heparin (5000 Units/1ml)) 5,000 unit Q12 SC Last administered on 06/23/19at 08:16; Admin Dose 5,000 UNIT; Start 06/13/19 at 21:00 Miscellaneous Information 1 ea NOTE XX ; Start 06/13/19 at 14:30 Glucose (Glutose) 15 gm Q15M PRN PO DECREASED GLUCOSE; Start 06/13/19 at 14:30 Glucose (Glutose) 22.5 gm Q15M PRN PO DECREASED GLUCOSE; Start 06/13/19 at 14:30 Dextrose (D50w Syringe) 25 ml Q15M PRN IV DECREASED GLUCOSE; Start 06/13/19 at 14:30 Dextrose (D50w Syringe) 50 ml Q15M PRN IV DECREASED GLUCOSE; Start 06/13/19 at 14:30 Glucagon (Glucagen) 1 mg Q15M PRN IM DECREASED GLUCOSE; Start 06/13/19 at 14:30 Glucose (Glutose) 15 gm Q15M PRN BUCCAL DECREASED GLUCOSE; Start 06/13/19 at 14:30 Cefazolin Sodium/ Dextrose 50 ml @ 100 mls/hr Q8 IVPB Last administered on 06/23/19 06:05; Admin Dose 100 MLS/HR; Start 06/17/19 at 22:00 Famotidine (Pepcid) 20 mg Q12 PO Last administered on 06/23/19at 08:10; Admin Dose 20 MG; Start 06/18/19 at 21:00 Atorvastatin Calcium (Lipitor) 40 mg DAILY@21 PO Last administered on 06/22/19at 21:11; Admin Dose 40 MG; Start 06/20/19 at 21:00 Losartan Potassium (Cozaar) 50 mg DAILY PO Last administered on 06/23/19 08:11; Admin Dose 50 MG; Start 06/20/19 at 17:00 MILAN ZHONG MD Jun 23, 2019 11:37
[2019-06-23] MEDS ORDERED: LIDOCAINE 1% (MPF) 5 ML VIAL SC ONE (13:00)
[2019-06-23 14:28] VITALS: BP 140/73; PULSE 74; RESP 18
[2019-06-23 20:21] VITALS: BP 157/86; PULSE 80; RESP 16
[2019-06-23] MEDS: ATORVASTATIN 40 MG TAB PO SCH (20:53)
[2019-06-23] MEDS: INSULIN GLARGINE [LANTus] (100 UNITS/ML) SYG SC SCH (20:57)
[2019-06-24] MEDS: ACCU-CHEK XX SCH (02:00)
[2019-06-24 02:12] VITALS: BP 123/75; PULSE 72; RESP 18
[2019-06-24] MEDS: CEFAZOLIN 2 GM/50 ML (PMX) 50 ML IVPB SCH ×2 (06:08→14:38)
[2019-06-24] MEDS: LEVOTHYROXINE 25 MCG TAB PO SCH (06:08)
[2019-06-24] MEDS: INSULIN ASPART [NOVOLOG] 3 ML PEN SC SCH ×4 (08:00→13:33)
[2019-06-24] MEDS: PREGABALIN 75 MG CAP PO SCH ×2 (08:09→13:28)
[2019-06-24] MEDS: ASPIRIN (EC) 81 MG TAB PO SCH (08:09)
[2019-06-24] MEDS: FAMOTIDINE 20 MG TAB PO SCH (08:09)
[2019-06-24] MEDS: LOSARTAN 50 MG TAB PO SCH (08:10)
[2019-06-24] MEDS: HEPARIN 5,000 UNIT/1 ML VIAL SC SCH (08:16)
[2019-06-24 08:20] VITALS: BP 151/81; PULSE 68; RESP 17
--- NOTE | 2019-06-24 08:29 | DS ---
Date/Time of Note Date/Time of Note DATE: 06/24/19 TIME: 08:16 Discharge Summary Admission/Discharge Info Admit Date/Time Jun 13, 2019 at 13:15 Discharge Date/Time June 24, 2019 Discharge Diagnosis Osteomyelitis left fifth toe; peripheral vascular disease; diabetes mellitus type 2; diabetic peripheral neuropathy; hypertension; hyperlipidemia; hypothyroidism; anemia; grade 1 diastolic dysfunction Patient Condition: Fair Consults Vascular surgery-Dr. Cruz; podiatry-Dr. Blum; infectious disease-Dr. Faustin; cardiology-Dr. Yañez; Procedures PICC line placement Echocardiogram Conclusions: Normal left ventricular systolic function. Normal left ventricular cavity size. Mild concentric left ventricular hypertrophy. Ejection fraction is visually estimated at 60 %. Tissue Doppler/Mitral Doppler indices are consistent with impaired relaxation (Stage I diastolic dysfunction). No significant valvular stenosis or regurgitation seen. Unable to obtain RVSP due to minimal presence of tricuspid regurgitation. Normal size and normal respiratory collapse consistent with normal right atrial pressure. Abdominal aortography with runoff INDINGS OF ANGIOGRAPHY: The infrarenal aorta is widely patent. Both common external and internal iliac arteries are widely patent. Both common femoral a rteries are patent. The left profunda and superficial femoral artery is widely patent. The left popliteal is patent above and below the knee, and right at the knee, there is a significant stenosis. It is probably in the 60 to 70% range, and below knee the TP trunk is patent. The posterior tibial was completely occluded. Peroneal was patent down to the ankle. There really does not collateralize much into the foot. Anterior tibial was patent proximally and then has a severe stenosis distally. There is probably a subtotal occlusion a few centimeters above the ankle and then there is a good dorsalis pedis in the foot. I looked at the foot. There is fairly extensive necrosis in the fifth toe. He has an excellent target vessel and dorsalis pedis and would be better off to the bypass to the dorsalis pedis. if he has good veins. I did not proceed with any intervention. We removed all the catheter sheaths and wires. We held pressure on the right groin until there was good hemostasis. Sterile dressing was applied is going to be vein mapped. He has a good vein, I will proceed with SFA to DP bypass. If he does not, then we will bring him back in and do a percutaneous intervention although it would be suboptimal. Left foot surgery Operative Report Preoperative Diagnosis L foot diabetic ulcer L foot cellulitis L foot osteomyelitis DM2 with peripheral neuropathy L foot 5th digit hammertoe Postoperative Diagnosis L foot diabetic ulcer L foot cellulitis L foot osteomyelitis DM2 with peripheral neuropathy L foot 5th digit hammertoe Operation/Procedure Performed Left 5th digit derotational arthroplasty Left foot excisional debridement Application of allograft MRI of foot IMPRESSION: Findings suggesting osteomyelitis of the fifth toe with adjacent soft tissue swelling and wound/ulcer, as above. Findings are similar compared to prior exam and may represent [id number] osteomyelitis. Lower extremity arterial study IMPRESSION: Severe right popliteal artery stenosis. Monophasic wave form in the right posterior tibial artery consistent with a significant stenosis. Monophasic waveforms in the left posterior tibial and dorsalis pedis arteries consistent with a significant infrapopliteal stenosis. Severe stenosis in the left dorsalis pedis artery. US Lower extremity Venous. Hx of Present Illness Hx of Present Illness This is a 63-year-old male with history of diabetes, previous right foot surgery from diabetes who came into the hospital again for left foot diabetic ulcer. Patient was recently admitted to [facility] in March 2019 and discharged with left foot diabetic ulcer and placed on 6 weeks of antibiotics reportedly finished his course of antibiotics. He also says that he followed up with his engagement liaison Dr. Nichols and had an MRI of his left foot and was told he had no more bone infection on the left toe fifth digit. He said that 2 weeks prior to this admission he started to have increased swelling and redness on the left foot fifth toe. Yesterday he stated that he started to get a lot of pus and drainage out of the left foot fifth toe. He denies any fevers at home. Due to worsening pain and swelling and drainage from his left foot fifth toe he came to the hospital for further evaluation. Initial left foot x-ray showed increased osteopenia within the fifth distal and middle phalanges. No definite osteomyelitis seen. No leukocytosis noted. Denies any other associated symptoms. Denies any chest pain or shortness of breath or dysuria. Only reports having left foot pain and chronic neuropathy on bilateral lower extremity's. We will evaluate him for the aformentiond issues. HPI 63-year-old diabetic with osteomyelitis of his left fifth digit foot. Presenting with worsening pain since there is pus draining from it. Was recently admitted for IV antibiotics but finished antibiotics 2 weeks ago. States that the pain is getting worse and now the pus draining is worse than prior. No fevers no chills. No systemic symptoms. Compliant with all his other medications. HISTORY OF PRESENT ILLNESS: Tomas Martinez is a 63-year-old male, a dmitted today through the emergency room with diabetic foot. The patient has diabetic foot with osteomyelitis of the left 5th digit. He presents with worsening pain and there is pus draining from it. He was recently admitted for IV antibiotics, but finished antibiotics 2 weeks ago. He states the pain is getting worse, now the pus is draining more frequently. There is no fever or chills. No systemic symptoms. The patient is on metformin and glipizide for his diabetes. He had a history of right leg surgery and hand surgery in the past. He is diabetic, has chronic ulcers of the left foot. HISTORY OF PRESENT ILLNESS: This is a 63-year-old diabetic hypertensive gentleman with chronic osteomyelitis in the right foot. He has been on antibiotics as an outpatient for 6 weeks and it has not healed. He had an MRI done yesterday that shows osteomyelitis in the fifth toe underlying the ulcer. Dr. Blum asked me to consult to evaluate his circulation. He had an arterial duplex done yesterday that shows basically monophasic and biphasic waveforms in the right lower extremity below the knee. In the left, he has monophasic waveforms and a severe right popliteal stenosis that is greater than 75%. Hx of Present Illness 63 yo M with a h/o DM, HTN, HL, nonhealing left toe ulcer/osteomyelitis, PAD, who needs left SFA to DP bypass. Cardiology is asked to evaluate prior to surgery. Pt has been here for several days. He had wound debridement 06/14 and peripheral angio 06/18 showing occlusion of his left PT and AT with good DP target with plans for bypass. Pt denies prior cardiac history. He is able to walk 1 mile and is limited due to pain in his foot. No chest pain or dyspnea. No orthopnea, PND, edema. per hPI Hospital Course 63-year-old gentleman who had a prolonged history of issues with vascular insufficiency to his foot. He is now undergone careful evaluation and due to the osteomyelitis will need to be undergoing revascularization procedure. He decided that this procedure should be done on June 28, 2019. As such she will be discharged and brought back in electively for that. Please note that we have been slow down modestly by the patient not having been informed of the plans for discharge with readmission, the lack of set up for the outpatient therapy, and lack of ordering of a PICC line. This is now coming into being. Once everything is in place he will be discharged home have IV antibiotics be brought back in electively on morning 28 June for surgery. Home Meds Reported Medications Metformin Hcl* (Metformin Hcl*) 1,000 Mg Tablet, 1000 MG PO WITH BREAKFAST DINNE, #60 TAB 04/03/19 Glipizide* (Glipizide*) 5 Mg Tablet, 5 MG PO AC BREAKFAST DINNER, TAB 04/03/19 Pravastatin Sodium* (Pravastatin Sodium*) 20 Mg Tablet, 20 MG PO HS, TAB 04/03/19 Aspirin* (Aspirin* EC) 81 Mg Tablet.dr, 81 MG PO DAILY, TAB 04/03/19 Levothyroxine Sodium* (Levothyroxine Sodium*) 25 Mcg Tablet, 25 MCG PO BEFORE BREAKFAST, #30 TAB 04/03/19 Pregabalin* (Lyrica*) 75 Mg Capsule, 75 MG PO TID, CAP 04/03/19 Primary Care Provider Not On Staff Doctor Pending Labs Laboratory Tests Test 06/23/19 12:11 06/23/19 17:17 06/23/19 20:54 06/24/19 02:23 Bedside 150 132 182 162 Glucose mg/dL (70-220) mg/dL (70-220) mg/dL (70-220) mg/dL (70-220) Test 06/24/19 05:23 White Blood 6.0 Count 10^3/ul (4.8-10 .8) Red Blood 4.17 Count 10^6/ul (4.70-6 .10) Hemoglobin 12.2 g/dl (14.0-18.0 ) Hematocrit 37.3 % (42.0-52.0) Mean 89.4 Corpuscular fl (82.0-101.0) Volume Mean 29.3 Corpuscular pg (29.0-33.0) Hemoglobin Mean 32.7 Corpuscular g/dl (32.0-37.0 Hemoglobin Conc ) ent Red Cell 12.8 Distribution % (11.5-14.5) Width Platelet Count 297 10^3/UL (140-41 5) Mean Platelet 10.9 Volume fl (7.4-10.4) Immature 0.200 Granulocytes % % (0.001-0.429) Neutrophils % 56.8 % (39.0-77.0) Lymphocytes % 27.2 % (15.0-51.0) Monocytes % 11.1 % (0.0-11.0) Eosinophils % 3.7 % (0.0-7.0) Basophils % 1.0 % (0.0-2.0) Nucleated Red 0.0 Blood Cells % /100WBC (0.0-0. 0) Immature 0.010 Granulocytes # 10^3/ul (0.0-0. 031) Neutrophils # 3.4 10^3/ul (1.6-7. 5) Lymphocytes # 1.6 10^3/ul (0.8-2. 9) Monocytes # 0.7 10^3/ul (0.3-0. 9) Eosinophils # 0.2 10^3/ul (0.0-0. 5) Basophils # 0.1 10^3/ul (0.0-0. 1) Nucleated Red 0.0 Blood Cells # 10^3/ul (0.0-0. 0) Sodium Level 137 mmol/L (135-144 ) Potassium 4.5 Level mmol/L (3.5-5.1 ) Chloride Level 103 mmol/L (97-110) Carbon Dioxide 30 Level mmol/L (21-31) Anion Gap 4 (5-13) Blood Urea 26 mg/dl (7-20) Nitrogen Creatinine 0.98 mg/dl (0.61-1.2 4) Est Glomerular > 60 Filtrat mL/min (>60) Rate mL/min Glucose Level 154 mg/dl (70-220) Calcium Level 9.3 mg/dl (8.4-10.2 ) Magnesium 1.9 Level mg/dl (1.7-2.5) Iron Level 78 ug/dl (35-150) Total Iron 271 Binding ug/dl (241-421) Capacity Percent Iron 29 % Saturation SAT (22-52) Total 0.3 Bilirubin mg/dl (0.2-1.3) Direct 0.00 Bilirubin mg/dl (0.00-0.2 0) Indirect 0.3 Bilirubin mg/dl (0-1.1) Aspartate Amino 23 IU/L (15-46) Transf (AST/SGO T) Alanine 19 IU/L (13-69) Aminotransferas e (ALT/SGPT) Alkaline 56 Phosphatase IU/L (42-121) Total Protein 6.7 g/dl (6.1-8.1) Albumin 3.5 g/dl (3.3-4.9) Globulin 3.20 g/dl (1.3-3.2) Albumin/Globuli 1.09 n Ratio Hepatitis B NEGATIVE (NEGAT Surface BIRD) Antigen Hepatitis C NEGATIVE (NEGAT Antibody BIRD) Copies To: CC: NORA CRUZ MD; FORD BLUM DPM; SABRINA FAUSTIN MD; PEPITO YAÑEZ ; MILAN ZHONG MD Jun 24, 2019 08:26
--- NOTE | 2019-06-24 08:31 | PDOCDIS ---
Discharge Instructions DIAGNOSIS Discharge Diagnosis Osteomyelitis left fifth toe; peripheral vascular disease; diabetes mellitus type 2; diabetic peripheral neuropathy; hypertension; hyperlipidemia; hypothyroidism; anemia; grade 1 diastolic dysfunction CONDITION [id number] Patient Condition: [id number] Fair HOME CARE INSTRUCTIONS: [id number] Special Diet: [id number] Diabetic diet ACTIVITY: [id number] Activity Restrictions: [id number] Avoid heavy lifting Do not operate Machinery Do not operate Power Tool Weight Bearing FOLLOW UP/APPOINTMENTS Follow-up Plan Readmission early on June 28, 2019 for vascular bypass by Dr. Gonzalez; in the meantime hopeful IV antibiotic therapy SCHOOL/WORK RELEASE May return to School/Work with: With Restrictions MILAN ZHONG MD Jun 24, 2019 08:31
--- NOTE | 2019-06-24 10:59 | CONS ---
Assessment/Plan Assessment/Plan Hospital Course (Demo Recall) No acute changes over night ALLERGIES: NONE Microbiology: Wound culture growing MSSA Antibiotics: Ancef PHYSICAL EXAMINATION: GENERAL: The patient is a well-developed, well-nourished male in no acute distress. SKIN: Without generalized rash. HEENT: Within normal limits. NECK: Supple. LYMPH NODES: None palpable. CHEST: Decreased breath sounds at the bases. HEART: Without murmur or gallop. ABDOMEN: Soft, nontender EXTREMITIES: No cyanosis, clubbing, or edema. Left lower extremity 5th digit is erythematous with ulcer on the plantar surface NEUROLOGIC: No focal neurological abnormality. Assessment: 1. Left foot cellulitis with osteomyelitis of the toe===> cx + MSSA 2. Diabetic neuropathy 3. Diabetes 4. PAD Plan: Remains stable, plan for L fem-DP bypass next weeks, IV abx for 6 weeks Consultation Date/Type/Reason Admit Date/Time Jun 13, 2019 at 13:15 Initial Consult Date Type of Consult id Requesting Provider: QIAN MOTT NP Date/Time of Note DATE: 06/24/19 TIME: 10:58 Exam/Review of Systems Exam Vitals Vital Signs Date Temp Pulse Resp B/P (MAP) Pulse Ox O2 O2 Flow FiO2 Time Delivery Rate 06/24/19 98.3 68 17 151/81 96 Room Air 08:20 (104) Intake and Output 06/23/19 06/23/19 06/24/19 1515:00 23:00 07:00 IntakeIntake Total 360 ml 900 ml 350 ml OutputOutput Total 1500 ml 400 ml 800 ml BalanceBalance -1140 ml 500 ml -450 ml Results Result Diagram: 06/24/1952206/24/19 0523 Results 24hrs Laboratory Tests Test 06/23/19 12:11 06/23/19 17:17 06/23/19 20:54 06/24/19 02:23 Bedside Glucose 150 132 182 162 Test 06/24/19 05:23 06/24/19 08:08 White Blood Count 6.0 Red Blood Count 4.17 L Hemoglobin 12.2 L Hematocrit 37.3 L Mean Corpuscular 89.4 Volume Mean Corpuscular 29.3 Hemoglobin Mean Corpuscular 32.7 Hemoglobin Concent Red Cell 12.8 Distribution Width Platelet Count 297 Mean Platelet Volume 10.9 H Immature 0.200 Granulocytes % Neutrophils % 56.8 Lymphocytes % 27.2 Monocytes % 11.1 H Eosinophils % 3.7 Basophils % 1.0 Nucleated Red Blood 0.0 Cells % Immature 0.010 Granulocytes # Neutrophils # 3.4 Lymphocytes # 1.6 Monocytes # 0.7 Eosinophils # 0.2 Basophils # 0.1 Nucleated Red Blood 0.0 Cells # Erythrocyte 25 H Sedimentation Rate Sodium Level 137 Potassium Level 4.5 Chloride Level 103 Carbon Dioxide Level 30 Anion Gap 4 L Blood Urea Nitrogen 26 H Creatinine 0.98 Est Glomerular > 60 Filtrat Rate mL/min Glucose Level 154 Calcium Level 9.3 Magnesium Level 1.9 Iron Level 78 Total Iron Binding 271 Capacity Percent Iron 29 Saturation Total Bilirubin 0.3 Direct Bilirubin 0.00 Indirect Bilirubin 0.3 Aspartate Amino 23 Transf (AST/SGOT) Alanine 19 Aminotransferase (AL T/SGPT) Alkaline Phosphatase 56 Total Protein 6.7 Albumin 3.5 Globulin 3.20 Albumin/Globulin 1.09 Ratio Hepatitis B Surface NEGATIVE Antigen Hepatitis C Antibody NEGATIVE Bedside Glucose 135 Medications Medication Current Medications Aspirin (Halfprin) 81 mg DAILY PO Last administered on 06/24/19 08:09; Admin Dose 81 MG; Start 06/14/19 at 09:00 Levothyroxine Sodium (Synthroid) 25 mcg BEFORE BREAKFAST PO Last administered on 06/24/19 06:08; Admin Dose 25 MCG; Start 06/14/19 at 07:00 Pregabalin (Lyrica) 75 mg TID PO Last administered on 06/24/19 08:09; Admin Dose 75 MG; Start 06/13/19 at 21:00 Diagnostic Test (Pha) (Accu-Chek) 1 ea 02 XX ; Start 06/14/19 at 02:00 Insulin Glargine (Lantus) 15 units DAILY@2000 SC Last administered on 06/23/19 20:57; Admin Dose 15 UNITS; Start 06/13/19 at 20:00 Insulin Aspart (Novolog Insulin Pen) 5 unit WITH MEALS SC Last administered on 06/24/19 08:17; Admin Dose 5 UNIT; Start 06/13/19 at 18:00 Insulin Aspart (Novolog Insulin Pen) NOVOLOG *MILD* ALGORITHM WITH MEALS BEDTIME SC Last administered on 06/23/19at 20:57; Admin Dose 1 UNIT; Start 06/13/19 at 18:00 IV Flush (NS 3 ml) 3 ml PER PROTOCOL IV Last administered on 06/19/19at 17:39; Admin Dose 3 ML; Start 06/13/19 at 13:30 Ondansetron HCl (Zofran Inj) 4 mg Q6H PRN IV NAUSEA/VOMITING; Start 06/13/19 at 13:30 Acetaminophen (Tylenol Tab) 650 mg Q6H PRN PO .PAIN 1-3 OR TEMP Last administered on 06/19/19at 01:12; Admin Dose 650 MG; Start 06/13/19 at 13:30 Acetaminophen/ Hydrocodone Bitart ([place] (5/325)) 1 tab Q6H PRN PO .MOD PAIN 4- 6 Last administered on 06/20/19at 14:57; Admin Dose 1 TAB; Start 06/13/19 at 13:30 Morphine Sulfate (morphine) 2 mg Q4H PRN IV .SEVERE PAIN 7-10 Last administered on 06/22/19at 05:35; Admin Dose 2 MG; Start 06/13/19 at 13:30 Docusate Sodium (Colace) 100 mg Q12H PRN PO .CONSTIPATION; Start 06/13/19 at 13:30 Heparin Sodium (Porcine) (Heparin (5000 Units/1ml)) 5,000 unit Q12 SC Last administered on 06/24/19at 08:16; Admin Dose 5,000 UNIT; Start 06/13/19 at 21:00 Miscellaneous Information 1 ea NOTE XX ; Start 06/13/19 at 14:30 Glucose (Glutose) 15 gm Q15M PRN PO DECREASED GLUCOSE; Start 06/13/19 at 14:30 Glucose (Glutose) 22.5 gm Q15M PRN PO DECREASED GLUCOSE; Start 06/13/19 at 14:30 Dextrose (D50w Syringe) 25 ml Q15M PRN IV DECREASED GLUCOSE; Start 06/13/19 at 14:30 Dextrose (D50w Syringe) 50 ml Q15M PRN IV DECREASED GLUCOSE; Start 06/13/19 at 14:30 Glucagon (Glucagen) 1 mg Q15M PRN IM DECREASED GLUCOSE; Start 06/13/19 at 14:30 Glucose (Glutose) 15 gm Q15M PRN BUCCAL DECREASED GLUCOSE; Start 06/13/19 at 14:30 Cefazolin Sodium/ Dextrose 50 ml @ 100 mls/hr Q8 IVPB Last administered on 06/24/19at 06:08; Admin Dose 100 MLS/HR; Start 06/17/19 at 22:00 Famotidine (Pepcid) 20 mg Q12 PO Last administered on 06/24/19at 08:09; Admin Dose 20 MG; Start 06/18/19 at 21:00 Atorvastatin Calcium (Lipitor) 40 mg DAILY@21 PO Last administered on 06/23/19at 20:53; Admin Dose 40 MG; Start 06/20/19 at 21:00 Losartan Potassium (Cozaar) 50 mg DAILY PO Last administered on 06/24/19at 08:10; Admin Dose 50 MG; Start 06/20/19 at 17:00 OUMAR EARL NP Jun 24, 2019 10:59
[2019-06-24 14:53] VITALS: BP 147/71; PULSE 71; RESP 17
== END 2019-06-24 16:20 | disposition home health service (06) | DRG 623 ==
LOC: E/R 08:33 → 2NE 13:15
PROVIDERS: ADMIT Hospitalist; ATTEND Internal Medicine
PROC: 0HRNXK3 Replacement of Left Foot Skin with Nonautologous Tissue Substitute, Full Thickness, External Approach (ICD-10-PCS; 2019-06-14)
PROC: 0QBR0ZZ Excision of Left Toe Phalanx, Open Approach (ICD-10-PCS; 2019-06-14)
PROC: 0JBR0ZZ Excision of Left Foot Subcutaneous Tissue and Fascia, Open Approach (ICD-10-PCS; principal; 2019-06-14 18:00)
PROC: B40D1ZZ Plain Radiography of Aorta and Bilateral Lower Extremity Arteries using Low Osmolar Contrast (ICD-10-PCS; 2019-06-18)
PROC: 02HV33Z Insertion of Infusion Device into Superior Vena Cava, Percutaneous Approach (ICD-10-PCS; 2019-06-24)
DX: E11.69 Type 2 diabetes mellitus with other specified complication (principal); M86.9 Osteomyelitis, unspecified; L03.116 Cellulitis of left lower limb; M86.172 Other acute osteomyelitis, left ankle and foot; M86.672 Other chronic osteomyelitis, left ankle and foot; T81.31XA Disruption of external operation (surgical) wound, not elsewhere classified, initial encounter; I96 Gangrene, not elsewhere classified; E11.51 Type 2 diabetes mellitus with diabetic peripheral angiopathy without gangrene; E11.621 Type 2 diabetes mellitus with foot ulcer; L97.529 Non-pressure chronic ulcer of other part of left foot with unspecified severity; I10 Essential (primary) hypertension; I70.245 Atherosclerosis of native arteries of left leg with ulceration of other part of foot; M20.42 Other hammer toe(s) (acquired), left foot; E11.42 Type 2 diabetes mellitus with diabetic polyneuropathy; B95.61 Methicillin susceptible Staphylococcus aureus infection as the cause of diseases classified elsewhere; L08.9 Local infection of the skin and subcutaneous tissue, unspecified; D64.9 Anemia, unspecified
CPT/HCPCS: 36246; 36415; 36569; 71045; 73718; 75630; 76937; 80048; 80053; 80061; 80202; 82306; 82565; 82652; 82962; 83036; 83540; 83735; 84100; 84436; 84443; 84479; 84520; 85025; 85610; 85651; 85730; 86140; 86803; 87070; 87340; 88304; 88311; 93005; 93306; 93922; 93970; 96374; 96375; C1769; C1894; J0690; J0696; J1644; J1815; J2250; J2270; J2405; J2765; J3010; J3370; J7030; J7040; Q4104-JC; Q9967

== ENCOUNTER 2019-07-06 05:58 | Inpatient (IN) | payer OTHER ==
[~2019-07-06] VITALS: Ht 182.9 cm; Wt 97.3 kg
[2019-07-06] VITALS (31 sets, daily range): BP systolic 95–202; BP diastolic 50–157; PULSE 73–100; RESP 0–21
[~2019-07-06 05:58] MED LIST changes: +APIX5TAB PO; +CLOP75TA28 PO; -ERGO500013 PO; +GELATIN SIZE 100 SPONGE TOP ONE; +HEPARIN 1000 UNITS/ML 10 ML INJ IRR ONE; -PRAV20TA63 PO; +THROMBIN 5000 UNIT (RECOTHROM) VIAL TOP ONE; -TRAM50TA PO
[2019-07-06] MEDS ORDERED: SOD CHLORIDE 0.9% 1,000 ML IV SCH (07:00)
[2019-07-06] MEDS ORDERED: HEPARIN 1000 UNITS/ML 10 ML INJ ONE ×2 (07:23→11:06)
[2019-07-06] MEDS ORDERED: THROMBIN 5000 UNIT (RECOTHROM) VIAL ONE (07:23)
[2019-07-06] MEDS ORDERED: GELATIN SIZE 100 SPONGE ONE (07:23)
[2019-07-06] MEDS ORDERED: HEPARIN 1000 UNITS/ML 10 ML INJ IRR ONE (08:00)
[2019-07-06] MEDS ORDERED: MIDAZOLAM 1 MG/ML 2 ML INJ ONE (08:05)
[2019-07-06] MEDS ORDERED: morphine 10 MG INJ ONE (10:48)
[2019-07-06] MEDS ORDERED: SUCCINYLCHOLINE CHLORIDE 100 MG/5 ML SYG IV ONE (12:22)
[2019-07-06] MEDS ORDERED: CEFAZOLIN 1 GM INJ ONE (12:22)
[2019-07-06] MEDS ORDERED: LIDOCAINE 2% (SDV) 5 ML INJ ONE (12:22)
[2019-07-06] MEDS ORDERED: ROCURONIUM 50 MG INJ ONE (12:22)
[2019-07-06] MEDS ORDERED: ETOMIDATE 20 MG INJ ONE (12:22)
[2019-07-06] MEDS ORDERED: GLYCOPYRROLATE 0.4 MG INJ ONE (12:24)
[2019-07-06] MEDS ORDERED: NEOSTIGMINE 3 MG/3 ML SYRINGE ONE (12:24)
[2019-07-06] MEDS ORDERED: ONDANSETRON 4 MG INJ ONE (12:26)
[2019-07-06] MEDS: CLOPIDOGREL 75 MG TAB PO SCH (12:30)
[2019-07-06] MEDS ORDERED: niCARdipine 50 MG in SOD CHLORIDE 0.9% 480 ML IV SCH (12:30)
[2019-07-06] MEDS ORDERED: LABETALOL HCL 20MG INJ IV PRN (13:00)
[2019-07-06] MEDS ORDERED: MEPERIDINE 25 MG INJ IV PRN (13:00)
[2019-07-06] MEDS ORDERED: morphine 2 MG INJ IV PRN ×2 (13:00)
[2019-07-06] MEDS ORDERED: FENTAnyl 50 MCG/ML VIAL IV PRN (13:00)
[2019-07-06] MEDS ORDERED: DIPHENHYDRAMINE 50 MG INJ IV PRN (13:00)
[2019-07-06] MEDS ORDERED: ONDANSETRON 4 MG INJ IV PRN ×2 (13:00→19:00)
[2019-07-06] MEDS ORDERED: LORAZEPAM 2 MG INJ IV PRN (13:00)
[2019-07-06] MEDS ORDERED: hydrALAzine 20 MG INJ IV PRN (13:00)
[2019-07-06] MEDS ORDERED: METOCLOPRAMIDE 10 MG INJ IV PRN (13:00)
[2019-07-06] MEDS ORDERED: GLUCOSE GEL 15 GRAM TUBE BUCCAL PRN (14:30)
[2019-07-06] MEDS ORDERED: DEXTROSE 50% 50 ML SYRINGE IV PRN ×2 (14:30)
[2019-07-06] MEDS ORDERED: GLUCOSE GEL 15 GRAM TUBE PO PRN ×2 (14:30)
[2019-07-06] MEDS ORDERED: GLUCAGON 1 MG INJ IM PRN (14:30)
[2019-07-06] MEDS ORDERED: glipiZIDE 5 MG TAB PO SCH (17:30)
[2019-07-06] MEDS: PREGABALIN 75 MG CAP PO SCH ×2 (18:25→20:48)
[2019-07-06] MEDS: INSULIN ASPART [NOVOLOG] 3 ML PEN SC SCH ×2 (18:30→20:45)
[2019-07-06] MEDS: morphine 2 MG INJ IV PRN (18:40)
[2019-07-06] MEDS: metFORMIN 500 MG TAB PO SCH (20:41)
[2019-07-06] MEDS: ATORVASTATIN 40 MG TAB PO SCH (20:41)
[2019-07-07] VITALS (31 sets, daily range): BP systolic 111–169; BP diastolic 52–135; PULSE 88–107; RESP 13–24
[2019-07-07] MEDS: morphine 2 MG INJ IV PRN ×2 (00:15→20:31)
[2019-07-07] MEDS: ACCU-CHEK XX SCH (02:00)
[2019-07-07] MEDS: ZOLPIDEM 5 MG TAB PO PRN ×2 (03:12→23:24)
[2019-07-07] MEDS ORDERED: INSULIN ASPART [NOVOLOG] 3 ML PEN SC ONE ×2 (03:30→06:30)
[2019-07-07] MEDS ORDERED: ACCU-CHEK XX ONE ×3 (05:30→08:30)
[2019-07-07] MEDS: LEVOTHYROXINE 25 MCG TAB PO SCH (06:22)
[2019-07-07] MEDS ORDERED: MAGNESIUM SULFATE 3 GM in DEXTROSE 5% 100 ML IVPB ONE (06:30)
[2019-07-07] MEDS: INSULIN ASPART [NOVOLOG] 3 ML PEN SC SCH ×5 (08:38→20:42)
[2019-07-07] MEDS: CLOPIDOGREL 75 MG TAB PO SCH (09:29)
[2019-07-07] MEDS: ASPIRIN (EC) 81 MG TAB PO SCH (09:30)
[2019-07-07] MEDS: LOSARTAN 50 MG TAB PO SCH (09:30)
[2019-07-07] MEDS: PREGABALIN 75 MG CAP PO SCH ×3 (09:36→20:30)
[2019-07-07] MEDS: metFORMIN 500 MG TAB PO SCH ×3 (12:05→17:46)
[2019-07-07] MEDS: DAKINS 0.0125%(1/40) 473 ML SOLUTION TP SCH (12:05)
[2019-07-07] MEDS ORDERED: PENDING SANTYL ORDER FOR WOUND CARE XX PRN (18:30)
[2019-07-07] MEDS: ATORVASTATIN 40 MG TAB PO SCH (20:30)
[2019-07-07] MEDS ORDERED: DILTIAZEM 25 MG INJ IV ONE ×2 (22:01→22:46)
[2019-07-07] MEDS ORDERED: MAGNESIUM SULFATE 2 GM/50 ML 50 ML IVPB ONE (22:30)
[2019-07-07] MEDS ORDERED: METOPROLOL 5 MG INJ IV PRN (23:30)
[2019-07-08] VITALS: BP 117/58; PULSE 101; RESP 20
[2019-07-08] MEDS: morphine 2 MG INJ IV PRN ×4 (00:25→23:39)
[2019-07-08] MEDS: ACCU-CHEK XX SCH (02:00)
[2019-07-08] MEDS: ZOLPIDEM 5 MG TAB PO PRN (03:35)
[2019-07-08 04:02] VITALS: BP 101/58; RESP 18
[2019-07-08] MEDS: LEVOTHYROXINE 25 MCG TAB PO SCH (06:10)
[2019-07-08] MEDS: HYDROCODONE/APAP (5/325) TAB PO PRN (06:18)
[2019-07-08 07:32] VITALS: BP 103/56; PULSE 93; RESP 18
[2019-07-08] MEDS: INSULIN ASPART [NOVOLOG] 3 ML PEN SC SCH ×4 (08:11→20:40)
[2019-07-08] MEDS: CLOPIDOGREL 75 MG TAB PO SCH (08:24)
[2019-07-08] MEDS: ASPIRIN (EC) 81 MG TAB PO SCH (08:24)
[2019-07-08] MEDS: LOSARTAN 50 MG TAB PO SCH (08:24)
[2019-07-08] MEDS: PREGABALIN 75 MG CAP PO SCH ×3 (08:24→20:40)
[2019-07-08] MEDS: DAKINS 0.0125%(1/40) 473 ML SOLUTION TP SCH ×2 (08:30→10:21)
[2019-07-08] MEDS: metFORMIN 500 MG TAB PO SCH ×2 (08:30→17:15)
[2019-07-08 11:43] VITALS: BP 104/58; PULSE 87; RESP 18
[2019-07-08 15:23] VITALS: BP 115/58; PULSE 89; RESP 20
[2019-07-08 19:37] VITALS: BP 132/65; PULSE 85; RESP 20
[2019-07-08] MEDS: ATORVASTATIN 40 MG TAB PO SCH (20:40)
[2019-07-08] MEDS: INSULIN GLARGINE [LANTus] (100 UNITS/ML) SYG SC SCH (20:51)
[2019-07-09] VITALS: BP 122/66; PULSE 90; RESP 18
[2019-07-09] MEDS: HYDROCODONE/APAP (5/325) TAB PO PRN (00:38)
[2019-07-09] MEDS: DOCUSATE SODIUM 100 MG CAP PO SCH ×3 (01:30→21:10)
[2019-07-09] MEDS: POLYETHYLENE GLYCOL 17 GM PACKET PO PRN ×2 (01:30→11:35)
[2019-07-09] MEDS: ZOLPIDEM 5 MG TAB PO PRN (01:30)
[2019-07-09] MEDS: ACCU-CHEK XX SCH (01:32)
[2019-07-09 03:39] VITALS: BP 149/78; RESP 20
[2019-07-09] MEDS: LEVOTHYROXINE 25 MCG TAB PO SCH (06:09)
[2019-07-09] MEDS: INSULIN ASPART [NOVOLOG] 3 ML PEN SC SCH ×4 (07:37→21:23)
[2019-07-09 07:41] VITALS: BP 122/70; PULSE 80; RESP 19
[2019-07-09] MEDS: CLOPIDOGREL 75 MG TAB PO SCH (08:07)
[2019-07-09] MEDS: metFORMIN 500 MG TAB PO SCH ×2 (08:08→17:21)
[2019-07-09] MEDS: ASPIRIN (EC) 81 MG TAB PO SCH (08:08)
[2019-07-09] MEDS: LOSARTAN 50 MG TAB PO SCH (08:08)
[2019-07-09] MEDS: DAKINS 0.0125%(1/40) 473 ML SOLUTION TP SCH (08:09)
[2019-07-09] MEDS: PREGABALIN 75 MG CAP PO SCH ×3 (08:45→21:16)
[2019-07-09] MEDS: METOPROLOL (XL) 25 MG TAB PO SCH (08:46)
[2019-07-09 11:42] VITALS: BP 147/75; PULSE 82; RESP 18
[2019-07-09] MEDS: morphine 2 MG INJ IV PRN (14:34)
[2019-07-09 15:27] VITALS: BP 130/68; PULSE 90; RESP 19
[2019-07-09 20:00] VITALS: BP 131/64; PULSE 88; RESP 18
[2019-07-09] MEDS: APIXABAN 5 MG TABLET PO SCH (21:10)
[2019-07-09] MEDS: ATORVASTATIN 40 MG TAB PO SCH (21:10)
[2019-07-09] MEDS: INSULIN GLARGINE [LANTus] (100 UNITS/ML) SYG SC SCH (21:23)
[2019-07-10] VITALS: BP 131/66; PULSE 87; RESP 18
[2019-07-10] MEDS: morphine 2 MG INJ IV PRN ×5 (00:23→21:04)
[2019-07-10] MEDS: ACCU-CHEK XX SCH (02:12)
[2019-07-10 04:00] VITALS: BP 133/68; PULSE 84; RESP 18
[2019-07-10] MEDS: LEVOTHYROXINE 25 MCG TAB PO SCH (06:26)
[2019-07-10 07:21] VITALS: BP 129/73; PULSE 83; RESP 18
[2019-07-10] MEDS: METOPROLOL (XL) 25 MG TAB PO SCH (08:19)
[2019-07-10] MEDS: LOSARTAN 50 MG TAB PO SCH (08:19)
[2019-07-10] MEDS: DOCUSATE SODIUM 100 MG CAP PO SCH ×2 (08:19→21:03)
[2019-07-10] MEDS: DAKINS 0.0125%(1/40) 473 ML SOLUTION TP SCH (08:20)
[2019-07-10] MEDS: CLOPIDOGREL 75 MG TAB PO SCH (08:23)
[2019-07-10] MEDS: APIXABAN 5 MG TABLET PO SCH ×2 (08:23→21:03)
[2019-07-10] MEDS: INSULIN ASPART [NOVOLOG] 3 ML PEN SC SCH ×4 (08:31→21:00)
[2019-07-10] MEDS: metFORMIN 500 MG TAB PO SCH ×2 (08:34→17:09)
[2019-07-10] MEDS: PREGABALIN 75 MG CAP PO SCH ×3 (08:34→21:03)
[2019-07-10 11:22] VITALS: BP 130/73; PULSE 79; RESP 18
[2019-07-10] MEDS: POLYETHYLENE GLYCOL 17 GM PACKET PO PRN (12:37)
[2019-07-10] MEDS: HYDROCODONE/APAP (5/325) TAB PO PRN (13:46)
[2019-07-10] MEDS: CEFAZOLIN 1 GM/50 ML (PMX) 50 ML IVPB SCH ×2 (13:52→21:21)
[2019-07-10 15:46] VITALS: BP 147/76; PULSE 77; RESP 18
[2019-07-10 20:00] VITALS: BP 126/67; PULSE 83; RESP 18
[2019-07-10] MEDS: ATORVASTATIN 40 MG TAB PO SCH (21:03)
[2019-07-10] MEDS: INSULIN GLARGINE [LANTus] (100 UNITS/ML) SYG SC SCH (21:47)
[2019-07-11] VITALS: BP 125/63; PULSE 85; RESP 18
[2019-07-11] MEDS: HYDROCODONE/APAP (5/325) TAB PO PRN (01:05)
[2019-07-11] MEDS: ACCU-CHEK XX SCH (02:00)
[2019-07-11] MEDS: ZOLPIDEM 5 MG TAB PO PRN ×2 (03:02→22:01)
[2019-07-11 04:00] VITALS: BP 115/59; PULSE 80; RESP 18
[2019-07-11] MEDS: morphine 2 MG INJ IV PRN ×4 (05:33→22:01)
[2019-07-11] MEDS: LEVOTHYROXINE 25 MCG TAB PO SCH (05:33)
[2019-07-11] MEDS: CEFAZOLIN 1 GM/50 ML (PMX) 50 ML IVPB SCH ×3 (05:33→21:11)
[2019-07-11 07:21] VITALS: BP 108/57; PULSE 76; RESP 17
[2019-07-11] MEDS: INSULIN ASPART [NOVOLOG] 3 ML PEN SC SCH ×4 (08:12→20:06)
[2019-07-11] MEDS: LOSARTAN 50 MG TAB PO SCH (09:05)
[2019-07-11] MEDS: CLOPIDOGREL 75 MG TAB PO SCH (09:05)
[2019-07-11] MEDS: DOCUSATE SODIUM 100 MG CAP PO SCH ×2 (09:05→20:07)
[2019-07-11] MEDS: APIXABAN 5 MG TABLET PO SCH (09:05)
[2019-07-11] MEDS: METOPROLOL (XL) 25 MG TAB PO SCH (09:06)
[2019-07-11] MEDS: DAKINS 0.0125%(1/40) 473 ML SOLUTION TP SCH (09:06)
[2019-07-11] MEDS: PREGABALIN 75 MG CAP PO SCH ×3 (09:09→20:07)
[2019-07-11] MEDS: metFORMIN 500 MG TAB PO SCH ×2 (09:10→17:02)
[2019-07-11] MEDS ORDERED: MAGNESIUM SULFATE 2 GM/50 ML 50 ML IVPB ONE (10:30)
[2019-07-11 11:21] VITALS: BP 119/60; PULSE 77; RESP 17
[2019-07-11 19:55] VITALS: BP 122/64; PULSE 84; RESP 18
[2019-07-11] MEDS: ATORVASTATIN 40 MG TAB PO SCH (20:07)
[2019-07-11] MEDS: INSULIN GLARGINE [LANTus] (100 UNITS/ML) SYG SC SCH (20:33)
[2019-07-12] VITALS: BP 125/69; PULSE 81; RESP 18
[2019-07-12] MEDS: ACCU-CHEK XX SCH (02:00)
[2019-07-12 04:12] VITALS: BP 121/65; PULSE 84; RESP 18
[2019-07-12] MEDS: LEVOTHYROXINE 25 MCG TAB PO SCH (06:10)
[2019-07-12] MEDS: CEFAZOLIN 1 GM/50 ML (PMX) 50 ML IVPB SCH ×3 (06:10→21:32)
[2019-07-12 07:35] VITALS: BP 136/69; PULSE 83; RESP 20
[2019-07-12] MEDS: INSULIN ASPART [NOVOLOG] 3 ML PEN SC SCH ×4 (08:03→20:23)
[2019-07-12] MEDS: PREGABALIN 75 MG CAP PO SCH ×3 (08:14→20:16)
[2019-07-12] MEDS: LOSARTAN 50 MG TAB PO SCH (08:14)
[2019-07-12] MEDS: metFORMIN 500 MG TAB PO SCH ×2 (08:14→17:10)
[2019-07-12] MEDS: CLOPIDOGREL 75 MG TAB PO SCH (08:14)
[2019-07-12] MEDS: DAKINS 0.0125%(1/40) 473 ML SOLUTION TP SCH (08:15)
[2019-07-12] MEDS: METOPROLOL (XL) 25 MG TAB PO SCH (08:15)
[2019-07-12] MEDS: DOCUSATE SODIUM 100 MG CAP PO SCH ×2 (08:15→20:17)
[2019-07-12] MEDS: morphine 2 MG INJ IV PRN ×4 (08:16→21:32)
[2019-07-12 11:15] VITALS: BP 127/60; PULSE 83; RESP 20
[2019-07-12 15:13] VITALS: BP 110/55; PULSE 80; RESP 20
[2019-07-12 19:40] VITALS: BP 137/69; PULSE 75; RESP 18
[2019-07-12] MEDS: ATORVASTATIN 40 MG TAB PO SCH (20:17)
[2019-07-12] MEDS: INSULIN GLARGINE [LANTus] (100 UNITS/ML) SYG SC SCH (20:29)
[2019-07-12] MEDS: ZOLPIDEM 5 MG TAB PO PRN (21:33)
[2019-07-13] VITALS: BP 136/72; PULSE 78; RESP 18
[2019-07-13] MEDS: HYDROCODONE/APAP (5/325) TAB PO PRN ×3 (00:38→20:51)
[2019-07-13] MEDS: ACCU-CHEK XX SCH (02:00)
[2019-07-13 04:16] VITALS: BP 115/56; PULSE 80; RESP 18
[2019-07-13] MEDS: LEVOTHYROXINE 25 MCG TAB PO SCH (06:31)
[2019-07-13] MEDS: CEFAZOLIN 1 GM/50 ML (PMX) 50 ML IVPB SCH ×3 (06:31→21:09)
[2019-07-13 07:31] VITALS: BP 110/55; PULSE 77; RESP 18
[2019-07-13] MEDS: INSULIN ASPART [NOVOLOG] 3 ML PEN SC SCH ×4 (08:12→20:54)
[2019-07-13] MEDS: metFORMIN 500 MG TAB PO SCH ×2 (08:20→18:30)
[2019-07-13] MEDS: DOCUSATE SODIUM 100 MG CAP PO SCH ×2 (08:20→20:50)
[2019-07-13] MEDS: CLOPIDOGREL 75 MG TAB PO SCH (08:20)
[2019-07-13] MEDS: LOSARTAN 50 MG TAB PO SCH (08:21)
[2019-07-13] MEDS: METOPROLOL (XL) 25 MG TAB PO SCH (08:22)
[2019-07-13] MEDS: PREGABALIN 75 MG CAP PO SCH ×3 (09:50→20:49)
[2019-07-13] MEDS: DAKINS 0.0125%(1/40) 473 ML SOLUTION TP SCH (09:51)
[2019-07-13 11:05] VITALS: BP 136/62; PULSE 78; RESP 18
[2019-07-13 14:51] VITALS: BP 132/64; PULSE 88; RESP 20
[2019-07-13] MEDS: morphine 2 MG INJ IV PRN (16:32)
[2019-07-13 20:00] VITALS: BP 123/60; PULSE 81; RESP 20
[2019-07-13] MEDS: APIXABAN 5 MG TABLET PO SCH (20:51)
[2019-07-13] MEDS: ATORVASTATIN 40 MG TAB PO SCH (20:51)
[2019-07-13] MEDS: INSULIN GLARGINE [LANTus] (100 UNITS/ML) SYG SC SCH (21:04)
[2019-07-14] VITALS: BP 115/57; PULSE 84; RESP 20
[2019-07-14] MEDS: ACCU-CHEK XX SCH (02:00)
[2019-07-14 04:00] VITALS: BP 104/55; PULSE 80; RESP 20
[2019-07-14] MEDS: LEVOTHYROXINE 25 MCG TAB PO SCH (06:35)
[2019-07-14] MEDS: CEFAZOLIN 1 GM/50 ML (PMX) 50 ML IVPB SCH ×3 (06:35→21:56)
[2019-07-14 07:29] VITALS: BP 114/57; PULSE 78; RESP 20
[2019-07-14] MEDS: INSULIN ASPART [NOVOLOG] 3 ML PEN SC SCH ×4 (07:55→20:35)
[2019-07-14] MEDS: metFORMIN 500 MG TAB PO SCH ×2 (08:10→17:57)
[2019-07-14] MEDS: CLOPIDOGREL 75 MG TAB PO SCH (08:10)
[2019-07-14] MEDS: METOPROLOL (XL) 25 MG TAB PO SCH (08:11)
[2019-07-14] MEDS: DOCUSATE SODIUM 100 MG CAP PO SCH ×2 (08:12→20:53)
[2019-07-14] MEDS: LOSARTAN 50 MG TAB PO SCH (08:13)
[2019-07-14] MEDS: APIXABAN 5 MG TABLET PO SCH ×2 (08:13→20:53)
[2019-07-14] MEDS: DAKINS 0.0125%(1/40) 473 ML SOLUTION TP SCH (08:13)
[2019-07-14] MEDS: PREGABALIN 75 MG CAP PO SCH ×3 (08:59→20:53)
[2019-07-14 11:03] VITALS: BP 102/62; PULSE 90; RESP 19
[2019-07-14] MEDS: morphine 2 MG INJ IV PRN ×2 (12:16→20:20)
[2019-07-14 15:45] VITALS: BP 132/56; PULSE 81; RESP 18
[2019-07-14 20:00] VITALS: BP 146/67; PULSE 83; RESP 19
[2019-07-14] MEDS: INSULIN GLARGINE [LANTus] (100 UNITS/ML) SYG SC SCH (20:31)
[2019-07-14] MEDS: ATORVASTATIN 40 MG TAB PO SCH (20:53)
[2019-07-15] VITALS: BP 127/60; PULSE 83; RESP 18
[2019-07-15] MEDS: ACCU-CHEK XX SCH (02:00)
[2019-07-15 04:00] VITALS: BP 114/59; PULSE 84; RESP 18
[2019-07-15] MEDS: CEFAZOLIN 1 GM/50 ML (PMX) 50 ML IVPB SCH ×3 (06:31→22:35)
[2019-07-15] MEDS: LEVOTHYROXINE 25 MCG TAB PO SCH (06:32)
[2019-07-15 07:19] VITALS: BP 112/56; PULSE 80; RESP 20
[2019-07-15] MEDS: CLOPIDOGREL 75 MG TAB PO SCH (08:39)
[2019-07-15] MEDS: APIXABAN 5 MG TABLET PO SCH ×2 (08:39→21:16)
[2019-07-15] MEDS: PREGABALIN 75 MG CAP PO SCH ×3 (08:39→21:16)
[2019-07-15] MEDS: DOCUSATE SODIUM 100 MG CAP PO SCH ×2 (08:39→21:00)
[2019-07-15] MEDS: metFORMIN 500 MG TAB PO SCH ×2 (08:40→17:26)
[2019-07-15] MEDS: INSULIN ASPART [NOVOLOG] 3 ML PEN SC SCH ×4 (08:44→21:00)
[2019-07-15] MEDS: METOPROLOL (XL) 25 MG TAB PO SCH (08:45)
[2019-07-15] MEDS: DAKINS 0.0125%(1/40) 473 ML SOLUTION TP SCH (08:46)
[2019-07-15] MEDS: LOSARTAN 50 MG TAB PO SCH (08:46)
[2019-07-15] MEDS ORDERED: MAGNESIUM SULFATE 1 GM/D5W 100 ML IVPB ONE (10:00)
[2019-07-15 11:06] VITALS: BP 127/60; PULSE 85; RESP 20
[2019-07-15] MEDS: morphine 2 MG INJ IV PRN (13:33)
[2019-07-15 15:29] VITALS: BP 127/60; PULSE 87; RESP 20
[2019-07-15 20:00] VITALS: BP 127/67; PULSE 96; RESP 19
[2019-07-15] MEDS: INSULIN GLARGINE [LANTus] (100 UNITS/ML) SYG SC SCH (20:54)
[2019-07-15] MEDS ORDERED: LOPERAMIDE 2 MG CAP PO PRN (21:00)
[2019-07-15] MEDS: ATORVASTATIN 40 MG TAB PO SCH (21:16)
[2019-07-16] VITALS: BP 120/58; PULSE 97; RESP 18
[2019-07-16] MEDS: ACCU-CHEK XX SCH (02:00)
[2019-07-16 04:00] VITALS: BP 131/62; PULSE 85; RESP 19
[2019-07-16] MEDS: LEVOTHYROXINE 25 MCG TAB PO SCH (06:20)
[2019-07-16] MEDS: CEFAZOLIN 1 GM/50 ML (PMX) 50 ML IVPB SCH ×3 (06:20→21:00)
[2019-07-16 07:11] VITALS: BP 130/59; PULSE 78; RESP 18
[2019-07-16] MEDS: metFORMIN 500 MG TAB PO SCH ×2 (08:27→17:55)
[2019-07-16] MEDS: METOPROLOL (XL) 25 MG TAB PO SCH (08:28)
[2019-07-16] MEDS: CLOPIDOGREL 75 MG TAB PO SCH (08:28)
[2019-07-16] MEDS: APIXABAN 5 MG TABLET PO SCH ×2 (08:28→20:50)
[2019-07-16] MEDS: LOSARTAN 50 MG TAB PO SCH (08:28)
[2019-07-16] MEDS: DOCUSATE SODIUM 100 MG CAP PO SCH ×2 (08:28→20:51)
[2019-07-16] MEDS: INSULIN ASPART [NOVOLOG] 3 ML PEN SC SCH ×4 (08:33→20:58)
[2019-07-16] MEDS: DAKINS 0.0125%(1/40) 473 ML SOLUTION TP SCH (08:35)
[2019-07-16] MEDS: morphine 2 MG INJ IV PRN ×2 (08:35→21:42)
[2019-07-16] MEDS: PREGABALIN 75 MG CAP PO SCH ×3 (08:35→20:50)
[2019-07-16 11:26] VITALS: BP 123/57; PULSE 81; RESP 18
[2019-07-16 15:29] VITALS: BP 119/58; PULSE 83; RESP 18
[2019-07-16 19:59] VITALS: BP 125/64; PULSE 86; RESP 17
[2019-07-16] MEDS: ATORVASTATIN 40 MG TAB PO SCH (20:50)
[2019-07-16] MEDS: INSULIN GLARGINE [LANTus] (100 UNITS/ML) SYG SC SCH (21:10)
[2019-07-17] VITALS: BP 126/59; PULSE 82; RESP 18
[2019-07-17] MEDS: ACCU-CHEK XX SCH (02:00)
[2019-07-17 04:00] VITALS: BP 136/70; PULSE 82; RESP 18
[2019-07-17] MEDS: CEFAZOLIN 1 GM/50 ML (PMX) 50 ML IVPB SCH ×2 (05:58→14:57)
[2019-07-17] MEDS: LEVOTHYROXINE 25 MCG TAB PO SCH (06:00)
[2019-07-17 07:19] VITALS: BP 141/69; PULSE 77; RESP 18
[2019-07-17] MEDS: INSULIN ASPART [NOVOLOG] 3 ML PEN SC SCH ×3 (07:55→17:57)
[2019-07-17] MEDS: CLOPIDOGREL 75 MG TAB PO SCH (08:16)
[2019-07-17] MEDS: APIXABAN 5 MG TABLET PO SCH (08:16)
[2019-07-17] MEDS: metFORMIN 500 MG TAB PO SCH ×2 (08:16→17:53)
[2019-07-17] MEDS: DOCUSATE SODIUM 100 MG CAP PO SCH (08:16)
[2019-07-17] MEDS: PREGABALIN 75 MG CAP PO SCH ×2 (08:16→12:36)
[2019-07-17] MEDS: METOPROLOL (XL) 25 MG TAB PO SCH (08:17)
[2019-07-17] MEDS: LOSARTAN 50 MG TAB PO SCH (08:17)
[2019-07-17] MEDS: DAKINS 0.0125%(1/40) 473 ML SOLUTION TP SCH (08:17)
[2019-07-17] MEDS: morphine 2 MG INJ IV PRN ×2 (08:38→08:44)
[2019-07-17 11:15] VITALS: BP 128/63; PULSE 84; RESP 18
[2019-07-17 15:34] VITALS: BP 136/74; PULSE 80; RESP 18
== END 2019-07-17 19:55 | disposition home health service (06) | DRG 253 ==
LOC: REC 05:58 → ICU 12:46 → TEL 07-07 17:28
PROVIDERS: ADMIT Surgery Vascular Surgery; ATTEND Hospitalist
PROC: 06BQ4ZZ Excision of Left Saphenous Vein, Percutaneous Endoscopic Approach (ICD-10-PCS; 2019-07-06)
PROC: 041 Lower Arteries, Bypass (ICD-10-PCS; principal; 2019-07-06 08:00)
PROC: 0JBR0ZZ Excision of Left Foot Subcutaneous Tissue and Fascia, Open Approach (ICD-10-PCS; 2019-07-09)
DX: I70.262 Atherosclerosis of native arteries of extremities with gangrene, left leg (principal); M86.9 Osteomyelitis, unspecified; L97.529 Non-pressure chronic ulcer of other part of left foot with unspecified severity; I48.0 Paroxysmal atrial fibrillation; E11.9 Type 2 diabetes mellitus without complications; E03.9 Hypothyroidism, unspecified; E11.621 Type 2 diabetes mellitus with foot ulcer; E11.69 Type 2 diabetes mellitus with other specified complication; B95.61 Methicillin susceptible Staphylococcus aureus infection as the cause of diseases classified elsewhere; E78.5 Hyperlipidemia, unspecified; D63.8 Anemia in other chronic diseases classified elsewhere; L03.032 Cellulitis of left toe; L84 Corns and callosities
CPT/HCPCS: 80048; 80053; 82550; 82553; 82728; 82962; 83540; 83735; 84100; 84439; 84443; 84481; 84484; 85025; 85610; 85730; 87070; 87081; 93005; 97110; 97116; 97162; 97530; J0360; J0690; J1644; J1815; J2250; J2270; J2405; J2710; J3010; J3475; J7040